=== PATIENT | female | born 1970 | race Caucasian/White ===

== ENCOUNTER 2019-04-04 11:03 | Emergency (ER) | payer BC, SELFPAY ==
[2019-04-04 11:12] VITALS: BP 190/93; PULSE 79; RESP 18; TEMP 36.6; O2SAT 93
--- NOTE | 2019-04-04 12:38 | DI.RAD_ITS ---
SYMPTOMS/DIAGNOSIS: RIGHT KNEE PAIN, LIMITED RANGE OF MOTION, UNSTABLE SINCE KNEE SCOPE IN 2010 RIGHT KNEE: Three views. No acute fracture or dislocation, lytic or sclerotic lesion is seen. Periarticular spurring is seen involving all three joint compartments. There does appear to be a small joint effusion. IMPRESSION: Osteoarthritis of the right knee.
[2019-04-04] MEDS: Ibuprofen 600 MG TAB PO (12:41)
--- NOTE | 2019-04-04 12:41 | NUR.NOTE ---
patient medicated per MD order. awaiting diagnostics Nursing Note:
--- NOTE | 2019-04-04 13:36 | W.ED.GENAD ---
Discharge Plan Disposition Patient Disposition: HOME Condition: Stable Discharge Details Chief Complaint: Orthopedic Clinical Impression: Acute pain of right knee Primary Care Provider: Evita Phillips ED Provider: Madan Hu Home Meds and New Rx's Prescriptions: Continued lisinopril 20 mg Tablet 20 mg PO DAILY RF: 0 hydrochlorothiazide 25 mg Tablet 25 mg PO DAILY RF: 0 Discharge Instructions Instructions: Knee Pain (ED), RICE Therapy (ED) Additional Instructions: Please rest over the next couple days and slowly advance activity as tolerated. You may take 600 mg of ibuprofen along with 650-1000mg of acetaminophen every 6 hours. Apply ice to the knee to help with swelling and if not improving please call orthopedic office for arrangement of follow-up appointment. Feel free to return to the emergency department for any new or significant worsening of symptoms Stand Alone Forms: Work Release Referrals: Thomas Guzman MD [ [facility] STAFF PHYSICIAN] - (Call the office for arrangement of follow-up) Discharge Data Discharge Date/Time-TO BE ENTERED AT DEPARTURE: 04/04/19 13:52 Medical Decision Making Right knee pain, walking and felt a pop yesterday evening after feeling a pulling sensation at work when walking. Physical exam limited due to patient's body habitus but she is unable to bear weight so radiological imaging feels required to rule out acute fracture. Patient is significantly tender to the medial aspect of the knee and with valgus stress making me suspicious of a medial ligamentous injury but again difficult to fully assess due to pain and body habitus. Radiological imaging and radiologist interpretation shows degenerative joint disease otherwise no acute findings. Patient's knee was wrapped with Oscar wrap and she was instructed to rest for the next 3 days then advanced activity as tolerated. pt to follow up with ortho if not improving. HPI General Mode of arrival: wheelchair. Date/Time Provider Initiated Documentation: 04/04/19 11:33. Limitations to Documentation: no limitations. Information obtained by: patient and RN notes reviewed. History of Present Illness 48 year old F presents to the emergency department with the chief complaint of right knee pain, described as severe and similar to prior episodes, with intensity rated at 10. Quality is described as sharp, and is localized to the right and upper extremity. Patient started experiencing this day(s) (1) and it has been constant. No relieving factors improve symptom(s), Movement worsens symptoms . Patient notes no other symptoms.. Patient did receive the following treatments prior to arrival, none Related Data Home Medications Medication Instructions Recorded Confirmed hydrochlorothiazide 25 mg PO DAILY 04/04/19 04/04/19 lisinopril 20 mg PO DAILY 04/04/19 04/04/19 Allergies Allergy/AdvReac Type Severity Reaction Status Date / Time Latex, Natural Rubber Allergy Unverified 04/04/19 11:16 General Stated Complaint: Orthopedic JEANCARLOS: 4 Review of Systems Cardiovascular Denies syncope Musculoskeletal Reports as per HPI, Denies numbness and Denies tingling Integumentary/Breasts Denies rash, Denies sores and Denies wounds Neurologic Denies syncope, Denies numbness and Denies tingling PFSH Social History Smoking/Tobacco Use Status: Never Alcohol Intake: current Alcohol Intake frequency: holidays/special occasions only Drug use: Never Substance use type: does not use Do you feel safe at home: Yes Do you feel safe in your relationship?: Yes Exam Const General: cooperative and no acute distress Nutritional Appearance: obese Orientation: alert, awake and oriented x3 Resp Effort & Inspection: normal respiratory effort and able to speak in complete sentences Cardio Rate: regular rate Rhythm: regular rhythm Extrem Right lower extremity: hip/thigh Details: normal ROM; no tenderness, knee Details: tenderness Location: of the medial joint line, abnormal ROM Details: pain with active ROM during and knee ligament exam abnormal Details: valgus stress test normal; no ecchymosis and no crepitus and lower leg Details: tenderness Location: of the proximal tibia Course Vital Signs Temperature 36.6 C 04/04/19 11:12 Pulse 79 04/04/19 11:12 Respiratory Rate 18 04/04/19 11:12 Blood Pressure 190/93 H 04/04/19 11:12 Pulse Oximetry 93 L 04/04/19 11:12 Temperature 36.6 C 04/04/19 11:12 Temperature Source Temporal Artery Scan 04/04/19 11:12 Pulse 79 04/04/19 11:12 Respiratory Rate 18 04/04/19 11:12 Respiratory Effort Non-Labored 04/04/19 11:13 Blood Pressure 190/93 H 04/04/19 11:12 Blood Pressure Position Sitting 04/04/19 11:12 Pulse Oximetry 93 L 04/04/19 11:12 Oxygen Delivery Method Room Air 04/04/19 11:12 Oxygen Flow Rate 0 04/04/19 11:12 Pain Level 10 04/04/19 11:15
== END 2019-04-04 13:52 | disposition home or self-care (01) ==
PROVIDERS: Emergency Provider Nurse Practitioner Family; PCP Nurse Practitioner Family
DX: M25.561 Pain in right knee (principal)
CPT/HCPCS: 73562; 99283; 99282; E0114

== ENCOUNTER 2019-11-07 16:34 | Outpatient (REF) | payer OTHER, SELFPAY ==
[2019-11-07 19:10] LABS: ALT 25 U/L (14-59); AST 13 U/L (15-37); Albumin 3.5 g/dL (3.4-5.0); Alkaline Phosphatase 131 U/L (46-116); Anion Gap 9.8 mmol/L (3-11); BUN 20 mg/dL (7-18); Bilirubin, Total 0.2 mg/dL (0.2-1.0); CO2 29.2 mmol/L (21.0-32.0); CREATININE 0.85 mg/dL (0.55-1.02); Calcium 9.1 mg/dL (8.5-10.1); Calculated LDL 122 mg/dL; Chloride 103 mmol/L (98-107); Cholesterol 217 mg/dL (<200); Glucose 126 mg/dL (74-106); HDL Cholesterol 39 mg/dL (40-60); Potassium 4.1 mmol/L (3.5-5.1); Sodium 142 mmol/L (136-145); TSH (W/Ref FT4) 3.76 uIU/mL (0.36-3.74); Total Protein 7.5 g/dL (6.4-8.2); Triglyceride 284 mg/dL (<150)
[2019-11-07 19:22] LABS: HCT 40.3 % (36.0-46.0); HGB 12.7 g/dL (12.0-15.5); Mean Corp. HGB Concentration 31.5 g/dL (32.0-36.0); Mean Corpuscular Hemoglobin 27.1 pg (27.0-33.0); Mean Corpuscular Volume 85.9 fL (80-95); Mean Platelet Volume 10.9 fL (8.0-11.0); Platelet Count 376 x1000/uL (130-400); RBC 4.69 m/cumm (4.00-5.20); RBC Distribution Width 15.1 % (11.7-14.6); White Blood Cell Count 7.21 k/cumm (4.4-10.8)
[2019-11-07 19:28] LABS: FREE T4 0.86 ng/dL (0.76-1.46)
== END 2019-11-07 16:54 ==
LOC: NCHCN 16:34
PROVIDERS: PCP Nurse Practitioner Family; Visit Provider Nurse Practitioner Family
DX: I10 Essential (primary) hypertension (principal); N93.9 Abnormal uterine and vaginal bleeding, unspecified; G93.2 Benign intracranial hypertension
CPT/HCPCS: 80053; 80061; 85027; 84439; 84443

== ENCOUNTER 2019-12-04 12:42 | Outpatient (REF) | payer OTHER, SELFPAY ==
[2019-12-04 13:48] LABS: Abs Immature Grans 0.01 k/cumm (0.0-0.09); Absolute Basophil Count 0.02 k/cumm (0.0-0.2); Absolute Eosinophil Count 0.16 k/cumm (0.0-0.7); Absolute Lymphocyte Count 1.57 k/cumm (1.2-3.4); Absolute Monocyte Count 0.45 k/cumm (0.11-0.7); Absolute Neutrophil Count 3.32 k/cumm (1.2-6.7); Basophils % 0.4; Eosinophils % 2.9; HCT 39.1 % (36.0-46.0); HGB 12.3 g/dL (12.0-15.5); Immature Grans % 0.2 %; Lymphocytes % 28.4; Mean Corp. HGB Concentration 31.5 g/dL (32.0-36.0); Mean Corpuscular Volume 85.7 fL (80-95); Mean Platelet Volume 10.9 fL (8.0-11.0); Monocytes % 8.1; Platelet Count 351 x1000/uL (130-400); RBC 4.56 m/cumm (4.00-5.20); RBC Distribution Width 15.7 % (11.7-14.6); White Blood Cell Count 5.53 k/cumm (4.4-10.8)
[2019-12-04 17:45] LABS: ALT 24 U/L (14-59); AST 14 U/L (15-37); Albumin 3.3 g/dL (3.4-5.0); Alkaline Phosphatase 115 U/L (46-116); Anion Gap 8.8 mmol/L (3-11); BUN 15 mg/dL (7-18); Bilirubin, Total 0.4 mg/dL (0.2-1.0); CO2 28.2 mmol/L (21.0-32.0); CREATININE 0.72 mg/dL (0.55-1.02); Chloride 102 mmol/L (98-107); Glucose 105 mg/dL (74-106); Potassium 4.4 mmol/L (3.5-5.1); Sodium 139 mmol/L (136-145); Total Protein 7.1 g/dL (6.4-8.2)
== END 2019-12-04 13:02 ==
LOC: NCHCN 12:42
PROVIDERS: PCP Nurse Practitioner Family; Visit Provider Nurse Practitioner Family
DX: I10 Essential (primary) hypertension (principal)
CPT/HCPCS: 80053; 85025

== ENCOUNTER 2019-12-11 01:40 | Outpatient (CLI) | payer OTHER, SELFPAY ==
--- NOTE | 2019-12-11 09:14 | DI.MAMMO_ITS ---
EXAM: MG MAMMO SCREENING CLINICAL HISTORY: SCREENING, FAMILY H/O BREAST CA, Z80.3 TECHNIQUE: Mammograms were interpreted according to the usual protocol including computer analysis w Snip.ly system, tomosynthesis and C-view imaging. COMPARISON: FINDINGS: Breasts are of moderate density with fairly symmetrical distribution of fibroglandular tissue. No do minant mass or clumped microcalcification is identified in either breast. Current examination is com pared with previous examinations including July 2013 and there has been no gross interval change in appearance in comparison with previous studies. IMPRESSION: No specific evidence of malignancy at this time. Routine screening examinations are suggested at yea rly intervals due to the family history of breast carcinoma Category 1, breast density category B
== END 2019-12-11 02:00 ==
PROVIDERS: PCP Nurse Practitioner Family; Visit Provider Nurse Practitioner Family
DX: Z12.31 Encounter for screening mammogram for malignant neoplasm of breast (principal); Z80.3 Family history of malignant neoplasm of breast
CPT/HCPCS: 77063; 77067

== ENCOUNTER 2020-01-08 09:40 | Outpatient (REF) | payer OTHER, SELFPAY ==
[2020-01-08 18:57] LABS: PROTEIN 11.5 mg/dL
[2020-01-08 18:58] LABS: COMMENT (LAB VIEW ONLY) 47.94 mg/dL; Prot/Crea Ur Ratio 0.23
[2020-01-08 19:03] LABS: COMMENT (LAB VIEW ONLY) 48.57 mg/dL; Microalb ug/mg Crea 22.9 ug/mg Cr
== END 2020-01-08 10:00 ==
LOC: NCHCN 09:40
PROVIDERS: PCP Nurse Practitioner Family; Visit Provider Student in an Organized Health Care Education/Training Program
DX: I10 Essential (primary) hypertension (principal); R73.03 Prediabetes
CPT/HCPCS: 82043; 82565; 82570; 84156; 87070; 87205

== ENCOUNTER 2020-09-03 15:49 | Outpatient (REF) | payer OTHER, SELFPAY ==
[2020-09-05 13:52] LABS: Patient Race White; SARS-CoV-2 RNA Undetected (Undetected); SARS-CoV-2 Specimen Source Nasopharynx
== END 2020-09-03 16:09 ==
LOC: NCHCN 15:49
PROVIDERS: PCP Nurse Practitioner Family; Visit Provider Nurse Practitioner Family
DX: Z20.828 Contact with and (suspected) exposure to other viral communicable diseases (principal)
CPT/HCPCS: U0003

== ENCOUNTER 2021-07-11 13:03 | Outpatient (REF) | payer OTHER, SELFPAY ==
[2021-07-11 20:44] LABS: Abs Immature Grans 0.02 10^3/uL (0.0-0.06); Absolute Basophil Count 0.06 10^3/uL (0.0-0.2); Absolute Lymphocyte Count 1.85 10^3/uL (1.2-3.4); Absolute Monocyte Count 0.62 10^3/uL (0.1-0.8); Basophils % 0.7; Eosinophils % 2.4; HCT 39.8 % (36.0-46.0); HGB 12.2 g/dL (11.2-15.7); Immature Grans % 0.2; Lymphocytes % 21.9; MCH 27.3 pg (27.0-33.0); MCHC 30.7 % (32.0-36.0); MPV 10.6 fL (8.0-11.0); Monocytes % 7.3; Neutrophils % 67.5; Nucleated RBC 0 %; Platelet Count 397 10^3/uL (130-400); RBC 4.47 10^6/uL (3.93-5.22); RDW 15.4 % (11.7-14.6); RDW-SD 50.7 fL; WBC 8.45 10^3/uL (4.4-10.8)
[2021-07-11 20:58] LABS: Iron 26 ug/dL (50-170); Total Iron Binding Capacity 255 ug/dL (250-450); Transferrin Sat 10 % (15-50)
[2021-07-11 21:12] LABS: ALT 16 U/L (14-59); AST 14 U/L (15-37); Albumin 3.6 g/dL (3.4-5.0); Alkaline Phosphatase 109 U/L (46-116); Anion Gap 4.7 mmol/L (3-11); BUN 16 mg/dL (7-18); Bilirubin, Total 0.2 mg/dL (0.2-1.0); CO2 32.3 mmol/L (21.0-32.0); CREATININE 0.8 mg/dL (0.55-1.02); Calcium 9.1 mg/dL (8.5-10.1); Calculated LDL 122 mg/dL (<100); Chloride 103 mmol/L (98-107); Cholesterol 199 mg/dL (<200); Ferritin 52 ng/mL (8-252); Glucose 135 mg/dL (74-106); HDL Cholesterol 42 mg/dL (40-60); Potassium 4.2 mmol/L (3.5-5.1); Sodium 140 mmol/L (136-145); TSH (W/Ref FT4) 2.28 uIU/mL (0.36-3.74); Total Protein 7.3 g/dL (6.4-8.2); Triglyceride 175 mg/dL (<150)
== END 2021-07-11 13:04 | disposition home or self-care (01) ==
LOC: NCHCN 13:03
PROVIDERS: PCP Nurse Practitioner Family; Visit Provider Nurse Practitioner Family
DX: R53.83 Other fatigue (principal); I10 Essential (primary) hypertension; K30 Functional dyspepsia; R73.03 Prediabetes; E66.01 Morbid (severe) obesity due to excess calories; F41.9 Anxiety disorder, unspecified; R06.2 Wheezing
CPT/HCPCS: 80053; 80061; 82728; 83540; 83550; 84443; 85025

== ENCOUNTER 2021-08-25 02:06 | Outpatient (CLI) | payer OTHER, SELFPAY ==
--- NOTE | 2021-08-25 09:11 | DI.MAMMO_ITS ---
Exam(s) MAMMO SCREENING EXAM: MAMMO SCREENING CLINICAL HISTORY: SCREENING,Z12.39,FAMILY H/O BREAST CA,Z80.3. TECHNIQUE: Bilateral full field digital CC and MLO mammographic images were obtained with 3D tomosyn thesis and utilizing computer aided detection (CAD). COMPARISON: Prior mammograms dating back to 2012, the most recent being November 2019. FINDINGS: Asymmetry in breast size is unchanged from prior studies There are no new spiculated masses nor malignant appearing microcalcification groups. Microcalcification group at 12 o'clock position of the left breast is unchanged from 2013. Other emiliano ign microcalcification again noted bilaterally. There is no significant architectural distortion nor skin thickening-retraction. IMPRESSION: No radiographic evidence of malignancy. BI-RADS Category 1 - Negative Breast Density - Category B - Scattered areas of fibroglandular density Breast density Category C or D implies that the patient has dense breast tissue. Dense breast tissue can make it harder to find cancer on a mammogram. Dense breast tissue is also associated with an incr eased risk of breast cancer. This information about the result of the mammogram report was provided to the patient to raise their awareness. Use this report when you speak with the patient about their risks for breast cancer, which includes their family history. At that time, you may recommend additional screening tests (Ultrasoun d or MRI) as these tests may add significant information. A negative radiographic report should not delay biopsy if a dominant or clinically suspicious mass is present. Up to ten percent of cancers are not identified on mammography. A negative report may reinforce clinical impression. Adenosis and dense breasts may obscure an underlying neoplasm. False positive reports average 6 to 10%. Patient will receive a letter notifying them of these results.
== END 2021-08-25 02:26 ==
PROVIDERS: PCP Nurse Practitioner Family; Visit Provider Nurse Practitioner Family
DX: Z12.31 Encounter for screening mammogram for malignant neoplasm of breast (principal); Z80.3 Family history of malignant neoplasm of breast
CPT/HCPCS: 77063; 77067

== ENCOUNTER 2021-11-20 12:26 | Outpatient (REF) | payer OTHER, SELFPAY ==
--- NOTE | 2021-11-20 12:00 | PAPFT_PTH ---
PATIENT: Argelia Jain LOC: [facility]#:[id number] AGE/SX: 51/F ROOM: RE11/20/[address]: Jenise Almendarez : 1970 BED: DIS: 11/20/2021 SPEC #: [id number] RECD: 11/20/21 17:04 STATUS: LATOYA PHILIPPE #: [id number] LUCIA: 11/20/21 12:[address]: Jenise Almendarez DEPT: [facility] Cytology RECD BY: Liz Cates Tissues: 1 - CX/ENDOCX FOR PAP SMEARS Procedures: PAP THIN PREP/UVM Screening HPV DNA PROBE Comments: [id number]
== END 2021-11-20 12:27 | disposition home or self-care (01) ==
LOC: NCHCN 12:26
PROVIDERS: PCP Nurse Practitioner Family; Visit Provider Nurse Practitioner Family
DX: Z12.4 Encounter for screening for malignant neoplasm of cervix (principal); Z11.51 Encounter for screening for human papillomavirus (HPV)
CPT/HCPCS: 88142; 87624

== ENCOUNTER 2022-02-19 18:39 | Outpatient (REF) | payer OTHER, SELFPAY ==
[2022-02-19 15:49] LABS: Iron 45 ug/dL (50-170); Total Iron Binding Capacity 238 ug/dL (250-450); Transferrin Sat 19 % (15-50)
[2022-02-19 15:58] LABS: Ferritin 66 ng/mL (8-252)
[2022-02-19 16:06] LABS: Abs Immature Grans 0.02 10^3/uL (0.0-0.06); Absolute Basophil Count 0.05 10^3/uL (0.0-0.2); Absolute Eosinophil Count 0.21 10^3/uL (0.0-0.7); Absolute Lymphocyte Count 2.19 10^3/uL (1.2-3.4); Absolute Monocyte Count 0.44 10^3/uL (0.1-0.8); Absolute Neutrophil Count 4.32 10^3/uL (1.2-6.7); Basophils % 0.7; Eosinophils % 2.9; HCT 41.1 % (36.0-46.0); HGB 12.6 g/dL (11.2-15.7); Immature Grans % 0.3; Lymphocytes % 30.3; MCH 27.2 pg (27.0-33.0); MCHC 30.7 % (32.0-36.0); MCV 88.6 fL (80-95); MPV 10.8 fL (8.0-11.0); Monocytes % 6.1; Neutrophils % 59.7; Nucleated RBC 0 %; Platelet Count 377 10^3/uL (130-400); RBC 4.64 10^6/uL (3.93-5.22); RDW 15.8 % (11.7-14.6); RDW-SD 51.8 fL; WBC 7.23 10^3/uL (4.4-10.8)
== END 2022-02-19 18:40 | disposition home or self-care (01) ==
LOC: NCHCN 18:39
PROVIDERS: PCP Nurse Practitioner Family; Visit Provider Nurse Practitioner Family
DX: I10 Essential (primary) hypertension (principal); E03.9 Hypothyroidism, unspecified; R73.03 Prediabetes; E61.1 Iron deficiency; E66.01 Morbid (severe) obesity due to excess calories
CPT/HCPCS: 82728; 83540; 83550; 85025

== ENCOUNTER 2022-07-16 09:47 | Outpatient (REF) | payer OTHER, SELFPAY ==
[2022-07-16 16:37] LABS: Iron 48 ug/dL (50-170); Total Iron Binding Capacity 253 ug/dL (250-450)
[2022-07-16 16:49] LABS: Anion Gap 6.9 mmol/L (3-11); BUN 14 mg/dL (7-18); CO2 31.1 mmol/L (21.0-32.0); CREATININE 0.7 mg/dL (0.55-1.02); Chloride 100 mmol/L (98-107); Ferritin 74 ng/mL (8-252); Glucose 103 mg/dL (74-106); Potassium 4.4 mmol/L (3.5-5.1); Sodium 138 mmol/L (136-145); TSH (W/Ref FT4) 2.76 uIU/mL (0.36-3.74)
== END 2022-07-16 09:48 | disposition home or self-care (01) ==
LOC: NCHCN 09:47
PROVIDERS: PCP Nurse Practitioner Family; Visit Provider Nurse Practitioner Family
DX: E61.1 Iron deficiency (principal); F41.8 Other specified anxiety disorders; R53.83 Other fatigue; K30 Functional dyspepsia; E66.01 Morbid (severe) obesity due to excess calories; R60.0 Localized edema
CPT/HCPCS: 80048; 82728; 83540; 83550; 84443

== ENCOUNTER → 2022-08-27 03:12 | Outpatient (CLI) | payer OTHER, SELFPAY ==
--- NOTE | 2022-08-27 08:23 | DI.MAMMO_ITS ---
Exam(s) MAMMO SCREENING EXAM: MAMMO SCREENING CLINICAL HISTORY: SCREENING, Z12.39; FAM H/O BREAST CA, Z80.3 TECHNIQUE: Bilateral full field digital CC and MLO mammographic images were obtained with 3D tomosyn thesis and utilizing computer aided detection (CAD). COMPARISON: Available for comparison. FINDINGS: Masses/Architectural Distortion: None seen. Microcalcifications: No suspicious pleomorphic-type are seen. Skin Thickening/Nipple Retraction: None. IMPRESSION: 1. No significant interval change with no specific features of malignancy noted. 2. Unless there is more urgent need, screening mammography is recommended, as per [place] [employer] guidelines. BI-RADS Category 1 - Negative Breast Density - Category B - Scattered areas of fibroglandular density Breast density category C or D implies that the patient has dense breast tissue. Dense breast tissue is very common and is not abnormal but dense breast tissue can make it harder to find cancer on a ma mmogram. Also, dense breast tissue may increase their breast cancer risk. This information about the result of the mammogram report was provided to the patient to raise their awareness. Use this report when you speak with the patient about their risks for breast cancer, which includes their family hist ory. At that time, you may recommend for more screening tests (Ultrasound or MRI) as they might be us eful based on their risk. A negative radiographic report should not delay biopsy if a dominant or clinically suspicious mass is present. Up to ten percent of cancers are not identified on mammography. A negative report may reinforce clinical impression. Adenosis and dense breasts may obscure an underlying neoplasm. False positive reports average 6 to 10%. Patient will receive a letter notifying them of these results.
== END ==
PROVIDERS: PCP Nurse Practitioner Family; Visit Provider Nurse Practitioner Family
DX: Z12.31 Encounter for screening mammogram for malignant neoplasm of breast (principal)
CPT/HCPCS: 77063; 77067

== ENCOUNTER 2023-08-01 15:57 | Outpatient (REF) | payer OTHER, SELFPAY ==
[2023-07-30 21:47] LABS: Abs Immature Grans 0.02 10^3/uL (0.0-0.06); Absolute Basophil Count 0.05 10^3/uL (0.0-0.2); Absolute Eosinophil Count 0.16 10^3/uL (0.0-0.7); Absolute Lymphocyte Count 2.04 10^3/uL (1.2-3.4); Absolute Monocyte Count 0.36 10^3/uL (0.1-0.8); Absolute Neutrophil Count 4.75 10^3/uL (1.2-6.7); Basophils % 0.7; Eosinophils % 2.2; HCT 41.8 % (36.0-46.0); HGB 13.6 g/dL (11.2-15.7); Immature Grans % 0.3; Lymphocytes % 27.6; MCH 28.6 pg (27.0-33.0); MCHC 32.5 % (32.0-36.0); MCV 88 fL (80-95); MPV 10.7 fL (8.0-11.0); Monocytes % 4.9; Neutrophils % 64.3; Platelet Count 398 10^3/uL (130-400); RBC 4.76 10^6/uL (3.93-5.22); RDW 14.7 % (11.7-14.6); RDW-SD 47.5 fL; WBC 7.38 10^3/uL (4.4-10.8)
[2023-07-30 22:27] LABS: ALT 26 U/L (14-59); AST 17 U/L (15-37); Albumin 3.5 g/dL (3.4-5.0); Alkaline Phosphatase 136 U/L (46-116); Anion Gap 8.3 mmol/L (3-11); BUN 12 mg/dL (7-18); Bilirubin, Total 0.4 mg/dL (0.2-1.0); CO2 29.7 mmol/L (21.0-32.0); CREATININE 0.8 mg/dL (0.55-1.02); Calculated LDL 133 mg/dL (<100); Chloride 99 mmol/L (98-107); Cholesterol 221 mg/dL (<200); Estimated GFR 89.71 (mL/min/1.73m2); Ferritin 84 ng/mL (8-252); Glucose 108 mg/dL (74-106); HDL Cholesterol 47 mg/dL (40-60); Potassium 4.1 mmol/L (3.5-5.1); Sodium 137 mmol/L (136-145); TSH (W/Ref FT4) 3.37 uIU/mL (0.36-3.74); Total Protein 7.4 g/dL (6.4-8.2); Triglyceride 208 mg/dL (<150)
[2023-07-30 22:43] LABS: Iron 46 ug/dL (50-170); Total Iron Binding Capacity 264 ug/dL (250-450); Transferrin Sat 17 % (15-50)
== END 2023-08-01 15:58 | disposition home or self-care (01) ==
LOC: NCHCN 15:57
PROVIDERS: PCP Nurse Practitioner Family; Visit Provider Nurse Practitioner Family
DX: I10 Essential (primary) hypertension (principal); B00.1 Herpesviral vesicular dermatitis; J30.2 Other seasonal allergic rhinitis; G47.62 Sleep related leg cramps; E61.1 Iron deficiency; K30 Functional dyspepsia; F41.9 Anxiety disorder, unspecified; R73.03 Prediabetes
CPT/HCPCS: 80053; 80061; 82728; 83540; 83550; 84443; 85025

== ENCOUNTER → 2023-09-01 02:31 | Outpatient (CLI) | payer OTHER, SELFPAY ==
--- NOTE | 2023-09-01 08:18 | DI.MAMMO_ITS ---
Exam(s) MAMMO SCREENING EXAM: MAMMO SCREENING CLINICAL HISTORY: SCREENING, Z12.39, FAM HX BREAST CA, Z80.3. TECHNIQUE: Bilateral full field digital CC and MLO mammographic images were obtained with 3D tomosyn thesis and utilizing computer aided detection (CAD). COMPARISON: Prior mammograms were reviewed. FINDINGS: There has been no significant change in the appearance and distribution of the fibroglandular tissue. There are no new spiculated masses nor malignant appearing microcalcification groups. There is no significant architectural distortion nor skin thickening-retraction. IMPRESSION: No radiographic evidence of malignancy. BI-RADS Category 1 - Negative Breast Density - Category B - Scattered areas of fibroglandular density Breast density Category C or D implies that the patient has dense breast tissue. Dense breast tissue can make it harder to find cancer on a mammogram. Dense breast tissue is also associated with an incr eased risk of breast cancer. This information about the result of the mammogram report was provided to the patient to raise their awareness. Use this report when you speak with the patient about their risks for breast cancer, which includes their family history. At that time, you may recommend additional screening tests (Ultrasoun d or MRI) as these tests may add significant information. A negative radiographic report should not delay biopsy if a dominant or clinically suspicious mass is present. Up to ten percent of cancers are not identified on mammography. A negative report may reinforce clinical impression. Adenosis and dense breasts may obscure an underlying neoplasm. False positive reports average 6 to 10%. Patient will receive a letter notifying them of these results.
== END ==
PROVIDERS: PCP Nurse Practitioner Family; Visit Provider Nurse Practitioner Family
DX: Z12.31 Encounter for screening mammogram for malignant neoplasm of breast (principal)
CPT/HCPCS: 77063; 77067

== ENCOUNTER 2024-08-31 20:06 | Outpatient (REF) | payer BC, SELFPAY ==
[2024-08-31 21:22] LABS: ALT 24 U/L (14-59); AST 14 U/L (15-37); Albumin 3.6 g/dL (3.4-5.0); Alkaline Phosphatase 160 U/L (46-116); Anion Gap 5.2 mmol/L (3-11); BUN 14 mg/dL (7-18); CO2 31.8 mmol/L (21.0-32.0); CREATININE 0.9 mg/dL (0.55-1.02); Calcium 9.4 mg/dL (8.5-10.1); Chloride 100 mmol/L (98-107); Glucose 111 mg/dL (74-106); Potassium 4.5 mmol/L (3.5-5.1); Sodium 137 mmol/L (136-145); Total Protein 7.7 g/dL (6.4-8.2)
== END 2024-08-31 20:07 | disposition home or self-care (01) ==
LOC: NCHCN 20:06
PROVIDERS: PCP Nurse Practitioner Family; Visit Provider Nurse Practitioner Family
DX: I10 Essential (primary) hypertension (principal)
CPT/HCPCS: 80053

== ENCOUNTER 2024-09-05 12:55 | Outpatient (REF) | payer BC, SELFPAY ==
[2024-09-05 15:18] LABS: GGT 31 U/L (5-55)
[2024-09-11 16:45] LABS: 25-Hydroxy D Total 8.7 ng/mL; 25-Hydroxy D2 <4.0 ng/mL; 25-Hydroxy D3 8.7 ng/mL
== END 2024-09-05 12:56 | disposition home or self-care (01) ==
LOC: NCHCN 12:55
PROVIDERS: PCP Nurse Practitioner Family; Visit Provider Nurse Practitioner Family
DX: R74.8 Abnormal levels of other serum enzymes (principal)
CPT/HCPCS: 82306; 82652; 82977

== ENCOUNTER 2024-11-24 00:28 | Outpatient (CLI) | payer BC, SELFPAY ==
--- NOTE | 2024-11-24 | DI.MAMMO_ITS ---
Exam(s) MAMMO SCREENING EXAM: MAMMO SCREENING CLINICAL HISTORY: SCREENING, Z12.39. TECHNIQUE: Bilateral full field digital CC and MLO mammographic images were obtained with 3D tomosyn thesis and utilizing computer aided detection (CAD). COMPARISON: Prior mammograms were reviewed. FINDINGS: There has been no significant change in the appearance and distribution of the fibroglandular tissue. Benign-appearing microcalcifications again noted in both breasts. There are no new spiculated masses nor new malignant appearing microcalcification groups. There is no significant architectural distortion nor skin thickening-retraction. IMPRESSION: No radiographic evidence of malignancy. BI-RADS Category 1 - Negative Breast Density - Category B - Scattered areas of fibroglandular density Breast density Category C or D implies that the patient has dense breast tissue. Dense breast tissue can make it harder to find cancer on a mammogram. Dense breast tissue is also associated with an incr eased risk of breast cancer. This information about the result of the mammogram report was provided to the patient to raise their awareness. Use this report when you speak with the patient about their risks for breast cancer, which includes their family history. At that time, you may recommend additional screening tests (Ultrasoun d or MRI) as these tests may add significant information. A negative radiographic report should not delay biopsy if a dominant or clinically suspicious mass is present. Up to ten percent of cancers are not identified on mammography. A negative report may reinforce clinical impression. Adenosis and dense breasts may obscure an underlying neoplasm. False positive reports average 6 to 10%. Patient will receive a letter notifying them of these results.
--- OUTSIDE RECORDS SUMMARY | 2024-11-24 00:30 | XMS_ITS | Encounter Summary ---
Author Organization [facility] [place] [address] Care Team Providers Care Saddle Tree Stitcher Name Role Phone Nettie Centeno APRN Primary Care Provider Ana Lilia vailable Reason for Visit * Physical Therapy (Routine) - Closed Specialty Diagnoses / Procedures Referred By Sharon frank Referred To Contact Physical Therapy Diagnoses Rupture of anterior cruciate ligament of right knee, subsequent encounter Aamir Crews MD [facility] [place] [address] [facility] [address] [place] [address] Referral ID Status Reason Start Date Expiration Date V isits Requested Visits Authorized [id number] Closed Evaluate and Treat 07/28/2016 07/28/2017 1 1 Encounter Details Date Type Department Care Team (Late st Contact Info) Description 07/28/2016 9:15 AM EDT Office Visit Physical Therapy at [facility] [address] [place] [address] Hemant Tomas, PT H/O: knee surgery Social History Tobacco Use Types Packs/Day Years Used Date Smoking Tobacco: Never Smokeless Tobacco: Never Alcohol Use Standard Drinks/Week Comments Yes 0 (1 standard drink = 0.6 oz pur e alcohol) 1 or 2x a week Sex and Gender Information Value Date Recorded Sex Assigned at Not on file Gender Identity Not on file Sexual Orientation Not on file documented as of this encounter Progress Notes * Hemant Tomas, PT - 07/28/2016 9:15 AM EDT Images from the original note were not included. [facility] PT NOTE: DX: R KNEE PAIN ACL deficiency-arthroscopiy for MMT Case Date: 09/02/2011 ?? Surgeon: Surgeon(s) and Role: * AAMIR CREWS MD - Primary * FREDIS URIBE MD - Resident-Surgeon Brad ?? Preoperative diagnosis: Medial meniscus tear right ?? Postoperative diagnosis: Medial meniscus tear and ACL tears right knee ?? Procedure(s): ARTHROSCOPY KNEE, MENISCECTOMY SINGLE W/ SHAVING ARTHROSCOPY KNEE SYNOVECTOMY LIMITED S: Patient reports pain 4-8/10 and instability R knee + R ankle ashlyn on stairs and getting in and out of car or truck. O: FUNCTIONAL MOBILITY SCREEN: ROM R knee 0/105 STRENGTH R Knee -5/5 Hip -5/5 ankle 4/5 TRANSFERS : sit to stand independent & guarded GAIT : independent on level surfaces w/antalgia slight limp THERE-EX (96680 ) 23 min Patient instructed in general flexibility QUADS - HAMS-HC + stabilization w/ DL bridge supine - Perform only the stretches above reviewed by your therapist. Perform each stretch 3 repetitions holding 30-60 seconds 1-2 times daily. Remember to keep your back straight and hips level. Discontinue any of the stretches that increase your present level of discomfort and discuss with your therapist. Remember TALA E (rest, ice, compression, elevation) x15 minutes as needed after exercise and activity to reduce pain and swelling. Reviewed functional transfers sit-stand. STABILIZATION w/ISO CKC standing w/theraband. Stand on the affected leg with a slight knee bend no more than 30??. Try to bear the weight towards your heel and not the ball of your foot. Make sure you can see your big toe . It is normal to have some soreness that may feel hurtful however not harmful. Try straightening your knee a bit without locking it and this may reduce some discomfort. Maintain an upright trunk, a level pelvis, and do not allow the knee to collapse in toward the midline. Pull the band back on the unaffected leg 4-6 inches in the 12:00 to 6:00 direction while facing 12:00 as in #3 above. Turn 90?? toward the leg you are standing on opposite your unaffected leg that the band is attachedto. After 5 reps turn 90?? again until you have completed the 4 positions and have returned to the starting 12 o'clock position. Switch legs and repeat in the other direction. Start with 5 reps and work up to 10 reps . You may progress to 3 cycles of 10 reps for each leg 3-5 times a week. Applying a cold pack wrapped in a towel x15 minutes to your knee with the leg elevated above the level of your heart will help with pain management and swelling after activity and exercise. If you are concerned about your balance just place your foot down that has the band attached to it . You may slide your foot that has the band attached to it instead of picking it up until your balance improvements. You may also hold onto a ski pole or a crutch on the same side as the band on the good leg oppositeyour weaker leg. This should improve over time as you're strength and stabilization and improves. DISCONTINUE any of the above exercises if you are unsure of these instructions and speak with your PT. [phone] A: Patient reports 4-07/08 pain right knee with occasional instability s/p scope MM 09/08 w/ ACL deficiency. Patient also reports ankle pain and has been evaluated by Dr. Romero. And has Hx of club feet requiring surgical releases. Patient instructed in shallow closed kinetic chain isometric strengthening targeting [id number]-[id number]-odmhl-ankles using Thera-Band standing. She was also instructed in generalized flexibility and stabilization supine, sitting and standing. P: D/C to home exercise program with option for follow-up if needed. Patient was urged to call with any further questions or concerns at any time. Patient is agreeable with this plan. STG : Archer with home exercise program. Improve flexibility and stabilization strengthening for functional transfers and ambulation. LTG: Improve stabilization and proprioception for safe weightbearing activities. documented in this encounter Plan of Treatment Scheduled Referrals Name Type Priority Associated Diagnoses Orde r Schedule Referral to Physical Therapy Outpatient Referral Routine Rupture Of Anterior Cruciate Ligament Of Right Knee, Subsequent Encounter Ordered: 07/28/2016 documented as of this encounter Visit Diagnoses Diagnosis H/O: knee surgery Other postprocedural status documented in this encounter Care Teams Saddle Tree Stitcher Relationship Specialty Start Date End Date Nettie Centeno APRN PCP - General Family Medicine 07/02/16 documented as of this encounter
--- OUTSIDE RECORDS SUMMARY | 2024-11-24 00:30 | XMS_ITS | Encounter Summary ---
Author Organization [facility] [place] [address] Care Team Providers Care Manager Aviation Name Role Phone Jackelyn Richey APRN Primary Care Provider Unav ailable Reason for Visit * Reason Onset Date Comments Patient Education 06/03/2011 Encounter Details Date Type Department Care Team (Late st Contact Info) Description 06/03/2011 [place] [address] Afua Barreto, RN Patient Education Social History Tobacco Use Types Packs/Day Years Used Date Smoking Tobacco: Never Smokeless Tobacco: Never Alcohol Use Standard Drinks/Week Comments No 0 (1 standard drink = 0.6 oz pur e alcohol) Sex and Gender Information Value Date Recorded Sex Assigned at Not on file Gender Identity Not on file Sexual Orientation Not on file documented as of this encounter Miscellaneous Notes * Telephone Encounter - Afua Barreto RN - 06/03/2011 5:23 PM EDT Phone Note Argelia called with question regarding Diamox. She had been taking this medication for intercranialhypertension until September 2010. Stopped after finding out she was . Has a neurologist that has treated her for headaches in the past. Would like to start back on the same medication. Argelia delivered on 05/15/11 at [facility]. Infant was 37.5 wks gestation with no complications after . Argelia has been formula feeding via bottle with occasional attempts at the breast . States to painful. According to Dr. Nathan Mae Medications and Mothers' Milk Diamox taken BID 500mg is classified as an L2 with none reported pediatric concerns. Based on diuretic properties, maydecrease breastmilk supply. Argelia couldn't remember the dose that she took or how often. Based oninfant not on a regular basis and not pumping her chances of alone are low. Aware to come in for consult if intertested in pursuing further. Has phone number. Afua Barreto RN, IBCLC [employer] [facility] documented in this encounter Plan of Treatment Not on file documented as of this encounter Visit Diagnoses Not on filedocumented in this encounter Care Teams Manager Aviation Relationship Specialty Start Date End Date Jackelyn Richey, CORD CUTTER PCP - General 11/10/10 07/01/16 documented as of this encounter
--- OUTSIDE RECORDS SUMMARY | 2024-11-24 00:30 | XMS_ITS | Encounter Summary ---
[facility] [place] [address] Care Team Providers Care Vending Service Technician Name Role Phone Jackelyn Richey APRN Primary Care Provider Unav ailable Encounter Details Date Type Department Care Team (Late st Contact Info) Description 08/10/2011 Orders [place] [id number] Aamir Christensen MD [facility] [place] [address] Social History Tobacco Use Types Packs/Day Years Used Date Smoking Tobacco: Never Smokeless Tobacco: Never Alcohol Use Standard Drinks/Week Comments No 0 (1 standard drink = 0.6 oz pur e alcohol) Sex and Gender Information Value Date Recorded Sex Assigned at Not on file Gender Identity Not on file Sexual Orientation Not on file documented as of this encounter Plan of Treatment Not on file documented as of this encounter Procedures Procedure Name Priority Date/Time Associated Diagnosis Comments FILM LIBRARY STORAGE ONLY DX KNEE Routine 08/10/2011 10:24 AM EDT documented in this encounter Results * FILM LIBRARY- STORAGE ONLY DX KNEE (08/10/2011 10:24 AM EDT) 08/10/2011 10:2 4 AM EDT Narrative [facility] - 04/03/2014 7:48 PM EDT This is a non-reportable exam. Procedure Note Paul Fuller - 04/03/2014 This is a non-reportable exam. Aamir Christensen MD IM FILM LIBRARY ORD ERABLES RAD [address] [facility] [place] [address] documented in this encounter Visit Diagnoses Not on filedocumented in this encounter Care Teams Vending Service Technician Relationship Specialty Start Date End Date Jackelyn Richey APRN PCP - General 11/10/10 07/01/16 documented as of this encounter
--- OUTSIDE RECORDS SUMMARY | 2024-11-24 00:30 | XMS_ITS | Encounter Summary ---
Author Organization [facility] [place] [address] Care Team Providers Care Drip Molder Name Role Phone Nettie Centeno APRN Primary Care Provider Ana Lilia vailable Reason for Visit * Reason Comments Bilateral Foot Pain * Consultation (Routine) - Specialty Diagnoses / Procedures Referred By Sharon frank Referred To Contact Orthopaedics Diagnoses Pes planus, oa feet & knees Nettie Centeno APRN [address] [place] [address] [facility] [address] [place] [phone] Referral ID Status Reason Start Date Expiration Date V isits Requested Visits Authorized [id number] Consult, Test & Treat [facility] 07/02/2016 07/02/2017 1 1 Encounter Details Date Type Department Care Team (Latest Contact Info) Description 07/28/2016 8:00 AM EDT [place] [phone] Andrew Romero MD [facility] [address] [place] [address] Other secondary osteoarthritis of right ankle (Primary Dx) Social History Tobacco Use Types Packs/Day Years [...] on file documented as of this encounter Last Filed Vital Signs Vital Sign Reading Time Taken Comments Blood Pressure 154/96 07/28/2016 8:11 AM EDT Pulse 79 07/28/2016 8:11 AM EDT Temperature - - Respiratory Rate - - Oxygen Saturation - - Inhaled Oxygen Concentration - - Weight 149.7 kg (330 lb) 07/28/2016 8:11 AM EDT Height 162.6 cm (5' 4) 07/28/2016 8:11 AM EDT Body Mass Index 56.64 07/28/2016 8:11 AM EDT documented in this encounter Progress Notes * Florentin Kidd PA - 07/28/2016 8:00 AM EDT Chief complaint: Bilateral foot and ankle pain History of present illness: Argelia Jain is a 45 y.o. year-old morbidly obese female who presents today for evaluation for chronic foot and ankle pain. She presents today with her mother, to discuss congenital deformity of her foot and ankle. 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 She was seen and evaluated later and had a second operation with a heel cord lengthening at around 4 years of age. She explains the surgeon recommended an osteotomy, which the mother refused at that point in time. She did note good relief with the second operation with an increase in function. She was then treated with conservative treatment afterwards with immobilization and casting. The patient explains currently she troubles with issues with balance, and ankle pain. She notes these difficulties are worse on the right than the left. She is unable to heel raise, complains of limping, and pain in the morning. She has seen a title assistant in the past which is recommended bracing which she has not pursued. Patient denies any catching or locking, incision site difficulties, or redness about her bilateral feet. Past medical history: Patient Active Problem List Diagnosis Date Noted ??? H/O: knee surgery 09/10/2011 ??? ACL tear, traumatic 08/27/2011 ??? Acute meniscal tear, medial 08/27/2011 ??? state, incidental 04/07/2011 ??? GDM (gestational diabetes mellitus) 03/19/2011 ??? macrosomia 03/19/2011 ??? Polyhydramnios 03/19/2011 ? ? Obesity, morbid (more than 100 lbs over ideal weight or BMI > 40) 01/05/2011 ??? Benign hypertension due to increased intracranial pressure ??? AMA (advanced maternal age) primigravida 35+ 11/29/2010 History of blood clots or bleeding disorders: Denies Denies history of cardiac, lung, kidney, liver diease or diabetes Medications: ??? PROVENTIL HFA 90 mcg/actuation HFA Aerosol Inhaler ??? azithromycin (ZITHROMAX) 250 mg Tablet ??? levothyroxine (SYNTHROID) 75 mcg Tablet ??? levothyroxine (SYNTHROID) 50 mcg Tablet ??? lisinopril (PRINIVIL;ZESTRIL) 20 mg Tablet ??? ACETAZOLAMIDE ORAL Allergies: Allergies Allergen Reactions ??? Latex Hives Social history: Social History Substance Use Topics ??? Smoking status: Never Smoker ??? Smokeless tobacco: Never Used ??? Alcohol use Yes Comment: 1 or 2x a week Occupation: Works at [employer] Review of systems: No chest pain or shortness of breath at baseline No fevers, night sweats or chills Questionnaire Responses: No flowsheet data found. Physical Exam: No Apparent distress Exam is limited due to body habitus Right foot and ankle exam: There are 2 incisions about the medial aspect of the foot that are transverse, there is also a vertical incision about the distal heel cord. There is a pes planus deformity, patient is unable to heelraise, hindfoot valgus. Antalgic gait, ambulatory with assist. The skin is otherwise intact withouterythema, edema, ecchymosis, or open wound. There is no TTP or reproduction of tenderness and pain on exam over the medial malleolus, lateral malleolus, navicular, base of the fifth, first MTP joint.There are no palpable heel cord defects. Negative Martell test. Ankle range of motion is limited in dorsiflexion, can dorsiflex to neutral, plantar flex to 40??, invert 10??, clotilde 10??. 3/5 MMT in inversion, 5/5 MMT in PF, DF, eversion. Negative anterior drawer and subtalar tilt. PT/DP pulses 2+.Superficial peroneal, deep peroneal, sural, saphenous, and tibial nerves intact to touch. Left foot and ankle exam: There are 2 incisions about the medial aspect of the foot that are transverse, there is also a vertical incision about the distal heel cord. There is a pes planus deformity, patient is unable to heelraise, hindfoot valgus. Antalgic gait, ambulatory with assist. The skin is otherwise intact withouterythema, edema, ecchymosis, or open wound. There is no TTP or reproduction of tenderness and pain on exam over the medial malleolus, lateral malleolus, navicular, base of the fifth, first MTP joint.There are no palpable heel cord defects. Negative Martell test. Ankle range of motion is limited in dorsiflexion, can dorsiflex to neutral, plantar flex to 40??, invert 10??, clotilde 10??. 3/5 MMT in inversion, 5/5 MMT in PF, DF, eversion. Negative anterior drawer and subtalar tilt. PT/DP pulses 2+.Superficial peroneal, deep peroneal, sural, saphenous, and tibial nerves intact to touch. Imaging: Personal review of the patient's imaging reveals: X-rays obtained and reviewed. Negative for fracture, dislocation. There is osteoarthritis of the tibiotalar and subtalar joint bilaterally characterized by joint space narrowing, subchondral sclerosis, and osteophyte formation. No lytic, cystic, erosive changes. Assessment: 45 y.o. 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 OA secondary to club feet as a child. We discussed RICES, NSAIDS and APAP as tolerated, physical therapy, immobilization such as with an Tete brace versus an AFO with UCBL Trim lines, injections in the tibiotalar or subtalar joint, or ultimately a fusion. Patient is receptive to these options. We also discussed weight loss and potential referral to be weight loss center. At this point time, the patient will like to pursue conservative treatment with an Tete brace, or displacement instructions dispensed to obtain this. Patient will plan to see Dr. Romero. This patient was seen in conjuncture with Dr. Romero. Follow up: When necessary This plan was discussed with the patient and they are in agreement. All of the patient's questions were answered. The above dictation was made with voice recogonition software documented in this encounter Plan of Treatment Not on file documented as of this encounter Visit Diagnoses Diagnosis Other secondary osteoarthritis of right ankle- Primary documented in this encounter Care Teams Drip Molder Relationship Specialty Start Date End Date Nettie Centeno APRN PCP - General Family Medicine 07/02/16 documented as of this encounter
--- OUTSIDE RECORDS SUMMARY | 2024-11-24 00:30 | XMS_ITS | Clinical Summary ---
Author Organization [place] [address] Care Team Providers Care Dishwasher Busser Name Role Phone Nettie Centeno APRN Primary Care Provider Ana Lilia vailable Allergies Active Allergy Reactions Criticality Noted Date Comments Latex Hives 04/24/2011 Medications Medication Sig Dispensed Refills Start Date End Date Status ACETAZOLAMIDE ORAL Take 250 mg by mouth. Active PROVENTIL HFA 90 mcg/actuation HFA Aerosol Inhaler INHALE 1 TO 2 PUFFS 4 TIMES A DAY FOR 5 TO 7 DAYS 0 03/31/2016 Active azithromycin (ZITHROMAX) 250 mg Tablet TAKE 2 TABLETS BY MOUTH TODAY, THEN TAKE 1 TABLET DAILY FOR 4 DAYS 0 03/30/2016 Active levothyroxine (SYNTHROID) 75 mcg Tablet TAKE 1 TABLET BY MOUTH ONCE DAILY 1 07/08/2016 Active levothyroxine (SYNTHROID) 50 mcg Tablet TAKE 1 TABLET BY MOUTH EVERY MORNING 0 06/29/2016 Active lisinopril (PRINIVIL;ZESTRIL) 20 mg Tablet TAKE 1 TABLET BY MOUTH ONCE DAILY 3 06/29/2016 Active Active Problems Problem Noted Date Diagnosed Date Osteoarthritis of tibiotalar and subtalar joints 07/28/2016 H/O: knee surgery 09/10/2011 Rupture of anterior cruciate ligament 08/27/2011 Overview (08/28/2012): Right Acute meniscal tear, medial 08/27/2011 Overview (08/28/2012): Right state, incidental 04/07/2011 Overview (08/28/2012): MFM Delivery plan: Contraceptive plan: Dx replacement utility run on deactivated IMO Dx [id number] GDM (gestational diabetes mellitus) 03/19/2011 Assessment & Plan (05/05/2011 11:55 AM EDT): Did not bring FSBS, fasting 60-70, post meals are 116-117, occasionally 123. She is taking 5 mg at night. macrosomia 03/19/2011 Assessment & Plan (05/05/2011 11:56 AM EDT): Has amnio scheduled for Wednesday with IOL on Wednesday. Polyhydramnios 03/19/2011 Obesity, morbid (more than 1 00 lbs over ideal weight or BMI > 40) 01/05/2011 Overview (08/28/2012): BMI 56.6 pounds AMA (advanced maternal age) primigravida 35+ 11/2010 Overview (08/28/2012): Advanced maternal age Dates based on LMP consistent with an 11 week ultrasound Integrated screening gave a 1:3000 risk of Down Syndrome Patient born with clubbed feet Morbid obesity Psuedotumor Cerebri Benign hypertension due to increased intracrania l pressure Overview (02/03/2011): On Diamox prior to Being followed by neurologist and opthamologist every 2 months Assessment & Plan (05/05/2011 11:55 AM EDT): No MENDOZA Resolved Problems Problem Noted Date Diagnosed Date Resolved Date Mild preeclampsia 04/14/2011 02/26/2012 Immunizations Name Administration Dates Next Due Tdap (Adacel, Boostrix) 05/18/2011 Family History Medical History Relation Comments Cancer Mother Tuberculosis Other Diabetes Paternal Uncle Relation Status Comments Mother Other Paternal Uncle Social History Tobacco Use Types Packs/Day Years Used Date Smoking Tobacco: Never Smokeless Tobacco: Never Alcohol Use Standard Drinks/Week Comments Yes 0 (1 standard drink = 0.6 oz pur e alcohol) 1 or 2x a week Sex and Gender Information Value Date Recorded Sex Assigned at Not on file Gender Identity Not on file Sexual Orientation Not on file Last Filed Vital Signs Vital Sign Reading Time Taken Comments Blood Pressure 145/91 07/28/2016 9:05 AM EDT Pulse 77 07/28/2016 9:05 AM EDT Temperature 36.2 ??C (97.2 ??F) 09/02/2011 4:10 PM ED T Respiratory Rate 18 09/02/2011 4:52 PM EDT Oxygen Saturation 99% 09/02/2011 4:52 PM EDT Inhaled Oxygen Concentration - - Weight 149.7 kg (330 lb) 07/28/2016 9:05 AM EDT verbal Height 162.6 cm (5' 4) 07/28/2016 9:05 AM EDT v erbal Body Mass Index 56.64 07/28/2016 9:05 AM EDT Plan of Treatment Health Maintenance Due Date Last Done Comments CT Colonography 1972 Colonoscopy 1972 Colorectal Cancer Screening 1972 FIT DNA 1972 FIT 1972 Sigmoidoscopy (10 year) with FIT yearly 1972 Sigmoidoscopy 1972 HIV screen 1990 Hepatitis C Screening 1990 Lipid Screening 1990 Hepatitis B vaccine (0-59 yrs) (1) 1991 HPV test 2002 PAP Smear 2002 Breast Cancer Share Decision Needed 2012 Breast Cancer screening 2012 Tetanus/Diphtheria/Pertussis Vaccines (2 - Td or Tdap) 05/18/2021 05/18/2011 Zoster vaccine (1 of 2) 2022 Covid-19 Vaccine (1 - 2023- season) 2024 Influenza (Flu) vaccine (1 o f 1 - Influenza standard series) 07/30/2024 Advance Directives * Full Code (Latest Code Status on File) Date Activated Date Inactivated Comments 05/15/2011 5:39 AM 05/15/2011 9:15 AM Question Answer Comments Order Status: Initial Order Does patient have decision m aking capacity? Yes, Order is based on Patients wishes. * Full Code Date Activated Date Inactivated Comments 05/14/2011 7:13 AM 05/15/2011 5:39 AM Question Answer Comments Order Status: Initial Order Does patient have decision m aking capacity? Yes, Order is based on Patients wishes. * Full Code Date Activated Date Inactivated Comments 05/13/2011 1:11 AM 05/14/2011 7:13 AM Question Answer Comments Order Status: Initial Order Does patient have decision m aking capacity? Yes, Order is based on Patients wishes. * Full Code Date Activated Date Inactivated Comments 05/12/2011 2:03 PM 05/13/2011 1:11 AM Question Answer Comments Order Status: Initial Order Does patient have decision m aking capacity? Yes, Order is based on Patients wishes. Care Teams Dishwasher Busser Relationship Specialty Start Date End Date Nettie Centeno APRN PCP - General Family Medicine 07/02/16
--- OUTSIDE RECORDS SUMMARY | 2024-11-24 00:30 | XMS_ITS | Encounter Summary ---
Author Organization [facility] [place] [address] Care Team Providers Care Senior Java Data Architect Name Role Phone Nettie Centeno APRN Primary Care Provider Ana Lilia vailable Reason for Referral * Physical Therapy (Routine) - Closed Specialty Diagnoses / Procedures Referred By Contac t Referred To Contact Physical Therapy Diagnoses Rupture of anterior cruciate ligament of right knee, subsequent encounter Aamir Crews MD [facility] [place] [address] [facility] [address] [place] [address] Referral ID Status Reason Start Date Expiration Date V isits Requested Visits Authorized [id number] Closed Evaluate and Treat 07/28/2016 07/28/2017 1 1 Reason for Visit * Reason Comments Right Knee Pain Right knee pain s/p scope 09-06-11 * Consultation (Routine) - Specialty Diagnoses / Procedures Referred By Contac t Referred To Contact Orthopaedics Diagnoses R KNEE PAIN S/P SCOPE SURGERY WITH DR. CREWS 09-06-11 Procedures Self mail [facility] [address] [place] [phone] Referral ID Status Reason Start Date Expiration Date V isits Requested Visits Authorized [id number] 07/02/2016 07/02/2017 1 1 Encounter Details Date Type Department Care Team (Late st Contact Info) Description 07/28/2016 9:00 AM EDT Office [place] [phone] Aamir Crews MD [facility] [place] [address] Rupture of anterior cruciate ligament of right knee, subsequent encounter Social History Tobacco Use Types Packs/Day Years [...] Pulse 77 07/28/2016 9:05 AM EDT Temperature - - Respiratory Rate - - Oxygen Saturation - - Inhaled Oxygen Concentration - - Weight 149.7 kg (330 lb) 07/28/2016 9:05 AM EDT verbal Height 162.6 cm (5' 4) 07/28/2016 9:05 AM EDT v erbal Body Mass Index 56.64 07/28/2016 9:05 AM EDT documented in this encounter Progress Notes * Aamir Crews MD - 07/28/2016 9:00 AM EDT Ms. Jain is a very nice 45-year-old female, well known to me from prior surgery 5 years ago on her right knee. Briefly, she is a morbidly obese woman who suffered an acute anterior cruciate ligament disruption and bucket handle tear of her medial meniscus along with a chondral defect of her medial femoral condyle in 2010. She underwent arthroscopy at that time and we removed her torn meniscus but chose not to do an ACL reconstruction. Since her surgery, she has had gradually progressive increasing pain in her knee without loss of motion. Instability has not been an issue for her except on occasion such as which occurred about 6 weeks ago when she had a few episodes of instability but that has subsequently resolved. She is here just for followup to see how and why she is continuing to have some persistent knee complaints. Physical exam demonstrates Ms. Jain to be a morbidly obese lady who is resting in no apparent distress. She stands 5 feet, 3 inches tall and weighs 330 pounds. Right knee exam is somewhat difficult because of her size but she has full flexion and full extension compared to her contralateral side although the terminal arc of flexion is uncomfortable to her. She has tenderness over both her medial and lateral joint lines and she does have a sense of slight increased AP laxity with anterior drawer testing on this side compared to the contralateral side. She has no instability to varus or valgus stress. X-rays show progressive loss of her medial joint space from 2010 to 2016 with marginal osteophytes both medially and laterally. There also appears to be a slight subluxation of her joint which is occurring over time. ASSESSMENT: Posttraumatic DJD, right knee, in a chronically ACL deficient knee. I think Ms. Jain's symptoms are due to her arthritis and perhaps also due to her ACL deficiency. I would like to have her seen today in our clinic by our physical therapist, Garry Tomas, to work on a strengthening program and then I will also start her on an anti-inflammatory, Naprosyn 375 mg p.o. b.i.d. I will be seeing her back on an as needed basis. If she continues to have pain, we would consider an injection at that time. documented in this encounter Plan of Treatment Scheduled Referrals Name Type Priority Associated Diagnoses Orde r Schedule Referral to Physical Therapy Outpatient Referral Routine Rupture Of Anterior Cruciate Ligament Of Right Knee, Subsequent Encounter Ordered: 07/28/2016 documented as of this encounter Visit Diagnoses Diagnosis Rupture of anterior cruciate ligament of right knee, subsequent encounter documented in this encounter Care Teams Senior Java Data Architect Relationship Specialty Start Date End Date Nettie Centeno APRN PCP - General Family Medicine 07/02/16 documented as of this encounter
--- OUTSIDE RECORDS SUMMARY | 2024-11-24 00:30 | XMS_ITS | Encounter Summary ---
Author Organization [facility] [place] [address] Care Team Providers Care Securities Underwriter Name Role Phone Jackelyn Douglas APRN Primary Care Provider Unav ailable Encounter Details Date Type Department Care Team (Late st Contact Info) Description 09/02/2011 2:30 PM EDT - 09/02/2011 3:45 PM EDT Surgery [place] [phone] Aamir Crews MD [facility] [place] [address] ARTHROSCOPY KNEE, MENISCECTOMY SINGLE W/ SHAVING (WRVU 7.03) Social History Tobacco Use Types Packs/Day Years [...] Sign Reading Time Taken Comments Blood Pressure 128/80 09/02/2011 1:26 PM EDT Pulse 84 09/02/2011 1:26 PM EDT Temperature 36.7 ??C (98.1 ??F) 09/02/2011 1:35 PM ED T Respiratory Rate 18 09/02/2011 1:26 PM EDT Oxygen Saturation 96% 09/02/2011 1:26 PM EDT Inhaled Oxygen Concentration - - Weight 134.3 kg (296 lb) 09/02/2011 1:26 PM EDT Height 162.6 cm (5' 4) 09/02/2011 1:26 PM EDT Body Mass Index 50.81 09/02/2011 1:26 PM EDT documented in this encounter Discharge Instructions * Discharge Instructions* Lorena Wheeler RN - 09/02/2011 4:40 PM EDT General Anesthesia Discharge Instructions Go home and rest. You may be sleepy for several hours. Take it easy as sudden position changes may cause nausea. Be careful on stairs, as you may be unsteady on your feet. Do not smoke if you are alone. Follow a light to regular diet as tolerated today. If nausea occurs, start with clear liquids, and progress slowly to a regular diet. Do not drive, operate machinery, drink alcoholic beverages, or make important decisions for 24 hours after having general anesthesia. The medications given may change your reaction time or judgement without your awareness. IV site -- slight redness is normal, you can use warm compresses. If tenderness and redness increases or foul drainage occurs, please contact your M.D. Patients who have had endotracheal tubes. (this tube, used by the anesthesia department, is passed down your throat after you are asleep, to ensure safe air passage during your operation). A sore throat is normal due to the tube. Cold liquids or soothing lozenges will help ease the discomfort. The generalized muscle aches are due to the medication given to you just before the tube is inserted. As the medication wears off, you may develop muscle soreness, which usually goes away in 12 - 24 hours. Out[facility] 8:00-5:30 [facility] 21/06 ask for your doctor administrative assistant front desk 1. You may have received medication before and/or during your procedure, which affects judgment andreaction time. 2. Do not drive, operate machinery, drink alcoholic beverages, or make important decisions for 24 hours. 3. Be careful on stairs, as you may be unsteady on your feet. 4. Do not smoke if you are alone. 5. IV site - slight redness or tenderness is normal, you can use warm compresses. If tenderness andredness increases or foul drainage occurs, please contact your M.D. 6. Go home and rest. Drink plenty of fluids. If you develop a headache lasting longer than 24 hours, call the Anesthesia Department at [phone]. 7. You may eat a regular diet as tolerated. You may have received medication before and/or during your procedure, which affects judgment and reaction time. Do not drive, operate machinery, drink alcoholic beverages, or make important decisions for 24 hours. Be careful on stairs, as you may be unsteady on your feet. Do not smoke if you are alone. You may eat a regular diet as tolerated IV site - slight redness or tenderness is normal, you can use warm compresses. If tenderness and redness increases or foul drainage occurs, please contact your M.D. Go home and rest. Drink plenty of fluids. If you develop a headache lasting longer than 24 hours, call: Anesthesia Department at [phone]. . * Patient Instructions* Fredis Uribe MD - 09/02/2011 4:11 PM EDT Discharge Instructions Activity: you may be full weight bearing as tolerated with crutch assistance until you are seen in follow up Driving: Do no drive while taking narcotic pain medication. Do not drive until cleared by your Orthopaedic Surgeon. Dressing: All dressings should remain in place for 72 hours. Dressings should be removed and a clean sterile dressing should be applied once a day after the first 72 hours. Medications: MSContin/oxycodone You may also take Acetaminophen for pain. You may resume your home medications. Shower: Keep incision clean, dry, and intact until follow-up. Sponge bathe only until follow-up. Call your doctor if you develop: Fevers greater than 101.5* Fahrenheit Chills or night sweats Nausea or vomiting Wound redness or discharge Numbness or tingling Increased pain Pain with passive or active extension of fingers Calf pain or swelling Any questions or concerns Follow up: In the Orthopaedic Department, on 09/10/2011 at 4:20pm in clinic 3D as previously scheduled. Please bring your surgical photos to your first post-op appointment. Contact Information: Your orthopaedic surgeon:Aamir Crews MD: [email or web address]@ If it is after 5:00PM on a weekday or a weekend and it is of an urgent nature please call [phone] and ask for the on-call orthopaedic resident. Your Primary Care Physician: JACKELYN DOUGLAS APRN [phone] documented in this encounter Medications at Time of Discharge Medication Sig Dispensed Refills Start Date End Date ACETAZOLAMIDE ORAL Take 250 mg by mouth. morphine (MS CONTIN) 15 mg 12 hr tablet Take 1 tablet by mouth 2 times daily. 10 tablet 0 09/02/2011 09/10/2011 OXYcodone (ROXICODONE) 5 mg immediate release tablet Take 1-3 tablets by mouth every 4 hours as needed for Pain. 65 tablet 0 09/02/2011 09/10/2011 metoprolol tartrate (LOPRESSOR) 50 mg tablet Take 50 mg by mouth daily. 07/28/2016 naproxen sodium (ALEVE) 220 mg Cap Take 240 mg by mouth 2 times daily. 07/28/2016 documented as of this encounter Progress Notes * Lorena Wheeler RN - 09/02/2011 5:59 PM EDT Site of spinal on lower back, no hematoma, slightly pink at sight, no oozing documented in this encounter H&P Notes * Aamir Crews MD - 09/02/2011 2:02 PM EDT I have reviewed the history & physical exam by Jackelyn Douglas APRN. It was accurate, up to date,and requires no corrections. documented in this encounter Miscellaneous Notes * Op Note - Aamir Crews MD - 09/06/2011 3:20 PM EDT [facility] [place] Patient Name: Argelia Jain : [id number] MR#: [id number] Case Date: 09/02/2011 Surgeon: Surgeon(s) and Role: * AAMIR CREWS MD - Primary * FREDIS URIBE MD - Resident-Surgeon Brad Preoperative diagnosis: Medial meniscus tear right Postoperative diagnosis: Medial meniscus tear and ACL tears right knee Procedure(s): ARTHROSCOPY KNEE, MENISCECTOMY SINGLE W/ SHAVING ARTHROSCOPY KNEE SYNOVECTOMY LIMITED Anesthesia: General Estimated Blood Loss: Minimal Drains: None Disposition: awakened from anesthesia, extubated and taken to the recovery room in a stable condition, having suffered no apparent untoward event. Condition: doing well without problems Findings: Displaced, bucket handle tear of medial meniscus resected; complete midsubstance ACL tear; grade III chondral changes patellofemoral compartment and medial compartment; grade II DJD lateralcompartment. Intact PCL and lateral meniscus. Indications for the Procedure: DATE OF SURGERY: 09/02/2011 INDICATION FOR THE PROCEDURE: Ms. Jain is a 40-year-old female who unfortunately, after clinical and radiographic evaluation, was found to have an ACL tear in addition to a displaced bucket-handle tear of the medial meniscus. After discussing the risks and benefits of operative versus nonoperative management, the patient elected to proceed with surgery. DESCRIPTION OF PROCEDURE: The patient was met in the same-day holding area, where she was identified by her name, medical record number, and date of . The operative site was correctly marked. She then was met by the anesthesia team and cleared for surgery. She then was brought back to the operating suite and placed supine on the operating room table. A nonsterile tourniquet was placed high on her left thigh for an intraoperative hemostasis. The patient then had preoperative prophylactic antibiotics. She then had her right lower extremity prepped and draped in the usual sterile fashion. She then had a clinical time-out according to universal protocol. We then placed standard anteromedial and anterolateral arthroscopic knee portals. We then surveyed the knee arthroscopically. The displaced bucket-handle tear of the medial meniscus was discovered. Upon encountering this, we then utilized a combination of an arthroscopic biter in addition to an arthroscopic shaver to debride the displaced bucket-handle tear of the medial meniscus. We then swept the camera into the intercondylar notch where a midsubstance ACL tear grades was noted. We then swept the camera into the patellofemoral and back into the medial compartment where grade 3 chondral changes were noted. Grade 2 chondral changes were noted upon encountering the lateral tibial and lateral femoral surfaces. The posterior cruciate ligament in addition to the lateral meniscus were noted to be intact. After adequately debriding the displaced bucket-handle tear of the medial meniscus, we then irrigated the knee with several liters of sterile saline. We then suctioned the knee to ensure that any residual loose bodies were removed. We then turned our attention to closure. After closing our portal sites, we then dressed the wound with Mastisol, Steri-Strips, 4x4's, Kerlix, and an Oscar bandage. The patient was successfully extubated in the operating room suite, transferred to a hospital bed in stable condition, and brought back to the PACU in stable condition. At the end of the case, clinical sign out was performed and all sponge and instrument counts were correct x2. * Miscellaneous - Provider, Scanning - 09/02/2011 8:56 PM EDT * OR Attestation - Aamir Crews MD - 09/02/2011 3:59 PM EDT Attestation: Case Date: 09/02/2011 I was present and I participated during the entire procedure (does not need to include opening and closing). AAMIR CREWS MD 09/02/2011 * Brief Op Note - Aamir Crews MD - 09/02/2011 3:56 PM EDT Brief Operative Note Patient Name: Argelia Jain : [id number] MR#: [id number] Case Date: 09/02/2011 Surgeon: Surgeon(s) and Role: * AAMIR CREWS MD - Primary * FREDIS URIBE MD - Resident-Surgeon Brad Preoperative diagnosis: Medial meniscus and ACL tears right knee Postoperative diagnosis: Displaced, bucket handle medial meniscus tear and ACL tear right knee Procedure(s): ARTHROSCOPY KNEE, MENISCECTOMY SINGLE W/ SHAVING ARTHROSCOPY KNEE SYNOVECTOMY LIMITED Anesthesia: General Estimated Blood Loss: Minimal Drains: None Disposition: awakened from anesthesia, extubated and taken to the recovery room in a stable condition, having suffered no apparent untoward event. Condition: doing well without problems Findings: Displaced, bucket handle tear of medial meniscus resected; complete midsubstance ACL tear; grade III chondral changes patellofemoral compartment and medial compartment; grade II DJD lateralcompartment. Intact PCL and lateral meniscus. Routine postop arthroscopy protocol (Please see the Surgical Encounter Summary for any Implant and Specimen details pertinent to this patient.) * Miscellaneous - Provider, Scanning - 09/02/2011 1:14 PM EDT documented in this encounter Plan of Treatment Not on file documented as of this encounter Procedures Procedure Name Priority Date/Time Associated Diagnosis Comments ARTHROSCOPY KNEE SYNOVECTOMY LIMITED Routine 09/03/2011 4:02 PM EDT ARTHROSCOPY KNEE SYNOVECTOMY LIMITED (WRVU 6.45) 09/02/2011 2:35 PM EDT Medial meniscus tear ARTHROSCOPY KNEE, MENISCECTOMY SINGLE W/ SHAVING (WRVU 7.03) 09/02/2011 2:35 PM EDT Medial meniscus tear documented in this encounter Visit Diagnoses Not on filedocumented in this encounter Administered Medications Inactive Administered Medications - up to 3 most recent administrations Medication Order MAR Action Action Date Dose Rate Site cloNIDine injection ONCE PRN, 1 dose, Starting on Wed09/02/11 at 1556, Until Wed09/02/11 at 1556, Intra-Operative (Intra-Procedure), Routine Given 09/02/2011 3:56 PM EDT 50 mcg 19- Surgical Site HYDROmorphone (PF) (DILAUDID) 2 mg/mL injection ONCE PRN, 1 dose, Starting on Wed09/02/11 at 1556, Until Wed09/02/11 at 1556, Pain, Intra-Operative (Intra-Procedure), Routine Given 09/02/2011 3:56 PM EDT 2 mg 19- Surgical Site OXYcodone (ROXICODONE) immediate release tablet 10 mg 10 mg, Oral, EVERY 4 HOURS PRN, Starting on Wed09/02/11 at 1633, Until Wed09/02/11 at 1956, Pain, PACU Recovery, Routine Given 09/02/2011 4:34 PM EDT 10 mg documented in this encounter Active and Recently Administered Medications Times are shown in EDT. PRN Medication Order 08/31/2011 09/01/2011 09/02/2011 cloNIDine injection (COMPLETED) ONCE PRN, 1 dose, Starting on Wed09/02/11 at 1556, Until Wed09/02/11 at 1556, Intra-Operative (Intra-Procedure), Routine 1556 (Given - Provid er: Fredis Uribe MD - Comment: Given as local injection at end of case.) HYDROmorphone (PF) (DILAUDID) 2 mg/mL injection (COMPLETED) ONCE PRN, 1 dose, Starting on Wed09/02/11 at 1556, Until Wed09/02/11 at 1556, Pain, Intra-Operative (Intra-Procedure), Routine 1556 (Given - Provid er: Fredis Uribe MD - Comment: Given as local injection at end of case.) OXYcodone (ROXICODONE) immediate release tablet 10 mg (CANCELED) 10 mg, Oral, EVERY 4 HOURS PRN, Starting on Wed09/02/11 at 1633, Until Wed09/02/11 at 1956, Pain, PACU Recovery, Routine 1634 (Given - Provid er: Lorena Wheeler RN) documented in this encounter Care Teams Securities Underwriter Relationship Specialty Start Date End Date Jackelyn Douglas APRN PCP - General 11/10/10 07/01/16 documented as of this encounter
--- OUTSIDE RECORDS SUMMARY | 2024-11-24 00:30 | XMS_ITS | Encounter Summary ---
Author Organization [facility] Address [facility] [address] Care Team Providers Care Manager Internal Name Role Phone Jackelyn Richey APRN Primary Care Provider Unav ailable Encounter Details Date Type Department Care Team (Latest Contact Info) Description 08/03/2013 - 08/03/2013 11:59 PM EDT Hospital Encounter Radiology Library at [facility] [place] [phone] Andrew Romero MD [facility] [place] [address] Pain Discharge Disposition: Home Social History Tobacco Use Types Packs/Day Years Used Date Smoking Tobacco: Never Smokeless Tobacco: Never Alcohol Use Standard Drinks/Week Comments No 0 (1 standard drink = 0.6 oz pur e alcohol) Sex and Gender Information Value Date Recorded Sex Assigned at Not on file Gender Identity Not on file Sexual Orientation Not on file documented as of this encounter Medications at Time of Discharge Medication Sig Dispensed Refills Start Date End Date ACETAZOLAMIDE ORAL Take 250 mg by mouth. metoprolol tartrate (LOPRESSOR) 50 mg tablet Take 50 mg by mouth daily. 07/28/2016 naproxen sodium (ALEVE) 220 mg Cap Take 240 mg by mouth 2 times daily. 07/28/2016 documented as of this encounter Plan of Treatment Not on file documented as of this encounter Procedures Procedure Name Priority Date/Time Associated Diagnosis Comments FILM LIBRARY STORAGE ONLY DX KNEE Routine 08/03/2013 12:00 AM EDT Pain documented in this encounter Results * Film Library- Storage only DX Knee (08/03/2013 12:00 AM EDT) Narrative RAD - 07/08/2016 10:45 AM EDT This exam is for storage only and is auto-finalizing. Andrew Romero MD IMG FILM LIBRARY ORD ERABLES [place], [place] documented in this encounter Visit Diagnoses Diagnosis Pain Generalized pain documented in this encounter Care Teams Manager Internal Relationship Specialty Start Date End Date Jackelyn Richey, BLOOD DONOR RECRUITER PCP - General 11/10/10 07/01/16 documented as of this encounter
--- OUTSIDE RECORDS SUMMARY | 2024-11-24 00:30 | XMS_ITS | Encounter Summary ---
Author Organization [facility] [place] [address] Care Team Providers Care Lining Vamper Name Role Phone Florecita Douglas APRN Primary Care Provider Unav ailable Reason for Visit * Reason Comments Scheduled Induction Encounter Details Date Type Department Care Team (Latest Contact Info) Description 05/12/2011 12:01 PM EDT - 05/19/2011 1:39 PM EDT [place] [id number] Lori Godwin MD [facility] [address] [facility]ST[facility] [place] [address] Sheree Dawn MD [facility] [address] [facility]STETRICS [place] [address] Mild preeclampsia; ; GDM (gestational diabetes mellitus); Mild or unspecified pre-eclampsia, unspecified as to episode of care; state, incidental; Abn glucose in preg-unsp; Primary uterine inertia, with delivery; Mild or unspecified pre-eclampsia, with delivery; Abnormality in heart rate/rhythm, delivered; Outcome of delivery, single liveborn; Abnormal maternal glucose tolerance, with delivery; Other and unspecified uterine inertia, with delivery; Elderly primigravida, delivered; Obesity-delivered; Morbid obesity; Other curr cond-delivered; Carrier or suspected carrier of group B Streptococcus Discharge Disposition: Home with VNA Social History Tobacco Use Types Packs/Day Years [...] Sign Reading Time Taken Comments Blood Pressure 140/82 05/19/2011 7:41 AM EDT Pulse 80 05/19/2011 7:41 AM EDT Temperature 36.7 ??C (98.1 ??F) 05/19/2011 7:41 AM ED T Respiratory Rate 20 05/19/2011 7:41 AM EDT Oxygen Saturation 98% 05/16/2011 4:49 PM EDT Inhaled Oxygen Concentration - - Weight - - Height - - Body Mass Index - - documented in this encounter Discharge Instructions * Discharge Instructions* Tamera Keenan RN - 05/19/2011 11:15 AM EDT Nursing Inpatient Progress C - Section Follow-up Follow-ups: Immunizations Received: [ ] MMR [x ] Tdap [ ] Inactivated Influenza Vaccine [ ] Other: Medications Received: [ ] Rhogam Given: (time/date) [ ] Depoprovera Given: (time/date) [ ] Other: Referrals: Additional Instructions: Maternal Discharge Instructions Rest: Although it may seem impossible to get enough rest, simple planning will help. Try to get at least one four hour block of uninterrupted sleep in 24 hours; then plan to rest, and/or sleep when your baby does. Limiting visitors also helps. Fathers and other family members can help by doing housework, caring for other children and/or helping limit visitors. Activity: After delivery, it is safe to climb stairs at home. Do not lift anything heavierthan your baby for two weeks. Do not drive for two weeks or while taking pain medicine that contains a narcotic as your reaction time may be decreased. Nutrition: Your diet following the of your baby is as important as it was before the baby wasborn. Drink a minimum of 6-8 glasses a day. Do not attempt to lose weight during the first six weeks. Continue taking your vitamins until they are gone. Lochia: (Flow) Your flow should be no heavier than a normal period. It will be bright red for 2-3 days and then pinkish and finally colorless. If your flow becomes bright red again, decrease your activity. Do not use tampons until your care provider advises you it is OK. Incision: Wash the incision with soap and water and pat dry. It is normal to have clear or pinkish fluid seep from the incision. Gauze pads or sanitary napkins may help to keep the incision dry if itis located in a fold under your tummy. If the incision has more redness, yellow drainage, or becomes more painful, contact the obstetrics clinic. Breast Care for Formula feeding mothers: Wear a well fitting bra to support your breasts. Ice packsto your breasts and Tylenol or Ibuprofen may be used to relieve discomfort from engorgement. Avoid stimulating your breasts: Do not let warm water from the shower fall on them; avoid holding your baby near your breasts until your milk begins to decrease and engorgement is relieved. Breast feeding mothers: Practice careful positioning and frequent feeding as demonstrated in the hospital. The printed information in your packet covers this in detail. Call your doctor or flash welder for: Fever more than 100.5 Heavy bleeding that saturates a pad an hour Clots larger than a plum Increased abdominal pain, nausea, shaking chills Increased redness or soreness over your incision Breast with hot, hard, tender areas on the breast plus flu-like symptom depression occurs in a large percentage of women. We encourage you to contact your provider or a member of the nursing staff if you are feeling so overwhelmed that you are unable to care for yourself or your baby. Keep your follow up appointment. You may call the [facility] at any time for guidance or for answers to questions that come up prior to you follow up appointment. Your [facility] Provider can be reached during office hours at [facility]wives [facility] Follow-up Clinic AFTER OFFICE HOURS for the ibm mainframe developer or flash welder stone driller Provider electronic signature confirms that discharge instructions were reviewed with the patient. A copy was printed and given to the patient. documented in this encounter Medications at Time of Discharge Medication Sig Dispensed Refills Start Date End Date docusate sodium (COLACE) 100 mg capsule Take 1 capsule by mouth 2 times daily as needed for Constipation for 10 days. 20 capsule 0 05/19/2011 05/28/2011 ibuprofen (ADVIL;MOTRIN) 600 mg tablet Take 1 tablet by mouth every 6 hours as needed for Pain. 30 tablet 0 05/19/2011 06/24/2011 OXYcodone-acetaminop hen (PERCOCET) 5-325 mg per tablet Take 1-2 tablets by mouth every 3 hours as needed for Pain (moderate-severe pain). 30 tablet 0 05/19/2011 06/24/2011 VITS W-CA,FE,FA,<1MG, ( VITAMIN ORAL) 11/19/2010 06/24/2011 documented as of this encounter Progress Notes * Xu Ellis MD - 05/19/2011 6:35 AM EDT Delivery Note Delivery Date: 05/15/11 Delivery Type: primary section Subjective: Complains of nothing. Pain is wellcontrolled. She is tolerating diet well, urinating and ambulating without difficulty. General ROS: Review of Systems Lochia: small Physical Exam: Last Set of Vitals and range of vital over past 24 hours: BP 158/77 Pulse 74 Temp(Src) 36.8 ??C(98.2 ??F) (Oral) Resp 18 SpO2 98% LMP 08/23/2010 ? Unknown Physical Exam Uterine Fundus: firm Incision: healing well no significant drainage no significant erythema Lochia: appropriate Ext: 3+ bilateral LE edema Significant Labs: None new Assessment: 40 y.o. woman who presented as a female POD #4 who underwent with labor on 05/15/11 at 37 6/7 wga for worsening symptoms of preeclampsia and arrest of dilation whose was complicated by GDM. Started on labetalol yesterday and BP in the 150-160/70's yesterday. Completed 24 hours of magnesium. HELLP labs normal. nutrition: breast Contraception: micronor Circumcision: not applicable Plan: Continue routine care: encourage ambulation anticipated discharge PPD # 4 Additional Plans: consultation prn VNA to remove vernon in 2 days and preform a BP check Random glucose tomorrow and follow-up with JESSI Diaz 05/19/2011 Maternal Medicine Note: I have personally reviewed the patient's symptoms, history and physical status and agreewith the resident physician's assessment and plan as documented. Xu Ellis MD, MS 05/19/2011 * Xu Ellis MD - 05/18/2011 7:01 AM EDT Delivery Note Delivery Date: 05/15/11 Delivery Type:primary low transverse section after failed IOL Subjective: Complains of nothing. Pain is wellcontrolled. She is tolerating diet well, urinating and ambulating without difficulty. working on breast feeding. General ROS: Review of Systems Lochia: small Physical Exam: Last Set of Vitals and range of vital over past 24 hours: BP 166/78 Pulse 85 Temp(Src) 37 ??C (98.6 ??F) (Oral) Resp 18 SpO2 98% LMP 08/23/2010 ? Unknown Physical Exam Uterine Fundus: firm Incision: healing well no significant drainage no significant erythema Lochia: appropriate Significant Labs: Recent Results (from the past 72 hour(s)) CBC (WITH DIFF) Component Value Range ??? WBC 12.5 (*) 4.0 - 10.0 (x10(3)/mcL) ??? RBC 3.60 (*) 3.93 - 5.22 (x10(6)/mcL) ??? Hemoglobin 9.4 (*) 11.2 - 15.7 (gm/dL) ??? Hematocrit 28.9 (*) 34.0 - 45.0 (%) ??? MCV 80.3 79.0 - 94.0 (fL) ??? MCH 26.1 (*) 26.6 - 32.2 (pg) ??? MCHC 32.5 32.0 - 36.5 (gm/dL) ??? Platelets 319 145 - 370 (x10(3)/mcL) ??? RDWSD 51.2 (*) 35.0 - 46.0 (fL) ??? RDWCV 17.5 (*) 10.9 - 14.4 (%) ??? MPV 9.8 9.0 - 12.0 (fL) ASPARTATE AMINOTRANSFERASE Component Value Range ??? AST 19 0 - 30 (unit/L) CREATININE, SERUM Component Value Range ??? Creatinine 0.76 0.70 - 1.20 (mg/dL) ? ? Estimated GFR >60 >=60 REFLEX LAB-A-DIFF Component Value Range ??? Neutrophils % 84.5 (*) 34.0 - 71.0 (%) ??? Neutr Abs (ANC) 10.57 (*) 1.50 - 6.30 (x10(3)/mcL) ??? Lymphocytes % 7.2 (*) 19.0 - 53.0 (%) ??? Lymphocytes Abs 0.9 (*) 1.0 - 3.6 (x10(3)/mcL) ??? Monocytes % 7.8 4.0 - 13.0 (%) ??? Monocyte Abs 1.0 0.2 - 1.0 (x10(3)/mcL) ??? Eosinophils % 0.2 0.0 - 7.0 (%) ??? Eosinophils Abs 0.0 0.0 - 0.5 (x10(3)/mcL) ??? Basophils % 0.1 0.0 - 2.0 (%) ??? Basophils Abs 0.0 0.0 - 0.2 (x10(3)/mcL) ??? Immature Gran % 0.20 0.00 - 0.66 (%) ??? Barby Gran Abs 0.03 0.00 - 0.05 (x10(3)/mcL) CBC (WITH DIFF) Component Value Range ??? WBC 12.6 (*) 4.0 - 10.0 (x10(3)/mcL) ??? RBC 3.41 (*) 3.93 - 5.22 (x10(6)/mcL) ??? Hemoglobin 8.9 (*) 11.2 - 15.7 (gm/dL) ??? Hematocrit 27.4 (*) 34.0 - 45.0 (%) ??? MCV 80.4 79.0 - 94.0 (fL) ??? MCH 26.1 (*) 26.6 - 32.2 (pg) ??? MCHC 32.5 32.0 - 36.5 (gm/dL) ??? Platelets 361 145 - 370 (x10(3)/mcL) ??? RDWSD 52.0 (*) 35.0 - 46.0 (fL) ??? RDWCV 17.6 (*) 10.9 - 14.4 (%) ??? MPV 10.4 9.0 - 12.0 (fL) ASPARTATE AMINOTRANSFERASE Component Value Range ??? AST Not Perf 0 - 30 (unit/L) CREATININE, SERUM Component Value Range ??? Creatinine 0.74 0.70 - 1.20 (mg/dL) ? ? Estimated GFR >60 >=60 REFLEX LAB-NUCLEATED RED BLOOD CELLS Component Value Range ??? nRBC % Auto 0.0 0.0 - 0.2 (%) ??? nRBC Abs Auto 0.000 0.000 - 0.012 (x10(3)/mcL) REFLEX LAB-A-DIFF Component Value Range ??? Neutrophils % 82.9 (*) 34.0 - 71.0 (%) ??? Neutr Abs (ANC) 10.40 (*) 1.50 - 6.30 (x10(3)/mcL) ??? Lymphocytes % 8.4 (*) 19.0 - 53.0 (%) ??? Lymphocytes Abs 1.1 1.0 - 3.6 (x10(3)/mcL) ??? Monocytes % 8.0 4.0 - 13.0 (%) ??? Monocyte Abs 1.0 0.2 - 1.0 (x10(3)/mcL) ??? Eosinophils % 0.3 0.0 - 7.0 (%) ??? Eosinophils Abs 0.0 0.0 - 0.5 (x10(3)/mcL) ??? Basophils % 0.2 0.0 - 2.0 (%) ??? Basophils Abs 0.0 0.0 - 0.2 (x10(3)/mcL) ??? Immature Gran % 0.20 0.00 - 0.66 (%) ??? Barby Gran Abs 0.03 0.00 - 0.05 (x10(3)/mcL) ASPARTATE AMINOTRANSFERASE Component Value Range ??? AST Not Perf 0 - 30 (unit/L) POCT GLUCOSE LAB USE ONLY Component Value Range ??? POC Glucose 131 60 - 199 (mg/dL) ASPARTATE AMINOTRANSFERASE Component Value Range ??? AST 20 0 - 30 (unit/L) CBC (WITH DIFF) Component Value Range ??? WBC 11.6 (*) 4.0 - 10.0 (x10(3)/mcL) ??? RBC 3.37 (*) 3.93 - 5.22 (x10(6)/mcL) ??? Hemoglobin 8.8 (*) 11.2 - 15.7 (gm/dL) ??? Hematocrit 27.5 (*) 34.0 - 45.0 (%) ??? MCV 81.6 79.0 - 94.0 (fL) ??? MCH 26.1 (*) 26.6 - 32.2 (pg) ??? MCHC 32.0 32.0 - 36.5 (gm/dL) ??? Platelets 325 145 - 370 (x10(3)/mcL) ??? RDWSD 51.9 (*) 35.0 - 46.0 (fL) ??? RDWCV 17.8 (*) 10.9 - 14.4 (%) ??? MPV 9.9 9.0 - 12.0 (fL) CREATININE, SERUM Component Value Range ??? Creatinine 0.64 (*) 0.70 - 1.20 (mg/dL) ? ? Estimated GFR >60 >=60 REFLEX LAB-NUCLEATED RED BLOOD CELLS Component Value Range ??? nRBC % Auto 0.0 0.0 - 0.2 (%) ??? nRBC Abs Auto 0.000 0.000 - 0.012 (x10(3)/mcL) REFLEX LAB-A-DIFF Component Value Range ??? Neutrophils % 72.3 (*) 34.0 - 71.0 (%) ??? Neutr Abs (ANC) 8.39 (*) 1.50 - 6.30 (x10(3)/mcL) ??? Lymphocytes % 17.4 (*) 19.0 - 53.0 (%) ??? Lymphocytes Abs 2.0 1.0 - 3.6 (x10(3)/mcL) ??? Monocytes % 8.2 4.0 - 13.0 (%) ??? Monocyte Abs 1.0 0.2 - 1.0 (x10(3)/mcL) ??? Eosinophils % 1.5 0.0 - 7.0 (%) ??? Eosinophils Abs 0.2 0.0 - 0.5 (x10(3)/mcL) ??? Basophils % 0.3 0.0 - 2.0 (%) ??? Basophils Abs 0.0 0.0 - 0.2 (x10(3)/mcL) ??? Immature Gran % 0.30 0.00 - 0.66 (%) ??? Barby Gran Abs 0.04 0.00 - 0.05 (x10(3)/mcL) Recent Labs Basename 05/12/11 1412 ??? ABORH O Pos No components found with this basename: RUBELLA:* Relevant Immunizations: There is no immunization history for the selected administration types on file for this patient. Assessment: 40 y.o. woman who presented as a female POD #3 who underwent with labor on 05/15/11 at 37 6/7 wga for worsening symptoms of preeclampsia and arrest of dilation whose was complicated by GDM. BP in the 140's/60- 70's with one 160's/70's. Completed 24 hours of magnesium. HELLP labs normal. nutrition: breast Contraception: micronor Circumcision: not applicable Plan: Continue routine care: encourage ambulation anticipated discharge PPD # 3 Additional Plans: consultation prn Return in 3 days for staple removal and BP check Random glucose tomorrow and follow-up with JSESI Diaz 05/18/2011 Maternal Medicine Note: I have personally reviewed the patient's symptoms, history and physical status and agreewith the resident physician's assessment and plan as documented. Xu Ellis MD, MS 05/18/2011 * Sierra Noguera MD - 05/17/2011 7:32 AM EDT Delivery Note Delivery Date: 05/17/11 Delivery Type: with labor Subjective: Complains of nothing. Pain is wellcontrolled. She is tolerating diet regular diet. Ambulating. Wesley removed. General ROS: Review of Systems Lochia: small Physical Exam: Last Set of Vitals and range of vital over past 24 hours: BP 146/72 Pulse 78 Temp(Src) 36.8 ??C(98.2 ??F) (Oral) Resp 18 SpO2 98% LMP 08/23/2010 ? Unknown Physical Exam Uterine Fundus: firm Dressing: clean, dry and intact Incision: dressing in place Lochia: appropriate Significant Labs: Recent Labs Basename 05/12/11 1412 ??? ABORH O Pos Assessment: 40 y.o. woman who presented as a female POD #2 who underwent with labor on 05/15/11 at 37 6/7 wga for worsening symptoms of preeclampsia and arrest of dilation whose was complicated by GDM. BP in the 130-140's/60-70's . Completed 24 hours of magnesium. HELLP labs remain normal. Infant nutrition: breast Contraception: not discussed today Circumcision: not applicable Plan: Continue routine care: ?? encourage ambulation ?? advance diet until regular ?? d/c IV when taking adequate PO ?? d/c wesley when ambulating ?? change dressing PPD # 2 ?? routine bowel orders ?? anticipated discharge PPD # 3 Additional Plans: consultation and continue to monitor BPs Random glucose tomorrow and follow-up with Yvonne Stiles RN This patient was seen and discussed on rounds. I have seen the patient and reviewed Dr. Contreras's (resident) history and I agree with the details as written. The assessment and plan were formulated in discussion with me and I agree with them as documented. Pertinent History: PPD# 2 C/S after arrest of labor. Pain is well controlled. Tolerating a regular diet. Pertinent Exam: Vitals reviewed Fundus firm Moderate lochia Assessment: day 2 doing well. Preeclampsia resolving Plan: Routine care. Anticipate discharge tomorrow. * Paula Nova RN - 05/16/2011 1:18 PM EDT 05/16/11 1317 Output (ml) Urine 1000 mL Urine Assessment Urine Color Yellow/Straw Urine Appearance Clear Urine Odor No odor Pt up to BR with one assist. DC'd wesley, pt tolerated well. DTV in four hours. * Lori Godwin MD - 05/16/2011 8:18 AM EDT Delivery Note Delivery Date: 05/15/11 Delivery Type: with labor Subjective: Complains of nothing. Pain is wellcontrolled. She is tolerating diet minimal diet. Not yet ambulating. Wesley still in place. General ROS: Review of Systems Lochia: small Physical Exam: Last Set of Vitals and range of vital over past 24 hours: BP 143/73 Pulse 88 Temp 36.5 ??C (97.7 ??F) Resp 18 SpO2 92% LMP 08/23/2010 ? Unknown Physical Exam Uterine Fundus: firm Dressing: clean, dry and intact Incision: dressing in place Lochia: appropriate Significant Labs: HELLP labs: Cr 0.79, AST 19, hgb 9.4, plt 319 Recent Labs Basename 05/12/11 1412 ??? ABORH O Pos No components found with this basename: RUBELLA:* Relevant Immunizations: There is no immunization history for the selected administration types on file for this patient. Assessment: 40 y.o. woman who presented as a female POD #1 who underwent with labor on 05/15/11 at 37 6/7 wga for worsening symptoms of preeclampsia and arrest of dilation whose was complicated by GDM. BP in the 130-140's/60-70's . Completed 24 hours of magnesium. HELLP labs remain normal. nutrition: breast Contraception: not discussed today Circumcision: not applicable Plan: Continue routine care: ?? encourage ambulation ?? advance diet until regular ?? d/c IV when taking adequate PO ?? d/c wesley when ambulating ?? change dressing PPD # 2 ?? routine bowel orders ?? anticipated discharge PPD # 3 Additional Plans: consultation and continue to monitor BPs Random glucose tomorrow and follow-up with Yvonne Stiles RN This patient was seen and discussed on rounds. JENNIFER COLON 05/16/2011 Attending note I saw patient on rounds and agree with Dr. Colon's note above. The patient reports feeling well. Her bleeding is diminishing, and she is voiding without difficulty. She has adequate analgesia. She is able to ambulate. BP 143/73 Pulse 88 Temp 36.5 ??C (97.7 ??F) Resp 18 SpO2 92% LMP 08/23/2010 ? Unknown Abdomen: soft, appropriately tender, fundus below umbilicus Wound/dressing: clean, dry, intact Ext: nontender, mod edema Impression: POD 1 after primary at 37 weeks for arrest of dilation during induction for severe preeclampsia doing well. Resolving preeclampsia Morbid obesity Benign intracranial hypertension Gestational diabetes Plan: Continue routine postoperative care. DVT prophylaxis Lori Godwin MD * Merna John RN - 05/16/2011 6:57 AM EDT I&O cleared at 0655. EJ * Merna John RN - 05/16/2011 5:46 AM EDT Patient ambulated to bathroom with 2 assist. Danielle care done with patient on toilet. Patient tolerated walking well but was quickly short of breath and required the use of her PEDIATRIC NEPHROLOGIST. Patient back to bedand resting. Tolerated well overall and is encouraged to ambulate again after breakfast. Wesley remains in at this time. * Merna John RN - 05/15/2011 9:44 PM EDT Pumping initiated at this time. Patient tolerating well. Danielle care done in bed by this RN. Patient tolerated well. Using PEDIATRIC NEPHROLOGIST for pain relief. * Rajwinder Montero RN - 05/15/2011 5:02 PM EDT Care Management Assessment Patient Information has been reviewed in multi-disciplinary rounds with OB and pediatric providers,in medical record, and through patient interview. Introduced self and CRC role to patient and services accepted. Living Situation: Dilan is a 40 y.o. Single delivered by primary C/Section at 37 6/7 wks gestation following complicated by PIH, AMA, GDM, obesity, GBS+, benign intracranial HTN, and polyhdramnios. With Whom: Her mother; JAMESB Ernesto Hernandez Where: [place], [place] Approx time in community: Years Social Resources: Intact relationship with FOB. Living with mother for support/financial assist. Has MVP insurance through her employer-[employer] and [place] Medicaid secondary. Has WIC. Extended family in area for support: As noted above. Cognitive Resources: Intact Childbirth Education: Yes/No Educational level: High School Functional Status: Ambulatory, Independent, Without limitations. C/S recovery with limitations on lifting/driving x 2 weeks. Complications requiring follow-up: Financial Resources: ID Health Insurance Coverage: [place] and [place] Medicaid. Baby will be added to Dr Perez. Door Trimmer Chosen: Dr Florecita Douglas, [facility] Baby's Name: Ilana Hernandez Anticipated Continuing Care Needs: Physical: Recovery from . Initiation of . Emotional: Adjustment to period Psychological: No known hx of anxiety/depression or increased risk factors for PPD Educational: Parenting first Continuing Care Plan Development: At home resources/Discharge supports suggested. Printed materials and suggested community resourcesprovided to patient: Visiting Nurse visits: Offered services of VNA post discharge. Patient accepted/declined [facility] ([facility]) 4th Trimester New mom support/[facility] [place] [facility]: Referral to [facility]: [facility] ([facility]) DME ordered : None Breast Pump: N/A Other: Have car seat, transportation, and adequate family support. No direct referrals made at this time. Will revisit prior to dc anticipated for Wednesday. 05/18 Breast Pump ordered through [facility]/[place] Medicaid due to risk for low milk productionand Baby with 10.6% wt loss. Pt accepts VNA referral for later in week. Referral placed by CRC. Pt considering /[facility] [place] referral. Pt calling [facility] for baby's temp Dr Perez #. Anticipate dc ofmom/baby on Wednesday. . CRC: Rylee MOLINA/ Keven Watson. Beeper [phone] * Lizzie Kaiser RN - 05/15/2011 5:07 AM EDT 0440 Pitocin infusion discontiued * Sheree Pierce MD - 05/15/2011 4:43 AM EDT Resident labor progress note Patient has no complaints. Mild MENDOZA, no dizziness/blurry vision. Does not feel contractions, pain controlled on epidural. Pitocin at 28 mu/min BP 140s-160/60s-88 Urine output improved to 70-80 cc/hr for 2 hours, now down to <30 cc/hr again VE: 5/90/-2 (no change from previous) Lotsee: Q3 minutes, montevideo units 180-220 A/P 40 yo at 37.6 with GDM/pre-eclampsia, now with little change overnight and no twisting frame changer 3 hours. Franklin units are basically adequate and pitocin is at the maximum. Urine output is dropping and blood pressures are slightly rising. Will proceed towards c section for failed induction inthe setting of pre-eclampsia. Patient is consented and understands risks and benefits of surgery. Plan discussed with Dr. Haynes and Dr. Pierce The patient has made no progress, we are unable to stimulate adaquate contractions, pt. Is developing MENDOZA but unsure if due to mgso4 vs. Pre-eclampsia. FHT shows normal baseline, decrease variablity last 1/2 of tracing, no decels, no accels. D/W pt. Recommendation to proceed with C/S delivery due tofailed IOL, concerning changes to clinical status with MENDOZA and decreased U/O. Earlier when Dr. Haynesreviewed the risks of C/S including bleeding, infection and damage to other organs that could lead to unexpected additional surgery. We also discussed the high risk of wound infection in patients whoare obese including a 1/3 risk of this complication. The patient agrees to C/S delivery. See operative notes for details. At C/S, noted to be OP and extremely deflexed. * Sheree Pierce MD - 05/15/2011 1:16 AM EDT Resident labor progress note Patient is tolerating labor well. Does not feel any pain with epidural. Pitocin is at 24 mu/min with montevideo units usually above 200, but sometimes not adequate. Urine output has been 30 cc then 27 cc the last hour. VE 5/90/-2 (slightly more effaced than last exam) EFM 130 mod ivone +accels - decels Lotsee: Q3 minutes A/P 40 yo @ 37.6 with pre-eclampsia, GDM, morbid obesity undergoing induction of labor. She hashad a prolonged latent phase and she is still making slow change. Contractions are not yet consistently adequate. -continue to increase pitocin and re-examine in 3 hours -increase total IVF to 150 cc/hour, monitor urine output closely -continue EFM Plan discussed with Dr. Haley Haynes Reviewed with Dr. Haynes. Pt. Needs close monitoring due to decreasing urine output. Pt. Has significant third spacing evident. Pt. Making only minimal labor progress but otherwise maternal and status are stable. * Sheree Pierce MD - 05/14/2011 9:38 PM EDT Labor Progress Note Subjective: The patient is tolerating labor well. Pain is well controlled with current management of ELIZABETH. Objective: Vital Signs: BP 145/65 Pulse 86 Temp(Src) 36.8 ??C (98.2 ??F) (Oral) Resp 20 SpO2 96% LMP08/23/2010 24 hr Temp review: Temp (24hrs), Av.8 ??C (98.2 ??F), Min:36.5 ??C (97.7 ??F), Max:37 ??C (98.6??F) Cervix Exam: Dilation: Dilation: 5 Effacement: 80 Station: Station: -2, head well applied FHR Evaluation: Fetus A: Baseline Rate: 130 bpm Accelerations: Absent Decelerations: None Uterine Activity Mode: IUPC Contraction Frequency: 2.5-5 Contraction Duration: 50-70 Contraction Quality: Moderate Resting Tone Palpated: Soft [place] (MVU): 270 Assessment: Labor Assessment: Patient has made significant progress in labor after AROM. Will continue pitocin. Other Issues: Most recent FS 102. Continue insulin drip per protocol Blood pressures 120s-140s/60s-70s, continue magnesium for seizure prophylaxis. Reviewed findings with resident and there seems to have been some minor labor progress. Continue all management. * Sheree Pierce MD - 05/14/2011 7:03 PM EDT Labor Progress Note Subjective: The patient is tolerating labor well. Pain is well controlled with current management of epidural. Objective: Vital Signs: BP 136/66 Pulse 72 Temp(Src) 36.9 ??C (98.4 ??F) (Oral) Resp 18 SpO2 96% LMP08/23/2010 24 hr Temp review: Temp (24hrs), Av.8 ??C (98.2 ??F), Min:36.5 ??C (97.7 ??F), Max:37 ??C (98.6??F) Cervix Exam: Dilation: 5cm Effacement: Effacement: 60 Station: Station: High, -4 FHR Evaluation: Fetus A: Baseline Rate: 130 bpm Accelerations: Present Decelerations: None Uterine Activity Mode: Lotsee Contraction Frequency: 3.5-5 Contraction Duration: 60-90 Contraction Quality: Moderate Resting Tone Palpated: Soft Assessment: Labor Assessment: Prolonged latent labor. No significant change this exam but AROM was undertaken and IUPC placed. Clear fluid. Other Issues: GDM BS 110-121 on insulin drip Preeclampsia on mag Plan: Labor Plans: Continue current management. Recheck in 2-3 hours. If no change consider section. I was present with the patient for AROM and IUPC and FSE placement and agreed with Dr. Haynes' evaluation, assessment and plan. Hoping for vaginal delivery but reviewed possibility of C/S due to long IOL, failure of induction, and labor of progress. C/S consent was signed. Currently maternal and conditions are stable. Continue all current management. * Haley Haynes - 05/14/2011 3:51 PM EDT Labor Progress Note Subjective: The patient is tolerating labor poorly. Pain is poorly controlled with current management of ELIZABETH. Objective: Vital Signs: BP 157/72 Pulse 97 Temp(Src) 36.8 ??C (98.2 ??F) (Oral) Resp 18 SpO2 96% LMP08/23/2010 24 hr Temp review: Temp (24hrs), Av.7 ??C (98.1 ??F), Min:36.5 ??C (97.7 ??F), Max:37 ??C (98.6??F) BS 125-143 today Cervix Exam: Dilation: 4 Effacement: long Station: Station: High, -4 FHR Evaluation: Fetus A: Baseline Rate: 135 bpm Accelerations: Present Decelerations: Variable Uterine Activity Mode: Lotsee Contraction Frequency: 2-4 Contraction Duration: 80-140 Contraction Quality: Moderate Resting Tone Palpated: Soft Assessment: Labor Assessment: Prolonged latent labor. Pt is undergoing IOL for pre eclampsia in the setting of GDM. She has received misoprostol times two doses and cervidil. She then received pitocin then foleybulb and now is on pitocin. She has made essentially no cervical change since 0700 today. vertex is very high and rupturing memebranes would not be prudent at this time. She is having poor paincontrol with epidural. Other Issues: BMI 50++ Plan: Labor Plans: Continue montitoring and pitocin. Fentanyl for pain relief. If no significant change at next exam would recommend section. * Nadya Perry RN - 05/14/2011 1:04 PM EDT 1048-Patient assisted to stand@ bedside- tolerated.1103- Back to bed.1130- Contractions mild to palpation, feels tight per patient but not painful.1147- Patient breathing with contractions, pain 6/10contractions mild to moderate to palpation.1209- Breathing with contractions, moderate to palpation, 5-6/10 for pain,patient eating lunch @ this time.1240- Patient feeling pressure with contractions,pain 8/10, still breathing with contractions and requesting pain medications.1245- Dr. Olivas notified.1248- SVE done. 1300- Patient for epidural, anesthesia aware, LR bolus started.1330- Anesthesia @ bedside.1332- Patient sitting for procedure, difficulty tracing FHR multiple adjustment made but not successful.1338- Epidural catheter placed.1342- Test done given by Dr. Farrar.m 1351- Patient helped back to bed.1400- Patient comfortable closing her eyes.1410- Denies feeling pain but able to feel ice bag up to her legs.1500- Patient breathing with contractions pain 8/10 using epidural botton as needed. Still feeling ice up to her foot. 1521- Dr. Farrar notified will evaluate patient.1655-out for lunch. Endorsed to S.B. Charge nurse.1630- Back to room, epidural replaced by Dr. Farrar, patient assisted back to bed.1700-patient sleeping.1812- Dr. Haynes and Dr. Pierce @ bedside, plan ofcare updated, CS discussed with patient.1820-SVE- unchanged.1822- AROM to clear fluid by Dr. Haynes,fundal pressure applied by Dr. Pierce during AROM. 1826- IUPC and FSE applied by Dr. Haynes.1839- Pericare ,linen changed, and air pal placed.1899- Patient comfortable. * Nadya Perry RN - 05/14/2011 8:31 AM EDT 0715- Report received and assumed care.0730- IV team 2@ bedside blood drawn and sent to lab. Patient still sleepy partner and sister @ bedside. Patient denies feeling any pain or contractions, abdomen soft to palpation.0800- Penicillin initiated and Pitocin restarted.09- Patient to be started on insulin drip, IV team @ bedside for IV insertion. Patient still resting denies feeling contractions but feels baby moving.FHR noted with decreased variability, patient assisted to R tilt but having discomfort moving,0950- supplemental O@ applied @ 8lpm per .1015-Insulin initiated. * Vincent Thompson MD - 05/14/2011 7:06 AM EDT Labor Progress Note Subjective: Patient is tolerating labor well with wesley in place. She slept the night with morphine/phenergan and not feeling much contractions this AM. Objective: Vital Signs: BP 136/62 Pulse 91 Temp(Src) 37 ??C (98.6 ??F) (Oral) Resp 18 SpO2 96% LMP 08/23/2010 24 hr Temp review: Temp (24hrs), Av.7 ??C (98.1 ??F), Min:36.6 ??C (97.9 ??F), Max:37 ??C (98.6??F) Cervix Exam: Dilation: Dilation: 3.5 Effacement: Effacement: 50 Station: Station: -3 FHR Evaluation: Fetus A: Baseline Rate: 130 bpm Accelerations: Absent Decelerations: None Variability: moderate Uterine Activity Mode: Lotsee Contraction Frequency: rare Contraction Duration: 80-100 Contraction Quality: Mild Resting Tone Palpated: Soft Assessment: Dilan is a 40 yo G1 at 37 and 5/7 wks GA undergoing IOL for pre-eclampsia - s/p miso x 2, cervidil, low dose pitocin wesley balloon. Wesley balloon now out. She is on Magnesium for seizure prophylaxis. Her urine output improved overnight and more recently down to 45cc/hr. Her blood pressures is well controlled. Labor Assessment: Latent labor FHRT: Category 1 Plan: Labor Plans: Wesley balloon now out. Will start pitocin and PCN prophylaxis. Continue magnesium. Attending Progress Note IVNCENT THOMPSON I reviewed the above note and discussed the patient at rounds with the team. I agree with the documented findings and plan of care except as noted below. My evaluation is as below: Subjective: Feeling whoozy and slow. Pain controled. Objective: Temp: [36.5 ??C (97.7 ??F)-37 ??C (98.6 ??F)] Heart Rate: [72-100] Resp: [18-20] BP: (112-176)/(56-94) SpO2: [92 %-98 %] I/O last 3 completed shifts: In: 5568.5 [P.O.:2140; I.V.:3428.5] Out: 2563 [Urine:2563] I/O this shift: In: 160 [I.V.:50; IV Piggyback:110] Out: 200 [Urine:200] Abdomen: Soft, non-tender, not distended Uterus: Soft, Non-tender Extremities: trace edema FMS: No decelerations, moderate variability, no accels in 30' of tracing I could view on the monitor. Labs: stable Fasting BS 115, most FSBS 108-115 Impression & Plan 37w5d IUP with an ISSAC of 05/30/2011, Alternate ISSAC Entry, admitted with preeclampsia, GDMA2, undergoing IOL, starting to enter active phase, now on Pit. Rising fasting glucose. Adequate UOP Will start insulin drip, decrease IVF to 125 cc/hour, PCN for GBS, anticipate . VINCENT THOMPSON 05/14/2011 * Lizzie Kaiser RN - 05/14/2011 6:28 AM EDT Urine output 35 to 45 cc/hour ,Moderate for ketones trace for protein. Total IV fluids 100 cc/hour the patient ate FH with minimal variability . MD aware 500 cc bolus L/R given * Isabella Lux MD - 05/14/2011 3:22 AM EDT Labor Progress Note Subjective: Patient sleeping comfortably after the morphine/phenergan. Objective: Vital Signs: BP 138/68 Pulse 72 Temp(Src) 36.8 ??C (98.2 ??F) (Oral) Resp 18 SpO2 96% LMP08/23/2010 24 hr Temp review: Temp (24hrs), Av.7 ??C (98.1 ??F), Min:36.6 ??C (97.9 ??F), Max:36.8 ??C (98.2 ??F) Cervix Exam: deferred, wesley Balloon still in place with tension FHR Evaluation: Fetus A: baseline 130 with moderate variability, no accels, no decels; contractions q 6-8 minutes Assessment: Dilan is a 40 yo G1 at 37 and 5/7 wks GA undergoing IOL for pre- eclampsia - s/p miso x 2, cervidil, low dose pitocin and now wesley balloon. She is on Magnesium for seizure prophylaxis. Her urine output has decreased slightly over the last few hours to ~30cc/hr. Her blood pressures have improved since her pain has been in better control. Labor Assessment: Not evaluated. FHRT: Category 1 Plan: Labor Plans: Continue present management with wesley balloon. Will watch urine output closely. Will check in 2-3 hours or earlier if wesley comes out Discussed with Dr. Mccullough * Lizzie Kaiser RN - 05/14/2011 12:59 AM EDT 05/13/11 Pitocin discontinued and wesley balloon placed at 2300. Medicated for pain and rest with Morphine 5 mg IV and 10 mg IM and Phenergan 25 mg IV. At 2345 Magnesium infusion continues at 2g per hour Per protocol * Isabella Lux MD - 05/13/2011 11:19 PM EDT Labor Progress Note Subjective: She is feeling okay with her contractions. Pitocin @10. Objective: Vital Signs: BP 171/80 Pulse 97 Temp(Src) 36.6 ??C (97.9 ??F) (Oral) Resp 18 SpO2 96% LMP08/23/2010 24 hr Temp review: Temp (24hrs), Av.7 ??C (98.1 ??F), Min:36.6 ??C (97.9 ??F), Max:36.9 ??C (98.4 ??F) Cervix Exam: Dilation: Dilation: 1 Effacement: Effacement: 50 Station: Station: -3 FHR Evaluation: Fetus A: Baseline Rate: 145 bpm Accelerations: Present Decelerations: None Uterine Activity Mode: Lotsee Contraction Frequency: 3-6 Contraction Duration: 30-60 Contraction Quality: Moderate Resting Tone Palpated: Soft Assessment: Dilan is a 40 yo G1 at 37 and 4/7 wks GA undergoing a long IOL for pre-eclampsia - miso x 2, cervidil and now pitocin. She also has benign intracranial HTN for which she will get an early epidural. Labor Assessment: No change since last exam. Placed wesley balloon with 30 cc of water and traction. FHRT: Category 1 Plan: Labor Plans: Going to give break off pitocin while doing mechanical dilation with wesley balloon. Now, patient desires something for pain - will give Morphine/phenergan. Discussed with Drs. Mccullough and Cassidy LUX * Isabella Lux MD - 05/13/2011 6:54 PM EDT Labor Progress Note Subjective: The patient is starting to feel contractions now. Pitocin @6 currently. Objective: Vital Signs: BP 173/84 Pulse 94 Temp(Src) 36.7 ??C (98.1 ??F) (Oral) Resp 18 SpO2 96% LMP08/23/2010 24 hr Temp review: Temp (24hrs), Av.8 ??C (98.2 ??F), Min:36.6 ??C (97.9 ??F), Max:36.9 ??C (98.4 ??F) Cervix Exam: Dilation: Dilation: 1 Effacement: Effacement: 70 Station: Station: -2 FHR Evaluation: Fetus A: Baseline Rate: 135 bpm Accelerations: Present Decelerations: None Uterine Activity Mode: [place]see Contraction Frequency: 2.5-5 Contraction Duration: 40-60 Contraction Quality: Mild Resting Tone Palpated: Soft Assessment: Dilan is a 40 yo G1 at 37 and 4/7 wks GA undergoing a long IOL for pre-eclampsia - miso x 2, cervidil and now pitocin. She also has benign intracranial HTN for which she will get an early epidural. Labor Assessment: No change since last exam. Patient just recently started feeling the contractions. FHRT: Category 1 Plan: Labor Plans: Continue pitocin per protocol. PCN for GBS. Epidural in early labor. Discussed with Dr. Jamel LUX * Mary Alice Amanda RN - 05/13/2011 6:49 PM EDT [facility] beeped for lab draw. Pt c/o nasal stuffiness; Dr Lux aware and plan to order some nasal spray as well as some throat lozengers for pt's sore throat; pt breathing well with contractions; * Mary Alice Amanda RN - 05/13/2011 5:09 PM EDT 1700: Pt feeling funny during contractions; pt stated that she has some hx of anxiety and didn't like to be in room by self- family had gone to waiting room while pt was sleeping and now that pt's family present pt feeling better- pt stated that she is feeling mild back pain with contractions butnothing severe * Mary Alice Amanda RN - 05/13/2011 3:42 PM EDT Pitocin started at 2 mu/min * Mary Alice Amanda RN - 05/13/2011 3:12 PM EDT 1445: Dr Contreras aware that cervidil was removed at 1345. Plan to check cervix and possibly place another cervidil. * Mary Alice Amanda RN - 05/13/2011 1:52 PM EDT 1354: pt feeling some nausea- stated that she had ordered some lunch * Mary Alice Amanda RN - 05/13/2011 1:46 PM EDT 1345: cervidil removed by RN; SCDs placed; pt aware that she will have the SCDs until she is up ambulating; pt also aware that physicians will be in to check her cervix when available * Mary Alice Amanda RN - 05/13/2011 10:57 AM EDT 1054: positive movement palpated- difficult at times to monitor FHR d/t fetus movement; pt appears comfortable and denies any needs at this time- plan to check one hour postprandial at 1140 * Mary Alice Amanda RN - 05/13/2011 8:05 AM EDT 0750: urine meter bag placed on wesley Urine dipped neg glucose, neg protein, +1 ketones; pt resting very comfortably on right tilt without any complaints at this time * Vincent Thompson MD - 05/13/2011 5:38 AM EDT Labor Progress Note Subjective: Patient feeling increased painful contractions. She had minimal pain relief with 5mg morphine Objective: Vital Signs: BP 159/93 Pulse 88 Temp(Src) 36.8 ??C (98.2 ??F) (Oral) Resp 18 SpO2 95% LMP08/23/2010 24 hr Temp review: Temp (24hrs), Av.8 ??C (98.2 ??F), Min:36.7 ??C (98.1 ??F), Max:36.9 ??C (98.4 ??F) Cervix Exam: Dilation: Dilation: 0.5 Effacement: Effacement: 50 Station: Station: High, -4 FHR Evaluation: Fetus A: Baseline Rate: 145 bpm Accelerations: Absent Decelerations: none Variability: moderate Uterine Activity Mode: Lotsee Contraction Frequency: 2 to5 Contraction Duration: 20 to 60 Contraction Quality: Mild Resting Tone Palpated: Soft Assessment: 40 yo at 37 3/7 wga undergoing IOL for preeclampsia. complicated by GDM, benign intracranial hypertension. BP stable at 150/90. S/p miso x2 and cervidil in place Labor Assessment: Early latent labor, exam unchanged Plan: Labor Plans: Continue cervidil (due for removal at 13:45) -Continue magnesium -continue to monitor BP -HELLP labs this am -will give morphine 5mg IV and 10mg IM for pain Note of VINCENT THOMPSON Patient seen, tracings reivewed. IOL underway secondary to preelcampsia with GDM. Contraction from cervidil. S: C/o painful contracitons, improved with meds, but getting stronger. Temp: [36.6 ??C (97.9 ??F)-36.9 ??C (98.4 ??F)] Heart Rate: [71-90] Resp: [18-29] BP: (133-183)/(57-96) SpO2: [92 %-97 %] Uterus: Soft NT Extremeities + edema FHRT: Category 1 EFW from earlier this week 3943 grams Impression: Responding well to cervidil. Plan: con't with IOL, wathc BP carefully, con't glyburide until NPO and then hold. * Jennifer Colon MD - 05/13/2011 1:12 AM EDT Labor Progress Note Subjective: The patient is tolerating labor well, feeling more contractions. Objective: Vital Signs: BP 166/87 Pulse 85 Temp(Src) 36.9 ??C (98.4 ??F) (Oral) Resp 18 SpO2 96% LMP08/23/2010 24 hr Temp review: Temp (24hrs), Av.8 ??C (98.2 ??F), Min:36.7 ??C (98.1 ??F), Max:36.9 ??C (98.4 ??F) Cervix Exam: Dilation: Dilation: 0.5 Effacement: Effacement: 50 Station: Station: [facility], -4 FHR Evaluation: Fetus A: Baseline Rate: 145 bpm Accelerations: Absent Decelerations: none Variability: moderate Uterine Activity Mode: [place]see Contraction Frequency: 2 to5 Contraction Duration: 20 to 60 Contraction Quality: Mild Resting Tone Palpated: Soft Assessment: 40 yo at 37 3/7 wga undergoing IOL for preeclampsia. complicated by GDM, benign intracranial hypertension. BP increasing to 160's/80's. S/p miso x2 Labor Assessment: Early latent labor Plan: Labor Plans: Will give cervidil as patient requires additional cervical ripening and jasmyn fairly regularly -Will also start magnesium at this time * Jennifer Colon MD - 05/12/2011 10:26 PM EDT Labor Progress Note Subjective: The patient is tolerating labor well. Feeling a few intermittent contractions. Objective: Vital Signs: BP 147/79 Pulse 88 Temp(Src) 36.8 ??C (98.2 ??F) (Oral) Resp 20 SpO2 97% LMP08/23/2010 24 hr Temp review: Temp (24hrs), Av.8 ??C (98.2 ??F), Min:36.7 ??C (98.1 ??F), Max:36.8 ??C (98.2 ??F) Cervix Exam: Dilation: Dilation: 0.5 Effacement: Effacement: 50 Station: Station: High, -4 FHR Evaluation: Fetus A: Baseline Rate: 150 bpm Accelerations: Present Deceleration: rare variable Variability: moderate Uterine Activity Mode: [place]see Contraction Frequency: irregular Contraction Duration: 150 Contraction Quality: Mild Resting Tone Palpated: Soft Assessment: 40 yo at 37 3/7 wga undergoing IOL for preeclampsia. complicated by GDM,benign intracranial hypertension. BP controlled. S/p miso x1 Labor Assessment: Early latent labor Other Issues: Plan: Labor Plans: miso #2 placed * Xu Ellis MD - 05/12/2011 4:48 PM EDT Pt examined with Dr. Ellis present. Cervix 0.5 cm dilated, soft and 2 cm long, -5 station. First dose of misoprostil placed at 16:45pm. Pt tolerated exam well. MFM Attending Note: I have personally reviewed the patient's progress in labor and agree with the Tricia Mart's assessment and plan as documented. I supervised the exam and placement of the misoprostol. Xu Ellis MD, MS 05/12/2011 * Rajwinder Ventura RN - 05/12/2011 4:09 PM EDT Patient awaiting cervical exam. documented in this encounter H&P Notes * Xu Ellis MD - 05/12/2011 9:47 AM EDT Obstetrical Term Admission Note Dilan Elias is a 40 y.o. year old female with an ISSAC of 05/30/2011 based on 11 week ultrasound, who is at 37w3d weeks gestation being admitted for induction of labor for mild preeclampsia.The patient underwent amniocentesis yesterday with confirmed lung maturity. This patient's course has been complicated by: 1. A2 GDM: Patient currently on glyburide 5mg QHS 2. Mild pre-eclampsia: ?? BPs have been 130-140's/80-90's ?? 24 hour urine 355 mg (04/13) ?? HELLP labs (05/08): plts 352, AST 17, Cr 0.67 3. Benign Intracranial Hypertension: asymptomatic, seen by anesthesia see consult note 4. Obesity: BMI > 40 5. AMA 6. Polyhydramnios: resolved on last ultrasound 24.8 (05/12) General ROS Review of Systems Obstetric ROS Active Problems There are no hospital problems to display for this patient. Active Non-Hospital Problems Diagnoses ??? Mild preeclampsia ? GDM (gestational diabetes mellitus) ??? macrosomia ??? Polyhydramnios ? ? Obesity, morbid (more than 100 lbs over ideal weight or BMI > 40) ??? Benign hypertension due to increased intracranial pressure ??? AMA (advanced maternal age) primigravida 35+ Past Medical History Past Medical History Diagnosis Date ??? Intracranial hypertension, benign 2007 sees neurology and opth, had one lumbar puncture 2007 ? ? Obesity, morbid (more than 100 lbs over ideal weight or BMI > 40) BMI 54 Past Surgical History Past Surgical History Procedure Date ??? 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 Latex Hives Family History No family history on file. Social History Social History Occupational History ??? Not on file. Social History Main Topics ??? Smoking status: Never Smoker ??? Smokeless tobacco: Never Used ??? Alcohol Use: No ??? Drug Use: No ??? Sexually Active: Yes -- Male partner(s) Relevant Immunizations There is no immunization history on file for this patient. Last Set of Vitals: LMP 08/23/2010 Physical Exam Pelvis: average Heart Rate Interpretation: Uterine Size: S=D Presentations: Cephalic Cervix: 1.5/2m/-5 Lab Review Rubella I, RPR NR, UC neg, GC/CT neg/neg, CF neg, IS2 neg, 1 hour GTT 172, GBS pos Most Recent Ultrasound Date: 05/11/11 Growth large for gestational age (3943 grams) Amniotic fluid [id number] cm Placenta fundal Presentation vertex Assessment 40 y.o. year old female with an 05/30/2011, by 11 week ultrasound who is at 37w3d weeks gestation being admitted for IOL for mild pre-eclampsia with confirmed lung maturity by amniocentesis. Labor State: Not in labor.. ?? Heart Rate Assessment: Category 1 ?? GBS/Rh/HIV Status: pos/pos/neg ?? GBS: pos No results found for this basename: ABORH, HIV12 ?? Additional medical and obstetrical issues: 1. Mild preeclampsia 2. A2 GDM: on glyburide 5mg QHS 3. Benign intracranial hypertension 4. obesity Plan: Labor management: induction of labor Additional issues: ?? Will place misoprostol JENNIFER Montero DARLENE 05/12/2011 MFM Attending Note: I have personally reviewed the patient's presenting symptoms, history and physical status and agreewith the resident 's assessment as documented. The management plans for the initial phase of hospitalization were formulated in discussion with me at the time of the admission, and I agree with them as documented. No referring provider defined for this encounter. Xu Ellis MD Maternal Medicine Service documented in this encounter Miscellaneous Notes * Miscellaneous - Provider, Scanning - 05/21/2011 10:59 AM EDT * Miscellaneous - Provider, Scanning - 05/21/2011 10:56 AM EDT * Discharge Summary - Jennifer Colon MD - 05/15/2011 11:39 PM EDT Obstetrics - Discharge Summary Inpatient Obstetrics - Discharge Summary Patient Name: Dilan Elias Patient Age: 40 y.o. Birthdate: 1970 Admit date: 05/12/2011 Discharge date and time: 05/19/2011 1:39 PM Attending Physician: Sheree Pierce MD Discharge Diagnoses: 1. IUP 37 05/05 wga 2. Preeclampsia 3. GDM 4. Obesity 5. AMA 6. section Hospital Problems: There are no hospital problems to display for this patient. Secondary Diagnoses : Chronic Problems: Active Non-Hospital Problems Diagnoses ??? Mild preeclampsia ??? [facility] Delivery plan: Contraceptive plan: ??? GDM (gestational diabetes mellitus) ??? macrosomia ??? Polyhydramnios ? ? Obesity, morbid (more than 100 lbs over ideal weight or BMI > 40) BMI 56.6 pounds ??? Benign hypertension due to increased intracranial pressure On Diamox prior to Being followed by neurologist and opthamologist every 2 months ??? 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 year old female with an ISSAC of 05/30/2011 based on 11 week ultrasound, who is at 37w3d weeks gestation being admitted for induction of labor for mild preeclampsia.The patient underwent amniocentesis yesterday with confirmed lung maturity. This patient's course has been complicated by: 1. A2 GDM: Patient currently on glyburide 5mg QHS 2. Mild pre-eclampsia: BPs have been 130-140's/80-90's 24 hour urine 355 mg (04/13) HELLP labs (05/08): plts 352, AST 17, Cr 0.67 3. Benign Intracranial Hypertension: asymptomatic, seen by anesthesia see consult note 4. Obesity: BMI > 40 5. AMA 6. Polyhydramnios: resolved on last ultrasound 24.8 (05/12) Hospital Course: Dilan Elias is a 40 yo at 37 6/7 wga who underwent IOL for mild preeclampsia. Patient received PCN for GBS prophylaxis and magnesium. Patient was induced with misox2, cervidil, followed by pitocin then wesley balloon and repeat pitocin and AROM. Patient failed to progress past 5 cm and was developing increased symptoms of headache and decreased urine output. Decision was made to proceed with section given lack of progression, increase preeclampsia symptoms and minimal variability on FHTs. Delivered a female of 3930 and apgars of 7 and 8. Patient with uterine atony that resolved with pitocin and 400mcg buccal miso. EBL 1500. Infant with hypoglycemia to 30's shortly after delivery. Mother tolerated the procedure well. The patient's course was complicated by elevated BP for which she was started on labetolol 200mg BID on PPD #3. At time of discharge the patient's BP were in the 140-160/70-80's. HELLP labs with in normal limits. The patient was also placed on lovenox secondary to morbid obesity. This was discontinued at time of discharge. Plan for VNA to assess patient two days after discharge to remove vernon and assess BP. Her course was otherwise uneventful. Her pain was controlled with oral pain medications,she was tolerating a regular diet, ambulating and voiding without difficulty, her fundal exam was as expected and her lochia was within normal limits before discharge on post day number 4 witha prescription for percocet, ibuprofen, labetalol, micronor, colace, and Fe. She is establishing breast feeding and will be followed up in the clinic in 2 and 6 weeks. Important Studies and Lab Data: Labs: Results for DILAN ELIAS ( ) as of 05/21/2011 14:33 Ref. Range 05/17/2011 07:45 WBC Latest Range: 4.0-10.0 x10(3)/mcL 11.6 (H) RBC Latest Range: 3.93-5.22 x10(6)/mcL 3.37 (L) Hemoglobin Latest Range: 11.2-15.7 gm/dL 8.8 (L) Hematocrit Latest Range: 34.0-45.0 % 27.5 (L) MCV Latest Range: 79.0-94.0 fL 81.6 MCH Latest Range: 26.6-32.2 pg 26.1 (L) MCHC Latest Range: 32.0-36.5 gm/dL 32.0 RDWSD Latest Range: 35.0-46.0 fL 51.9 (H) RDWCV Latest Range: 10.9-14.4 % 17.8 (H) Platelets Latest Range: 145-370 x10(3)/mcL 325 Results for DILAN ELIAS ( ) as of 05/21/2011 14:33 Ref. Range 05/17/2011 07:45 AST Latest Range: 0-30 unit/L 20 Creatinine Latest Range: 0.70-1.20 mg/dL 0.64 (L) Studies: none Pending Studies and Lab Data: 6 week 2 hour glucose challenge test Placenta pathology Updated Allergies/ADRs: Allergies Allergen Reactions ??? Latex Hives Discharge Medications: Discharge Medication List as of 05/19/11 11:16 AM New Meds Details docusate sodium (COLACE) 100 mg capsule Take 1 capsule by mouth 2 times daily as needed for Constipation for 10 days., Oral, 2 TIMES DAILY PRN Starting 05/19/2011, Until Wed05/29/11, Constipation, Disp-20 capsule, R-0, Print ibuprofen (ADVIL;MOTRIN) 600 mg tablet Take 1 tablet by mouth every 6 hours as needed for Pain., Oral, EVERY 6 HOURS PRN Starting 05/19/2011, Until Wed05/18/12, Pain, Disp-30 tablet, R-0, Print labetalol (NORMODYNE) 200 mg tablet Take 1 tablet by mouth 2 times daily., Oral, 2 TIMES DAILY Starting 05/19/2011, Last dose on Wed05/18/12, Disp-60 tablet, R- 12, Print OXYcodone-acetaminophen (PERCOCET) 5-325 mg per tablet Take 1-2 tablets by mouth every 3 hours as needed for Pain (moderate-severe pain)., Oral, EVERY 3 HOURS PRN Starting 05/19/2011, Until Discontinued, Pain, moderate-severe pain, Disp-30 tablet, R-0, Print ferrous gluconate 325 mg (37.5 mg Iron) tablet Take 1 tablet by mouth 2 times daily., Oral, 2 TIMESDAILY Starting 05/19/2011, Last dose on Wed05/18/12, Disp-60 tablet, R-12, Print Continued medications with revised dosing Details norethindrone (MICRONOR, 28,) 0.35 mg tablet Take 1 tablet by mouth daily., Oral, DAILY Starting 05/19/2011, Last dose on Wed05/18/12, Disp-30 tablet, R-12, Print Continued medications, unchanged Details VITS W-CA,FE,FA,<1MG, ( VITAMIN ORAL) Oral Medications STOPPED glyBURIDE (DIABETA) 5 mg tablet Lancets & Blood Glucose Strips Cmpk Summary: Dating Summary: 05/30/2011, Alternate SISAC Entry Obstetric History: Obstetric History T1 TAB0 SAB0 E0 M0 L1 Name of Baby 1 JADA,BABY GIRL ??? Outcome Date 05/15/11 GA 37w 6d ??? Delivery Type Lower Segment Transverse ??? at 1 min. 7 at 5 min. 8 ??? Living Yes Past Medical and Surgical History: Past Medical History Diagnosis Date ??? Intracranial hypertension, benign 2008 sees neurology and opth, had one lumbar puncture 2007 ? ? Obesity, morbid (more than 100 lbs over ideal weight or BMI > 40) BMI 54 Past Surgical History Procedure Date ??? 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 delivery only 05/15/2011 ?? DELIVERY performed by SHEREE PIERCE at [facility] Family History: No family history on file. Social History and Habits: History Social History ??? Marital Status: Single Spouse Name: N/A Number of Children: N/A ??? Years of Education: N/A Occupational History ??? Not on file. Social History Main Topics ??? Smoking status: Never Smoker ??? Smokeless tobacco: Never Used ??? Alcohol Use: No ??? Drug Use: No ??? Sexually Active: Yes -- Male partner(s) Other Topics Concern ??? Not on file Social History Narrative ??? No narrative on file Operations/Major Procedures: Operations: ?? DELIVERY Other Major Procedures: none Discharge Conditions/Prognosis: good Discharge to: Home Contraceptive Plans: micronor Follow-up Recommendations for Providers: 2 and 6 weeks with MFM service 6 weeks with Yvonne Stiles for 2 hour glucose tolerance test Instructions Given to Patient at Discharge: Provider Instructions None General Instructions Nursing Inpatient Progress C - Section Follow-up Follow-ups: Immunizations Received: [ ] MMR [x ] Tdap [ ] Inactivated Influenza Vaccine [ ] Other: Medications Received: [ ] Rhogam Given: (time/date) [ ] Depoprovera Given: (time/date) [ ] Other: Referrals: Additional Instructions: Maternal Discharge Instructions Rest: Although it may seem impossible to get enough rest, simple planning will help. Try to get at least one four hour block of uninterrupted sleep in 24 hours; then plan to rest, and/or sleep when your baby does. Limiting visitors also helps. Fathers and other family members can help by doing housework, caring for other children and/or helping limit visitors. Activity: After delivery, it is safe to climb stairs at home. Do not lift anything heavierthan your baby for two weeks. Do not drive for two weeks or while taking pain medicine that contains a narcotic as your reaction time may be decreased. Nutrition: Your diet following the of your baby is as important as it was before the baby wasborn. Drink a minimum of 6-8 glasses a day. Do not attempt to lose weight during the first six weeks. Continue taking your vitamins until they are gone. Lochia: (Flow) Your flow should be no heavier than a normal period. It will be bright red for 2-3 days and then pinkish and finally colorless. If your flow becomes bright red again, decrease your activity. Do not use tampons until your care provider advises you it is OK. Incision: Wash the incision with soap and water and pat dry. It is normal to have clear or pinkish fluid seep from the incision. Gauze pads or sanitary napkins may help to keep the incision dry if itis located in a fold under your tummy. If the incision has more redness, yellow drainage, or becomes more painful, contact the obstetrics clinic. Breast Care for Formula feeding mothers: Wear a well fitting bra to support your breasts. Ice packsto your breasts and Tylenol or Ibuprofen may be used to relieve discomfort from engorgement. Avoid stimulating your breasts: Do not let warm water from the shower fall on them; avoid holding your baby near your breasts until your milk begins to decrease and engorgement is relieved. Breast feeding mothers: Practice careful positioning and frequent feeding as demonstrated in the hospital. The printed information in your packet covers this in detail. Call your doctor or flash welder for: Fever more than 100.5 Heavy bleeding that saturates a pad an hour Clots larger than a plum Increased abdominal pain, nausea, shaking chills Increased redness or soreness over your incision Breast with hot, hard, tender areas on the breast plus flu-like symptom depression occurs in a large percentage of women. We encourage you to contact your provider or a member of the nursing staff if you are feeling so overwhelmed that you are unable to care for yourself or your baby. Keep your follow up appointment. You may call the [facility] at any time for guidance or for answers to questions that come up prior to you follow up appointment. Your [facility] Provider can be reached during office hours at [facility] Follow-up Clinic AFTER OFFICE HOURS for the ibm mainframe developer or flash welder stone driller Provider electronic signature confirms that discharge instructions were reviewed with the patient. A copy was printed and given to the patient. Future Appointments and Orders Future Orders Please Complete By Expires GLUCOSE TOLERANCE, 2 HOURS [[id number] Custom] 06/30/11 05/19/12 Process Instructions: Scheduling Instructions: Comments: -Perform at six weeks if diagnosed with gestational diabetes prior to visit. Questions: Responses: ? No Should this service/procedure be billed to the research sponsor? [facility] HOME HEALTH REFERRAL [[id number] CPT(R)] Process Instructions: Scheduling Instructions: Comments: Dilan Elias Being discharged to own home: [address] [facility] [id number] [facility] [id number] (home) HOME HEALTH AGENCY: [facility] [employer] [facility] [employer] PHONE: [phone] FAX: [phone] RN orders: 1. Assess postoperative recovery: Incision healing/swelling. Please remove vernon. Check Blood pressure. Report to OB clinic if greater than 150/90. Review patient's medication and dosing. 2. Assess breast feeding/pumping 3. Assess care management, clinical status including risk for depression. 4. Provide care guidance, anticipatory guidance for maternal post period and assist with connecting to appropriate community resources. Start of care within 24-48hrs of discharge. Home on Wednesday. Please see on 05/21/11 Questions: Responses: Agency name and contact information [facility] Patient location post discharge Home of pt's mom What services are requested Registered Nurse Start date 04/30/2011 Responsible MD post discharge contact info Maternal Medicine [facility] [phone] FOLLOW UP [[id number] Custom] Process Instructions: Scheduling Instructions: Comments: - gestational diabetic counseling with cosmetology educator at the time of the visit if there is a diagnosis of gestational diabetes. Questions: Responses: FOLLOW UP [[id number] Custom] Process Instructions: Scheduling Instructions: Comments: - visit 6 weeks after delivery with [facility] provider. - visit 2 weeks after delivery for blood pressure check and Rx management Questions: Responses: Referrals: Cc: Provider Contact Information: FLORECITA DOUGLAS, BRAD [phone] Discharge References/Attachments: Discharge References/Attachments None Signed: JENNIFER COLON 05/21/2011 * Op Note - Jennifer Colon MD - 05/15/2011 11:23 PM EDT [facility] Operative Note Patient Name: Dilan Elias : [id number] MR#: [id number] Case Date: 05/15/2011 Surgeon: Surgeon(s) and Role: * SHEREE PIERCE MD - Primary * ELODIA LIRA MD - Surgeon Chief * JENNIFER COLON MD - Surgeon Brad Operative date: Surgical Staff/Assistants: Preoperative Diagnosis(es): 1. 37 6/7 week intrauterine 2. preeclampsia with worsening clinical symptoms (MENDOZA and decreased UOP) 3. Arrest of dilation 4. A2 GDM Postoperative Diagnosis(es): same Procedure Performed: primary low transverse section via Pfannenstiel skin incision. Anesthesia: epidural Estimated Blood Loss: 1500 cc Drains: Wesley to gravity. IV Fluids: 2050 cc of lactated Ringer's. Urine Output: 100 cc. Complications: none Findings at surgery: Female infant in cephalic, OP, and deflexed presentation. Apgars of 7 at one minute and 8 at five minutes, weight of 3930 gm. Umbilical artery pH was 7.2, base excess at 0.8. Normal tubes and ovaries. Indications for Procedure: Dilan Elias is a 40 yo at 37 6/7 wga who underwent IOL for mild preeclampsia. Patient received PCN for GBS prophylaxis and magnesium. Patient was induced with misox2, cervidil, followed by pitocin then wesley balloon and repeat pitocin and AROM. Patient failed to progress past 5 cm and was developing increased symptoms of headache and decreased urine output. Decision was made to proceed with section given lack of progression, increase preeclampsia symptoms and minimal variability on FHTs. Risks and benefits of the surgery were reviewed in detail with the patient, who had the opportunityto ask questions, all of which were answered. Description of Procedure: After informed consent was reviewed, the patient was taken to the Operating Room where epidural anesthesia was bolused and found to be adequate. The patient was given ancef 2 g. The patient was placed in the dorsal supine position with a leftward tilt. The patient was thenprepped and draped in the usual sterile fashion. After epiduralanesthesia was confirmed adequate, a Pfannenstiel skin incision was made with a scalpel and carried through to the underlying layer of fascia with knife. The fascia was nicked in the midline and the incision was extended laterally with the curved Dominguez scissors. The superior aspect of the fascial incision was then grasped with Susie clamps, elevated, and the rectus muscle was dissected off sharply. Attention was then turned to the inferior aspect of the fascial incision, which in a similar fashion was grasped with Susie clamps, elevated and the underlying rectus muscles dissected off sharply. The rectus muscles were then in the midline and the peritoneum identified,tented up, and entered bluntly. The peritoneal incision was then extended superiorly and inferiorly with good visualization of the bladder. The bladder blade was then inserted and the vesicouterine peritoneum identified, grasped with pickups and entered sharply with Metzenbaum scissors. This incision was then extended laterally and the bladder flap created digitally. The bladder blade was replaced and the lower uterine segment incised in a transverse fashion with ascalpel. The hysterotomy was stretched to accommodate the head. The bladder blade was then removed and a hand inserted into the uterus. Delivery of the fetus was attempted with the help of fundal pressure. The head was delivered atraumatically and the body and shoulders followed easily and a live born female was delivered. The nose and mouth were suctioned on the field with theDeLee Suction trap and the cord was clamped and cut. The was handed off to the waiting nurse, who assigned Apgars of 7 at one minute and 8 at five minutes. Cord gases were sent. Cord blood wascollected. Pitocin was started. Uterine atony was noted and patient was given misoprostol 400mcg buccal with good subsequent uterine tone. The uterus was then exteriorized, the placenta was removed manually and the uterus was cleared of all clots and debris. The uterine incision was repaired with 0 vicryl in a continuous locking fashion. A second layer of the same suture was used to imbricate the first layer. A single figure of 8 suture with 0-vicryl was placed on the right hysterotomy to obtain hemostasis. The uterus was returned to the abdomen. Inspection of the uterine incision revealed one single area of nonhemostasis and a single [id number]-[id number]-snaem was placed for hemostasis. Examination of the pelvis revealed normal uterus, tubes and ovaries. The gutters were cleared of all clots and debris. The hysterotomy and the bladder flap were checked again prior to closure of the fascia and found to be hemostatic. The fascia was reapproximated with 0-vicryl x2 in a running fashion. The subcu ticular space was well irrigated. The subcuticular space was loosely reapproximated with 3-O vicryl. The skin was closed with vernon. Sterile bandages were placed. The vagina was cleared of all clots and the cervix was found to be patent. The patient and tolerated the procedure well. Infant was found to be hypoglycemic to 30's shortly after delivery and was undergoing evaluation by pediatrics. Sponge, lap and needle counts werecorrect times two at case close. The patient was taken back to her room in stable condition. Dr. Pierce was present and participated for the entire procedure without any conflicting clinical responsibilities. * OR Attestation - Sheree Pierce MD - 05/15/2011 12:00 AM EDT I was the attending physician supervising the resident in the above care and I was present with theresident for the entire procedure. * L&D Delivery Note - Jennifer Colon MD - 05/14/2011 12:00 AM EDT Delivery Summary for Dilan Elias is a 40 yo at 37 6/7 wga who underwent IOL for mild preeclampsia. Patient received PCN for GBS prophylaxis and magnesium. Patient was induced with misox2, cervidil, followed by pitocin then wesley balloon and repeat pitocin and AROM. Patient failed to progress past 5 cm and was developing increased symptoms of headache and decreased urine output. Decision was made to proceed with section given lack of progression, increase preeclampsia symptoms and minimal variability on FHTs. Delivered a female infant of 3930 and apgars of 7 and 8. Patient with uterine atony that resolved with pitocin and 400mcg buccal miso. EBL 1500. with hypoglycemia to 30's shortly after delivery. Mother tolerated the procedure well. Please see operative report for more details. Labor Events: labor: Rupture date: 05/14/2011 Rupture time: 6:23 PM Rupture type: Artificial Fluid Color: Clear Induction: Misoprostol Cervidil Wesley/EASI Augmentation: AROM Oxytocin Complications: Cervical ripening: Delivery: Episiotomy: Lacerations: Repair suture: Repair # of packets: Blood loss (ml): 1500 Information for the patient's : Monica Elias Girl [[id number]] Delivery 05/15/2011 6:55 AM by Lower Segment Transverse Sex: female Gestational Age: 37.9 weeks. Delivery Clinician: Sheree Pierce Living?: Yes APGARS One minute Five minutes Ten minutes Skin color: 0 1 Heart rate: 2 2 Grimace: 2 2 Muscle tone: 1 1 Breathin 2 Totals: 7 8 Presentation/position: Vertex Occiput Posterior Resuscitation: Suctioning Cord information: 3 Vessels Disposition of cord blood: Blood gases sent? Yes Complications: None Placenta: Delivered: appearance Measurements: Weight: 8 lb 10.6 oz (3930 g) Height: 53.5 Head circumference: Chest circumference: Other providers: Delivery Assist Delivery Nurse Lizzie Colon Additional information: Forceps: Vacuum: Breech: Observed anomalies * Miscellaneous - Provider, Scanning - 05/13/2011 11:12 AM EDT documented in this encounter Plan of Treatment Not on file documented as of this encounter Procedures Procedure Name Priority Date/Time Associated Diagnosis Comments NUCLEATED RED BLOOD CELLS Routine 05/17/2011 7:45 AM EDT DIFFERENTIAL, AUTOMATED Routine 05/17/20 7:45 AM EDT CREATININE Routine 05/17/2011 7:45 AM EDT CBC (WITH DIFF) Routine 05/17/2011 7:45 AM EDT ASPARTATE AMINOTRANSFERASE Routine 05/17/2011 7:45 AM EDT POCT GLUCOSE Routine 05/16/2011 5:08 PM EDT ASPARTATE AMINOTRANSFERASE Routine 05/16/2011 11:11 AM EDT NUCLEATED RED BLOOD CELLS Routine 05/16/2011 8:45 AM EDT DIFFERENTIAL, AUTOMATED Routine 05/16/20 11 8:45 AM EDT CREATININE Routine 05/16/2011 8:45 AM EDT CBC (WITH DIFF) Routine 05/16/2011 8:45 AM EDT ASPARTATE AMINOTRANSFERASE Routine 05/16/2011 8:45 AM EDT DIFFERENTIAL, AUTOMATED Routine 05/15/20 11 8:35 PM EDT CREATININE Routine 05/15/2011 8:35 PM EDT CBC (WITH DIFF) Routine 05/15/2011 8:35 PM EDT ASPARTATE AMINOTRANSFERASE Routine 05/15/2011 8:35 PM EDT SURGICAL PATHOLOGY REPORT Routine 05/15/2011 10:27 AM EDT SURGICAL PATHOLOGY REPORT Routine 05/15/2011 10:27 AM EDT @ DELIVERY (WRVU 16.13) 05/15/2011 5:52 AM EDT POCT GLUCOSE Routine 05/15/2011 4:57 AM EDT POCT GLUCOSE Routine 05/15/2011 4:02 AM EDT POCT GLUCOSE Routine 05/15/2011 3:29 AM EDT POCT GLUCOSE Routine 05/15/2011 2:31 AM EDT POCT GLUCOSE Routine 05/15/2011 1:29 AM EDT POCT GLUCOSE Routine 05/15/2011 12:26 AM EDT POCT GLUCOSE Routine 05/14/2011 11:29 PM EDT POCT GLUCOSE Routine 05/14/2011 10:28 PM EDT POCT GLUCOSE Routine 05/14/2011 9:28 PM EDT POCT GLUCOSE Routine 05/14/2011 8:32 PM EDT DIFFERENTIAL, AUTOMATED Routine 05/14/20 11 8:20 PM EDT CREATININE Routine 05/14/2011 8:20 PM EDT CBC (WITH DIFF) Routine 05/14/2011 8:20 PM EDT ASPARTATE AMINOTRANSFERASE Routine 05/14/2011 8:20 PM EDT POCT GLUCOSE Routine 05/14/2011 7:32 PM EDT POCT GLUCOSE Routine 05/14/2011 6:35 PM EDT POCT GLUCOSE Routine 05/14/2011 5:33 PM EDT POCT GLUCOSE Routine 05/14/2011 4:26 PM EDT POCT GLUCOSE Routine 05/14/2011 3:06 PM EDT POCT GLUCOSE Routine 05/14/2011 2:02 PM EDT POCT GLUCOSE Routine 05/14/2011 12:44 PM EDT POCT GLUCOSE Routine 05/14/2011 11:45 AM EDT POCT GLUCOSE Routine 05/14/2011 11:11 AM EDT POCT GLUCOSE Routine 05/14/2011 10:09 AM EDT DIFFERENTIAL, AUTOMATED Routine 05/14/20 11 7:40 AM EDT CREATININE Routine 05/14/2011 7:40 AM EDT CBC (WITH DIFF) Routine 05/14/2011 7:40 AM EDT ASPARTATE AMINOTRANSFERASE Routine 05/14/2011 7:40 AM EDT POCT GLUCOSE Routine 05/14/2011 5:43 AM EDT POCT GLUCOSE Routine 05/13/2011 9:37 PM EDT DIFFERENTIAL, AUTOMATED Routine 05/13/20 11 7:30 PM EDT CREATININE Routine 05/13/2011 7:30 PM EDT CBC (WITH DIFF) Routine 05/13/2011 7:30 PM EDT ASPARTATE AMINOTRANSFERASE Routine 05/13/2011 7:30 PM EDT POCT GLUCOSE Routine 05/13/2011 4:32 PM EDT POCT URINE DIPSTICK Routine 05/13/2011 4 :00 PM EDT POCT URINE DIPSTICK Routine 05/13/2011 1 2:00 PM EDT POCT GLUCOSE Routine 05/13/2011 11:48 AM EDT POCT GLUCOSE Routine 05/13/2011 9:23 AM EDT POCT URINE DIPSTICK Routine 05/13/2011 7 :50 AM EDT DIFFERENTIAL, AUTOMATED Routine 05/13/20 11 5:50 AM EDT GREEN TUBE HOLD Routine 05/13/2011 5:50 AM EDT CREATININE Routine 05/13/2011 5:50 AM EDT CBC (WITH DIFF) Routine 05/13/2011 5:50 AM EDT ASPARTATE AMINOTRANSFERASE Routine 05/13/2011 5:50 AM EDT POCT GLUCOSE Routine 05/12/2011 9:11 PM EDT POCT GLUCOSE Routine 05/12/2011 7:56 PM EDT POCT GLUCOSE Routine 05/12/2011 4:19 PM EDT DIFFERENTIAL, AUTOMATED STAT 05/12/20 11 2:12 PM EDT CREATININE Routine 05/12/2011 2:12 PM EDT ABO/RH TYPING STAT 05/12/2011 2:12 PM EDT CBC (WITH DIFF) STAT 05/12/2011 2:12 PM EDT ANTIBODY SCREEN STAT 05/12/2011 2:12 PM EDT ASPARTATE AMINOTRANSFERASE Routine 05/12/2011 2:12 PM EDT TYPE AND SCREEN ([facility]/CGP/GAY) STAT 05/12/2011 1:50 PM EDT documented in this encounter Results * (ABNORMAL) REFLEX LAB-A-DIFF (05/17/2011 7:45 AM EDT) Neutrophil % 72.3(H) 34.0 - 71.0 % CERNER MILLENNIUM Neutrophil Absolute 8.39(H) 1.50 - 6.30 x10(3)/mc L CERNER MILLENNIUM Lymph % 17.4(L) 19.0 - 53.0 % CERNER MILLENNIUM Lymphocytes Abs 2.0 1.0 - 3.6 x10(3)/mc L CERNER MILLENNIUM Monocyte % 8.2 4.0 - 13.0 % CERNER MILLENNIUM Monocyte Abs 1.0 0.2 - 1.0 x10(3)/mc L CERNER MILLENNIUM Eos % 1.5 0.0 - 7.0 % CERNER MILLENNIUM Eosinophils Abs 0.2 0.0 - 0.5 x10(3)/mc L CERNER MILLENNIUM Basophil % 0.3 0.0 - 2.0 % CERNER MILLENNIUM Baso Absolute 0.0 0.0 - 0.2 x10(3)/mc L CERNER MILLENNIUM Immature Gran % 0.30 0.00 - 0.66 % CERNER MILLENNIUM Comment: Immature granulocytes(IG's)percentage and absolute count will include metamyelocytes, myelocytes, and promyelocytes. Blood smears from CBCs yielding IG's will be scanned manually for concordance. If this scan disagrees with the automated IG or if promyelocytes are noted, a manual differential will be performed. Immature Gran Absolute 0.04 0.00 - 0.05 x10(3)/mc L CERNER MILLENNIUM Blood specimen (specimen) 05/17/2011 7:45 AM EDT 05/17/2011 7:58 AM EDT Sheree Dawn MD HEMATOLOGY ORDERABL ES [facility] * REFLEX LAB-NUCLEATED RED BLOOD CELLS (05/17/2011 7:45 AM EDT) NRBC% auto 0.0 0.0 - 0.2 % [facility] NRBC Absolute 0.000 0.000 - 0.012 x10(3)/mcL [facility] Blood specimen (specimen) 05/17/2011 7:45 AM EDT 05/17/2011 7:58 AM EDT Sheree Dawn MD HEMATOLOGY ORDERABL ES [facility] * (ABNORMAL) Creatinine, serum (05/17/2011 7:45 AM EDT) Creatinine 0.64(L) 0.70 - 1.20 mg/dL [facility] Est Glomerular Filtration Rate >60 >=60 [facility]ERLEON[facility] HUTCHSIONIUM Comment: The National Kidney Disease Education Program (NKDEP) has recommended all laboratories report estimated GFR (eGFR) along with plasma creatinine measurements to assist you with recognition of early kidney disease. Caveats: ??Plasma creatinine should be at steady-state (unchanged within the past week). For patients multiply eGFR by 1.2.MDRD equation has not been validated for pediatric patients and is only valid for patients with age >= 18 years. At present, NKDEP does NOT recommend using the MDRD equation for drug dosing purposes and pharmacists should continue to use their current dosing methods. In addition, numerical eGFR values greater than 60 ml/min/1.73 square meters should be treated as > 60, and not an exact number due to greater inaccuracies at these higher values. Per NKDEP, they classify normal renal function as any GFR >60ml/min/1.73 square meters; chronic kidney disease when GFR <60, and renal failure when GFR <15. ??This calculation may not be valid for patients with atypical muscle mass (very lean or obese), acute renal failure, and in patients with diabetic kidney disease. References: http://nkdep.nih.gov/resources/NKDEP_Suggestn4Labs_0606_508.pdf http://www.kidney.org/professionals/kls/pdf/faq_gfr.pdf Blood specimen (specimen) 05/17/2011 7:45 AM EDT 05/17/2011 7:58 AM EDT Sheree Dawn MD CHEMISTRY ORDERABLE S Performing Organization Address City/[facility] Co de Phone Number LAURYN HAND * Aspartate Aminotransferase (05/17/2011 7:45 AM EDT) Aspartate Aminotransferase 20 0 - 30 unit/L LAURYN HAND Blood specimen (specimen) 05/17/2011 7:45 AM EDT 05/17/2011 7:58 AM EDT Sheree Dawn MD CHEMISTRY ORDERABLE S Performing Organization Address [facility] Co de Phone Number [facility] * (ABNORMAL) CBC (with Diff) (05/17/2011 7:45 AM EDT) White Blood Cell 11.6(H) 4.0 - 10.0 x10(3)/mc L [facility]ER MILLENNIUM Red Blood Cell 3.37(L) 3.93 - 5.22 x10(6)/mc L [facility]ERNER MILLENNIUM Hemoglobin 8.8(L) 11.2 - 15.7 gm/dL [facility]ERN[facility] MILLENNIUM Hematocrit 27.5(L) 34.0 - 45.0 % [facility]ERNER MILLENNIUM Mean Cell Volume 81.6 79.0 - 94.0 fL CERNER MILLENNIUM Mean Cell Hemoglobin 26.1(L) 26.6 - 32.2 pg [facility]ER MILLENNIUM Mean Cell Hemoglobin Concentration 32.0 32.0 - 36.5 gm/dL [facility]ERNER MILLENNIUM Platelet 325 145 - 370 x10(3)/mc L [facility]ERNER MILLENNIUM RDW Standard Deviation 51.9(H) 35.0 - 46.0 fL CERNER MILLENNIUM RDW coefficient of variation 17.8(H) 10.9 - 14.4 % [facility] MILLENNIUM Mean Platelet Volume 9.9 9.0 - 12.0 fL [facility] MILLENNIUM Blood specimen (specimen) 05/17/2011 7:45 AM EDT 05/17/2011 7:58 AM EDT Sheree Dawn MD HEMATOLOGY ORDERABL ES Performing Organization Address City/[facility]/ZIP Co de Phone Number [facility] HUTCHISONIUM * POCT GLUCOSE LAB USE ONLY (05/16/2011 5:08 PM EDT) Glucose, POC 131 60 - 199 mg/dL CERNER MILLENNIUM Comment: Supplemental ranges: <110 mg/dL before meals <200 mg/dL all other times of the day Blood specimen (specimen) 05/16/2011 5:08 PM EDT 05/16/2011 5:08 PM EDT Lori Godwin MD POINT OF CARE TEST O RDERABLES [facility]ER MILLENNIUM * Aspartate Aminotransferase (05/16/2011 11:11 AM EDT) Aspartate Aminotransferase Not Perf 0 - 30 unit/L CERNER MILLENNIUM Comment: Unable to quantitate due to sample hemolysis. ??Sample redraw suggested. called bp/dilan dye, 05/16/11 12:13 Blood specimen (specimen) 05/16/2011 11:11 AM EDT 05/16/2011 11:15 AM EDT Lori Godwin MD CHEMISTRY ORDERABLES [facility]ERNER MILLENNIUM * (ABNORMAL) REFLEX LAB-A-DIFF (05/16/2011 8:45 AM EDT) Neutrophil % 82.9(H) 34.0 - 71.0 % CERNER MILLENNIUM Neutrophil Absolute 10.40(H) 1.50 - 6.30 x10(3)/mc L CERNER MILLENNIUM Lymph % 8.4(L) 19.0 - 53.0 % CERNER MILLENNIUM Lymphocytes Abs 1.1 1.0 - 3.6 x10(3)/mc L CERNER MILLENNIUM Monocyte % 8.0 4.0 - 13.0 % [facility]ERNER MILLENNIUM Monocyte Abs 1.0 0.2 - 1.0 x10(3)/mc L [facility]ERNER MILLENNIUM Eos % 0.3 0.0 - 7.0 % [facility]ERNER MILLENNIUM Eosinophils Abs 0.0 0.0 - 0.5 x10(3)/mc L [facility]ER MILLENNIUM Basophil % 0.2 0.0 - 2.0 % CERNER MILLENNIUM Baso Absolute 0.0 0.0 - 0.2 x10(3)/mc L CERNER MILLENNIUM Immature Gran % 0.20 0.00 - 0.66 % CERNER MILLENNIUM Comment: Immature granulocytes(IG's)percentage and absolute count will include metamyelocytes, myelocytes, and promyelocytes. Blood smears from CBCs yielding IG's will be scanned manually for concordance. If this scan disagrees with the automated IG or if promyelocytes are noted, a manual differential will be performed. Immature Gran Absolute 0.03 0.00 - 0.05 x10(3)/mc L [facility]ERNER MILLENNIUM Blood specimen (specimen) 05/16/2011 8:45 AM EDT 05/16/2011 8:51 AM EDT Sheree Dawn MD HEMATOLOGY ORDERABL ES CERNER MoSoENNIUM * REFLEX LAB-NUCLEATED RED BLOOD CELLS (05/16/2011 8:45 AM EDT) NRBC% auto 0.0 0.0 - 0.2 % CERNER MILLENNIUM NRBC Absolute 0.000 0.000 - 0.012 x10(3)/mcL CERNER MILLENNIUM Blood specimen (specimen) 05/16/2011 8:45 AM EDT 05/16/2011 8:51 AM EDT Sheree Dawn MD HEMATOLOGY ORDERABL ES Performing Organization Address City/[facility]/ZIP Co de Phone Number CERNER MoSoENNIUM * Creatinine, serum (05/16/2011 8:45 AM EDT) Creatinine 0.74 0.70 - 1.20 mg/dL CERNER MILLENNIUM Est Glomerular Filtration Rate >60 >=60 CERNER MILLENNIUM Comment: The National Kidney Disease Education Program (NKDEP) has recommended all laboratories report estimated GFR (eGFR) along with plasma creatinine measurements to assist you with recognition of early kidney disease. Caveats: ??Plasma creatinine should be at steady-state (unchanged within the past week). For patients multiply eGFR by 1.2.MDRD equation has not been validated for pediatric patients and is only valid for patients with age >= 18 years. At present, NKDEP does NOT recommend using the MDRD equation for drug dosing purposes and pharmacists should continue to use their current dosing methods. In addition, numerical eGFR values greater than 60 ml/min/1.73 square meters should be treated as > 60, and not an exact number due to greater inaccuracies at these higher values. Per NKDEP, they classify normal renal function as any GFR >60ml/min/1.73 square meters; chronic kidney disease when GFR <60, and renal failure when GFR <15. ??This calculation may not be valid for patients with atypical muscle mass (very lean or obese), acute renal failure, and in patients with diabetic kidney disease. References: http://nkdep.nih.gov/resources/NKDEP_Suggestn4Labs_0606_508.pdf http://www.kidney.org/professionals/kls/pdf/faq_gfr.pdf Blood specimen (specimen) 05/16/2011 8:45 AM EDT 05/16/2011 8:51 AM EDT Sheree Dawn MD CHEMISTRY ORDERABLE S CERNER MILLENNIUM * Aspartate Aminotransferase (05/16/2011 8:45 AM EDT) Aspartate Aminotransferase Not Perf 0 - 30 unit/L CERNER MILLENNIUM Comment: Unable to quantitate due to sample hemolysis. ??Sample redraw suggested. called / yoan singletary, 05/16/11 09:22 Blood specimen (specimen) 05/16/2011 8:45 AM EDT 05/16/2011 8:51 AM EDT Sheree Dawn MD CHEMISTRY ORDERABLE S CERNER MILLENNIUM * (ABNORMAL) CBC (with Diff) (05/16/2011 8:45 AM EDT) White Blood Cell 12.6(H) 4.0 - 10.0 x10(3)/mc L [facility]ERNER MILLENNIUM Red Blood Cell 3.41(L) 3.93 - 5.22 x10(6)/mc L CERNER MILLENNIUM Hemoglobin 8.9(L) 11.2 - 15.7 gm/dL [facility]ERNER MILLENNIUM Hematocrit 27.4(L) 34.0 - 45.0 % CERNER MILLENNIUM Mean Cell Volume 80.4 79.0 - 94.0 fL CERNER MILLENNIUM Mean Cell Hemoglobin 26.1(L) 26.6 - 32.2 pg CERNER MILLENNIUM Mean Cell Hemoglobin Concentration 32.5 32.0 - 36.5 gm/dL CERNER MILLENNIUM Platelet 361 145 - 370 x10(3)/mc L CERNER MILLENNIUM RDW Standard Deviation 52.0(H) 35.0 - 46.0 fL CERNER MILLENNIUM RDW coefficient of variation 17.6(H) 10.9 - 14.4 % CERNER MILLENNIUM Mean Platelet Volume 10.4 9.0 - 12.0 fL CERNER MILLENNIUM Blood specimen (specimen) 05/16/2011 8:45 AM EDT 05/16/2011 8:51 AM EDT Sheree Dawn MD HEMATOLOGY ORDERABL ES CERNER SHREEENNIUM * (ABNORMAL) REFLEX LAB-A-DIFF (05/15/2011 8:35 PM EDT) Neutrophil % 84.5(H) 34.0 - 71.0 % CERNER MILLENNIUM Neutrophil Absolute 10.57(H) 1.50 - 6.30 x10(3)/mc L CERNER MILLENNIUM Lymph % 7.2(L) 19.0 - 53.0 % CERNER MILLENNIUM Lymphocytes Abs 0.9(L) 1.0 - 3.6 x10(3)/mc L CERNER MILLENNIUM Monocyte % 7.8 4.0 - 13.0 % CERNER MILLENNIUM Monocyte Abs 1.0 0.2 - 1.0 x10(3)/mc L CERNER MILLENNIUM Eos % 0.2 0.0 - 7.0 % CERNER MILLENNIUM Eosinophils Abs 0.0 0.0 - 0.5 x10(3)/mc L CERNER MILLENNIUM Basophil % 0.1 0.0 - 2.0 % CERNER MILLENNIUM Baso Absolute 0.0 0.0 - 0.2 x10(3)/mc L CERNER MILLENNIUM Immature Gran % 0.20 0.00 - 0.66 % CERNER MILLENNIUM Comment: Immature granulocytes(IG's)percentage and absolute count will include metamyelocytes, myelocytes, and promyelocytes. Blood smears from CBCs yielding IG's will be scanned manually for concordance. If this scan disagrees with the automated IG or if promyelocytes are noted, a manual differential will be performed. Immature Gran Absolute 0.03 0.00 - 0.05 x10(3)/mc L [facility] EpiclistIUM Blood specimen (specimen) 05/15/2011 8:35 PM EDT 05/15/2011 8:40 PM EDT Sheree Dawn MD HEMATOLOGY ORDERABL ES [facility] [employer] * Creatinine, serum (05/15/2011 8:35 PM EDT) Creatinine 0.76 0.70 - 1.20 mg/dL [facility] MoSoENNIUM Est Glomerular Filtration Rate >60 >=60 [facility] EpiclistIUM Comment: The National Kidney Disease Education Program (NKDEP) has recommended all laboratories report estimated GFR (eGFR) along with plasma creatinine measurements to assist you with recognition of early kidney disease. Caveats: ??Plasma creatinine should be at steady-state (unchanged within the past week). For patients multiply eGFR by 1.2.MDRD equation has not been validated for pediatric patients and is only valid for patients with age >= 18 years. At present, NKDEP does NOT recommend using the MDRD equation for drug dosing purposes and pharmacists should continue to use their current dosing methods. In addition, numerical eGFR values greater than 60 ml/min/1.73 square meters should be treated as > 60, and not an exact number due to greater inaccuracies at these higher values. Per NKDEP, they classify normal renal function as any GFR >60ml/min/1.73 square meters; chronic kidney disease when GFR <60, and renal failure when GFR <15. ??This calculation may not be valid for patients with atypical muscle mass (very lean or obese), acute renal failure, and in patients with diabetic kidney disease. References: http://nkdep.nih.gov/resources/NKDEP_Suggestn4Labs_0606_508.pdf http://www.kidney.org/professionals/kls/pdf/faq_gfr.pdf Blood specimen (specimen) 05/15/2011 8:35 PM EDT 05/15/2011 8:40 PM EDT Sheree Dawn MD CHEMISTRY ORDERABLE S CERNER MILLENNIUM * Aspartate Aminotransferase (05/15/2011 8:35 PM EDT) Aspartate Aminotransferase 19 0 - 30 unit/L CERNER MILLENNIUM Blood specimen (specimen) 05/15/2011 8:35 PM EDT 05/15/2011 8:40 PM EDT Sheree Dawn MD CHEMISTRY ORDERABLE S Performing Organization Address City/[facility] Co de Phone Number CERNER MILLENNIUM * (ABNORMAL) CBC (with Diff) (05/15/2011 8:35 PM EDT) White Blood Cell 12.5(H) 4.0 - 10.0 x10(3)/mc L CERNER MILLENNIUM Red Blood Cell 3.60(L) 3.93 - 5.22 x10(6)/mc L CERNER MILLENNIUM Hemoglobin 9.4(L) 11.2 - 15.7 gm/dL CERNER MILLENNIUM Comment: Called by: MIRIAM_, Read back by: NIKHIL LEDESMA_, Date-Time:05-15-11 20:55 _. Hematocrit 28.9(L) 34.0 - 45.0 % CERNER MILLENNIUM Mean Cell Volume 80.3 79.0 - 94.0 fL CERNER MILLENNIUM Mean Cell Hemoglobin 26.1(L) 26.6 - 32.2 pg CERNER MILLENNIUM Mean Cell Hemoglobin Concentration 32.5 32.0 - 36.5 gm/dL CERNER MILLENNIUM Platelet 319 145 - 370 x10(3)/mc L CERNER MILLENNIUM RDW Standard Deviation 51.2(H) 35.0 - 46.0 fL CERNER MILLENNIUM RDW coefficient of variation 17.5(H) 10.9 - 14.4 % CERNER MILLENNIUM Mean Platelet Volume 9.8 9.0 - 12.0 fL CERNER MILLENNIUM Blood specimen (specimen) 05/15/2011 8:35 PM EDT 05/15/2011 8:40 PM EDT Sheree Dawn MD HEMATOLOGY ORDERABL ES LAURYN HAND * Surgical Pathology Report (05/15/2011 10:27 AM EDT) Surgical Pathology Report [id number] ? Location: BP; BP11; B The signing pathologist has (i) examined the relevant preparation(s) for the specimen(s) and (ii) rendered or confirmed the diagnosis(es). . ?Pathology Surgical Pathology Final Report Clinical Information Specimen Submitted: A - Placenta Clinical History/Diagnosis: 40 years old with preeclampsia and GDM S/P C section delivery Gross Description Labeled/Fixative: ? Labeled with the patient's name and medical ?record number, fresh. Qty/Size/Weight: ?21.5 x 19.5 x 2.5 cm, 1005 g. Tissue Description: ?? Discoid schuler placenta. ?? Membranes: ? Marginal insertion, abarca-pink, semitransparent. ?? Cord: ?41.0 cm in length x 1.0 cm in diameter, attached; ?15.1 cm in length x 1.2 cm in diameter, unattached; ?three vessels; eccentric insertion. ??Shows slightly ?spiraled pattern. ?? Surface: ? Abarca-pink and semitransparent. ?? Maternal Surface: ??Intact. ?? Parenchyma: ?The specimen is serially sectioned at 0.5-cm to ?1.0-cm intervals. ??Sections show brown, spongy, ?homogeneous parenchyma. Sections/Processing : ??Sections are submitted as follows: ??(1) membrane ?roll; (2) proximal and distal cord; (3) surface ?with parenchyma; (4) maternal surface with ?parenchyma. ??(R4) ??aje/YX Microscopic Description Slides reviewed, microscopic description not recorded. Diagnosis Third trimester placenta, cord and membranes: Negative for chorioamnionitis or funisitis. Nereyda-Fito changes are present. Large placenta. CR-0 05/21/11 KO 05/21/11 Verified by: ? Chani Bansal MD ?Pathologist ?(Electronic Signature) The attending pathologist whose signature appears on this report has reviewed all diagnostic slides and has edited the gross and/or microscopic portion of the report in rendering the final pathologic diagnosis. LAURYN HAND 05/15/2011 10:2 7 AM EDT Sheree Dawn MD PATHOLOGY/CYTOLOGY ORDERABLES LAURYN HAND * SURGICAL PATHOLOGY REPORT (05/15/2011 10:27 AM EDT) Surgical Pathology Report ? [facility] ? Provider: ?? ANIKET, SHEREE ?Pt. Name: ?? DILAN ELIAS ? Acc #: ?[id number] ?Pt. ? Col Date: ?? 05/15/2011 ? /Sex: ?1970,(40 ? years),Female ? Rec Date: ?? 05/18/2011 ? LOC: ?BP ? SURGICAL PATHOLOGY ? ---Pathologic Diagnosis--- ? Third trimester placenta, cord and membranes: ? Negative for chorioamnionitis or funisitis. ? Nereyda-Fito changes are present. ? Large placenta. ? CR-0 ? 05/21/11 ? KO ? 05/21/11 Verified by: ? Chani Bansal MD ? Pathologist ? (Electronic Signature) ? The attending pathologist whose signature appears on this report has ? reviewed all diagnostic slides and has edited the gross and/or ? microscopic portion of the report in rendering the final pathologic ? diagnosis. ? ---Microscopic Description--- ? Slides reviewed, microscopic description not recorded. ? ---Gross Description--- ? Labeled/Fixative: ? Labeled with the patient's name and medical ? record number, fresh. ? Qty/Size/Weight: ?21.5 x 19.5 x 2.5 cm, 1005 g. ? Tissue Description: ?? Discoid schuler placenta. ?Membranes: ? Marginal insertion, abarca-pink, semitransparent. ?Cord: ?41.0 cm in length x 1.0 cm in diameter, attached; ? 15.1 cm in length x 1.2 cm in diameter, unattached; ? three vessels; eccentric insertion. ??Shows slightly ? spiraled pattern. ? Surface: ? Abarca-pink and semitransparent. ?Maternal Surface: ??Intact. ?Parenchyma: ?The specimen is serially sectioned at 0.5-cm to ? 1.0-cm intervals. ??Sections show brown, spongy, ? homogeneous parenchyma. ? Sections/Processing : ??Sections are submitted as follows: ??(1) membrane ? roll; (2) proximal and distal cord; (3) surface ? with parenchyma; (4) maternal surface with ? parenchyma. ??(R4) ??aje/YX ? [facility] ? Provider: ?? SHEREE PIERCE ?Pt. Name: ?? DILAN ELIAS ? Acc #: ?[id number] ?Pt. ? Col Date: ?? 05/15/2011 ? /Sex: ?1970,(40 ? years),Female ? Rec Date: ?? 05/18/2011 ? LOC: ?BP ? SURGICAL PATHOLOGY ? ---Clinical Information--- ? Specimen Submitted: ? A - Placenta ? Clinical History/Diagnosis: ? 40 years old with preeclampsia and GDM S/P C section delivery [facility] 05/15/2011 10:2 7 AM EDT Sheree Dawn MD PATHOLOGY/CYTOLOGY ORDERABLES Performing Organization Address [facility] Co de Phone Number [facility] * POCT GLUCOSE LAB USE ONLY (05/15/2011 4:57 AM EDT) Glucose, POC 126 60 - 199 mg/dL [facility] Comment: Supplemental ranges: <110 mg/dL before meals <200 mg/dL all other times of the day Blood specimen (specimen) 05/15/2011 4:57 AM EDT 05/15/2011 4:57 AM EDT Lori Godwin MD POINT OF CARE TEST O RDERABLES Performing Organization Address [facility] Co de Phone Number [facility] * POCT GLUCOSE LAB USE ONLY (05/15/2011 4:02 AM EDT) Glucose, POC 132 60 - 199 mg/dL [facility] Comment: Supplemental ranges: <110 mg/dL before meals <200 mg/dL all other times of the day Blood specimen (specimen) 05/15/2011 4:02 AM EDT 05/15/2011 4:02 AM EDT Lori Godwin MD POINT OF CARE TEST O RDERAASHUTOSH Performing Organization Address [facility] Co de Phone Number [facility] * POCT GLUCOSE LAB USE ONLY (05/15/2011 3:29 AM EDT) Glucose, POC 141 60 - 199 mg/dL [facility] Comment: Supplemental ranges: <110 mg/dL before meals <200 mg/dL all other times of the day Blood specimen (specimen) 05/15/2011 3:29 AM EDT 05/15/2011 3:29 AM EDT Lori Godwin MD POINT OF CARE TEST O TRACEYERAASHUTOSH Performing Organization Address [facility] de Phone Number [facility] * POCT GLUCOSE LAB USE ONLY (05/15/2011 2:31 AM EDT) Glucose, POC 112 60 - 199 mg/dL [facility] Comment: Supplemental ranges: <110 mg/dL before meals <200 mg/dL all other times of the day Blood specimen (specimen) 05/15/2011 2:31 AM EDT 05/15/2011 2:31 AM EDT Lori Godwin MD POINT OF CARE TEST O RDERAASHUTOSH Performing Organization Address [facility] Co de Phone Number [facility] * POCT GLUCOSE LAB USE ONLY (05/15/2011 1:29 AM EDT) Glucose, POC 117 60 - 199 mg/dL [facility] Comment: Supplemental ranges: <110 mg/dL before meals <200 mg/dL all other times of the day Blood specimen (specimen) 05/15/2011 1:29 AM EDT 05/15/2011 1:29 AM EDT Lori Godwin MD POINT OF CARE TEST O RAHEEM Performing Organization Address [facility] de Phone Number [facility] * POCT GLUCOSE LAB USE ONLY (05/15/2011 12:26 AM EDT) Glucose, POC 129 60 - 199 mg/dL [facility] Comment: Supplemental ranges: <110 mg/dL before meals <200 mg/dL all other times of the day Blood specimen (specimen) 05/15/2011 12:26 AM EDT 05/15/2011 12:26 AM EDT Lori Godwin MD POINT OF CARE TEST O RAHEEM Performing Organization Address [facility] de Phone Number [facility] * POCT GLUCOSE LAB USE ONLY (05/14/2011 11:29 PM EDT) Glucose, POC 109 60 - 199 mg/dL [facility] Comment: Supplemental ranges: <110 mg/dL before meals <200 mg/dL all other times of the day Blood specimen (specimen) 05/14/2011 11:29 PM EDT 05/14/2011 11:29 PM EDT Lori Godwin MD POINT OF CARE TEST O RAHEEM Performing Organization Address [facility] de Phone Number [facility] * POCT GLUCOSE LAB USE ONLY (05/14/2011 10:28 PM EDT) Glucose, POC 111 60 - 199 mg/dL [facility] Comment: Supplemental ranges: <110 mg/dL before meals <200 mg/dL all other times of the day Blood specimen (specimen) 05/14/2011 10:28 PM EDT 05/14/2011 10:28 PM EDT Lori Godwin MD POINT OF CARE TEST O RDMARTELL Performing Organization Address [facility] de Phone Number [facility] * POCT GLUCOSE LAB USE ONLY (05/14/2011 9:28 PM EDT) Glucose, POC 102 60 - 199 mg/dL [facility] Comment: Supplemental ranges: <110 mg/dL before meals <200 mg/dL all other times of the day Blood specimen (specimen) 05/14/2011 9:28 PM EDT 05/14/2011 9:28 PM EDT Lori Godwin MD POINT OF CARE TEST O RAHEEM Performing Organization Address [facility] Phone Number [facility] * POCT GLUCOSE LAB USE ONLY (05/14/2011 8:32 PM EDT) Glucose, POC 104 60 - 199 mg/dL [facility] Comment: Supplemental ranges: <110 mg/dL before meals <200 mg/dL all other times of the day Blood specimen (specimen) 05/14/2011 8:32 PM EDT 05/14/2011 8:32 PM EDT Lori Godwin MD POINT OF CARE TEST O RAHEEM Performing Organization Address [facility] Phone Number [facility] * (ABNORMAL) REFLEX LAB-A-DIFF (05/14/2011 8:20 PM EDT) Neutrophil % 83.3(H) 34.0 - 71.0 % [facility] Neutrophil Absolute 10.19(H) 1.50 - 6.30 x10(3)/mc L [facility] MILL[facility] Lymph % 10.4(L) 19.0 - 53.0 % [facility] Lymphocytes Abs 1.3 1.0 - 3.6 x10(3)/mc L [facility] Monocyte % 5.4 4.0 - 13.0 % [facility]ERNER MILLENNIUM Monocyte Abs 0.7 0.2 - 1.0 x10(3)/mc L [facility] MILLENNIUM Eos % 0.4 0.0 - 7.0 % [facility] MILLENNIUM Eosinophils Abs 0.1 0.0 - 0.5 x10(3)/mc L [facility] MILLENNIUM Basophil % 0.2 0.0 - 2.0 % [facility] MILLENNIUM Baso Absolute 0.0 0.0 - 0.2 x10(3)/mc L [facility] MILLENNIUM Immature Gran % 0.30 0.00 - 0.66 % [facility] MILLENNIUM Comment: Immature granulocytes(IG's)percentage and absolute count will include metamyelocytes, myelocytes, and promyelocytes. Blood smears from CBCs yielding IG's will be scanned manually for concordance. If this scan disagrees with the automated IG or if promyelocytes are noted, a manual differential will be performed. Immature Gran Absolute 0.04 0.00 - 0.05 x10(3)/mc L [facility]ERNER MILLENNIUM Blood specimen (specimen) 05/14/2011 8:20 PM EDT 05/14/2011 8:25 PM EDT Lori Godwin MD HEMATOLOGY ORDERABLE S [facility] * (ABNORMAL) Creatinine, serum (05/14/2011 8:20 PM EDT) Creatinine 0.69(L) 0.70 - 1.20 mg/dL [facility] MILLENNIUM Est Glomerular Filtration Rate >60 >=60 [facility] MILLENNIUM Comment: The National Kidney Disease Education Program (NKDEP) has recommended all laboratories report estimated GFR (eGFR) along with plasma creatinine measurements to assist you with recognition of early kidney disease. Caveats: ??Plasma creatinine should be at steady-state (unchanged within the past week). For patients multiply eGFR by 1.2.MDRD equation has not been validated for pediatric patients and is only valid for patients with age >= 18 years. At present, NKDEP does NOT recommend using the MDRD equation for drug dosing purposes and pharmacists should continue to use their current dosing methods. In addition, numerical eGFR values greater than 60 ml/min/1.73 square meters should be treated as > 60, and not an exact number due to greater inaccuracies at these higher values. Per NKDEP, they classify normal renal function as any GFR >60ml/min/1.73 square meters; chronic kidney disease when GFR <60, and renal failure when GFR <15. ??This calculation may not be valid for patients with atypical muscle mass (very lean or obese), acute renal failure, and in patients with diabetic kidney disease. References: http://nkdep.nih.gov/resources/NKDEP_Suggestn4Labs_0606_508.pdf http://www.kidney.org/professionals/kls/pdf/faq_gfr.pdf Blood specimen (specimen) 05/14/2011 8:20 PM EDT 05/14/2011 8:25 PM EDT Lori Godwin MD CHEMISTRY ORDERABLES Performing Organization Address [facility] de Phone Number [facility] * Aspartate Aminotransferase (05/14/2011 8:20 PM EDT) Aspartate Aminotransferase 22 0 - 30 unit/L CERNER MILLENNIUM Blood specimen (specimen) 05/14/2011 8:20 PM EDT 05/14/2011 8:25 PM EDT Lori Godwin MD CHEMISTRY ORDERABLES Performing Organization Address [facility] Co de Phone Number CERNER MILLENNIUM * (ABNORMAL) CBC (with Diff) (05/14/2011 8:20 PM EDT) White Blood Cell 12.2(H) 4.0 - 10.0 x10(3)/mc L CERNER MILLENNIUM Red Blood Cell 4.51 3.93 - 5.22 x10(6)/mc L CERNER MILLENNIUM Hemoglobin 12.0 11.2 - 15.7 gm/dL CERNER MILLENNIUM Hematocrit 36.3 34.0 - 45.0 % CERNER MILLENNIUM Mean Cell Volume 80.5 79.0 - 94.0 fL CERNER MILLENNIUM Mean Cell Hemoglobin 26.6 26.6 - 32.2 pg [facility] Mean Cell Hemoglobin Concentration 33.1 32.0 - 36.5 gm/dL [facility] Platelet 354 145 - 370 x10(3)/mc L [facility] RDW Standard Deviation 50.8(H) 35.0 - 46.0 fL [facility] SWANNEN[facility] RDW coefficient of variation 17.5(H) 10.9 - 14.4 % [facility] Mean Platelet Volume 10.4 9.0 - 12.0 fL [facility] Blood specimen (specimen) 05/14/2011 8:20 PM EDT 05/14/2011 8:25 PM EDT Lori Godwin MD HEMATOLOGY ORDERABLE S Performing Organization Address [facility] de Phone Number [facility] * POCT GLUCOSE LAB USE ONLY (05/14/2011 7:32 PM EDT) Glucose, POC 105 60 - 199 mg/dL [facility] Comment: Supplemental ranges: <110 mg/dL before meals <200 mg/dL all other times of the day Blood specimen (specimen) 05/14/2011 7:32 PM EDT 05/14/2011 7:32 PM EDT Lori Godwin MD POINT OF CARE TEST O RDERAASHUTOSH Performing Organization Address [facility] de Phone Number [facility] * POCT GLUCOSE LAB USE ONLY (05/14/2011 6:35 PM EDT) Glucose, POC 110 60 - 199 mg/dL [facility] Comment: Supplemental ranges: <110 mg/dL before meals <200 mg/dL all other times of the day Blood specimen (specimen) 05/14/2011 6:35 PM EDT 05/14/2011 6:35 PM EDT Lori Godwin MD POINT OF CARE TEST O RDMARTELL Performing Organization Address [facility] de Phone Number [facility] * POCT GLUCOSE LAB USE ONLY (05/14/2011 5:33 PM EDT) Glucose, POC 121 60 - 199 mg/dL [facility] Comment: Supplemental ranges: <110 mg/dL before meals <200 mg/dL all other times of the day Blood specimen (specimen) 05/14/2011 5:33 PM EDT 05/14/2011 5:33 PM EDT Lori Godwin MD POINT OF CARE TEST O RAHEEM Performing Organization Address [facility] de Phone Number [facility] * POCT GLUCOSE LAB USE ONLY (05/14/2011 4:26 PM EDT) Glucose, POC 114 60 - 199 mg/dL [facility] Comment: Supplemental ranges: <110 mg/dL before meals <200 mg/dL all other times of the day Blood specimen (specimen) 05/14/2011 4:26 PM EDT 05/14/2011 4:26 PM EDT Lori Godwin MD POINT OF CARE TEST O RAHEEM Performing Organization Address [facility] de Phone Number [facility] * POCT GLUCOSE LAB USE ONLY (05/14/2011 3:06 PM EDT) Glucose, POC 119 60 - 199 mg/dL [facility] Comment: Supplemental ranges: <110 mg/dL before meals <200 mg/dL all other times of the day Blood specimen (specimen) 05/14/2011 3:06 PM EDT 05/14/2011 3:06 PM EDT Lori Godwin MD POINT OF CARE TEST O RAHEEM Performing Organization Address [facility] de Phone Number [facility] * POCT GLUCOSE LAB USE ONLY (05/14/2011 2:02 PM EDT) Glucose, POC 123 60 - 199 mg/dL [facility] Comment: Supplemental ranges: <110 mg/dL before meals <200 mg/dL all other times of the day Blood specimen (specimen) 05/14/2011 2:02 PM EDT 05/14/2011 2:02 PM EDT Lori Godwin MD POINT OF CARE TEST O RAHEEM Performing Organization Address [facility] de Phone Number [facility] * POCT GLUCOSE LAB USE ONLY (05/14/2011 12:44 PM EDT) Glucose, POC 123 60 - 199 mg/dL [facility] Comment: Supplemental ranges: <110 mg/dL before meals <200 mg/dL all other times of the day Blood specimen (specimen) 05/14/2011 12:44 PM EDT 05/14/2011 12:44 PM EDT Lori Godwin MD POINT OF CARE TEST Virgen MACIEL Performing Organization Address [facility] de Phone Number [facility] * POCT GLUCOSE LAB USE ONLY (05/14/2011 11:45 AM EDT) Glucose, POC 132 60 - 199 mg/dL [facility] Comment: Supplemental ranges: <110 mg/dL before meals <200 mg/dL all other times of the day Blood specimen (specimen) 05/14/2011 11:45 AM EDT 05/14/2011 11:45 AM EDT Lori Godwin MD POINT OF CARE TEST O RAHEEM Performing Organization Address [facility] de Phone Number [facility]ER[facility]ARD [facility] * POCT GLUCOSE LAB USE ONLY (05/14/2011 11:11 AM EDT) Glucose, POC 143 60 - 199 mg/dL [facility] Comment: Supplemental ranges: <110 mg/dL before meals <200 mg/dL all other times of the day Blood specimen (specimen) 05/14/2011 11:11 AM EDT 05/14/2011 11:11 AM EDT Lori Godwin MD POINT OF CARE TEST O RDERABLES [facility] * POCT GLUCOSE LAB USE ONLY (05/14/2011 10:09 AM EDT) Glucose, POC 128 60 - 199 mg/dL [facility] Comment: Supplemental ranges: <110 mg/dL before meals <200 mg/dL all other times of the day Blood specimen (specimen) 05/14/2011 10:09 AM EDT 05/14/2011 10:09 AM EDT Lori Godwin MD POINT OF CARE TEST O RDERABLES Performing Organization Address City/[facility]/ZIP Co de Phone Number [facility]YN HUTCHISONI[facility] * (ABNORMAL) REFLEX LAB-A-DIFF (05/14/2011 7:40 AM EDT) Neutrophil % 84.5(H) 34.0 - 71.0 % CERNER MILLENNIUM Neutrophil Absolute 10.34(H) 1.50 - 6.30 x10(3)/mc L CERNER MILLENNIUM Lymph % 9.4(L) 19.0 - 53.0 % CERNER MILLENNIUM Lymphocytes Abs 1.2 1.0 - 3.6 x10(3)/mc L CERNER MILLENNIUM Monocyte % 5.1 4.0 - 13.0 % [facility]ER MILLENNIUM Monocyte Abs 0.6 0.2 - 1.0 x10(3)/mc L CERNER MILLENNIUM Eos % 0.3 0.0 - 7.0 % CERNER MILLENNIUM Eosinophils Abs 0.0 0.0 - 0.5 x10(3)/mc L CERNER MILLENNIUM Basophil % 0.2 0.0 - 2.0 % [facility]ER MILLENNIUM Baso Absolute 0.0 0.0 - 0.2 x10(3)/mc L [facility]ER MILLENNIUM Immature Gran % 0.50 0.00 - 0.66 % [facility]ILL[facility]NI[facility] Comment: Immature granulocytes(IG's)percentage and absolute count will include metamyelocytes, myelocytes, and promyelocytes. Blood smears from CBCs yielding IG's will be scanned manually for concordance. If this scan disagrees with the automated IG or if promyelocytes are noted, a manual differential will be performed. Immature Gran Absolute 0.06(H) 0.00 - 0.05 x10(3)/mc L LAURYN SWANNENNIUM Blood specimen (specimen) 05/14/2011 7:40 AM EDT 05/14/2011 7:45 AM EDT Lori Godwin MD HEMATOLOGY ORDERABLE S [facility] * Creatinine, serum (05/14/2011 7:40 AM EDT) Creatinine 0.74 0.70 - 1.20 mg/dL [facility]ER MILLENNIUM Est Glomerular Filtration Rate >60 >=60 CERNER MoSoENNIUM Comment: The National Kidney Disease Education Program (NKDEP) has recommended all laboratories report estimated GFR (eGFR) along with plasma creatinine measurements to assist you with recognition of early kidney disease. Caveats: ??Plasma creatinine should be at steady-state (unchanged within the past week). For patients multiply eGFR by 1.2.MDRD equation has not been validated for pediatric patients and is only valid for patients with age >= 18 years. At present, NKDEP does NOT recommend using the MDRD equation for drug dosing purposes and pharmacists should continue to use their current dosing methods. In addition, numerical eGFR values greater than 60 ml/min/1.73 square meters should be treated as > 60, and not an exact number due to greater inaccuracies at these higher values. Per NKDEP, they classify normal renal function as any GFR >60ml/min/1.73 square meters; chronic kidney disease when GFR <60, and renal failure when GFR <15. ??This calculation may not be valid for patients with atypical muscle mass (very lean or obese), acute renal failure, and in patients with diabetic kidney disease. References: http://nkdep.nih.gov/resources/NKDEP_Suggestn4Labs_0606_508.pdf http://www.kidney.org/professionals/kls/pdf/faq_gfr.pdf Blood specimen (specimen) 05/14/2011 7:40 AM EDT 05/14/2011 7:45 AM EDT Lori Godwin MD CHEMISTRY ORDERABLES Performing Organization Address [facility] Co de Phone Number LAURYN HUTCHISONIUM * Aspartate Aminotransferase (05/14/2011 7:40 AM EDT) Aspartate Aminotransferase 19 0 - 30 unit/L CERNER MILLENNIUM Blood specimen (specimen) 05/14/2011 7:40 AM EDT 05/14/2011 7:45 AM EDT Lori Godwin MD CHEMISTRY ORDERABLES Performing Organization Address [facility] de Phone Number LAURYN HUTCHISONIUM * (ABNORMAL) CBC (with Diff) (05/14/2011 7:40 AM EDT) White Blood Cell 12.2(H) 4.0 - 10.0 x10(3)/mc L CERNER MILLENNIUM Red Blood Cell 4.50 3.93 - 5.22 x10(6)/mc L CERNER MILLENNIUM Hemoglobin 11.4 11.2 - 15.7 gm/dL CERNER MILLENNIUM Hematocrit 35.9 34.0 - 45.0 % CERNER MILLENNIUM Mean Cell Volume 79.8 79.0 - 94.0 fL CERNER MILLENNIUM Mean Cell Hemoglobin 25.3(L) 26.6 - 32.2 pg CERNER MILLENNIUM Mean Cell Hemoglobin Concentration 31.8(L) 32.0 - 36.5 gm/dL CERNER MILLENNIUM Platelet 348 145 - 370 x10(3)/mc L CERNER MILLENNIUM RDW Standard Deviation 50.5(H) 35.0 - 46.0 fL CERNER MILLENNIUM RDW coefficient of variation 17.4(H) 10.9 - 14.4 % CERNER MILLENNIUM Mean Platelet Volume 10.0 9.0 - 12.0 fL CERNER MILLENNIUM Blood specimen (specimen) 05/14/2011 7:40 AM EDT 05/14/2011 7:45 AM EDT Lori Godwin MD HEMATOLOGY ORDERABLE S Performing Organization Address [facility] Co de Phone Number [facility] * POCT GLUCOSE LAB USE ONLY (05/14/2011 5:43 AM EDT) Glucose, POC 115 60 - 199 mg/dL [facility] Comment: Supplemental ranges: <110 mg/dL before meals <200 mg/dL all other times of the day Blood specimen (specimen) 05/14/2011 5:43 AM EDT 05/14/2011 5:43 AM EDT Lori Godwin MD POINT OF CARE TEST O RDERABLES Performing Organization Address [facility] de Phone Number [facility] * POCT GLUCOSE LAB USE ONLY (05/13/2011 9:37 PM EDT) Glucose, POC 125 60 - 199 mg/dL [facility] Comment: Supplemental ranges: <110 mg/dL before meals <200 mg/dL all other times of the day Blood specimen (specimen) 05/13/2011 9:37 PM EDT 05/13/2011 9:37 PM EDT Lori Godwin MD POINT OF CARE TEST O RDERAASHUTOSH Performing Organization Address [facility] de Phone Number [facility] * (ABNORMAL) REFLEX LAB-A-DIFF (05/13/2011 7:30 PM EDT) Neutrophil % 83.1(H) 34.0 - 71.0 % [facility] Neutrophil Absolute 9.91(H) 1.50 - 6.30 x10(3)/mc L CERNER MILLENNIUM Lymph % 10.5(L) 19.0 - 53.0 % CERNER MILLENNI[facility] Lymphocytes Abs 1.3 1.0 - 3.6 x10(3)/mc L CERNER MILLENNIUM Monocyte % 5.3 4.0 - 13.0 % CERNER MILLENNIUM Monocyte Abs 0.6 0.2 - 1.0 x10(3)/mc L CERNER MILLENNIUM Eos % 0.6 0.0 - 7.0 % [facility] MILLENNIUM Eosinophils Abs 0.1 0.0 - 0.5 x10(3)/mc L C[facility]ER MILLENNIUM Basophil % 0.2 0.0 - 2.0 % [facility] MILLENNIUM Baso Absolute 0.0 0.0 - 0.2 x10(3)/mc L CERNER MILLENNIUM Immature Gran % 0.30 0.00 - 0.66 % [facility]ER MILLENNIUM Comment: Immature granulocytes(IG's)percentage and absolute count will include metamyelocytes, myelocytes, and promyelocytes. Blood smears from CBCs yielding IG's will be scanned manually for concordance. If this scan disagrees with the automated IG or if promyelocytes are noted, a manual differential will be performed. Immature Gran Absolute 0.04 0.00 - 0.05 x10(3)/mc L CERNER MILLENNIUM Blood specimen (specimen) 05/13/2011 7:30 PM EDT 05/13/2011 7:38 PM EDT Lori Godwin MD HEMATOLOGY ORDERABLE S [facility] * Creatinine, serum (05/13/2011 7:30 PM EDT) Creatinine 0.71 0.70 - 1.20 mg/dL CERNER MILLENNIUM Est Glomerular Filtration Rate >60 >=60 CERNER MILLENNIUM Comment: The National Kidney Disease Education Program (NKDEP) has recommended all laboratories report estimated GFR (eGFR) along with plasma creatinine measurements to assist you with recognition of early kidney disease. Caveats: ??Plasma creatinine should be at steady-state (unchanged within the past week). For patients multiply eGFR by 1.2.MDRD equation has not been validated for pediatric patients and is only valid for patients with age >= 18 years. At present, NKDEP does NOT recommend using the MDRD equation for drug dosing purposes and pharmacists should continue to use their current dosing methods. In addition, numerical eGFR values greater than 60 ml/min/1.73 square meters should be treated as > 60, and not an exact number due to greater inaccuracies at these higher values. Per NKDEP, they classify normal renal function as any GFR >60ml/min/1.73 square meters; chronic kidney disease when GFR <60, and renal failure when GFR <15. ??This calculation may not be valid for patients with atypical muscle mass (very lean or obese), acute renal failure, and in patients with diabetic kidney disease. References: http://nkdep.nih.gov/resources/NKDEP_Suggestn4Labs_0606_508.pdf http://www.kidney.org/professionals/kls/pdf/faq_gfr.pdf Blood specimen (specimen) 05/13/2011 7:30 PM EDT 05/13/2011 7:38 PM EDT Lori Godwin MD CHEMISTRY ORDERABLES Performing Organization Address [facility] de Phone Number CERNER MILLENNIUM * Aspartate Aminotransferase (05/13/2011 7:30 PM EDT) Aspartate Aminotransferase 19 0 - 30 unit/L CERNER MILLENNIUM Blood specimen (specimen) 05/13/2011 7:30 PM EDT 05/13/2011 7:38 PM EDT Lori Godwin MD CHEMISTRY ORDERABLES Performing Organization Address [facility] Co de Phone Number CERNER MILLENNI[facility] * (ABNORMAL) CBC (with Diff) (05/13/2011 7:30 PM EDT) White Blood Cell 11.9(H) 4.0 - 10.0 x10(3)/mc L CERNER MILLENNIUM Red Blood Cell 4.69 3.93 - 5.22 x10(6)/mc L CERNER MILLENNIUM Hemoglobin 12.5 11.2 - 15.7 gm/dL CERNER MILLENNIUM Hematocrit 37.7 34.0 - 45.0 % CERNER MILLENNIUM Mean Cell Volume 80.4 79.0 - 94.0 fL CERNER MILLENNIUM Mean Cell Hemoglobin 26.7 26.6 - 32.2 pg CERNER MILLENNIUM Mean Cell Hemoglobin Concentration 33.2 32.0 - 36.5 gm/dL CERNER MILLENNIUM Platelet 347 145 - 370 x10(3)/mc L [facility] RDW Standard Deviation 50.7(H) 35.0 - 46.0 fL [facility] RDW coefficient of variation 17.4(H) 10.9 - 14.4 % [facility] Mean Platelet Volume 10.2 9.0 - 12.0 fL [facility] Blood specimen (specimen) 05/13/2011 7:30 PM EDT 05/13/2011 7:38 PM EDT Lori Godwin MD HEMATOLOGY ORDERABLE S Performing Organization Address [facility]/ZIP Co de Phone Number [facility] * POCT GLUCOSE LAB USE ONLY (05/13/2011 4:32 PM EDT) Glucose, POC 112 60 - 199 mg/dL [facility] Comment: Supplemental ranges: <110 mg/dL before meals <200 mg/dL all other times of the day Blood specimen (specimen) 05/13/2011 4:32 PM EDT 05/13/2011 4:32 PM EDT Lori Godwin MD POINT OF CARE TEST O RDERABLES Performing Organization Address [facility] Co de Phone Number [facility] * POCT urine dipstick (05/13/2011 4:00 PM EDT) POC Sp [place] 1.002 - 1.030 POC pH, UA 5.0 - 8.5 POC Leuk, UA Negative - Negative POC Nitrite, UA Negative - Negative POC Protein, UA neg Negative - Negative mg/dL POC Glucose, UA neg Normal - Normal mg/dL POC Ketone, UA 1 Negative - Negative POC Urobil, UA 0.2 - 1.0 mg/dL POC Bili, UA Negative - Negative POC Blood, UA Negative - Negative maricn/uL Sierra Noguera MD POINT OF CARE TEST O RDERABLES * POCT urine dipstick (05/13/2011 12:00 PM EDT) POC Sp [place] 1.002 - 1.030 POC pH, UA 5.0 - 8.5 POC Leuk, UA Negative - Negative POC Nitrite, UA Negative - Negative POC Protein, UA neg Negative - Negative mg/dL POC Glucose, UA neg Normal - Normal mg/dL POC Ketone, UA 1 Negative - Negative POC Urobil, UA 0.2 - 1.0 mg/dL POC Bili, UA Negative - Negative POC Blood, UA Negative - Negative marcin/uL Sierra Noguera MD POINT OF CARE TEST O RDERABLES * POCT GLUCOSE LAB USE ONLY (05/13/2011 11:48 AM EDT) Glucose, POC 125 60 - 199 mg/dL [facility] Comment: Supplemental ranges: <110 mg/dL before meals <200 mg/dL all other times of the day Blood specimen (specimen) 05/13/2011 11:48 AM EDT 05/13/2011 11:48 AM EDT Lori Godwin MD POINT OF CARE TEST O RDERABLES Performing Organization Address [facility] Co de Phone Number [facility] * POCT GLUCOSE LAB USE ONLY (05/13/2011 9:23 AM EDT) Glucose, POC 102 60 - 199 mg/dL [facility] Comment: Supplemental ranges: <110 mg/dL before meals <200 mg/dL all other times of the day Blood specimen (specimen) 05/13/2011 9:23 AM EDT 05/13/2011 9:23 AM EDT Lori Godwin MD POINT OF CARE TEST O RDERAASHUTOSH Performing Organization Address [facility]/ZIP Co de Phone Number [facility] * POCT urine dipstick (05/13/2011 7:50 AM EDT) POC Sp [place] 1.002 - 1.030 POC pH, UA 5.0 - 8.5 POC Leuk, UA Negative - Negative POC Nitrite, UA Negative - Negative POC Protein, UA neg Negative - Negative mg/dL POC Glucose, UA neg Normal - Normal mg/dL POC Ketone, UA 1 Negative - Negative POC Urobil, UA 0.2 - 1.0 mg/dL POC Bili, UA Negative - Negative POC Blood, UA Negative - Negative marcin/uL Sierra Noguera MD POINT OF CARE TEST O RDERABLES * (ABNORMAL) REFLEX LAB-A-DIFF (05/13/2011 5:50 AM EDT) Neutrophil % 73.7(H) 34.0 - 71.0 % [facility]ER MILLENNIUM Neutrophil Absolute 7.35(H) 1.50 - 6.30 x10(3)/mc L CERNER MILLENNIUM Lymph % 19.1 19.0 - 53.0 % [facility]ERNER MILLENNIUM Lymphocytes Abs 1.9 1.0 - 3.6 x10(3)/mc L [facility]ER MILLENNIUM Monocyte % 5.7 4.0 - 13.0 % [facility]ER MILLENNIUM Monocyte Abs 0.6 0.2 - 1.0 x10(3)/mc L CERNER MILLENNIUM Eos % 0.9 0.0 - 7.0 % CERNER MILLENNIUM Eosinophils Abs 0.1 0.0 - 0.5 x10(3)/mc L CERNER MILLENNIUM Basophil % 0.3 0.0 - 2.0 % CERNER MILLENNIUM Baso Absolute 0.0 0.0 - 0.2 x10(3)/mc L CERNER MILLENNIUM Immature Gran % 0.30 0.00 - 0.66 % [facility]ER MILLENNIUM Comment: Immature granulocytes(IG's)percentage and absolute count will include metamyelocytes, myelocytes, and promyelocytes. Blood smears from CBCs yielding IG's will be scanned manually for concordance. If this scan disagrees with the automated IG or if promyelocytes are noted, a manual differential will be performed. Immature Gran Absolute 0.03 0.00 - 0.05 x10(3)/mc L CERNER MILLENNIUM Blood specimen (specimen) 05/13/2011 5:50 AM EDT 05/13/2011 6:02 AM EDT Lori Godwin MD HEMATOLOGY ORDERABLE S [facility] * GREEN TUBE HOLD (05/13/2011 5:50 AM EDT) Green Hold Sample in lab. LAURYN HAND Blood specimen (specimen) 05/13/2011 5:50 AM EDT 05/13/2011 6:03 AM EDT Lori Godwin MD CHEMISTRY ORDERABLES LAURYN HAND * (ABNORMAL) Creatinine, serum (05/13/2011 5:50 AM EDT) Creatinine 0.66(L) 0.70 - 1.20 mg/dL LAURYN HAND Est Glomerular Filtration Rate >60 >=60 LAURYN HAND Comment: The National Kidney Disease Education Program (NKDEP) has recommended all laboratories report estimated GFR (eGFR) along with plasma creatinine measurements to assist you with recognition of early kidney disease. Caveats: ??Plasma creatinine should be at steady-state (unchanged within the past week). For patients multiply eGFR by 1.2.MDRD equation has not been validated for pediatric patients and is only valid for patients with age >= 18 years. At present, NKDEP does NOT recommend using the MDRD equation for drug dosing purposes and pharmacists should continue to use their current dosing methods. In addition, numerical eGFR values greater than 60 ml/min/1.73 square meters should be treated as > 60, and not an exact number due to greater inaccuracies at these higher values. Per NKDEP, they classify normal renal function as any GFR >60ml/min/1.73 square meters; chronic kidney disease when GFR <60, and renal failure when GFR <15. ??This calculation may not be valid for patients with atypical muscle mass (very lean or obese), acute renal failure, and in patients with diabetic kidney disease. References: http://nkdep.nih.gov/resources/NKDEP_Suggestn4Labs_0606_508.pdf http://www.kidney.org/professionals/kls/pdf/faq_gfr.pdf Blood specimen (specimen) 05/13/2011 5:50 AM EDT 05/13/2011 6:02 AM EDT Lori Godwin MD CHEMISTRY ORDERABLES Performing Organization Address [facility] de Phone Number [facility] * Aspartate Aminotransferase (05/13/2011 5:50 AM EDT) Aspartate Aminotransferase 20 0 - 30 unit/L CERNER MILLENNIUM Blood specimen (specimen) 05/13/2011 5:50 AM EDT 05/13/2011 6:02 AM EDT Lori Godwin MD CHEMISTRY ORDERABLES Performing Organization Address [facility] de Phone Number CERNER MILLENNIUM * (ABNORMAL) CBC (with Diff) (05/13/2011 5:50 AM EDT) White Blood Cell 10.0 4.0 - 10.0 x10(3)/mc L CERNER MILLENNIUM Red Blood Cell 4.56 3.93 - 5.22 x10(6)/mc L CERNER MILLENNIUM Hemoglobin 11.9 11.2 - 15.7 gm/dL CERNER MILLENNIUM Hematocrit 36.9 34.0 - 45.0 % CERNER MILLENNIUM Mean Cell Volume 80.9 79.0 - 94.0 fL CERNER MILLENNIUM Mean Cell Hemoglobin 26.1(L) 26.6 - 32.2 pg CERNER MILLENNIUM Mean Cell Hemoglobin Concentration 32.2 32.0 - 36.5 gm/dL CERNER MILLENNIUM Platelet 296 145 - 370 x10(3)/mc L [facility]ER MILLENNI[facility] RDW Standard Deviation 51.1(H) 35.0 - 46.0 fL [facility] MILL[facility] RDW coefficient of variation 17.7(H) 10.9 - 14.4 % CERNER MILLENNIUM Mean Platelet Volume 10.6 9.0 - 12.0 fL CERNER MILLENNIUM Blood specimen (specimen) 05/13/2011 5:50 AM EDT 05/13/2011 6:02 AM EDT Lori Godwin MD HEMATOLOGY ORDERABLE S Performing Organization Address [facility] de Phone Number [facility] * POCT GLUCOSE LAB USE ONLY (05/12/2011 9:11 PM EDT) Glucose, POC 108 60 - 199 mg/dL [facility] Comment: Supplemental ranges: <110 mg/dL before meals <200 mg/dL all other times of the day Blood specimen (specimen) 05/12/2011 9:11 PM EDT 05/12/2011 9:11 PM EDT Lori Godwin MD POINT OF CARE TEST O RDMARTELL Performing Organization Address [facility] de Phone Number [facility] * POCT GLUCOSE LAB USE ONLY (05/12/2011 7:56 PM EDT) Glucose, POC 129 60 - 199 mg/dL [facility] Comment: Supplemental ranges: <110 mg/dL before meals <200 mg/dL all other times of the day Blood specimen (specimen) 05/12/2011 7:56 PM EDT 05/12/2011 7:56 PM EDT Lori Godwin MD POINT OF CARE TEST O RAHEEM Performing Organization Address [facility] de Phone Number [facility] * POCT GLUCOSE LAB USE ONLY (05/12/2011 4:19 PM EDT) Glucose, POC 119 60 - 199 mg/dL [facility] Comment: Supplemental ranges: <110 mg/dL before meals <200 mg/dL all other times of the day Blood specimen (specimen) 05/12/2011 4:19 PM EDT 05/12/2011 4:19 PM EDT Lori Godwin MD POINT OF CARE TEST O RAHEEM Performing Organization Address [facility] de Phone Number [facility] * (ABNORMAL) REFLEX LAB-A-DIFF (05/12/2011 2:12 PM EDT) Neutrophil % 74.9(H) 34.0 - 71.0 % CERNER MILLENNIUM Neutrophil Absolute 7.28(H) 1.50 - 6.30 x10(3)/mc L CERNER MILLENNIUM Lymph % 17.1(L) 19.0 - 53.0 % CERNER MILLENNIUM Lymphocytes Abs 1.7 1.0 - 3.6 x10(3)/mc L CERNER MILLENNIUM Monocyte % 6.7 4.0 - 13.0 % CERNER MILLENNIUM Monocyte Abs 0.7 0.2 - 1.0 x10(3)/mc L CERNER MILLENNIUM Eos % 0.7 0.0 - 7.0 % CERNER MILLENNIUM Eosinophils Abs 0.1 0.0 - 0.5 x10(3)/mc L CERNER MILLENNIUM Basophil % 0.3 0.0 - 2.0 % CERNER MILLENNIUM Baso Absolute 0.0 0.0 - 0.2 x10(3)/mc L CERNER MILLENNIUM Immature Gran % 0.30 0.00 - 0.66 % CERNER SHREEENNIUM Comment: Immature granulocytes(IG's)percentage and absolute count will include metamyelocytes, myelocytes, and promyelocytes. Blood smears from CBCs yielding IG's will be scanned manually for concordance. If this scan disagrees with the automated IG or if promyelocytes are noted, a manual differential will be performed. Immature Gran Absolute 0.03 0.00 - 0.05 x10(3)/mc L LAURYN HUTCHISONIUM Blood specimen (specimen) 05/12/2011 2:12 PM EDT 05/12/2011 2:29 PM EDT Xu Ellis MD HEMATOLOGY ORDERABLE S LAURYN HUTCHISONIUM * REFLEX LAB-ANTIBODY SCREEN (05/12/2011 2:12 PM EDT) Ab Screen Interp Negative LAURYN HUTCHISONIUM Expires at [id number] on: [id number] LAURYN HUTCHISONIUM Blood specimen (specimen) 05/12/2011 2:12 PM EDT 05/12/2011 2:29 PM EDT Xu Ellis MD BLOOD BANK LAB ORDER NIVIA CERNER MILLENNIUM * REFLEX LAB-ABO/RH TYPING (05/12/2011 2:12 PM EDT) ABORH Type O Pos CERNER MILLENNIUM Blood specimen (specimen) 05/12/2011 2:12 PM EDT 05/12/2011 2:29 PM EDT Xu Ellis MD BLOOD BANK LAB ORDER NIVIA Performing Organization Address City/[facility]/ZIP Co de Phone Number CERNER MILLENNIUM * (ABNORMAL) CBC (with Diff) (05/12/2011 2:12 PM EDT) White Blood Cell 9.7 4.0 - 10.0 x10(3)/mc L CERNER MILLENNIUM Red Blood Cell 4.18 3.93 - 5.22 x10(6)/mc L CERNER MILLENNIUM Hemoglobin 10.6(L) 11.2 - 15.7 gm/dL CERNER MILLENNIUM Hematocrit 33.8(L) 34.0 - 45.0 % CERNER MILLENNIUM Mean Cell Volume 80.9 79.0 - 94.0 fL CERNER MILLENNIUM Mean Cell Hemoglobin 25.4(L) 26.6 - 32.2 pg CERNER MILLENNIUM Mean Cell Hemoglobin Concentration 31.4(L) 32.0 - 36.5 gm/dL CERNER MILLENNIUM Platelet 340 145 - 370 x10(3)/mc L CERNER MILLENNIUM RDW Standard Deviation 50.8(H) 35.0 - 46.0 fL CERNER MILLENNIUM RDW coefficient of variation 17.5(H) 10.9 - 14.4 % CERNER MILLENNIUM Mean Platelet Volume 10.2 9.0 - 12.0 fL CERNER MILLENNIUM Blood specimen (specimen) 05/12/2011 2:12 PM EDT 05/12/2011 2:29 PM EDT Xu Ellis MD HEMATOLOGY ORDERABLE S LAURYN HAND * (ABNORMAL) Creatinine, serum (05/12/2011 2:12 PM EDT) Creatinine 0.67(L) 0.70 - 1.20 mg/dL [facility] Est Glomerular Filtration Rate >60 >=60 [facility] Comment: The National Kidney Disease Education Program (NKDEP) has recommended all laboratories report estimated GFR (eGFR) along with plasma creatinine measurements to assist you with recognition of early kidney disease. Caveats: ??Plasma creatinine should be at steady-state (unchanged within the past week). For patients multiply eGFR by 1.2.MDRD equation has not been validated for pediatric patients and is only valid for patients with age >= 18 years. At present, NKDEP does NOT recommend using the MDRD equation for drug dosing purposes and pharmacists should continue to use their current dosing methods. In addition, numerical eGFR values greater than 60 ml/min/1.73 square meters should be treated as > 60, and not an exact number due to greater inaccuracies at these higher values. Per NKDEP, they classify normal renal function as any GFR >60ml/min/1.73 square meters; chronic kidney disease when GFR <60, and renal failure when GFR <15. ??This calculation may not be valid for patients with atypical muscle mass (very lean or obese), acute renal failure, and in patients with diabetic kidney disease. References: http://nkdep.nih.gov/resources/NKDEP_Suggestn4Labs_0606_508.pdf http://www.kidney.org/professionals/kls/pdf/faq_gfr.pdf Blood specimen (specimen) 05/12/2011 2:12 PM EDT 05/12/2011 2:29 PM EDT Xu Ellis MD CHEMISTRY ORDERABLES Performing Organization Address City/[facility]/ZIP Co de Phone Number LAURYN HAND * Aspartate Aminotransferase (05/12/2011 2:12 PM EDT) Aspartate Aminotransferase 18 0 - 30 unit/L [facility] Blood specimen (specimen) 05/12/2011 2:12 PM EDT 05/12/2011 2:29 PM EDT Xu Ellis MD CHEMISTRY ORDERABLES LAURYN HAND documented in this encounter Visit Diagnoses Diagnosis Mild preeclampsia Mild or unspecified pre-eclampsia, unspecified as to episode of care state, incidental GDM (gestational diabetes mellitus) Abnormal maternal glucose tolerance, complicating , childbirth, or the puerperium, unspecified as to episode of care Mild or unspecified pre-eclampsia, unspecified as to episode of care Abnormal maternal glucose tolerance, complicating , childbirth, or the puerperium, unspecified as to episode of care Primary uterine inertia, with delivery Mild or unspecified pre-eclampsia, with delivery Abnormality in heart rate/rhythm, delivered, with or without mention of antepartum condition Outcome of delivery, single liveborn Abnormal maternal glucose tolerance, with delivery Other and unspecified uterine inertia, with delivery Elderly primigravida, delivered Obesity complicating , childbirth, or the puerperium, delivered, with or without mention of antepartum condition(649.11) Obesity complicating , childbirth, or the puerperium, delivered, with or without mention of antepartum condition Morbid obesity Other current maternal conditions classifiable elsewhere, with delivery Carrier or suspected carrier of group B Streptococcus Carrier or suspected carrier of Group B streptococcus documented in this encounter Administered Medications Inactive Administered Medications - up to 3 most recent administrations Medication Order MAR Action Action Date Dose Rate Site dinoprostone (CERVIDIL) vaginal insert 10 mg 10 mg, Vaginal, ONCE, 1 dose, On Wed05/13/11 at 0130, Routine Given 05/13/2011 1:45 AM EDT 10 mg diph,pertuss(acel),tet vac(PF) (ADACEL, Tdap) injection 0.5 mL 0.5 mL, Intramuscular, PRIOR TO DISCHARGE, 1 dose, Starting on Wed05/15/11 at 0914, Until Wed05/18/11 at 1825, Per Protocol, Routine Given 05/18/2011 6:25 PM EDT 0.5 mLs Left Arm docusate sodium (COLACE) capsule 100 mg 100 mg, Oral, 2 TIMES DAILY, First dose on Wed05/15/11 at 0930, Until Discontinued, Routine Given 05/19/2011 8:09 AM EDT 100 mg Given 05/18/2011 9:00 PM EDT 100 mg Given 05/18/2011 10:56 AM EDT 100 mg enoxaparin (LOVENOX) injection 40 mg 40 mg, Subcutaneous, EVERY 24 HOURS SCHEDULED (Daily), First dose on Wed05/15/11 at 1800, Until Discontinued, Routine Given 05/18/2011 9:00 PM EDT 40 mg Given 05/17/2011 9:05 PM EDT 40 mg Given 05/16/2011 7:53 PM EDT 40 mg fentaNYL 2 mcg/mL with BUpivacaine 0.125% (1.25 mg/mL) (1/8%) in NS(PF) 2-0.125 mcg/mL-% epidural NADYA ORLANDO: Cabinet Override fentaNYL 2 mcg/mL, BUpivacaine (MARCAINE) 0.125% (1.25 mg/mL)(1/8%) in sodium chloride 0.9% 250 mL epidural Epidural, Maximum rate for continuous infusion 14 mL per hour Patient Controlled Epidural Analgesia (PCEA): Maintain continuous infusion plus: PCEA bolus volume of 5 mL Maximum total epidural rate (continuous and PCEA bolus) is 25 mL per hour Bolus lockout of 20 minutes Given 05/14/2011 1:39 PM EDT 10 mL/hr ibuprofen (ADVIL;MOTRIN) tablet 600 mg 600 mg, Oral, EVERY 6 HOURS PRN, Starting on 05/16/11 at 2313, Until 05/19/11 at 1541, Pain, Maximum dose of 3200 mg from all sources in 24 hours, Routine Given 05/19/2011 11:37 AM EDT 600 m g Given 05/19/2011 2:49 AM EDT 600 mg Given 05/18/2011 4:05 PM EDT 600 mg insulin regular human (humuLIN;novoLIN) 150 Units in sodium chloride 0.9% 150 mL infusion 1-5 Units/hr (rounded to 1-5 mL/hr), Intravenous, CHANGE BAG EVERY EVENING, First dose on Nati 05/14/11 at 0915, Until Discontinued, Continuous IV Insulin Protocol- Laboring Patient Type 1 diabetes. Initial blood glucose 120-140 Titration- aim for target range of 70-120 mg/dL No initial bolus. Begin initial continuous infusion at 1 units/hr. Current BG less than 60- Stop insulin; give 12.5 grams (25 mL) dextrose 50% IV. Check BG in 30 minutes AND WHEN BG greater than 70, restart with rate 50% of previous rate; or if previous rate had been 0.5 unit/hour, restart at 0.5 unit/hour when BG greater than 100. Current BG 61-80- If BG greater than or equal to 10 ml/dL lower than last test, decrease rate by 50%. If BG is less than 10 mg/dL loser than last test OR higher than last test, decrease rate by 0.5 unit.hour. Current BG 81-140- If BG drops 20 mg/dL or more in each of two consecutive BG tests, reduce insulin rate by 1 unit/hour and recheck BG in 30 minutes. If BG drops 50 mg/dL or more in a single BG test, reduce insulin rate by 50% and recheck BG in 30 mintes. Otherwise maintain same rate. Current BG 141-200- If BG lower than last test, maintain same rate. If same or higher than last test, increase rate by 0.5 unit/hour and bolus as per initial IV Insulin Bolus scale below. Recheck BG in 30 minutes. Current BG 201-240- If BG greater than or equal to 30mg/dL lower than last test, continue same rate. If BG is less than 30 mg/dL lower than last test OR higher than last test, increase rate by 1 unit/hour. Current BG greater than 240- Increase rate by 1 unit/hour AND bolus with regular insulin as per Initial IV Insulin Bolus scale below. Recheck BG in 30 minutes. If BG greater than 200 mg/dL and has not decreased after two consecutive increases in insulin, double insulin rate and call MD for additional IV bolus orders. Contact provider prior to giving dose if total insulin dose over 1 hour will exceed 15 units in an insulin sensitive person and 20 units in an insulin resistant person. Continue IV insulin until delivery. Stop drip with delivery. Refer to orders for insulin dosing. Initial IV insulin Bolus scale: For BG in mg/dL (120-140 = no bolus, 141-180 = 1 unit, 181-220 = 2 units, greater than 220 = 4 units) Rate/Dose Change 05/14/2011 11:14 AM EDT 1.5 Units/hr 1.5 mL/hr New Bag 05/14/2011 10:15 AM EDT 1 Units/hr 1 mL/hr labetalol (NORMODYNE) tablet 200 mg 200 mg, Oral, 2 TIMES DAILY, First dose on Wed05/18/11 at 0900, Until Discontinued, Routine Given 05/19/2011 8:09 AM EDT 200 mg Given 05/18/2011 9:00 PM EDT 200 mg Given 05/18/2011 10:54 AM EDT 200 mg lactated ringers infusion 50 mL/hr, Intravenous, CONTINUOUS, Starting on Wed05/13/11 at 0230, Until Wed05/15/11 at 0915 New Bag 05/15/2011 3:00 AM EDT 50 mL/hr 50 mL /hr Rate/Dose Change 05/14/2011 11:00 PM EDT 100 mL/hr 100 mL /hr New Bag 05/14/2011 2:17 PM EDT 25 mL/hr 25 mL/hr lactated ringers infusion 30 mL/hr, Intravenous, CONTINUOUS, Starting on Wed05/13/11 at 1545, Until Wed05/15/11 at 0915 Rate/Dose Change 05/14/2011 11:00 PM EDT 120 mL/hr 120 mL/hr New Bag 05/14/2011 8:00 AM EDT 30 mL/hr 30 mL/hr New Bag 05/13/2011 3:45 PM EDT 30 mL/hr 30 mL/hr magnesium sulfate 20 g/500 mL infusion 2 g/hr (rounded to 50 mL/hr), Intravenous, CONTINUOUS, Starting on Wed05/13/11 at 0130, Until Wed05/15/11 at 0915, Administer 4 gram bolus over 20 minutes, and then run at 2 g/hour (50 mL/hour), Routine New Bag 05/14/2011 11:54 PM EDT 2 g/hr 50 mL/hr New Bag 05/14/2011 2:15 PM EDT 2 g/hr 50 mL/hr Rate/Dose Verify 05/14/2011 6:00 AM EDT 2 g/hr 50 mL/h r magnesium sulfate 20 g/500 mL infusion 2 g/hr (rounded to 50 mL/hr), Intravenous, CONTINUOUS, Starting on Wed05/15/11 at 0930, Until 05/16/11 at 0929, Routine New Bag 05/15/2011 9:08 PM EDT 2 g/hr 50 mL/ hr New Bag 05/15/2011 11:00 AM EDT 2 g/hr 50 mL/hr misoprostol tablet 25 mcg 25 mcg, Cervical, EVERY 4 HOURS PRN, 6 doses, Starting on Wed05/12/11 at 1402, Until Wed05/15/11 at 0915, until active labor, Administer until active labor. Maximum doses = 6 , Routine Given 05/12/2011 9:00 PM EDT 25 mcg 20-Other (document i n comment section) Given 05/12/2011 4:32 PM EDT 25 mcg morphine 1 mg/mL PEDIATRIC NEPHROLOGIST 30 mL Intravenous, PEDIATRIC NEPHROLOGIST ONLY, Starting on Wed05/15/11 at 0930, Until 05/16/11 at 2314, LOADING DOSE (1 - 4 mg): 2-4 mg for 1 dose PEDIATRIC NEPHROLOGIST DOSE (0.5 - 1.5 mg): 1 mg LOCKOUT INTERVAL (6 - 15 min): 6 minutes CONTINUOUS INFUSION RATE (0.5 - 1.5 mg/hr): 0 mg/hr FOUR HOUR DOSE LIMIT (1 - 30 mg): 30 mg New Syringe/Cartridg e 05/15/2011 9:30 AM EDT morphine 10 mg/mL carpuject 10 mg 10 mg, Intramuscular, ONCE, 1 dose, On Wed05/13/11 at 0600, Routine Given 05/13/2011 6:00 AM EDT 10 mg Left Upper Outer Quadrant morphine 10 mg/mL carpuject 10 mg 10 mg, Intramuscular, ONCE, 1 dose, On Wed05/13/11 at 2345, Routine Given 05/13/2011 11:45 PM EDT 10 mg morphine 10 mg/mL carpuject 5 mg 5 mg, Intravenous, ONCE, 1 dose, On Wed05/13/11 at 0330, Routine Given 05/13/2011 3:15 AM EDT 5 mg morphine 10 mg/mL carpuject 5 mg 5 mg, Intravenous, ONCE, 1 dose, On Wed05/13/11 at 0600, Routine Given 05/13/2011 6:00 AM EDT 5 mg morphine 10 mg/mL carpuject 5 mg 5 mg, Intravenous, ONCE, 1 dose, On Wed05/13/11 at 2345, Routine Given 05/13/2011 11:45 PM EDT 5 mg morphine 30 mg/30 mL infusion Starting on Wed05/15/11 at 0916, 1 dose, Until Wed05/15/11 at 0930, NADYA PERRY: Cabinet Override OXYcodone-acetaminophen (PERCOCET) 5-325 mg per tablet 1-2 tablet 1-2 tablet, Oral, EVERY 3 HOURS PRN, Pain, moderate-severe pain, Starting on Wed05/15/11 at 0914, Until Wed05/19/11 at 1541, Administer 1 tablet for moderate pain and 2 tablets for severe pain. Maximum dose of acetaminophen is 4,000 mg from all sources in 24 hours. Given 05/19/2011 11:37 AM EDT 2 tablets Given 05/19/2011 7:05 AM EDT 2 tablets Given 05/19/2011 2:49 AM EDT 2 tablets oxytocin (PITOCIN) 30 units in sodium chloride 0.9% 500 mL infusion 1-30 evelyn-units/min (rounded to 1-30 mL/hr), Intravenous, CONTINUOUS, Starting on Wed05/13/11 at 1645, Until Wed05/14/11 at 0712, Piggyback into Lactated Ringers; Start at 1-2 milliunits/minute and increase by 1-2 milliunits/minutes every 30 minutes to achieve contractions that are every 2-3 minutes, lasting 60-90 seconds with 1 minute resting tone between contractions palpating strong. Oxytocin may not be initiated until: - 1 hour after Cervidil is removed - 4 hours after last minute misoprostol dose is given , Routine Rate/Dose Change 05/13/2011 10:21 PM EDT 8 evelyn-units/min 8 mL/hr Rate/Dose Verify 05/13/2011 10:15 PM EDT 10 evelyn-units/mi n 10 mL/hr Rate/Dose Change 05/13/2011 10:00 PM EDT 10 evelyn-units/mi n 10 mL/hr oxytocin (PITOCIN) 30 units in sodium chloride 0.9% 500 mL infusion 1 evelyn-units/min (rounded to 1 mL/hr), Intravenous, CONTINUOUS, Starting on Wed05/14/11 at 0730, Until Wed05/15/11 at 0504, Piggyback into Lactated Ringers; Start at 2 milliunits/minute and increase by 1-2 milliunits/minutes every 30 minutes to achieve contractions that are every 2-3 minutes, lasting 60-90 seconds with 1 minute resting tone between contractions palpating strong. May go up to 30 milliunits/minute. Oxytocin may not be initiated until: - 1 hour after Cervidil is removed - 4 hours after last misoprostol dose is given , Routine Rate/Dose Change 05/15/2011 3:45 AM EDT 28 evelyn-units/min 28 mL/hr Rate/Dose Change 05/15/2011 1:30 AM EDT 26 evelyn-units/min 26 mL/hr Rate/Dose Change 05/15/2011 12:30 AM EDT 24 evelyn-units/mi n 24 mL/hr oxytocin in Normal Saline (PITOCIN) 30 unit/500 mL infusion Soln 1 dose, Starting on Wed05/13/11 at 1524, Until Wed05/13/11 at 1531, MARY ALICE AMANDA: Cabinet Override penicillin G potassium 3 million units in dextrose 5% 50 mL 3 Million Units, Intravenous, EVERY 4 HOURS PRN, Starting on Wed05/13/11 at 0000, Until Wed05/15/11 at 0915, Administer over 60 Minutes, until delivery, Until delivery for GBS prophylaxis New Bag 05/14/2011 4:53 PM EDT 3 Million Units 50 mL/hr penicillin G potassium 3 million units in dextrose 5% 50 mL 3 Million Units, Intravenous, EVERY 4 HOURS SCHEDULED, First dose on Wed05/14/11 at 1200, Until Discontinued, Administer over 60 Minutes, Until delivery for GBS prophylaxis New Bag 05/15/2011 4:00 AM EDT 3 Million Units 50 mL/hr New Bag 05/15/2011 12:00 AM EDT 3 Million Units 50 mL/h r New Bag 05/14/2011 8:00 PM EDT 3 Million Units 50 mL/hr penicillin G potassium 5 million unit vial attach to sodium chloride 0.9% 100 mL Mini-Bag Plus 5 Million Units, Intravenous, ONCE, 1 dose, On Wed05/14/11 at 0730, Administer over 60 Minutes, Administer once active labor starts Given 05/14/2011 7:53 AM EDT 5 Million Units 110 mL/hr promethazine (PHENERGAN) injection 25 mg 25 mg, Intravenous, ONCE, On Wed05/13/11 at 0330, 1 dose, Avoid extravasation Given 05/13/2011 3:15 AM EDT 25 mg promethazine (PHENERGAN) injection 25 mg 25 mg, Intravenous, EVERY 6 HOURS PRN, Nausea, Starting on Wed05/13/11 at 2319, Until Wed05/15/11 at 0915, Avoid extravasation Given 05/13/2011 11:32 PM EDT 25 mg simethicone (MYLICON) chewable tablet 80 mg 80 mg, Oral, EVERY 6 HOURS PRN, Starting on Wed05/16/11 at 1610, Until Wed05/19/11 at 1541, Cramping, Routine Given 05/16/2011 4:21 PM EDT 80 mg sodium chloride 0.9 % flush 5 mL 5 mL, Intravenous, EVERY 12 HOURS, First dose on Wed05/12/11 at 1430, Until Discontinued Given 05/14/2011 2:30 PM EDT 5 mLs zolpidem (AMBIEN) tablet 5 mg 5 mg, Oral, NIGHTLY PRN, Starting on Wed05/19/11 at 0257, Until Wed05/19/11 at 1541, Sleep, Routine Given 05/19/2011 2:58 AM EDT 10 mg documented in this encounter Active and Recently Administered Medications Times are shown in EDT. Scheduled Medication Order 05/17/2011 05/18/2011 05/19/2011 docusate sodium (COLACE) capsule 100 mg 100 mg, Oral, 2 TIMES DAILY, First dose on Wed05/15/11 at 0930, Until Discontinued, Routine 0900 (Not Given - Provider: Dayana Mcfarland RN - Reason: Patient/family refused)210 (Given - Provider: Lori Messer RN) 1056 (Given - Provider: Tamera Keenan, JESSI)2100 (Given - Provider: Bere Rivers RN) 0809 (Given - Provider: Tamera Keenan RN) enoxaparin (LOVENOX) injection 40 mg (CANCELED) 40 mg, Subcutaneous, EVERY 24 HOURS SCHEDULED (Daily), First dose on Wed05/15/11 at 1800, Until Discontinued, Routine 2104 (Given - Provider: Lori Messer RN) 2100 (Given - Provider: Bere Rivers RN) labetalol (NORMODYNE) tablet 200 mg 200 mg, Oral, 2 TIMES DAILY, First dose on Wed05/18/11 at 0900, Until Discontinued, Routine 0900 (Due)1054 (Given - Provider: Tamera Keenan RN)2100 (Given - Provider: Bere Rivers RN) 0809 (Given - Provider: Tamera Keenan RN) PRN Medication Order 05/17/2011 05/18/2011 05/19/2011 diph,pertuss(acel),tet vac(PF) (ADACEL, Tdap) injection 0.5 mL (COMPLETED) 0.5 mL, Intramuscular, PRIOR TO DISCHARGE, 1 dose, Starting on Wed05/15/11 at 0914, Until Wed05/18/11 at 1825, Per Protocol, Routine 1825 (Given - Provider: Tamera Keenan RN) ibuprofen (ADVIL;MOTRIN) tablet 600 mg 600 mg, Oral, EVERY 6 HOURS PRN, Starting on 05/16/11 at 2313, Until Wed05/19/11 at 1541, Pain, Maximum dose of 3200 mg from all sources in 24 hours, Routine 0120 (Given - Provider: Lori Messer RN)1605 (Given - Provider: Tamera Keenan RN) 0249 (Given - Provider: Bere Rivers RN)1137 (Given - Provider: Tamera Keenan RN) OXYcodone-acetaminophen (PERCOCET) 5-325 mg per tablet 1-2 tablet 1-2 tablet, Oral, EVERY 3 HOURS PRN, Pain, moderate-severe pain, Starting on Wed05/15/11 at 0914, Until Wed05/19/11 at 1541, Administer 1 tablet for moderate pain and 2 tablets for severe pain. Maximum dose of acetaminophen is 4,000 mg from all sources in 24 hours. 0346 (Given - Provider: Lori Anne RN)1535 (Given - Provider: Dayana Mcfarland RN)2105 (Given - Provider: Lori Messer RN) 0120 (Given - Provider: Lori Messer RN)0512 (Given - Provider: Lori Messer RN)1130 (Given - Provider: Tamera Keenan RN)1605 (Given - Provider: Tamera Keenan RN)1999 (Given - Provider: Bere Rivers RN) 0249 (Given - Provider: Bere Rivers RN)07 (Given - Provider: Bere Rivers RN)1137 (Given - Provider: Tamera Keenan RN) zolpidem (AMBIEN) tablet 5 mg (CANCELED) 5 mg, Oral, NIGHTLY PRN, Starting on Wed05/19/11 at 0257, Until Wed05/19/11 at 1541, Sleep, Routine 0258 (Given - Provider: Bere Rivers RN) documented in this encounter Care Teams Lining Vamper Relationship Specialty Start Date End Date Florecita Douglas APRN PCP - General 11/10/10 07/01/16 documented as of this encounter
--- OUTSIDE RECORDS SUMMARY | 2024-11-24 00:30 | XMS_ITS | Encounter Summary ---
Author Organization [facility] [place] [address] Care Team Providers Care Pharmacy Laboratory Technician Name Role Phone Jackelyn Richey APRN Primary Care Provider Unav ailable Encounter Details Date Type Department Care Team (Late st Contact Info) Description 08/17/2011 Orders [place] [id number] Aamir Christensen MD [facility] [place] [address] Social History Tobacco Use Types Packs/Day Years [...] Associated Diagnosis Comments FILM LIBRARY STORAGE ONLY MR KNEE Routine 08/17/2011 10:22 AM EDT documented in this encounter Results * FILM LIBRARY- STORAGE ONLY MR KNEE (08/17/2011 10:22 AM EDT) 08/17/2011 10:2 2 AM EDT Narrative [facility] - 04/03/2014 7:48 PM EDT This is a non-reportable exam. Procedure Note Paul Fuller - 04/03/2014 This is a non-reportable exam. Aamir Christensen MD IM FILM LIBRARY ORD ERABLES RAD [address] [facility] [place] [address] documented in this encounter Visit Diagnoses Not on filedocumented in this encounter Care Teams Pharmacy Laboratory Technician Relationship Specialty Start Date End Date Jackelyn Richey APRN PCP - General 11/10/10 07/01/16 documented as of this encounter
--- OUTSIDE RECORDS SUMMARY | 2024-11-24 00:30 | XMS_ITS | Encounter Summary ---
Author Organization [facility] Address [facility] [place] [address] Care Team Providers Care Brainer Name Role Phone Nettie Centeno APRN Primary Care Provider Ana Lilia vailable Encounter Details Date Type Department Care Team (Latest Contact Info) Description 07/28/2016 6:56 AM EDT - 07/28/2016 11:59 PM EDT Hospital Encounter XRay at [address] [place] [address] Aamir Christensen MD [facility] [place] [address] Right knee pain, unspecified chronicity Discharge Disposition: Home Social History Tobacco Use [...] Sig Dispensed Refills Start Date End Date PROVENTIL HFA 90 mcg/actuation HFA Aerosol Inhaler INHALE 1 TO 2 PUFFS 4 TIMES A DAY FOR 5 TO 7 DAYS 0 03/31/2016 azithromycin (ZITHROMAX) 250 mg Tablet TAKE 2 TABLETS BY MOUTH TODAY, THEN TAKE 1 TABLET DAILY FOR 4 DAYS 0 03/30/2016 levothyroxine (SYNTHROID) 75 mcg Tablet TAKE 1 TABLET BY MOUTH ONCE DAILY 1 07/08/2016 levothyroxine (SYNTHROID) 50 mcg Tablet TAKE 1 TABLET BY MOUTH EVERY MORNING 0 06/29/2016 lisinopril (PRINIVIL;ZESTRIL) 20 mg Tablet TAKE 1 TABLET BY MOUTH ONCE DAILY 3 06/29/2016 ACETAZOLAMIDE ORAL Take 250 mg by mouth. naproxen (ANAPROX) 275 mg Tablet Take 1.5 tablets by mouth 2 times daily (with meals) for 60 days. 120 tablet 3 07/28/2016 09/26/2016 documented as of this encounter Plan of Treatment Not on file documented as of this encounter Procedures Procedure Name Priority Date/Time Associated Diagnosis Comments XR KNEE STANDING ALIGNMENT AP LAT [place] SKYLINE RIGHT Routine 07/28/2016 7:34 AM EDT Right knee pain, unspecified chronicity documented in this encounter Results * XR Joint Team Alignment AP Lat [place] Right (07/28/2016 7:34 AM EDT) Anatomical Region Laterality Modality Right Digital Radiogra phy Impressions 07/28/2016 8:52 AM EDT Progressive narrowing right medial compartment with increased medial subluxation of the knee joint in the standing view and lateral subluxation of patellofemoral joint in the sunrise view Narrative 07/28/2016 8:52 AM EDT EXAMINATION: XR KNEE STANDING ALIGNMENT AP LAT [place] SKYLINE RIGHT CLINICAL HISTORY: R KNEE PAIN TECHNIQUE: Separate images of the pelvis, knees and feet were acquired in the AP projection with the patient standing. These images were stitched together to form a composite image of the pelvis and legs allowing for evaluation of lower extremity alignment in the weight bearing position. ? COMPARISON: Limited comparison 08/10/2011 FINDINGS: There is medial deviation of the weight-bearing axis bilaterally, left greater than right. There is lateral subluxation at the tibiotalar joint bilaterally that is only partially visualized. Right knee: There is progressive narrowing of the right medial compartment and progressive medial subluxation of the knee joint in the standing view. There are stable mild degenerative changes of the right lateral and patellofemoral compartments. [place] view demonstrates lateral subluxation of the patellofemoral joint bilaterally, right greater than left. Left knee: There is stable mild narrowing of the left medial compartment and fairly well-maintained left lateral compartment. Procedure Note Ana Medina MD - 08/30/2016 EXAMINATION: XR KNEE STANDING ALIGNMENT AP LAT [place] SKYLINE RIGHT CLINICAL HISTORY: R KNEE PAIN TECHNIQUE: Separate images of the pelvis, knees and feet were acquired inthe AP projection with the patient standing. These images were stitched togetherto form a composite image of the pelvis and legs allowing for evaluation oflower extremity alignment in the weight bearing position. COMPARISON: Limited comparison 08/10/2011 FINDINGS: There is medial deviation of the weight-bearing axis bilaterally, leftgreater than right. There is lateral subluxation at the tibiotalar jointbilaterally that is only partially visualized. Right knee: There is progressive narrowing of the right medial compartmentand progressive medial subluxation of the knee joint in the standing view.There are stable mild degenerative changes of the right lateral and patellofemoral compartments. [place] view demonstrates lateral subluxation of the patellofemoral joint bilaterally, right greater than left. Left knee: There is stable mild narrowing of the left medial compartmentand fairly well-maintained left lateral compartment. IMPRESSION Progressive narrowing right medial compartment with increased medialsubluxation of the knee joint in the standing view and lateral subluxation ofpatellofemoral joint in the sunrise view Aamir Christensen MD IMG DX ORDERABLES documented in this encounter Visit Diagnoses Diagnosis Right knee pain, unspecified chronicity documented in this encounter Care Teams Brainer Relationship Specialty Start Date End Date Nettie Centeno APRN PCP - General Family Medicine 07/02/16 documented as of this encounter
--- OUTSIDE RECORDS SUMMARY | 2024-11-24 00:30 | XMS_ITS | Encounter Summary ---
Author Organization [facility] Address [facility] [place] [address] Care Team Providers Care Remote Pilot Operator Name Role Phone Jackelyn Richey APRN Primary Care Provider Unav ailable Encounter Details Date Type Department Care Team (Late st Contact Info) Description 08/10/2011 Orders [place] [id number] Aamir Christensen MD [facility] [place] [address] Social History Tobacco Use Types Packs/Day Years [...] Diagnosis Comments FILM LIBRARY STORAGE ONLY DX PELVIS Routine 08/10/2011 10:31 AM EDT documented in this encounter Results * FILM LIBRARY- STORAGE ONLY DX PELVIS (08/10/2011 10:31 AM EDT) 08/10/2011 10:3 1 AM EDT Narrative [facility] - 04/05/2014 12:11 PM EDT This is a non-reportable exam. Procedure Note Paul Fuller - 04/05/2014 This is a non-reportable exam. Aamir Christensen MD IM FILM LIBRARY ORD ERABLES RAD [address] [facility] [place] [address] documented in this encounter Visit Diagnoses Not on filedocumented in this encounter Care Teams Remote Pilot Operator Relationship Specialty Start Date End Date Jackelyn Richey APRN PCP - General 11/10/10 07/01/16 documented as of this encounter
--- OUTSIDE RECORDS SUMMARY | 2024-11-24 00:30 | XMS_ITS | Encounter Summary ---
Author Organization [facility] Address [facility] [place] [address] Care Team Providers Care Digital Sales Director Name Role Phone Jackelyn Richey APRN Primary Care Provider Unav ailable Reason for Visit * Reason Comments Right Knee Pain DOI 08/09/11 ACL Encounter Details Date Type Department Care Team (Late st Contact Info) Description 08/27/2011 8:00 AM EDT Office [place] [address] Aamir Christensen MD [facility] [place] [address] ACL tear, traumatic; Acute meniscal tear, medial Discharge Disposition: Home Social History Tobacco Use [...] Sign Reading Time Taken Comments Blood Pressure - - Pulse - - Temperature - - Respiratory Rate - - Oxygen Saturation - - Inhaled Oxygen Concentration - - Weight 136.1 kg (300 lb) 08/27/2011 8:11 AM EDT Height 162.6 cm (5' 4) 08/27/2011 8:11 AM EDT Body Mass Index 51.49 08/27/2011 8:11 AM EDT documented in this encounter Progress Notes * Aamir Christensen MD - 08/28/2011 9:33 PM EDT I performed a history and physical exam of the patient and discussed the patient's management with Dr. Castillo. I have reviewed the office note and agree with the documented findings and plan of care. We plan on proceeding with arthroscopic treatment of Ms. Jain's displaced medial meniscal tear and hope to not have to consider reconstruction of her ACL. She understands the potential risks and complications of surgery and consents to proceed. * Albert Castillo MD - 08/27/2011 9:10 AM EDT [facility] STAFF/ATTENDING PHYSICIAN: Dr. Aamir Christensen. We have been asked to see this patient at the request of Dr. Jodee Morales in orthopedics at [facility] for evaluation of right knee ACL and medial meniscus tear. HISTORY OF PRESENT ILLNESS: Ms. Jain is a pleasant morbidly obese 40-year-old female who had a fall on 08/09/2011 when she tripped on broken pavement of the sidewalk. As she fell, she felt a pop in her right knee. She tried to get up and ambulate but felt that her knee was very unstable. That day she was seen by her primary care provider and also Dr. Morales in orthopedics at [place]. An MRI was ordered. The patient was then referred to [facility] for further evaluation and treatment. She states that she has been able to ambulate with either a walker or a cane. She has had some swelling and warmth in the right knee. She has decreased sensation. She has had some clicking and popping but the knee has not locked on her. She has had some episodes of continued instability. She has pain more at the end of the day. Her pain is most notable on the medial side. She has been taking tramadol occasionally which is somewhat helpful. Of note in the past, she injured her right knee in 2006 when she was jumping off the back of a tailgate of a truck but felt that she had fully recovered from this incident. Medications are in EDH and were reviewed. ALLERGIES ARE IN EDH AND WERE REVIEWED. Past medical history includes on 05/15/2011. That was also complicated by suspected preeclampsia and hypertension. She also has a history of benign intracranial hypertension. The patient is morbidly obese. She has also had bilateral clubfoot corrective surgery as an . Family history includes cancer. There is no history of bleeding disorder or difficulty with anesthesia. 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 She quit smoking in 2007 and was a social smoker. She drinks two glasses of alcohol per week. Review of systems is negative for any recent fevers or chills, chest pain, shortness of breath, nausea, vomiting, diarrhea, rashes, headaches, weight gain, weight loss, or dysuria, etc. PHYSICAL EXAMINATION: In general, the patient is an obese 40-year-old female who is alert and oriented and in no acute distress. Cardiovascular: Regular rate and rhythm. Pulmonary: Clear to auscultation bilaterally. Abdomen: Obese. Right Lower Extremity: The patient is neurovascularly intact with palpable DP pulse and normal motor and sensory testing distally. Her knee range of motion is from 5 to 90 degrees. On the contralateral side, it is from 0 to 110 degrees. There is no right knee laxity to varus or valgus stress. In terms of Betty and anterior drawer testing, the exam is somewhat limited by her guarding. There may be a small difference in laxity with the Betty test on the right compared to the left. She does have significant anteromedial joint line tenderness to palpation. She has a positive Dhruv test for pain but no click. IMAGING: A recent MRI from an outside facility was reviewed. This shows a complete destruction of the anterior cruciate ligament of the right knee and a bucket-handle medial meniscal tear slipped into the notch. There is also lateral shift bone bruising noted. ASSESSMENT: Right knee traumatic anterior cruciate ligament tear and bucket-handle medial meniscal tear. PLAN: We have recommended at this time arthroscopic medial meniscectomy. In terms of her ACL, we are hopeful that in this nonathletic patient that reconstruction will not be necessary. In the future, we will follow her after rehabbing from the meniscectomy and if she has persistent instability that is something that we would readdress. We have reviewed the risks and benefits of arthroscopic medial meniscectomy, and the patient has signed consent. This will be scheduled as soon as possible. CC: Jerad Ambrosio M.D. Primary Care Provider documented in this encounter H&P Notes * Eugene, Head Of Training And Development - 08/31/2011 12:43 PM EDT documented in this encounter Miscellaneous Notes * Miscellaneous - Eugene, Head Of Training And Development - 09/07/2011 12:12 PM EDT documented in this encounter Plan of Treatment Not on file documented as of this encounter Procedures Procedure Name Priority Date/Time Associated Diagnosis Comments ARTHROSCOPY KNEE, MENISCECTOMY SINGLE W/ SHAVING Routine 08/27/2011 9:04 AM EDT documented in this encounter Visit Diagnoses Diagnosis ACL tear, traumatic Sprain of cruciate ligament of knee Acute meniscal tear, medial Tear of medial cartilage or meniscus of knee, current documented in this encounter Care Teams Digital Sales Director Relationship Specialty Start Date End Date Jackelyn Richey APRN PCP - General 11/10/10 07/01/16 documented as of this encounter
--- OUTSIDE RECORDS SUMMARY | 2024-11-24 00:30 | XMS_ITS | Encounter Summary ---
Author Organization [facility] Address [facility] [place] [address] Care Team Providers Care Body Stylist Name Role Phone Jackelyn Richey APRN Primary Care Provider Unav ailable Reason for Referral * Physical Therapy (Routine) - Complete - Patient Will Schedule External Appt Specialty Diagnoses / Procedures Referred By Sharon t Referred To Contact Physical Therapy Diagnoses H/O: knee surgery Akira Jarquin PA [facility] [place] [address] Referral ID Status Reason Start Date Expiration Date Visits Requested Visits Authorized [id number] Complete - Patient Will Schedule External Appt Evaluate and Treat 1 03/08/2012 1 1 Reason for Visit * Reason Comments Follow-up DOI 08/09/11 DOS 09/02 Rt knee scope Encounter Details Date Type Department Care Team (Late st Contact Info) Description 09/10/2011 4:20 PM EDT Office [place] [address] Akira Jarquin PA [facility] [place] [address] H/O: knee surgery (Primary Dx) Discharge Disposition: Home Social History Tobacco Use [...] Sign Reading Time Taken Comments Blood Pressure 130/70 09/10/2011 4:45 PM EDT Pulse - - Temperature - - Respiratory Rate - - Oxygen Saturation - - Inhaled Oxygen Concentration - - Weight 135.9 kg (299 lb 11.2 oz) 09/10/2011 4:45 PM EDT Height 160 cm (5' 3) 09/10/2011 4:45 PM EDT Body Mass Index 53.09 09/10/2011 4:45 PM EDT documented in this encounter Patient Instructions * Patient Instructions* Iesha De Santiago, APOLINAR - 09/10/2011 4:48 PM EDT Welcome to [facility], your secure online access to your electronic medical record at [facility]. Using TheReadingRoom you will be able to send messages to your providers, view your test results, renew prescriptions, schedule appointments, and much more. Follow these instructions to enter your personal [facility]ReadingRoom account for the first time: 1. Start your internet browser. Go to [email or web address] and click on the TheReadingRoom link. 2. Click SIGN UP NOW to go to the NEW MEMBER SIGN UP page. 3. Enter your The[facility]Room Access Code exactly as it appears below. (You will not need this access code after you have completed the sign-up process.) ?? Your TheReadingRoom Access Code: [email or web address] ?? Expires: 10/25/11 04:48 PM ?? IMPORTANT: This Access Code will on the above mentioned date. If you do not sign up before this date, you will need to request a new Access Code number. 4. Enter your Date of (mm/dd/yyyy) and zip code click SUBMIT to go to the next page. 5. Create a The[facility]Room identification (ID). This will be your The[facility]Room login ID and cannot be changed, so think of one that is secure and easy to remember. 6. Create a password which you can change at any time. Your password must contain six (6) letters and two (2) numbers. 7. Enter your Password Reset Question and Answer. This will be used if you forget your password. 8. Enter your e-mail address. This is used to let you know when new information is available in [facility]. 9. Click SIGN UP to complete the process. You can now view your electronic medical record. If you have any questions about [facility]D-H or your Access Code, please call for [place], for [place] or for [place]. If you need technical support, please e-mail . Remember, myD-H is NOT for urgent needs! Always dial 911 for medical emergencies. documented in this encounter Progress Notes * Akira Jarquin - 09/10/2011 5:03 PM EDT Subjective: Patient ID: Argelia Jain is a 40 y.o. female. Case Date: 09/02/2011 Procedure(s): ARTHROSCOPY KNEE, MENISCECTOMY SINGLE W/ SHAVING ARTHROSCOPY KNEE SYNOVECTOMY LIMITED Findings: Displaced, bucket handle tear of medial meniscus resected; complete midsubstance ACL tear; grade III chondral changes patellofemoral compartment and medial compartment; grade II DJD lateralcompartment. Intact PCL and lateral meniscus. HPI This is a 40yo female here for post op for knee surgery. Still some soreness. Using two crutches. ROS Occupation: sitting/ [employer]. Hobbies: family Social history: nonsmoker. Single/ one child. PShx: Bilateral club feet/ had several surgeries. in April2011 Objective: Physical Exam 5'3 299lbs Ortho Exam Appears comfortable., Incisions well approximated post suture removal. Calf is soft and nontender. AROM 5-100 degrees. Nontender to joint line. Neurologic Exam Assessment and Plan: S/P Right knee surgery 2. Bilateral clubfeet 3. Obesity Discussed her surgery, wound care, and consult for rehab provided. Will go forth with progressing weight bearing with walking stick.F/U as needed. Physician coverage today is Dr. Faustin documented in this encounter Plan of Treatment Scheduled Referrals Name Type Priority Associated Diagnoses Orde r Schedule REFERRAL TO PHYSICAL THERAPY Outpatient Referral Routine H/O: knee surgery Ordered: 09/10/2011 documented as of this encounter Visit Diagnoses Diagnosis H/O: knee surgery- Primary Other postprocedural status documented in this encounter Care Teams Body Stylist Relationship Specialty Start Date End Date Jackelyn Richey APRN PCP - General 11/10/10 07/01/16 documented as of this encounter
--- OUTSIDE RECORDS SUMMARY | 2024-11-24 00:30 | XMS_ITS | Encounter Summary ---
[place] [address] Care Team Providers Care Ironer Name Role Phone Jackelyn Richey APRN Primary Care Provider Unav ailable Encounter Details Date Type Department Care Team (Late st Contact Info) Description 09/02/2011 2:30 PM EDT Anesthesia Event [place] [phone] Simona Blackwood MD Anesthesia Record Procedure Summary Procedure Name Responsible Anesthesiologist Anesthesia Start Time Anesthesia Stop Time ARTHROSCOPY KNEE, MENISCECTOMY SINGLE W/ SHAVING (WRVU 7.03) (Right: Knee) Simona Blackwood MD 09/02/11 1430 09/02/11 1512 Events Date Time Event Comment 09/02/2011 1430 Start 1512 Stop 1543 Meds * Agents No agents on file. * Blood No blood administrations on file. Lines, Drains, and Airways Type Details Placement Removal ([facility] Incision 05/15/11; 0745 05/15/11 0745 by Nadya Sewell, RN (RETIRED) Peripheral IV Line - Single Lumen 09/02/11; 1353; 09/02/11; 1757 09/02/11 1353 by Iesha Naqvi RN 09/02/11 1757 by Lorena Wheeler RN Incision 09/02/11; 1458; knee; 07/27/22 (LDA cleanup utility RA#[id number]); 1715 (LDA cleanup utility RA#[id number]) 09/02/11 1458 by Jody Patel RN 07/27/22 1715 by Johny Steen documented in this encounter Social History Tobacco Use Types Packs/Day Years Used Date Smoking Tobacco: Never Smokeless Tobacco: Never Alcohol Use Standard Drinks/Week Comments No 0 (1 standard drink = 0.6 oz pur e alcohol) Sex and Gender Information Value Date Recorded Sex Assigned at Not on file Gender Identity Not on file Sexual Orientation Not on file documented as of this encounter OR Notes * Anesthesia Postprocedure Evaluation - Simona Blackwood MD - 09/11/2011 12:44 AM EDT Patient: Argelia Jain Procedure(s) Performed: ARTHROSCOPY KNEE, MENISCECTOMY SINGLE W/ SHAVING - Additional CPT Codes: Equipment Needs: Implants: Estimated case duration: 1 hour Return visit for consent: no Does patient need to go to [facility] for testing?: no H&P w/PCP: yes Add'l Preop Consults (Add Order in eDH): Add'l Preop Imaging (Add Order in eDH): Position: Supine Post-op: 7-10 days postop for suture removal If you need post-op x-rays, please add them at the end of the SmartSet or as an Add Order; ARTHROSCOPY KNEE SYNOVECTOMY LIMITED Patient location: PACU Post-op pain: Adequate analgesia Post-op nausea: no nausea or vomiting Last Vitals: Filed Vitals: 09/02/11 1652 BP: 135/71 Pulse: 55 Temp: Resp: 18 Post-op cardiovascular and respiratory status: is stable Level of consciousness: awake Complications: no apparent complications Fluid Status: normal Pt was eval in recovery prior to discharge. Spinal has worn off, pt very happy with anesthetic. * Anesthesia Preprocedure Evaluation - Simona Blackwood MD - 09/02/2011 10:19 AM EDT Anesthesia Evaluation No hx of anesthetic complications Airway Mallampati: I TM distance: >3 FB Neck ROM: full Dental Pulmonary - negative ROS breath sounds clear to auscultation Cardiovascular - negative ROS Rhythm: regular Rate: normal Neuro/Psych (+) headaches (pseudotumor cerebri, tx currently with diamox, in the past tx with lumbar puncture and csf drainage), GI/Hepatic/Renal - negative ROS Endo/Other Abdominal Anesthesia Plan ASA 2 Spinal and general 40 yo for knee arthroscopy H/o pseudotumor cerebri Denies cv/pulm dz, denies gerd. Recently (delivered 04/2011), not currently . Had a good experience with her epidural for labor/ BMI=50 D/w pt plan for GA vs SAB. Pt prefers SAB but is willing to have GA/LMA if spinal fails. D/w pt plan and risks, signed consent obtained. Anesthetic plan and risks discussed with patient. Plan discussed with [employer]. documented in this encounter Plan of Treatment Not on file documented as of this encounter Visit Diagnoses Not on filedocumented in this encounter Care Teams Ironer Relationship Specialty Start Date End Date Jackelyn Richey APRN PCP - General 11/10/10 07/01/16 documented as of this encounter
--- OUTSIDE RECORDS SUMMARY | 2024-11-24 00:30 | XMS_ITS | Encounter Summary ---
Author Organization [facility] [place] [address] Care Team Providers Care Electrical Lineman Name Role Phone Jackelyn Richey APRN Primary Care Provider Unav ailable Reason for Visit * Reason Comments Care Encounter Details Date Type Department Care Team (Latest Contact Info) Description 06/24/2011 1:00 PM EDT Visit Obstetrics [place] [phone] Vincent Graham MD state (Primary Dx); Morbid obesity; Hypertension Discharge Disposition: Home Social History Tobacco Use [...] Sign Reading Time Taken Comments Blood Pressure 142/82 06/24/2011 1:09 PM EDT Pulse - - Temperature - - Respiratory Rate - - Oxygen Saturation - - Inhaled Oxygen Concentration - - Weight 133.1 kg (293 lb 6.4 oz) 06/24/2011 1:09 PM EDT Height - - Body Mass Index - - documented in this encounter Progress Notes * Vincent Graham MD - 06/24/2011 2:17 PM EDT Argelia Jain was seen today for care. She underwent a without labor delivery at term, failed induction after 3 days, only got to 4/90%, delivered a female child weighing 8 lb11 oz. Today she complains of Nothing. She is no sexually active. She has No bleeding. She denies perineal pain. control options were discussed at length. The patient desires OCP. She has been on OCP in thepast and did not have BP problems with them. She does not smoke. Smoking: none Seat Belt Use discussed Smoke detectors are present in the home and are checked on a regular basis. Fire arms: Not in House Pap smear: Always normal Immunization status: Up to date Depression Screen score: Done previously and was normal. Feels very good now, compared to at her piror visit. Physical Exam Physical Exam Last Set of Vitals: BP 142/82 Wt 132.904 kg (293 lb) LMP 08/23/2010 Weight - Scale: 132.904 kg (293 lb) General: alert, well appearing, in no apparent distress HEENT: normocephalic, atraumatic Oral Pharynx: mucous membranes moist, pharynx normal without lesions and dental hygiene good Back: no CVA tenderness Lungs:clear to auscultation, no wheezes, rales or rhonchi, symmetric air entry Heart:regular rate and rhythm, no murmurs Breasts: no masses noted, no significant tenderness, no palpable axillary nodes, no skin changes, assymetric. Discussed BSE. Abdomen: abdomen is soft without significant tenderness, masses, organomegaly or guarding. pelvic exam: normal external genitalia, vulva, vagina, cervix, uterus and adnexa Extremities: no redness or tenderness in the calves or thighs, no edema Neurologic:alert, oriented, normal speech, no focal findings or movement disorder noted Psychiatric: Affect is Appropriate. Assessment/Plan: Normal Pap smear: None Control: OCP, combined given today senior care follow up: with PCP Repeat pap smear in October 2012, will f/u with local provider (Jackelyn New'Brien) Combined OCP prescribed. F/u with PCP in 2 weeks for BP check and to No follow-up Needed: I made no further follow up visits at this time but would be happy to see her again if needed. documented in this encounter Plan of Treatment Not on file documented as of this encounter Visit Diagnoses Diagnosis state- Primary Routine follow-up Morbid obesity Hypertension Unspecified essential hypertension documented in this encounter Care Teams Electrical Lineman Relationship Specialty Start Date End Date Jackelyn Richey, DAIRY FARM MANAGER PCP - General 11/10/10 07/01/16 documented as of this encounter
--- OUTSIDE RECORDS SUMMARY | 2024-11-24 00:30 | XMS_ITS | Encounter Summary ---
Author Organization [facility] Address [facility] [place] [address] Care Team Providers Care Curb Setter Name Role Phone Nettie Centeno APRN Primary Care Provider Ana Lilia vailable Encounter Details Date Type Department Care Team (Latest Contact Info) Description 07/28/2016 6:55 AM EDT Hospital Encounter XRay at [address] [place] [address] Andrew Romero MD [facility] [place] [address] Pes planus of both feet Discharge Disposition: Home Social History Tobacco Use [...] ACETAZOLAMIDE ORAL Take 250 mg by mouth. documented as of this encounter Plan of Treatment Not on file documented as of this encounter Procedures Procedure Name Priority Date/Time Associated Diagnosis Comments XR FOOT MIN 3 VIEWS BILAT Routine 07/28/2016 7:48 AM EDT Pes planus of both feet documented in this encounter Results * XR Feet Bilateral Minimum 3 Views (07/28/2016 7:48 AM EDT) Anatomical Region Laterality Modality Foot Bilateral Digital Radiogra phy Impressions 07/28/2016 9:57 AM EDT Postop findings related to prior bilateral clubfoot corrective surgery, as described. I have personally reviewed the image(s) and the residents interpretation and agree with the findings, JAZMYNE COX at 07/28/2016 9:57 AM Narrative 07/28/2016 9:57 AM EDT EXAMINATION: XR FOOT MIN 3 VIEWS BILAT CLINICAL HISTORY: PES PLANUS of note, according to the patient's electronic medical record she had bilateral clubfoot corrective surgery as an infant. TECHNIQUE: AP, lateral, and oblique views of the feet bilaterally. COMPARISON: Standing alignment series dated July 28, 2016. FINDINGS: No acute fracture or dislocation. Patient status post bilateral clubfoot corrective surgery, with expected postoperative changes to the tibiotalar and talocalcaneal joints bilaterally with osteophyte proliferation right greater than left. The calcaneal inclination angle measures 21 degrees bilaterally. On the frontal standing views of the bilateral feet, there appears to be residual parallelism of the talus and calcaneus, worst on the left, although on the lateral standing views, the talocalcaneal angle appears within normal limits bilaterally. Additionally, there is mild osteoarthropathy of the base of the TMT joints bilaterally, left greater than right. No ankle effusion or soft tissue swelling. Procedure Note Jazmyne Cox MD - 07/28/2016 EXAMINATION: XR FOOT MIN 3 VIEWS BILAT CLINICAL HISTORY: PES PLANUS of note, according to the patient'selectronic medical record she had bilateral clubfoot corrective surgery as aninfant. TECHNIQUE: AP, lateral, and oblique views of the feet bilaterally. COMPARISON: Standing alignment series dated July 28, 2016. FINDINGS: No acute fracture or dislocation. Patient status post bilateral clubfoot corrective surgery, with expected postoperative changes to the tibiotalarand talocalcaneal joints bilaterally with osteophyte proliferation rightgreater than left. The calcaneal inclination angle measures 21 degreesbilaterally. On the frontal standing views of the bilateral feet, there appears to be residual parallelism of the talus and calcaneus, worst on the left,although on the lateral standing views, the talocalcaneal angle appears within normallimits bilaterally. Additionally, there is mild osteoarthropathy of the base of the TMTjoints bilaterally, left greater than right. No ankle effusion or soft tissueswelling. IMPRESSION Postop findings related to prior bilateral clubfoot corrective surgery,as described. I have personally reviewed the image(s) and the residents interpretationand agree with the findings, JAZMYNE COX at 07/28/2016 9:57 AM Andrew Romero MD IMG DX ORDERABLES documented in this encounter Visit Diagnoses Diagnosis Pes planus of both feet documented in this encounter Care Teams Curb Setter Relationship Specialty Start Date End Date Nettie Centeno APRN PCP - General Family Medicine 07/02/16 documented as of this encounter
--- OUTSIDE RECORDS SUMMARY | 2024-11-24 00:30 | XMS_ITS | Encounter Summary ---
Author Organization [facility] [address] Care Team Providers Care Senior Software Quality Analyst Name Role Phone Jackelyn Richey APRN Primary Care Provider Unav ailable Reason for Visit * Reason Comments Care Encounter Details Date Type Department Care Team (Latest Contact Info) Description 05/28/2011 1:45 PM EDT Visit Obstetrics [place] [phone] Xu Ellis MD Obesity, morbid (more than 100 lbs over ideal weight or BMI > 40); Benign hypertension due to increased intracranial pressure; Postop check Discharge Disposition: Home Social History Tobacco Use [...] Sign Reading Time Taken Comments Blood Pressure 148/88 05/28/2011 2:10 PM EDT Pulse - - Temperature - - Respiratory Rate - - Oxygen Saturation - - Inhaled Oxygen Concentration - - Weight 148.2 kg (326 lb 11.2 oz) 05/28/2011 2:10 PM EDT Height - - Body Mass Index - - documented in this encounter Progress Notes * Xu Ellis MD - 05/28/2011 2:19 PM EDT 13 days s/p for arrest of dilatation IOL for pre-eclampsia Generally doing well Breast and bottle feeding Recent increase, as expected, in lochia Depression score 11/13: wnl Some emotional lability, but coping well Incision healing well, w/o evidence of infection Stable. Return in 4 weeks documented in this encounter Miscellaneous Notes * Miscellaneous - Eugene, Shoulder Puncher - 06/11/2011 3:41 PM EDT documented in this encounter Plan of Treatment Not on file documented as of this encounter Visit Diagnoses Diagnosis Obesity, morbid (more than 100 lbs over ideal weight or BMI > 40) Morbid obesity Benign hypertension due to increased intracranial pressure Benign intracranial hypertension Postop check Follow-up examination, following unspecified surgery documented in this encounter Care Teams Senior Software Quality Analyst Relationship Specialty Start Date End Date Jackelyn Richey APRN PCP - General 11/10/10 07/01/16 documented as of this encounter
--- OUTSIDE RECORDS SUMMARY | 2024-11-24 00:30 | XMS_ITS | Encounter Summary ---
Author Organization [facility] [place] [address] Care Team Providers Care Ems Educator Name Role Phone Jackelyn Douglas APRN Primary Care Provider Unav ailable Encounter Details Date Type Department Care Team (Latest Contact Info) Description 09/02/2011 1:09 PM EDT - 09/02/2011 5:55 PM EDT Hospital Encounter [place] [phone] Aamir Crews MD [facility] DR ORTHOPA[place] [address] Discharge Disposition: Home Social History Tobacco Use [...] Sign Reading Time Taken Comments Blood Pressure 135/71 09/02/2011 4:52 PM EDT Pulse 55 09/02/2011 4:52 PM EDT Temperature 36.2 ??C (97.2 ??F) 09/02/2011 [...] encounter Discharge Instructions * Discharge Instructions* Lorena Wheeler, RN - 09/02/2011 4:40 PM EDT General [...] goes away in 12 - 24 hours. [facility] 8:00-5:30 [facility] 21/06 ask for your doctor resource conservation specialist 1. You may have received medication before [...] 24 hours, call the Anesthesia Department at [phone]. 7. You may eat a regular diet [...] than 24 hours, call: Anesthesia Department at [phone]. . * Patient Instructions* Fredis Uribe MD [...] is of an urgent nature please call [phone] and ask for the on-call orthopaedic resident. Your Primary Care Physician: JACKELYN DOUGLAS APRN [phone] documented in this encounter Medications at Time [...] Crews MD - 09/06/2011 3:20 PM EDT [facility] Note Patient Name: Argelia Jain : [id number] MR#: [id number] Case Date: 09/02/2011 Surgeon: Surgeon(s) and Role: [...] counts were correct x2. * Miscellaneous - ProviderBrigido - 09/02/2011 8:56 PM EDT * OR [...] Operative Note Patient Name: Argelia Jain : [id number] MR#: [id number] Case Date: 09/02/2011 Surgeon: Surgeon(s) and Role: [...] tear documented in this encounter Visit Diagnoses Diagnosis Acute meniscal tear, medial- Primary Tear of medial cartilage or meniscus of knee, current documented in this encounter Administered Medications Inactive Administered Medications - up to 3 most recent administrations Medication Order MAR Action Action Date Dose Rate Site OXYcodone (ROXICODONE) immediate release tablet 10 [...] RN) documented in this encounter Care Teams Ems Educator Relationship Specialty Start Date End Date Jackelyn Douglas APRN PCP - General 11/10/10 07/01/16 documented as of this encounter
--- OUTSIDE RECORDS SUMMARY | 2024-11-24 00:31 | XMS_ITS | Encounter Summary ---
Author Organization [facility] Address [facility] [place] [address] Care Team Providers Care Utility Agent Name Role Phone Jackelyn Richey APRN Primary Care Provider Unav ailable Reason for Visit * Reason Comments Routine Visit NST Encounter Details Date Type Department Care Team (Latest Contact Info) Description 04/28/2011 4:00 PM EDT Routine Obstetrics [place] [phone] Lori Godwin MD [facility] [address] OBSTETRICS [place] [address] GA: [id number] Discharge Disposition: Home Social History Tobacco Use Types Packs/Day Years Used Date Smoking Tobacco: Never Smokeless Tobacco: Never Alcohol Use Standard Drinks/Week Comments No 0 (1 standard drink = 0.6 oz pur e alcohol) Comments Yes Sex and Gender Information Value Date Recorded Sex Assigned at Not on file Gender Identity Not on file Sexual Orientation Not on file documented as of this encounter Last Filed Vital Signs Vital Sign Reading Time Taken Comments Blood Pressure 128/78 04/28/2011 4:04 PM EDT Pulse - - Temperature - - Respiratory Rate - - Oxygen Saturation - - Inhaled Oxygen Concentration - - Weight 158.1 kg (348 lb 8 oz) 04/28/2011 4:04 PM EDT Height - - Body Mass Index - - documented in this encounter Progress Notes * Lori Godwin MD - 04/28/2011 4:51 PM EDT FSBS: fastings 60-70, postprandials occasional in the 120's rest in target Denies bleeding, leaking of fluid, pain or contractions. .She denies headache, epigastric pain, RUQ pain, scotomata or change in edema. Is resting a lot US EFW 3634 grams >95th percentile FABIOLA 33 cm Cephalic NST reactive Given presumed preeclampsia and possible poor glucose control given the developing macrosomia and hydramnios, I recommended that we deliver at 37-38 weeks with an amniocentesis RTC 1/2 week Orders in for amnio. US, cancel if not needed IOL on 05/12 amnio on 05/11 documented in this encounter Plan of Treatment Not on file documented as of this encounter Results * US OB follow up evaluation (05/11/2011 2:15 PM EDT) Anatomical Region Laterality Modality Pelvis, Abdomen Ultrasound 05/11/2011 2:15 PM EDT Narrative 05/11/2011 2:20 PM EDT ?OBSTETRICS REPORT ? (Signed Final 05/11/2011 02:19 pm) Patient Info ID: ? [id number] ? : ?? [birth year] (40 yrs) Name: ? DILAN ELIAS ?Visit Date: ??05/11/2011 01:36 pm Performed By Performed By: ?? Roseline Souza Attending: ?Yohan SEHA, Lise Grady Referred By: ?NEMO Azevedo MD Accession#: ? [id number] Procedures UOBFOL - Efw - Growth - Reevaluation - Beckman ?[id number] - [id number] UAMNIO - Genetic - ??Lung Maturity - [id number], ?[id number], [id number] Indications Efw, Growth Gestational diabetes Hydramnios Preeclampsia Evaluation Heart Rate: ??144 ?bpm Cardiac Activity: ??Observed, normal rhythm Presentation: ?Cephalic Placenta: ?Fundal Amniotic Fluid FABIOLA FV: ?Upper limits of normal FABIOLA Sum: ? 24.85 ?cm ? Larg Pckt: ?? 9.17 ??cm RUQ: ?? 7.9 ? cm ?LUQ: ?? 9.17 ?cm RLQ: ?? 3.82 ?cm ?LLQ: ?? 3.96 ?cm -------- Biometry -------- BPD: ?94 ??m ? G. Age: ?? 38w 2d ? 88 ??% ? m OFD: ? 127.6 ??m ? m HC: ?355.2 ??m ? G. Age: ?? 41w 4d ? > 97 ??% ? m AC: ?365.2 ??m ? G. Age: ?? 40w 3d ? > 97 ??% ? m FL: ? 76 ??m ? G. Age: ?? 38w 6d ? 84 ??% ? m HUM: ?64.7 ??m ? G. Age: ?? 37w 4d ? 77 ??% ? m CI: ?73.7 ??% ? 70 - 86 FL/HC: ? 21.4 ??% ? 20.8 - 22.6 HC/AC: ? 0.97 ?0.92 - 1.05 FL/BPD: ?80.9 ??% ? 71 - 87 FL/AC: ? 20.8 ??% ? 20 - 24 Est. FW: ?3943 ?? gm ?8 lb 11 oz ?? > 95 ??% Gestational Age LMP: ? 37w 2d ?Date: ?? 08/23/10 ? ISSAC: ?? 05/30/11 U/S Today: ? 39w 6d ? ISSAC: ?? 05/12/11 Best: ?37w 2d ?? Det. By: ?? LMP ??(08/23/10) ?ISSAC: ?? 05/30/11 ------- Anatomy ------- Cranium: ?Visualized Nuchal Fold: ?Not evaluated at this gestational age Heart: ?4-chamber view appears normal Stomach: ?Visualized Abdomen: ?Within Normal Limits Kidneys: ?Visualized Bladder: ?Visualized Limbs: ?Limbs seen but limited views of hands and feet Cervix Uterus Adnexa Left Ovary: ?Not visualized Right Ovary: ?? Not visualized Impression 3rd Trimester Summary Single intrauterine with a gestational age of 37w 2d based on LMP. Composite age based on the current ultrasound alone is 39w 6d. Estimated weight corresponds to the > 95th percentile for 37w 2d. Current growth parameters are consistent indicating normal growth. Amniotic fluid volume is upper limits of normal, FABIOLA = 24.85 cm. Anatomical survey is limited due to the late gestational age, however no structural abnormalities are noted. Guidance provided for amniocentesis. ??The patient tolerated the procedure well, no complications. ?? heart rate observed post procedure. I ??viewed the images and agree with the above interpretation. Thank you for allowing us to participate in the care of DILAN ELIAS. Please do not hesitate to call if you have any questions. ?Lise Almanzar MD Electronically Signed Final Report ?? 05/11/2011 02:19 pm Procedure Note Lise Almanzar MD - 05/11/2011 OBSTETRICS REPORT (Signed Final 05/11/2011 02:19 pm) Patient Info ID: [id number] : [birth year] (40 yrs) Name: DILAN ELIAS Visit Date: 05/11/2011 01:36 pm Performed By Performed By: Roseline Souza Attending: Lise Almanzar MD Referred By: NEMO Azevedo MD Procedures UOBFOL - Efw - Growth - Reevaluation - Beckman [id number] - [id number] UAMNIO - Genetic - Lung Maturity - [id number], [id number], [id number] Indications Efw, Growth Gestational diabetes Hydramnios Preeclampsia Evaluation Heart Rate: 144 bpm Cardiac Activity: Observed, normal rhythm Presentation: Cephalic Placenta: Fundal Amniotic Fluid FABIOLA FV: Upper limits of normal FABIOLA Sum: 24.85 cm Larg Pckt: 9.17 cm RUQ: 7.9 cm LUQ: 9.17 cm RLQ: 3.82 cm LLQ: 3.96 cm -------- Biometry -------- BPD: 94 m G. Age: 38w 2d 88 % m OFD: 127.6 m m HC: 355.2 m G. Age: 41w 4d > 97 % m AC: 365.2 m G. Age: 40w 3d > 97 % m FL: 76 m G. Age: 38w 6d 84 % m HUM: 64.7 m G. Age: 37w 4d 77 % m CI: 73.7 % 70 - 86 FL/HC: 21.4 % 20.8 - 22.6 HC/AC: 0.97 0.92 - 1.05 FL/BPD: 80.9 % 71 - 87 FL/AC: 20.8 % 20 - 24 Est. FW: 3943 gm 8 lb 11 oz > 95 % Gestational Age LMP: 37w 2d Date: 08/23/10 ISSAC: 05/30/11 U/S Today: 39w 6d ISSAC: 05/12/11 Best: 37w 2d Det. By: LMP (08/23/10) ISSAC: 05/30/11 ------- Anatomy ------- Cranium: Visualized Nuchal Fold: Not evaluated at this gestational age Heart: 4-chamber view appears normal Stomach: Visualized Abdomen: Within Normal Limits Kidneys: Visualized Bladder: Visualized Limbs: Limbs seen but limited views of hands and feet Cervix Uterus Adnexa Left Ovary: Not visualized Right Ovary: Not visualized Impression 3rd Trimester Summary Single intrauterine with a gestational age of 37w 2d based on LMP. Composite age based on the current ultrasound alone is 39w 6d. Estimated weight corresponds to the > 95th percentile for 37w 2d. Current growth parameters are consistent indicating normal growth. Amniotic fluid volume is upper limits of normal, FABIOLA = 24.85 cm. Anatomical survey is limited due to the late gestational age, however no structural abnormalities are noted. Guidance provided for amniocentesis. The patient tolerated the procedure well, no complications. heart rate observed post procedure. I viewed the images and agree with the above interpretation. Thank you for allowing us to participate in the care of DILAN ELIAS. Please do not hesitate to call if you have any questions. Lise Almanzar MD Electronically Signed Final Report 05/11/2011 02:19 pm Lori Godwin MD IMG OB ORDERABLES documented in this encounter Visit Diagnoses Diagnosis Gestational diabetes- Primary Abnormal maternal glucose tolerance, complicating , childbirth, or the puerperium, unspecified as to episode of care Obesity Obesity, unspecified Polyhydramnios Polyhydramnios, unspecified as to episode of care Gestational diabetes Abnormal maternal glucose tolerance, complicating , childbirth, or the puerperium, unspecified as to episode of care Obesity Obesity, unspecified Polyhydramnios Polyhydramnios, unspecified as to episode of care documented in this encounter Care Teams Utility Agent Relationship Specialty Start Date End Date Jackelyn Richey, PHARM SPEC PCP - General 11/10/10 07/01/16 documented as of this encounter
--- OUTSIDE RECORDS SUMMARY | 2024-11-24 00:31 | XMS_ITS | Encounter Summary ---
Author Organization [facility] [place] [address] Care Team Providers Care Armature Winder Name Role Phone Jackelyn Richey APRN Primary Care Provider Unav ailable Encounter Details Date Type Department Care Team (Late st Contact Info) Description 04/17/2011 4:05 PM EDT Procedure visit Obstetrics [place] [phone] Social History Tobacco Use Types Packs/Day Years [...] on filedocumented in this encounter Care Teams Armature Winder Relationship Specialty Start Date End Date Jackelyn Richey APRN PCP - General 11/10/10 07/01/16 documented as of this encounter
--- OUTSIDE RECORDS SUMMARY | 2024-11-24 00:31 | XMS_ITS | Encounter Summary ---
Author Organization [facility] [place] [address] Care Team Providers Care Theatrical Scenic Designer Name Role Phone Jackelyn Richey APRN Primary Care Provider Unav ailable Encounter Details Date Type Department Care Team (Late st Contact Info) Description 04/28/2011 3:30 PM EDT Procedure visit Obstetrics [place] [phone] Social History Tobacco Use Types Packs/Day Years [...] on filedocumented in this encounter Care Teams Theatrical Scenic Designer Relationship Specialty Start Date End Date Jackelyn Richey APRN PCP - General 11/10/10 07/01/16 documented as of this encounter
--- OUTSIDE RECORDS SUMMARY | 2024-11-24 00:31 | XMS_ITS | Encounter Summary ---
Author Organization [facility] Address [facility] [place] [address] Care Team Providers Care Contracts Representative Name Role Phone Jackelyn Richey APRN Primary Care Provider Unav ailable Reason for Visit * Reason Comments Hypertension Encounter Details Date Type Department Care Team (Latest Contact Info) Description 05/08/2011 2:39 PM EDT - 05/08/2011 6:09 PM EDT Hospital Encounter [place] [address] Lori Godwin MD [facility] OBSTETRICS [place] [address] Vincent Graham MD Discharge Disposition: Home Social History Tobacco Use [...] Sign Reading Time Taken Comments Blood Pressure 150/80 05/08/2011 2:46 PM EDT Pulse 85 05/08/2011 2:46 PM EDT Temperature 37 ??C (98.6 ??F) 05/08/2011 2:46 PM EDT Respiratory Rate - - Oxygen Saturation - - Inhaled Oxygen Concentration - - Weight - - Height - - Body Mass Index - - documented in this encounter Medications at Time of Discharge Medication Sig Dispensed Refills Start Date End Date Lancets & Blood Glucose Strips Cmpk 1 strip by Misc.(Non-Drug; Combo Route) route 4 times daily. 100 strip prn 04/16/2011 05/19/2011 glyBURIDE (DIABETA) 5 mg tablet Take 1 tablet by mouth nightly. 30 tablet 5 03/30/2011 05/19/2011 VITS W-CA,FE,FA,<1MG, ( VITAMIN ORAL) 11/19/2010/05/2011 documented as of this encounter Plan of Treatment Not on file documented as of this encounter Procedures Procedure Name Priority Date/Time Associated Diagnosis Comments DIFFERENTIAL, AUTOMATED Routine 05/08/20 11 3:05 PM EDT CREATININE Routine 05/08/2011 3:05 PM EDT CBC (WITH DIFF) Routine 05/08/2011 3:05 PM EDT ASPARTATE AMINOTRANSFERASE Routine 05/08/2011 3:05 PM EDT documented in this encounter Results * (ABNORMAL) REFLEX LAB-A-DIFF (05/08/2011 3:05 PM EDT) Neutrophil % 74.6(H) 34.0 - 71.0 % CERNER MILLENNIUM Neutrophil Absolute 7.91(H) 1.50 - 6.30 x10(3)/mc L CERNER MILLENNIUM Lymph % 17.6(L) 19.0 - 53.0 % CERNER MILLENNIUM Lymphocytes Abs 1.9 1.0 - 3.6 x10(3)/mc L CERNER MILLENNIUM Monocyte % 6.5 4.0 - 13.0 % CERNER MILLENNIUM Monocyte Abs 0.7 0.2 - 1.0 x10(3)/mc L CERNER MILLENNIUM Eos % 0.8 0.0 - 7.0 % CERNER MILLENNIUM Eosinophils [...] x10(3)/mc L CERNER MILLENNIUM Blood specimen (specimen) 05/08/2011 3:05 PM EDT 05/08/2011 3:29 PM EDT Vincent Graham MD HEMATOLOGY ORDERABLE S LAURYN [employer] TechnologiesENNIUM * (ABNORMAL) Creatinine, serum (05/08/2011 3:05 PM EDT) Creatinine 0.67(L) 0.70 - 1.20 mg/dL CERNER MILLENNIUM Est [...] disease. References: http://nkdep.nih.gov/resources/NKDEP_Suggestn4Labs_0606_508.pdf http://www.kidney.org/professionals/kls/pdf/faq_gfr.pdf Blood specimen (specimen) 05/08/2011 3:05 PM EDT 05/08/2011 3:29 PM EDT Vincent Graham MD CHEMISTRY ORDERABLES CERNER MILLENNIUM * Aspartate Aminotransferase (05/08/2011 3:05 PM EDT) Aspartate Aminotransferase 17 0 - 30 unit/L CERNER MILLENNIUM Blood specimen (specimen) 05/08/2011 3:05 PM EDT 05/08/2011 3:29 PM EDT Vincent Graham MD CHEMISTRY ORDERABLES Performing Organization Address City/[facility] Co de Phone Number CERNER MILLENNIUM * (ABNORMAL) CBC (with Diff) (05/08/2011 3:05 PM EDT) White Blood Cell 10.6(H) 4.0 - 10.0 x10(3)/mc L CERNER MILLENNIUM Red Blood Cell 4.27 3.93 - 5.22 x10(6)/mc L CERNER MILLENNIUM Hemoglobin 11.0(L) 11.2 - 15.7 gm/dL CERNER MILLENNIUM Hematocrit 34.8 34.0 - 45.0 % CERNER MILLENNIUM Mean Cell Volume 81.5 79.0 - 94.0 fL CERNER MILLENNIUM Mean Cell Hemoglobin 25.8(L) 26.6 - 32.2 pg CERNER MILLENNIUM Mean Cell Hemoglobin Concentration 31.6(L) 32.0 - 36.5 gm/dL CERNER MILLENNIUM Platelet 352 145 - 370 x10(3)/mc L CERNER MILLENNIUM RDW Standard Deviation 50.9(H) 35.0 - 46.0 fL CERNER MILLENNIUM RDW coefficient of variation 17.2(H) 10.9 - 14.4 % CERNER MILLENNIUM Mean Platelet Volume 10.6 9.0 - 12.0 fL CERNER MILLENNIUM Blood specimen (specimen) 05/08/2011 3:05 PM EDT 05/08/2011 3:29 PM EDT Vincent Graham MD HEMATOLOGY ORDERABLE S LAURYN HAND documented in this encounter Visit Diagnoses Not on filedocumented in this encounter Care Teams Contracts Representative Relationship Specialty Start Date End Date Jackelyn Richey APRN PCP - General 11/10/10 07/01/16 documented as of this encounter
--- OUTSIDE RECORDS SUMMARY | 2024-11-24 00:31 | XMS_ITS | Encounter Summary ---
Author Organization [facility] Address [facility] [place] [address] Care Team Providers Care Finance Advisor Name Role Phone Jackelyn Richey APRN Primary Care Provider Unav ailable Reason for Visit * Reason Comments Routine Visit Encounter Details Date Type Department Care Team (Latest Contact Info) Description 04/07/2011 4:15 PM EDT Routine Obstetrics [place] [address] Lori Godwin MD [facility] DR OBSTETRICS [place] [address] GA: [id number] Discharge Disposition: Home Social History Tobacco Use [...] - Inhaled Oxygen Concentration - - Weight 155.5 kg (342 lb 14.4 oz) 04/07/2011 3:54 PM EDT Height - - Body Mass Index - - documented in this encounter Progress Notes * Lori Godwin MD - 04/07/2011 4:59 PM EDT Denies bleeding, leaking of fluid, pain or contractions. FSBS in target during the week. Not on the weekend. She is going to try to make her meals and activity the same on the weekend and we will reevaluate next week. Needed BPP today for nonreactive NST RTC 1/2 week documented in this encounter Miscellaneous Notes * Miscellaneous - Eugene Distributor Of Directories - 04/14/2011 9:16 AM EDT documented in this encounter Plan of Treatment Not on file documented as of this encounter Visit Diagnoses Diagnosis state, incidental GDM (gestational diabetes mellitus) Abnormal maternal glucose tolerance, complicating , childbirth, or the puerperium, unspecified as to episode of care macrosomia Excessive growth affecting management of mother, antepartum Polyhydramnios Polyhydramnios, unspecified as to episode of care Obesity, morbid (more than 100 lbs over ideal weight or BMI > 40) Morbid obesity documented in this encounter Care Teams Finance Advisor Relationship Specialty Start Date End Date Jackelyn Richey, WOOD STOCK BLANK HANDLER PCP - General 11/10/10 07/01/16 documented as of this encounter
--- OUTSIDE RECORDS SUMMARY | 2024-11-24 00:31 | XMS_ITS | Encounter Summary ---
Author Organization [facility] Address [facility] [place] [address] Care Team Providers Care Ball Shagger Name Role Phone Jackelyn Richey APRN Primary Care Provider Unav ailable Reason for Visit * Reason Comments Routine Visit Encounter Details Date Type Department Care Team (Latest Contact Info) Description 04/14/2011 3:20 PM EDT Routine Obstetrics [place] [phone] Gabbie Olivas MD [facility] [address] [place] [address] GA: [id number] Discharge Disposition: Home Social History Tobacco Use [...] Sign Reading Time Taken Comments Blood Pressure 132/80 04/14/2011 3:27 PM EDT Pulse - - Temperature - - Respiratory Rate - - Oxygen Saturation - - Inhaled Oxygen Concentration - - Weight 158.8 kg (350 lb) 04/14/2011 2:55 PM EDT Height - - Body Mass Index - - documented in this encounter Progress Notes * Gabbie Olivas MD - 04/14/2011 3:29 PM EDT [facility]: 24 hour urine 355mg protein. The patient denies symptoms of preeclampsia, including headache/vision change/RUQ pain. She reports good movement, and no vb/ctx/rom. She has reasonable glycemic control, with rare 120 - 130 2hr pp, and all fastings within range. I reviewed the diagnosis of mild preeclampsia with the patient and her mother, and recommend that she stop working at this time. She became very tearful at that time, and states that she may not be able to do that for financial reasons. RTC for twice weekly NST. [facility] labs today. documented in this encounter Procedure Notes * Provider, Scanning - 04/16/2011 9:07 AM EDTAssociated Order(s): SCAN DOC: LAB documented in this encounter Miscellaneous Notes * Miscellaneous - Eugene, Platform Architect - 04/16/2011 9:59 AM EDT documented in this encounter Plan of Treatment Scheduled Orders Name Type Priority Associated Diagnoses Orde r Schedule Creatinine, serum Lab Routine Expected: 04/14/2011 (Approximate), Expires: 04/14/2012 documented as of this encounter Procedures Procedure Name Priority Date/Time Associated Diagnosis Comments LAB SCAN 04/16/2011 9:07 AM EDT DIFFERENTIAL, AUTOMATED Routine 04/14/20 11 4:49 PM EDT CREATININE Routine 04/14/2011 4:49 PM EDT GDM (gestational diabetes mellitus) Hypertension CBC (WITH DIFF) Routine 04/14/2011 4:49 PM EDT URIC ACID Routine 04/14/2011 4:49 PM EDT ALANINE AMINOTRANSFERASE Routine 011 4:49 PM EDT ASPARTATE AMINOTRANSFERASE Routine 04/14/2011 4:49 PM EDT POCT URINE DIPSTICK Routine 04/14/2011 3 :22 PM EDT documented in this encounter Results * SCAN DOC: LAB (04/16/2011 9:07 AM EDT) Narrative 04/16/2011 9:07 AM EDT Procedure Note Provider, Scanning - 04/16/2011 9:07 AM EDT Scanning Provider MEDIA MGR SCAN EXT O RDR/RSLT * (ABNORMAL) REFLEX LAB-A-DIFF (04/14/2011 4:49 PM EDT) Neutrophil % 76.6(H) 34.0 - 71.0 % CERNER MILLENNIUM Neutrophil Absolute 9.31(H) 1.50 - 6.30 x10(3)/mc L CERNER MILLENNIUM Lymph % 16.6(L) 19.0 - 53.0 % CERNER MILLENNIUM Lymphocytes Abs 2.0 1.0 - 3.6 x10(3)/mc L CERNER MILLENNIUM Monocyte % 5.6 4.0 - 13.0 % CERNER MILLENNIUM Monocyte [...] x10(3)/mc L CERNER MILLENNIUM Blood specimen (specimen) 04/14/2011 4:49 PM EDT 04/14/2011 4:53 PM EDT Gabbie Olivas MD HEMATOLOGY ORDERA BLES [facility] * Creatinine, serum (04/14/2011 4:49 PM EDT) Creatinine 0.75 0.70 - 1.20 mg/dL CERNER MILLENNIUM Est Glomerular Filtration Rate >60 >=60 [facility] Comment: The National Kidney Disease Education Program [...] disease. References: http://nkdep.nih.gov/resources/NKDEP_Suggestn4Labs_0606_508.pdf http://www.kidney.org/professionals/kls/pdf/faq_gfr.pdf Blood specimen (specimen) 04/14/2011 4:49 PM EDT 04/14/2011 4:53 PM EDT Yvonne Mars MD CHEMISTRY ORDERABL ES LAURYN HUTCHISONIUM * Uric acid (04/14/2011 4:49 PM EDT) Uric Acid 3.8 2.5 - 6.5 mg/dL CERLEONARD SWANNENNIUM Blood specimen (specimen) 04/14/2011 4:49 PM EDT 04/14/2011 4:53 PM EDT E Marizanatalia Olivas MD CHEMISTRY ORDERAB LES LAURYN HUTCHISONIUM * Alanine Aminotransferase (04/14/2011 4:49 PM EDT) Alanine Aminotransferase 18 0 - 30 unit/L CERLEONARD SWANNENNIUM Blood specimen (specimen) 04/14/2011 4:49 PM EDT 04/14/2011 4:53 PM EDT E Marizanatalia Olivas MD CHEMISTRY ORDERAB LES Performing Organization Address City/[facility] Co de Phone Number LAURYN HUTCHISONIUM * Aspartate Aminotransferase (04/14/2011 4:49 PM EDT) Aspartate Aminotransferase 15 0 - 30 unit/L LAURYN SWANNENNIUM Blood specimen (specimen) 04/14/2011 4:49 PM EDT 04/14/2011 4:53 PM EDT E Mariza Olivas MD CHEMISTRY ORDERAB LES [facility] * (ABNORMAL) CBC (with Diff) (04/14/2011 4:49 PM EDT) White Blood Cell 12.1(H) 4.0 - 10.0 x10(3)/mc L CERNER MILLENNIUM Red Blood Cell 4.02 3.93 - 5.22 x10(6)/mc L CERNER MILLENNIUM Hemoglobin 10.4(L) 11.2 - 15.7 gm/dL CERNER MILLENNIUM Hematocrit 32.8(L) 34.0 - 45.0 % CERNER MILLENNIUM Mean Cell Volume 81.6 79.0 - 94.0 fL [facility] Mean Cell Hemoglobin 25.9(L) 26.6 - 32.2 pg [facility] Mean Cell Hemoglobin Concentration 31.7(L) 32.0 - 36.5 gm/dL [facility] Platelet 381(H) 145 - 370 x10(3)/mc L [facility] RDW Standard Deviation 49.1(H) 35.0 - 46.0 fL [facility] RDW coefficient of variation 16.5(H) 10.9 - 14.4 % [facility] Mean Platelet Volume 10.1 9.0 - 12.0 fL [facility] Blood specimen (specimen) 04/14/2011 4:49 PM EDT 04/14/2011 4:53 PM EDT E Mariza Olivas MD HEMATOLOGY ORDERA BLES [facility] * POCT urinalysis dipstick (04/14/2011 3:22 PM EDT) POC Sp [place] 1.002 - 1.030 POC pH, UA 5.0 - 8.5 POC Leuk, UA Negative - Negative POC Nitrite, UA Negative - Negative POC Protein, UA 1+ Negative - Negative mg/dL POC Glucose, UA neg Normal - Normal mg/dL POC Ketone, UA Negative - Negative POC Urobil, UA 0.2 - 1.0 mg/dL POC Bili, UA Negative - Negative POC Blood, UA Negative - Negative marcin/uL 04/14/2011 3:22 PM EDT E Mariza Olivas MD POINT OF CARE DANIEL T ORDERABLES documented in this encounter Visit Diagnoses Diagnosis GDM (gestational diabetes mellitus)- Primary Abnormal maternal glucose tolerance, complicating , childbirth, or the puerperium, unspecified as to episode of care state, incidental macrosomia Excessive growth affecting management of mother, antepartum Polyhydramnios Polyhydramnios, unspecified as to episode of care Obesity, morbid (more than 100 lbs over ideal weight or BMI > 40) Morbid obesity AMA (advanced maternal age) primigravida 35+ Elderly primigravida, unspecified as to episode of care Hypertension Unspecified essential hypertension documented in this encounter Care Teams Ball Shagger Relationship Specialty Start Date End Date Jackelyn Richey APRN PCP - General 11/10/10 07/01/16 documented as of this encounter
--- OUTSIDE RECORDS SUMMARY | 2024-11-24 00:31 | XMS_ITS | Encounter Summary ---
Author Organization [facility] [address] Care Team Providers Care Field Court Researcher Name Role Phone Jackelyn Richey APRN Primary Care Provider Unav ailable Encounter Details Date Type Department Care Team (Late st Contact Info) Description 04/24/2011 4:05 PM EDT Procedure visit Obstetrics [place] [phone] Social History Tobacco Use Types Packs/Day Years [...] on filedocumented in this encounter Care Teams Field Court Researcher Relationship Specialty Start Date End Date Jackelyn Richey APRN PCP - General 11/10/10 07/01/16 documented as of this encounter
--- OUTSIDE RECORDS SUMMARY | 2024-11-24 00:31 | XMS_ITS | Encounter Summary ---
Author Organization [facility] Address [facility] [place] [address] Care Team Providers Care Choir Singer Name Role Phone Jackelyn Richey APRN Primary Care Provider Unav ailable Reason for Visit * Reason Comments Routine Visit NST Encounter Details Date Type Department Care Team (Latest Contact Info) Description 04/21/2011 3:45 PM EDT Routine Obstetrics [place] [phone] Lori Godwin MD [facility] DR OBSTETRICS [place] [address] GA: [id number] Discharge Disposition: Home Social History Tobacco Use [...] Sign Reading Time Taken Comments Blood Pressure 136/90 04/21/2011 4:09 PM EDT Pulse - - Temperature - - Respiratory Rate - - Oxygen Saturation - - Inhaled Oxygen Concentration - - Weight 156.7 kg (345 lb 6.4 oz) 04/21/2011 3:16 PM EDT Height - - Body Mass Index - - documented in this encounter Progress Notes * Lori Godwin MD - 04/21/2011 4:13 PM EDT Denies bleeding, leaking of fluid, pain or contractions. She denies headache, epigastric pain, RUQ pain, scotomata or change in edema. FSBS fasting 70's rare above target NST reactive RTC 1/2 week. Will add AM glyburide if post lunch more consistently elevated. documented in this encounter Miscellaneous Notes * Miscellaneous - Eugene, Halver Machine Operator - 04/21/2011 3:19 PM EDT documented in this encounter Plan of Treatment Not on file documented as of this encounter Visit Diagnoses Diagnosis Mild preeclampsia Mild or unspecified pre-eclampsia, unspecified as to episode of care GDM (gestational diabetes mellitus) Abnormal maternal glucose tolerance, complicating , childbirth, or the puerperium, unspecified as to episode of care documented in this encounter Care Teams Choir Singer Relationship Specialty Start Date End Date Jackelyn Richey, CDL FLATBED TRUCK DRIVER PCP - General 11/10/10 07/01/16 documented as of this encounter
--- OUTSIDE RECORDS SUMMARY | 2024-11-24 00:31 | XMS_ITS | Encounter Summary ---
[place] [address] Care Team Providers Care Waste Reclaimer Name Role Phone Jackelyn Richey APRN Primary Care Provider Unav ailable Reason for Visit * Reason Comments Routine Visit nst Encounter Details Date Type Department Care Team (Latest Contact Info) Description 05/05/2011 11:15 AM EDT Routine Obstetrics [place] [phone] Bob Thompson MD GA: [id number] Discharge Disposition: Home Social History Tobacco Use [...] Sign Reading Time Taken Comments Blood Pressure 130/60 05/05/2011 11:01 AM EDT Pulse - - Temperature - - Respiratory Rate - - Oxygen Saturation - - Inhaled Oxygen Concentration - - Weight 161.6 kg (356 lb 3.2 oz) 011 11:01 AM EDT Height - - Body Mass Index - - documented in this encounter Patient Instructions * Patient Instructions* Bob Thompson MD - 05/05/2011 12:01 PM EDT Welcome to ArthroCAD, your secure online access to your electronic medical record at [facility]. Using ArthroCAD you will be able to send messages to your providers, view your test results, renew prescriptions, schedule appointments, and much more. Follow these instructions to enter your personal [employer] account for the first time: 1. Start your internet browser. Go to [email or web address] and click on the Wave[employer] link. 2. Click SIGN UP NOW to go to the NEW MEMBER SIGN UP page. 3. Enter your Wave[employer] Access Code exactly as it appears below. (You will not need this access code after you have completed the sign-up process.) ?? Your [employer] Access Code: [email or web address] ?? Expires: 06/19/11 12:01 PM ?? IMPORTANT: This Access Code will on the above mentioned date. If you do not sign up before this date, you will need to request a new Access Code number. 4. Enter your Date of (mm/dd/yyyy) and zip code click SUBMIT to go to the next page. 5. Create a [employer] identification (ID). This will be your ArthroCAD login ID and cannot be changed, so [...] know when new information is available in ArthroCAD. 9. Click SIGN UP to complete the process. You can now view your electronic medical record. If you have any questions about ArthroCAD or your Access Code, please call for [place], for [place] or for [place]. If you need technical support, please e-mail [email or web address]. Remember, myD-H is NOT for urgent needs! Always dial 911 for medical emergencies. documented in this encounter Progress Notes * Bob Thompson MD - 05/05/2011 11:57 AM EDT No c/o, just sore. Baby is pulling a lot. RNST. Discussed amnio and IOL process. GBS done. documented in this encounter Miscellaneous Notes * Assessment & Plan Note - Bob Thompson MD - 05/05/2011 11:56 AM EDT Associated Problem(s): macrosomia Has amnio scheduled for Wednesday with IOL on Wednesday. * Assessment & Plan Note - Bob Thompson MD - 05/05/2011 11:55 AM EDT Associated Problem(s): Benign hypertension due to increased intracranial pressure No MENDOZA * Assessment & Plan Note - Bob Thompson MD - 05/05/2011 11:55 AM EDT Associated Problem(s): GDM (gestational diabetes mellitus) Did not bring FSBS, fasting 60-70, post meals are 116-117, occasionally 123. She is taking 5 mg at night. documented in this encounter Plan of Treatment Not on file documented as of this encounter Procedures Procedure Name Priority Date/Time Associated Diagnosis Comments GROUP B STREP CULTURE SCREEN Routine 05/05/2011 12:08 PM EDT GDM (gestational diabetes mellitus) documented in this encounter Results * Group B Strep Culture Screen (05/05/2011 12:08 PM EDT) Group B Streptococcus Culture ? Patient Name: DILAN ELIAS ?Ordered By: BOB THOMPSON ? MR#: [id number] ?LOC: ??5L ? /Sex: ??1970 (40 years), ? Female ? PROCEDURE: Group B Streptococcus Culture ?SOURCE: Vag/Rectal ? COLLECTED: 05/05/2011 12:08 ? STARTED: 05/05/2011 12:42 ? FINAL REPORT ? Final Report ? Verified: 011 07:18 ? Beta Hemolytic Streptococci, Group B isolated ? [facility] Pooled specimen from vaginal introitus and rectal swab (specimen) 05/05/2011 12:08 PM EDT 05/05/2011 12:42 PM EDT Bob Thompson MD MICROBIOLOGY - GENER AL ORDERABLES Performing Organization Address City/State/[facility] Co de Phone Number [facility] documented in this encounter Visit Diagnoses Diagnosis GDM (gestational diabetes mellitus) Abnormal maternal glucose tolerance, complicating , childbirth, or the puerperium, unspecified as to episode of care Benign hypertension due to increased intracranial pressure Benign intracranial hypertension macrosomia Excessive growth affecting management of mother, antepartum documented in this encounter Care Teams Waste Reclaimer Relationship Specialty Start Date End Date Jackelyn Richey, ON AIR DIRECTOR PCP - General 11/10/10 07/01/16 documented as of this encounter
--- OUTSIDE RECORDS SUMMARY | 2024-11-24 00:31 | XMS_ITS | Encounter Summary ---
Author Organization [facility] [place] [address] Care Team Providers Care Timber Harvester Operator Name Role Phone Jackelyn Richey APRN Primary Care Provider Unav ailable Reason for Visit * Reason Comments Non-stress Test Encounter Details Date Type Department Care Team (Latest Contact Info) Description 05/08/2011 1:35 PM EDT Routine Obstetrics [place] [phone] Vincent Stiles, RN GA: 36w6d Discharge Disposition: Home Social History Tobacco Use [...] Sign Reading Time Taken Comments Blood Pressure 134/82 05/08/2011 2:22 PM EDT Pulse - - Temperature - - Respiratory Rate - - Oxygen Saturation - - Inhaled Oxygen Concentration - - Weight 163.7 kg (360 lb 12.8 oz) 05/08/2011 2:22 PM EDT Height - - Body Mass Index - - documented in this encounter Progress Notes * Vincent Stiles RN - 05/08/2011 2:26 PM EDT Patient very uncomfortable today, patient is up 2 kilo since last visit. Reports glucose values in target range. NST reviewed by Dr. Godwin baseline 150-160 with one deceleration. Patient to for further evaluation and possible induction. I personally reviewed the FHR tracing and documented the interpretation. LORI GODWIN documented in this encounter Plan of Treatment [...] to increased intracranial pressure Benign intracranial hypertension AMA (advanced maternal age) primigravida 35+ Elderly primigravida, unspecified as to episode of care documented in this encounter Care Teams Timber Harvester Operator Relationship Specialty Start Date End Date Jackelyn Richey APRN PCP - General 11/10/10 07/01/16 documented as of this encounter
--- OUTSIDE RECORDS SUMMARY | 2024-11-24 00:31 | XMS_ITS | Encounter Summary ---
Author Organization [facility] [place] [address] Care Team Providers Care Adult Protective Caseworker Name Role Phone Jackelyn Richey APRN Primary Care Provider Unav ailable Encounter Details Date Type Department Care Team (Latest Contact Info) Description 04/28/2011 2:30 PM EDT - 04/28/2011 11:59 PM EDT Hospital [place] [address] GDM (gestational diabetes mellitus) Social History Tobacco Use Types Packs/Day Years [...] 03/30/2011 05/19/2011 VITS W-CA,FE,FA,<1MG, ( VITAMIN ORAL) 11/19/201005/30 documented as of this encounter Plan of Treatment Not on file documented as of this encounter Procedures Procedure Name Priority Date/Time Associated Diagnosis Comments US OB FOLLOW UP Routine 04/28/2011 3:48 PM EDT GDM (gestational diabetes mellitus) documented in this encounter Results * US OB follow up evaluation (04/28/2011 3:48 PM EDT) Anatomical Region Laterality Modality Pelvis, Abdomen Ultrasound 04/28/2011 3:48 PM EDT Narrative 04/28/2011 3:51 PM EDT ?OBSTETRICS REPORT ? (Signed Final 04/28/2011 03:51 pm) Patient Info ID: ? [id number] ? : ?? [birth year] (40 yrs) Name: ? DILAN ELIAS ?Visit Date: ??04/28/2011 03:37 pm Performed By Performed By: ?? Yahaira Ventura RDMS Attending: ?Yohan SHEA, Lise Grady Referred By: ?JAY Azevedo MD Accession#: ? [id number] Procedures UOBFOL - Efw - Growth - Reevaluation - [place] ?[id number] - [id number] Indications Efw, Growth GDM Evaluation Heart Rate: ??149 ?bpm Cardiac Activity: ??Observed, normal rhythm Presentation: ?Cephalic Placenta: ?Fundal Amniotic Fluid FABIOLA FV: ?Polyhydramnios FABIOLA Sum: ? 33.36 ?cm ? Larg Pckt: ?? 9.61 ??cm RUQ: ?? 9.61 ?cm ?LUQ: ?? 7.89 ?cm RLQ: ?? 7.27 ?cm ?LLQ: ?? 8.59 ?cm -------- Biometry -------- BPD: ?90.7 ??m ? G. Age: ?? 36w 5d ? 86 ??% ? m HC: ?342.4 ??m ? G. Age: ?? 39w 3d ? 96 ??% ? m AC: ?357 ??m ? G. Age: ?? 39w 4d ? > 97 ??% ? m FL: ? 74.7 ??m ? G. Age: ?? 38w 2d ? 95 ??% ? m HUM: ?63 ??m ? G. Age: ?? 36w 4d ? 85 ??% ? m CI: ?71.2 ??% ? 70 - 86 FL/HC: ? 21.8 ??% ? 20.1 - 22.3 HC/AC: ? 0.96 ?0.93 - 1.11 FL/BPD: ?82.4 ??% ? 71 - 87 FL/AC: ? 20.9 ??% ? - Est. FW: ?3634 ?? gm ?8 lb ?? > 95 ??% Gestational Age LMP: ? 35w 3d ?Date: ?? 08/23/10 ? ISSAC: ?? 05/30/11 U/S Today: ? 38w 4d ? ISSAC: ?? 05/08/11 Best: ?35w 3d ?? Det. By: ?? LMP ??(08/23/10) ?ISSAC: ?? 05/30/11 ------- Anatomy ------- Cranium: ?Visualized Nuchal Fold: ?Not evaluated at this gestational age Face: ? Limited views Heart: ?Limited Views Stomach: ?Visualized Abdomen: ?Within Normal Limits Cord Vessels: ? 3 Vessel Cord - WNL Kidneys: ?Visualized Bladder: ?Visualized Limbs: ?Limbs seen but limited views of hands and feet Other: ?? gender: Female Cervix Uterus Adnexa Left Ovary: ?Not visualized Right Ovary: ?? Not visualized Impression 3rd Trimester Summary Single intrauterine with a gestational age of 35w 3d based on LMP. Composite age based on the current ultrasound alone is 38w 4d. Estimated weight corresponds to the > 95th percentile for 35w 3d. Current growth parameters are consistent indicating normal growth. Amniotic fluid volume is polyhydramnios, FABIOLA = 33.36 cm. Anatomical survey is limited due to the late gestational age, however no structural abnormalities are noted. I ??viewed the images and agree with the above interpretation. Thank you for allowing us to participate in the care of DILAN ELIAS. Please do not hesitate to call if you have any questions. ?Lise Almanzar MD Electronically Signed Final Report ?? 04/28/2011 03:51 pm Procedure Note Lise Almanzar MD - 04/28/2011 OBSTETRICS REPORT (Signed Final 04/28/2011 03:51 pm) Patient Info ID: [id number] : [birth year] (40 yrs) Name: DILAN ELIAS Visit Date: 04/28/2011 03:37 pm Performed By Performed By: Yahaira Ventura RDMS Attending: Lise Almanzar MD Referred By: JAY Azevedo MD Procedures UOBFOL - Efw - Growth - Reevaluation - [place] [id number] - [id number] Indications Efw, Growth GDM Evaluation Heart Rate: 149 bpm Cardiac Activity: Observed, normal rhythm Presentation: Cephalic Placenta: Fundal Amniotic Fluid FABIOLA FV: Polyhydramnios FABIOLA Sum: 33.36 cm Larg Pckt: 9.61 cm RUQ: 9.61 cm LUQ: 7.89 cm RLQ: 7.27 cm LLQ: 8.59 cm -------- Biometry -------- BPD: 90.7 m G. Age: 36w 5d 86 % m HC: 342.4 m G. Age: 39w 3d 96 % m AC: 357 m G. Age: 39w 4d > 97 % m FL: 74.7 m G. Age: 38w 2d 95 % m HUM: 63 m G. Age: 36w 4d 85 % m CI: 71.2 % 70 - 86 FL/HC: 21.8 % 20.1 - 22.3 HC/AC: 0.96 0.93 - 1.11 FL/BPD: 82.4 % 71 - 87 FL/AC: 20.9 % 20 - 24 Est. FW: 3634 gm 8 lb > 95 % Gestational Age LMP: 35w 3d Date: 08/23/10 ISSAC: 05/30/11 U/S Today: 38w 4d ISSAC: 05/08/11 Best: 35w 3d Det. By: LMP (08/23/10) ISSAC: 05/30/11 ------- Anatomy ------- Cranium: Visualized Nuchal Fold: Not evaluated at this gestational age Face: Limited views Heart: Limited Views Stomach: Visualized Abdomen: Within Normal Limits Cord Vessels: 3 Vessel Cord - WNL Kidneys: Visualized Bladder: Visualized Limbs: Limbs seen but limited views of hands and feet Other: gender: Female Cervix Uterus Adnexa Left Ovary: Not visualized Right Ovary: Not visualized Impression 3rd Trimester Summary Single intrauterine with a gestational age of 35w 3d based on LMP. Composite age based on the current ultrasound alone is 38w 4d. Estimated weight corresponds to the > 95th percentile for 35w 3d. Current growth parameters are consistent indicating normal growth. Amniotic fluid volume is polyhydramnios, FABIOLA = 33.36 cm. Anatomical survey is limited due to the late gestational age, however no structural abnormalities are noted. I viewed the images and agree with the above interpretation. Thank you for allowing us to participate in the care of DILAN ELIAS. Please do not hesitate to call if you have any questions. Lise Almanzar MD Electronically Signed Final Report 04/28/2011 03:51 pm Vincent Graham MD IMG US OB ORDERABLES documented in this encounter Visit Diagnoses Diagnosis GDM (gestational diabetes mellitus) Abnormal maternal glucose tolerance, complicating , childbirth, or the puerperium, unspecified as to episode of care documented in this encounter Care Teams Adult Protective Caseworker Relationship Specialty Start Date End Date Jackelyn Richey APRN PCP - General 11/10/10 07/01/16 documented as of this encounter
--- OUTSIDE RECORDS SUMMARY | 2024-11-24 00:31 | XMS_ITS | Encounter Summary ---
[place] [address] Care Team Providers Care Director Data Architecture Name Role Phone Jackelyn Richey APRN Primary Care Provider Unav ailable Reason for Visit * Reason Comments Routine Visit nst Encounter Details Date Type Department Care Team (Latest Contact Info) Description 04/17/2011 4:45 PM EDT Routine Obstetrics [place] [phone] Vincent Graham MD GA: 33w6d Discharge Disposition: Home Social History Tobacco Use [...] Sign Reading Time Taken Comments Blood Pressure 142/84 04/17/2011 3:54 PM EDT Pulse - - Temperature - - Respiratory Rate - - Oxygen Saturation - - Inhaled Oxygen Concentration - - Weight 157.3 kg (346 lb 11.2 oz) 04/17/2011 3:54 PM EDT Height - - Body Mass Index - - documented in this encounter Progress Notes * Vincent Graham MD - 04/17/2011 4:16 PM EDT NST only documented in this encounter Plan of Treatment Not on file documented as of this encounter Results * US OB follow up evaluation (04/28/2011 3:48 PM EDT) Anatomical Region Laterality Modality Pelvis, Abdomen Ultrasound 04/28/2011 3:48 PM EDT Narrative 04/28/2011 3:51 PM EDT ?OBSTETRICS REPORT ? (Signed Final 04/28/2011 03:51 pm) Patient Info ID: ? [id number] ? : ?? [birth year] (40 yrs) Name: ? DILAN ELIAS ?Visit Date: ??04/28/2011 03:37 pm Performed By Performed By: ?? Yahaira Ventura RDMS Attending: ?Yohan SHEA, Lise Grady Referred By: ?JAY Azevedo MD Accession#: ? [id number] Procedures UOBFOL - Efw - Growth - Reevaluation - [place] ?[id number] - [id number] Indications Efw, Growth GDM Evaluation Heart Rate: [...] - 87 FL/AC: ? 20.9 ??% ? Est. FW: ?3634 ?? gm ?8 lb [...] Final 04/28/2011 03:51 pm) Patient Info ID: [id number] : 74 (40 yrs) Name: DILAN ELIAS Visit Date: 04/28/2011 03:37 pm Performed By Performed By: Yahaira Ventura RDMS Attending: Lise Almanzar MD Referred By: JAY Azevedo MD Procedures UOBFOL - Efw - Growth - Reevaluation - [place] [id number] - [id number] Indications Efw, Growth GDM Evaluation Heart Rate: [...] puerperium, unspecified as to episode of care GDM (gestational diabetes mellitus) Abnormal maternal glucose tolerance, complicating , childbirth, or the puerperium, unspecified as to episode of care documented in this encounter Care Teams Director Data Architecture Relationship Specialty Start Date End Date Jackelyn Richey, PROOF TECHNICIAN HELPER PCP - General 11/10/10 07/01/16 documented as of this encounter
--- OUTSIDE RECORDS SUMMARY | 2024-11-24 00:31 | XMS_ITS | Encounter Summary ---
Author Organization [facility] [place] [address] Care Team Providers Care Outside Repairer Special Name Role Phone Jackelyn Richey APRN Primary Care Provider Unav ailable Encounter Details Date Type Department Care Team (Latest Contact Info) Description 04/07/2011 5:10 PM EDT - 04/07/2011 6:10 PM EDT Hospital Encounter Birthing [facility] [place] [address] Xu Ellis MD Discharge Disposition: Home Social History Tobacco [...] Sign Reading Time Taken Comments Blood Pressure 141/87 04/07/2011 5:47 PM EDT Pulse 99 04/07/2011 5:47 PM EDT Temperature 36.8 ??C (98.2 ??F) 04/07/2011 5:47 PM ED T Respiratory Rate 18 04/07/2011 5:47 PM EDT Oxygen Saturation - - Inhaled Oxygen Concentration - - Weight - - Height - - Body Mass Index - - documented in this encounter Medications at Time of Discharge Medication Sig Dispensed Refills Start Date End Date glyBURIDE (DIABETA) 5 mg tablet Take 1 tablet by mouth nightly. 30 tablet 5 03/30/2011 05/19/2011 Lancets & Blood Glucose Strips CmpkIndications:Gestat ional diabetes 1 Container by Misc.(Non-Drug; Combo Route) route. FS fasting and 2hr after meals. Pt uses CONTOUR. Dispense #100 strips and #100 lancets. 1 Bottle prn 03/20/2011 04/16/2011 VITS W-CA,FE,FA,<1MG, ( VITAMIN ORAL) 11/19/2010 06/24/2011 documented as of this encounter Progress Notes * Xu Ellis MD - 04/07/2011 6:00 PM EDT [facility] Name: Argelia Jain MR#: [id number] Date of Visit: 04/07/2011 Time: 6:00 PM PC: Non-reactive NST in clinic HPC: Argelia is a 40 y.o. y G 1 P 0 with Estimated Date of Delivery: 05/30/11 at 32w3d Gestation withnon-reactive This has been complicated by: Patient Active Problem List Diagnoses Code ? ? Obesity, morbid (more than 100 lbs over ideal weight or BMI > 40) 278.01K ??? AMA (advanced maternal age) primigravida 35+ 659.50H ??? Benign hypertension due to increased intracranial pressure 348.2BB ??? GDM (gestational diabetes mellitus) 648.80A ??? macrosomia 656.63P ??? Polyhydramnios 657.00C ??? V22.2C O: VS: Filed Vitals: 04/07/11 1747 BP: 141/87 Pulse: 99 Temp: 36.8 ??C (98.2 ??F) Resp: 18 Gen: Well-appearing, in NAD Abdo: Soft, non-tender cephalic presentation BPP: 07/06 A/P: Argelia is a 40 y.o. y G 1 P 0 at 32w3d weeks gestation, with normal BPP. Patient has next visit in clinic on 04/10. To call if further pain/bleeding/reduced movement This case discussed with Dr Rhonda HORTA 04/07/2011 M Attending Note: Argelia Jain is a 40 y.o. year old female with an ISSAC of 05/30/2011, Alternate ISSAC Entry who is at 32w4d weeks gestation. Problems: Patient Active Problem List Diagnoses Date Noted ??? [V22.2C] 04/07/2011 ??? GDM (gestational diabetes mellitus) [648.80A] 03/19/2011 ??? macrosomia [656.63P] 03/19/2011 ??? Polyhydramnios [657.00C] 03/19/2011 ? ? Obesity, morbid (more than 100 lbs over ideal weight or BMI > 40) [278.01K] 01/05/2011 ??? Benign hypertension due to increased intracranial pressure [348.2BB] ??? AMA (advanced maternal age) primigravida 35+ [659.50H] 11/29/2010 Medical History: Past Medical History Diagnosis Date ??? Intracranial hypertension, benign 2007 sees neurology and opth, had one lumbar puncture 2007 ? ? Obesity, morbid (more than 100 lbs over ideal weight or BMI > 40) BMI 54 Surgical History: Past Surgical History Procedure Date ??? 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 * Radha White RN - 04/07/2011 5:51 PM EDT Pt had bpp per dr. Horta. documented in this encounter Plan of Treatment Not on file documented as of this encounter Visit Diagnoses Not on filedocumented in this encounter Care Teams Outside Repairer Special Relationship Specialty Start Date End Date Jackelyn Richey APRN PCP - General 11/10/10 07/01/16 documented as of this encounter
--- OUTSIDE RECORDS SUMMARY | 2024-11-24 00:31 | XMS_ITS | Encounter Summary ---
[place] [address] Care Team Providers Care Immigration Coordinator Name Role Phone Jackelyn Richey APRN Primary Care Provider Unav ailable Reason for Visit * Reason Comments Non-stress Test Encounter Details Date Type Department Care Team (Late st Contact Info) Description 04/10/2011 4:30 PM EDT Procedure visit Obstetrics [place] [phone] Vincent Stiles, RN Social History Tobacco Use Types Packs/Day Years [...] Sign Reading Time Taken Comments Blood Pressure 136/94 04/10/2011 5:13 PM EDT Pulse - - Temperature - - Respiratory Rate - - Oxygen Saturation - - Inhaled Oxygen Concentration - - Weight 157 kg (346 lb 3.2 oz) 04/10/2011 5:13 PM EDT Height - - Body Mass Index - - documented in this encounter Progress Notes * Vincent Stiles RN - 04/10/2011 5:16 PM EDT Subjective: Patient ID: Argelia Jain is a 40 y.o. female. HPI Review of Systems Objective: Physical Exam Assessment and Plan: No problem-specific visit notes found for this encounter. documented in this encounter Plan of Treatment Not on file documented as of this encounter Visit Diagnoses Not on filedocumented in this encounter Care Teams Immigration Coordinator Relationship Specialty Start Date End Date Jackelyn Richey APRN PCP - General 11/10/10 07/01/16 documented as of this encounter
--- OUTSIDE RECORDS SUMMARY | 2024-11-24 00:31 | XMS_ITS | Encounter Summary ---
Author Organization [facility] [place] [address] Care Team Providers Care Integrity Consultant Name Role Phone Jackelyn Richey APRN Primary Care Provider Unav ailable Encounter Details Date Type Department Care Team (Late st Contact Info) Description 03/31/2011 3:30 PM EDT Office Visit Same Day at [facility] [place] [phone] Social History Tobacco Use Types Packs/Day Years [...] as of this encounter Miscellaneous Notes * Consult Note - Jeremy Zarate T - 03/31/2011 1:05 PM EDT Anesthesiology Inpatient Consultation Pt Age: 40 y.o. Date of Consultation: 03/31/2011 Place of Service: [facility] clinic Responsible Attending: Dr. Dali Garg Staff / Associate Provider: Jeremy Zarate DNR: Full code Consultation Reason: I am seeing Argelia M Jain in consultation at the requests of [facility] service for my opinion regarding options for labor anesthesia and analgesia in a pt with morbid obesity and pseudotumor cerebri (aka idiopathic intracranial HTN) . History of Present Illness: HPI 40 yo gestation age 31wks with pmhx significant for pseudotumor cerebri, morbid obesity (BMI 54). Pt does not have symptoms of pseudotumor such as severe headache, neck pain exacerbated by movement, or focal neurological symptoms. She was diagnosed with this on exam by creel operator and has never experienced the above mentioned symptoms. She has had an diagnostic LP in the past without any r eported difficulty or complications. She has no hx of cardiac or pulmonary disease. Despite her weight she reports reasonable exercise tolerance and has two flights of stairs at home which she must climb multiple times daily without difficulty. She has no allergies and is currently taking only a multivitamin. She was recently diagnosed with gestational diabetes because of slightly elevated fasting glucose. She was prescribed glipizide which she isn't taking yet. Review of System: CV: denies CP, arrythmia, h/o cardiac problems Respiratory: denies SOB, PAZ, wheezing GI: denies N/V, GERD, dysphagia, liver problems Renal: denies renal problems Endo: no DM, heat/cold intolerance Neuro: no numbness/tigling/weakness Hematology: denies h/o coagulpathy Psych: no depression/anxiety Past Medical History: Past Medical History Diagnosis Date ??? Intracranial hypertension, benign 2007 sees neurology and opth, had one lumbar puncture 2007 ? ? Obesity, morbid (more than 100 lbs over ideal weight or BMI > 40) BMI 54 Past Surgical History: Past Surgical History Procedure Date ??? 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 glyBURIDE (DIABETA) 5 mg tablet Take 1 tablet by mouth nightly. 30 tablet 5 ? ? Lancets & Blood Glucose Strips Cmpk 1 Container by [facility].(Non-Drug; Combo Route) route. FS fasting and 2hr after meals. Pt uses CONTOUR. Dispense #100 strips and #100 lancets. 1 Bottle prn ? ? VITS W-CA,FE,FA,<1MG, ( VITAMIN ORAL) Family History: No family history on file. Social History: Does not smoke or drink. Denies illicit drug use. Physical Exam: Last set of Vitals: LMP 08/23/2010 Physical Exam Airway: Mal: II Aperture: >3FB Neck: FROM Dentition: [place], no loose or chipped Assessment / Recommendation: Discussed with pt she that due to her obesity, she is at increased risk in the need for a , as well as increased risk for complications and difficulty in delivery of both regional and regional anesthesia. Because she is not having symptoms of pseudotumor cerebri such as severe headache, neck pain, or focal neurological symptoms she is a candidate for regional anesthesia if she so chooses. She will be re-evaluated for such symptoms at time of delivery by anesthesia team. Risks, benefits discussed; questions answered: Yes Anesthesia Consent Obtained: Yes Anesthesia Plan: to be determined at time of delivery JEREMY Emanuel ZARATE beeper # : [id number] documented in this encounter Plan of Treatment Not on file documented as of this encounter Visit Diagnoses Not on filedocumented in this encounter Care Teams Integrity Consultant Relationship Specialty Start Date End Date Jackelyn Richey APRN PCP - General 11/10/10 07/01/16 documented as of this encounter
--- OUTSIDE RECORDS SUMMARY | 2024-11-24 00:31 | XMS_ITS | Encounter Summary ---
Author Organization [facility] [place] [address] Care Team Providers Care Floor Layer Helper Name Role Phone Jackelyn Richey APRN Primary Care Provider Unav ailable Reason for Visit * Reason Comments Non-stress Test NST after amnio Encounter Details Date Type Department Care Team (Latest Contact Info) Description 05/11/2011 3:15 PM EDT Routine Obstetrics [place] [phone] Vincent Stiles, RN GA: 37w2d Discharge Disposition: Home Social History Tobacco Use [...] Reading Time Taken Comments Blood Pressure 134/82 05/11/2011 4:50 PM EDT Pulse - - Temperature - - Respiratory Rate - - Oxygen Saturation - - Inhaled Oxygen Concentration - - Weight 163.7 kg (360 lb 12.8 oz) 05/11/2011 4:50 PM EDT Height - - Body Mass Index - - documented in this encounter Progress Notes * Vincent Stiles RN - 05/11/2011 4:52 PM EDT Patient seen today after amnio. Still feeling tired and difficulty walking. Reports glucose values in target range. Hoping the amnio is mature. I telephoned patient later in day and informed FLM was mature at 256. If patient does not hear from BP by 9:30 tomorrow she will call with time for induction. documented in this encounter Plan of Treatment Not on file documented as of this encounter Visit Diagnoses Diagnosis GDM (gestational diabetes mellitus) Abnormal maternal glucose tolerance, complicating , childbirth, or the puerperium, unspecified as to episode of care Mild preeclampsia Mild or unspecified pre-eclampsia, unspecified as to episode of care macrosomia [...] care documented in this encounter Care Teams Floor Layer Helper Relationship Specialty Start Date End Date Jackelyn Richey APRN PCP - General 11/10/10 07/01/16 documented as of this encounter
--- OUTSIDE RECORDS SUMMARY | 2024-11-24 00:31 | XMS_ITS | Encounter Summary ---
Author Organization [facility] [place] [address] Care Team Providers Care Penology Professor Name Role Phone Jackelyn Richey APRN Primary Care Provider Unav ailable Encounter Details Date Type Department Care Team (Late st Contact Info) Description 05/11/2011 2:00 PM EDT Procedure visit Obstetrics [place] [phone] Social History Tobacco Use Types Packs/Day Years [...] on filedocumented in this encounter Care Teams Penology Professor Relationship Specialty Start Date End Date Jackelyn Richey APRN PCP - General 11/10/10 07/01/16 documented as of this encounter
--- OUTSIDE RECORDS SUMMARY | 2024-11-24 00:31 | XMS_ITS | Encounter Summary ---
Author Organization [place] [address] Care Team Providers Care Pulpwood Cutter Name Role Phone Jackelyn Richey APRN Primary Care Provider Unav ailable Encounter Details Date Type Department Care Team (Late st Contact Info) Description 04/21/2011 3:15 PM EDT Procedure visit Obstetrics [place] [phone] Social History Tobacco Use Types Packs/Day Years [...] on filedocumented in this encounter Care Teams Pulpwood Cutter Relationship Specialty Start Date End Date Jackelyn Richey APRN PCP - General 11/10/10 07/01/16 documented as of this encounter
--- OUTSIDE RECORDS SUMMARY | 2024-11-24 00:31 | XMS_ITS | Encounter Summary ---
Author Organization [facility] [place] [address] Care Team Providers Care Tool And Die Assembler Name Role Phone Jackelyn Richey APRN Primary Care Provider Unav ailable Encounter Details Date Type Department Care Team (Late st Contact Info) Description 04/14/2011 3:00 PM EDT Procedure visit Obstetrics [place] [phone] Social History Tobacco Use Types Packs/Day Years [...] on filedocumented in this encounter Care Teams Tool And Die Assembler Relationship Specialty Start Date End Date Jackelyn Richey APRN PCP - General 11/10/10 07/01/16 documented as of this encounter
--- OUTSIDE RECORDS SUMMARY | 2024-11-24 00:31 | XMS_ITS | Encounter Summary ---
Author Organization [facility] [place] [address] Care Team Providers Care Electrocardiograph Technician Name Role Phone Jackelyn Richey APRN Primary Care Provider Unav ailable Reason for Visit * Reason Comments Non-stress Test A2 gestational diabe wayne Encounter Details Date Type Department Care Team (Latest Contact Info) Description 04/10/2011 4:30 PM EDT Routine Obstetrics [place] [phone] Leena Coleman MD GA: [id number] Discharge Disposition: Home Social History Tobacco Use [...] Time Taken Comments Blood Pressure 136/94 04/10/2011 5:18 PM EDT Pulse - - Temperature - - Respiratory Rate - - Oxygen Saturation - - Inhaled Oxygen Concentration - - Weight 157 kg (346 lb 3.2 oz) 04/10/2011 5:18 PM EDT Height - - Body Mass Index - - documented in this encounter Progress Notes * Vincent Stiles RN - 04/10/2011 5:23 PM EDT Seen today for NST d/t A2 gestational diabetes. Glucose values mostly in target range some elevations post dinner (134/126). No complaints of headache, bleeding, loss of fluid. Ankles swollen but does elevate at nite with improvement in morning. Reports regular movement. B/P today elevated, discussed with Dr. Mars, patient will do 24 hour urine for protein and creatinine clearance (patient wishes to do at [facility]). Patient will call with any headaches. Patient has appt. For Wednesday. documented in this encounter Plan of Treatment Not on file documented as of this encounter Results * Creatinine, serum (04/14/2011 4:49 PM EDT) Creatinine 0.75 0.70 - 1.20 mg/dL [facility] [employer] Est Glomerular Filtration Rate >60 >=60 [facility] Comment: The National Kidney Disease Education Program [...] EDT Yvonne Mars MD CHEMISTRY ORDERABL ES Performing Organization Address City/State/[facility] Co de Phone Number [facility] documented in this encounter Visit Diagnoses Diagnosis GDM (gestational diabetes mellitus) Abnormal maternal glucose tolerance, complicating , childbirth, or the puerperium, unspecified as to episode of care Hypertension Unspecified essential hypertension documented in this encounter Care Teams Electrocardiograph Technician Relationship Specialty Start Date End Date Jackelyn Richey, OPERATING SYSTEM PROGRAMMER PCP - General 11/10/10 07/01/16 documented as of this encounter
--- OUTSIDE RECORDS SUMMARY | 2024-11-24 00:31 | XMS_ITS | Encounter Summary ---
[place] [address] Care Team Providers Care Oil Developer Name Role Phone Jackelyn Richey APRN Primary Care Provider Unav ailable Encounter Details Date Type Department Care Team (Late st Contact Info) Description 05/15/2011 5:59 AM EDT Anesthesia [place] [phone] Yvonne Avalos MD Swartz, William L, MD Anesthesia Record Procedure Summary Procedure Name Responsible Anesthesiologist Anesthesia Start Time Anesthesia Stop Time @ DELIVERY (WRVU 16.13) (Abdomen) Yvonne Avalos MD 05/15/11 0559 05/15/11 0804 Events Date Time Event Comment 05/15/2011 0559 Start 0804 Stop Meds * Agents No agents on file. * Blood No blood administrations on file. Lines, Drains, and Airways Type Details Placement Removal (RETIRED By SPRAngela) Incision 05/15/11; 0745 05/15/11 0745 by Nadya Sewell, RN (RETIRED) Peripheral IV Line - Single Lumen 05/12/11; 1416; 05/16/11; 1638 05/12/11 1416 by Crissy Bellamy RN 05/16/11 1638 by Paula Nova RN Urethral Catheter 05/13/11; other (see comments) (#16 wesley catheter); silicone coated; 16; inserted; 2; drainage bag to dependent drainage; 05/16/11; 1316 05/13/11 0000 by Lizzie Kaiser RN 05/16/11 1316 by Paula Nova RN (RETIRED) Peripheral IV Line - Single Lumen 05/14/11; 0944; 05/16/11; 1639 05/14/11 0944 by Evangelina Calle RN 05/16/11 1639 by Paula Nova RN (Retired) Epidural Lumbar 05/14/11 1630 by Nadya Sewell RN 05/15/11 1716 by Nadya Sewell RN documented in this encounter Social History Tobacco [...] OR Notes * Anesthesia Postprocedure Evaluation - Zuleyma Morley MD - 05/18/2011 7:51 AM EDT Patient: Argelia Jain Procedure(s) Performed: ?? DELIVERY Patient location: Labor and Delivery Post-op pain: Adequate analgesia Post-op nausea: no nausea or vomiting Last Vitals: Filed Vitals: 05/18/11 0742 BP: 174/74 Pulse: 87 Temp: 36.7 ??C (98.1 ??F) Resp: 20 Post-op cardiovascular and respiratory status: is stable Level of consciousness: awake, alert and oriented Complications: no apparent complications and tolerated the procedure well. She had good pain reliefduring labor and delivery. Denies headache, back pain, numbness/tingling or weakness. She is ambulating and voiding. Normal neuromuscular exam and neuraxial site is ok. Fluid Status: normal * Anesthesia Procedure Notes - Ferdinand Farrar MD - 05/14/2011 1:57 PM EDT Associated Order(s): ANE BLOCK 2; ANE BLOCK 2 Procedure Labor Analgesia Type: Epidural Start time: 05/14/2011 1:42 PM End time: 05/14/2011 1:58 PM Patient Prep Position: Sitting Prep: chlorhexidine and patient draped Skin Anesthetic Lidocaine 1% 3 ml Procedure Technique Level of needle insertion: L3-L4 Needle approach: midline Needle insertion depth: 9 cm Needle Type: Tuohy 18 ga using saline and air at 9 cm. Number of attempts: 1 Test dose A test dose of lidocaine 1% with epinephrine 1:200,000 3 ml was administered. Bolus medication Bupivacaine 0.25% 5 ml Events/Notes Events: None Additional Notes: Catheter approx 15cm at skin, negative test dose, significant relief of labor pain Performed by Leni Procedure Labor Analgesia Type: Epidural Start time: 05/14/2011 4:11 PM End time: 05/14/2011 4:32 PM Patient Prep Position: Sitting Prep: chlorhexidine and patient draped Skin Anesthetic Lidocaine 1% 5 ml Procedure Technique Level of needle insertion: L3-L4 Needle approach: midline Needle Type: Tuohy 18 ga Needle length: 10 cm using saline and air at 9 cm. Number of attempts: 2 Test dose A test dose of lidocaine 1% with epinephrine 1:200,000 3 ml was administered. Bolus medication Bupivacaine 0.25% 5 ml Events/Notes Events: unable to thread epidural catheter, Definitive VIRGIL, unable to thread catheter despite saline bolus through tuey. Successful threading on second placement of tuey Additional Notes: Epidural catheter replaced as no level established with initial depsite comfort established with initial bolus post placement. Initial catheter removed, this second one placed with observations noted above. Pt comfortable after bolus. VIRGIL at 9cm, catheter 13cm at skin Performed by Vu * Anesthesia Preprocedure Evaluation - Ferdinand Farrar MD - 05/12/2011 2:32 PM EDT Anesthesia Evaluation Airway Mallampati: III TM distance: >3 FB Neck ROM: full Dental - normal exam Pulmonary breath sounds clear to auscultation (-) asthma, shortness of breath and recent URI Cardiovascular - negative ROS (+) hypertension (Pre-eclampsia), Rhythm: regular Rate: normal Neuro/Psych (+) headaches (Deemed associated with oral contraceptives, resolved when discontinued. No MENDOZA at time of diagnosis of pseudotumor cerebri), (-) seizures Comments: Per Pt Report: Pseudotumor Cerebri picked up as papilledema on routine ophthalmologic exam, Pt asymptomatic at time. Subsequent MRI and lumbar drainage performed at [place]. Neurologic Follow-up with Dr Joaquim Manuel every 2 months. Diamox discontinued with , condition currentlystable. GI/Hepatic/Renal (+) chronic renal disease (pre-eclampsia), (-) GERD and liver disease Endo/Other (-) clotting problem Comments: Gestational diabetes, on glyburide Abdominal (+) obesity, Anesthesia Plan Will plan for neuraxial analgesia upon patient request. Platelets adequate. Epidural/spinal labor analgesia explained as well as spinal and general anesthetics for . She has consented to these procedures documented in this encounter Plan of Treatment Not on file documented as of this encounter Visit Diagnoses Not on filedocumented in this encounter Care Teams Oil Developer Relationship Specialty Start Date End Date Jackelyn Richey APRN PCP - General 11/10/10 07/01/16 documented as of this encounter
--- OUTSIDE RECORDS SUMMARY | 2024-11-24 00:31 | XMS_ITS | Encounter Summary ---
[place] [address] Care Team Providers Care Public Policy Manager Name Role Phone Jackelyn Richey APRN Primary Care Provider Unav ailable Encounter Details Date Type Department Care Team (Latest Contact Info) Description 05/11/2011 1:00 PM EDT Hospital Encounter [place] [phone] Gestational diabetes; Obesity; Polyhydramnios Social History Tobacco Use Types Packs/Day Years [...] Blood Glucose Strips Cmpk 1 strip by [facility].(Non-Drug; Combo Route) route 4 times daily. 100 strip prn 04/16/2011 05/19/2011 glyBURIDE (DIABETA) 5 mg tablet Take 1 tablet by mouth nightly. 30 tablet 5 03/30/2011 05/19/2011 VITS W-CA,FE,FA,<1MG, ( VITAMIN ORAL) 11/19/201005/30 documented as of this encounter Plan of Treatment Not on file documented as of this encounter Procedures Procedure Name Priority Date/Time Associated Diagnosis Comments US OB FOLLOW UP Routine 05/11/2011 2:15 PM EDT Gestational diabetes Obesity Polyhydramnios documented in this encounter Results * US OB follow up evaluation (05/11/2011 2:15 PM EDT) Anatomical Region Laterality Modality Pelvis, Abdomen Ultrasound 05/11/2011 2:15 PM EDT Narrative 05/11/2011 2:20 PM EDT ?OBSTETRICS REPORT ? (Signed Final 05/11/2011 02:19 pm) Patient Info ID: ? [id number] ? : ?? [birth year] (40 yrs) Name: ? DILAN ELIAS ?Visit Date: ??05/11/2011 01:36 pm Performed By Performed By: ?? Roseline Souza Attending: ?Yohan SHEA, Lise Grady Referred By: ?NEMO Azevedo MD Accession#: ? [id number] Procedures UOBFOL - Efw - Growth - Reevaluation - [place] ?[id number] - [id number] UAMNIO - Genetic - ??Lung Maturity - [id number], ?[id number], [id number] Indications Efw, Growth Gestational diabetes Hydramnios Preeclampsia [...] ?Date: ?? 08/23/10 ? ISSAC: ?? 05/30/11 /S Today: ? 39w 6d ? ISSAC: ?? [...] Final 05/11/2011 02:19 pm) Patient Info ID: [id number] : [birth year] (40 yrs) Name: DILAN ELIAS Visit Date: 05/11/2011 01:36 pm Performed By Performed By: Roseline Souza Attending: Lise Almanzar MD Referred By: NEMO Azevedo MD Procedures UOBFOL - Efw - Growth - Reevaluation - [place] [id number] - [id number] UAMNIO - Genetic - Lung Maturity - [id number], [id number], [id number] Indications Efw, Growth Gestational diabetes Hydramnios Preeclampsia [...] 05/11/2011 02:19 pm Lori Godwin MD IMG US OB ORDERABLES documented in this encounter Visit Diagnoses Diagnosis Gestational diabetes Abnormal maternal glucose tolerance, complicating , childbirth, or the puerperium, unspecified as to episode of care Obesity Obesity, unspecified Polyhydramnios Polyhydramnios, unspecified as to episode of care documented in this encounter Care Teams Public Policy Manager Relationship Specialty Start Date End Date Jackelyn Richey APRN PCP - General 11/10/10 07/01/16 documented as of this encounter
--- OUTSIDE RECORDS SUMMARY | 2024-11-24 00:31 | XMS_ITS | Encounter Summary ---
Author Organization [facility] [place] [address] Care Team Providers Care Concaver Name Role Phone Jackelyn Richey APRN Primary Care Provider Unav ailable Encounter Details Date Type Department Care Team (Late st Contact Info) Description 05/01/2011 4:30 PM EDT Procedure visit Obstetrics [place] [phone] Vincent Stiles, RN Social History Tobacco Use [...] on filedocumented in this encounter Care Teams Concaver Relationship Specialty Start Date End Date Jackelyn Richey APRN PCP - General 11/10/10 07/01/16 documented as of this encounter
--- OUTSIDE RECORDS SUMMARY | 2024-11-24 00:31 | XMS_ITS | Encounter Summary ---
Author Organization [facility] [place] [address] Care Team Providers Care Network Technology Instructor Name Role Phone Jackelyn Richey APRN Primary Care Provider Unav ailable Encounter Details Date Type Department Care Team (Late st Contact Info) Description 04/07/2011 3:45 PM EDT Procedure visit Obstetrics [place] [phone] Social History Tobacco Use Types Packs/Day Years [...] on filedocumented in this encounter Care Teams Network Technology Instructor Relationship Specialty Start Date End Date Jackelyn Richey APRN PCP - General 11/10/10 07/01/16 documented as of this encounter
--- OUTSIDE RECORDS SUMMARY | 2024-11-24 00:31 | XMS_ITS | Encounter Summary ---
[place] [address] Care Team Providers Care Nail Sticker Name Role Phone Jackelyn Richey APRN Primary Care Provider Unav ailable Reason for Visit * Reason Comments Routine Visit NST Encounter Details Date Type Department Care Team (Late st Contact Info) Description 04/24/2011 4:30 PM EDT Procedure visit Obstetrics [place] [phone] Vincent Stiles, RN Social History Tobacco Use [...] Sign Reading Time Taken Comments Blood Pressure 132/76 04/24/2011 4:05 PM EDT Pulse - - Temperature - - Respiratory Rate - - Oxygen Saturation - - Inhaled Oxygen Concentration - - Weight 157 kg (346 lb 1.6 oz) 04/24/2011 4:05 PM EDT Height - - Body Mass Index - - documented in this encounter Plan of Treatment Not on file documented as of this encounter Visit Diagnoses Not on filedocumented in this encounter Care Teams Nail Sticker Relationship Specialty Start Date End Date Jackelyn Richey APRN PCP - General 11/10/10 07/01/16 documented as of this encounter
--- OUTSIDE RECORDS SUMMARY | 2024-11-24 00:31 | XMS_ITS | Encounter Summary ---
[place] [address] Care Team Providers Care Sales Ambassador Name Role Phone Jackelyn Richey APRN Primary Care Provider Unav ailable Reason for Visit * Reason Comments Ultrasound Encounter Details Date Type Department Care Team (Late st Contact Info) Description 05/11/2011 1:00 PM EDT Office Visit [address] [address] John Ellis MD (Primary Dx); Pre-eclampsia, mild; GDM (gestational diabetes mellitus); macrosomia; Polyhydramnios; state, incidental; Mild or unspecified pre-eclampsia, unspecified as to episode of care; Abn glucose in preg-unsp; Excessive growth affecting management of mother, antepartum; Polyhydramnios, unspecified as to episode of care Discharge Disposition: Home Social History Tobacco Use [...] as of this encounter Progress Notes * John Ellis MD - 05/11/2011 2:23 PM EDTAddended by: JOHN ELLIS on: 05/11/2011 Modules accepted: Orders * John Ellis MD - 05/11/2011 2:11 PM EDT Subjective: Patient ID: Argelia Jain is a 40 y.o. female. HPI Review of Systems Objective: Physical Exam Assessment and Plan: No problem-specific visit notes found for this encounter. Procedure: Following informed consent discussion, sterile prep was done. Under continuous ultrasound guidance a 22 gauge spinal needle was introduced into the amniotic cavity. Clear fluid was obtained. heart motion was observed after the procedure. The patient is Rh positive. The fluid was sent for lung maturity studies. The patient was advised about the signs and symptoms of complications and limitation of activity. She was asked to contact her provider if complications occur. We would also like to be informed of any possible complication. Pending results of this lung maturity amniocentesis, the patient will be scheduled for induction oflabor tomorrow. LYNDA Ellis MD documented in this encounter Miscellaneous Notes * Miscellaneous - Eugene, Operations Agent - 05/19/2011 9:41 AM EDT * Miscellaneous - Eugene, Operations Agent - 05/15/2011 1:59 PM EDT documented in this encounter Plan of Treatment Not on file documented as of this encounter Visit Diagnoses Diagnosis state, incidental Pre-eclampsia, mild Mild or unspecified pre-eclampsia, unspecified as to episode of care GDM (gestational diabetes mellitus) Abnormal maternal glucose tolerance, complicating , childbirth, or the puerperium, unspecified as to episode of care macrosomia Excessive growth affecting management of mother, antepartum Polyhydramnios, unspecified as to episode of care Mild or unspecified pre-eclampsia, unspecified as to episode of care Abnormal maternal glucose tolerance, complicating , childbirth, or the puerperium, unspecified as to episode of care Excessive growth affecting management of mother, antepartum documented in this encounter Care Teams Sales Ambassador Relationship Specialty Start Date End Date Jackelyn Richey APRN PCP - General 11/10/10 07/01/16 documented as of this encounter
--- OUTSIDE RECORDS SUMMARY | 2024-11-24 00:31 | XMS_ITS | Encounter Summary ---
Author Organization [facility] [place] [address] Care Team Providers Care Piper Helper Name Role Phone Jackelyn Richey APRN Primary Care Provider Unav ailable Encounter Details Date Type Department Care Team (Late st Contact Info) Description 04/10/2011 4:05 PM EDT Procedure visit Obstetrics [place] [phone] Social History Tobacco Use Types Packs/Day Years [...] on filedocumented in this encounter Care Teams Piper Helper Relationship Specialty Start Date End Date Jackelyn Richey APRN PCP - General 11/10/10 07/01/16 documented as of this encounter
--- OUTSIDE RECORDS SUMMARY | 2024-11-24 00:31 | XMS_ITS | Encounter Summary ---
Author Organization [facility] [place] [address] Care Team Providers Care Forestry Support Specialist Name Role Phone Jackelyn Richey APRN Primary Care Provider Unav ailable Encounter Details Date Type Department Care Team (Late st Contact Info) Description 05/01/2011 4:05 PM EDT Procedure visit Obstetrics [place] [phone] Social History Tobacco Use Types Packs/Day Years [...] on filedocumented in this encounter Care Teams Forestry Support Specialist Relationship Specialty Start Date End Date Jackelyn Richey APRN PCP - General 11/10/10 07/01/16 documented as of this encounter
--- OUTSIDE RECORDS SUMMARY | 2024-11-24 00:31 | XMS_ITS | Encounter Summary ---
Author Organization [facility] [place] [address] Care Team Providers Care Fifth Grade Teacher Name Role Phone Jackelyn Richey APRN Primary Care Provider Unav ailable Reason for Visit * Reason Comments Non-stress Test Encounter Details Date Type Department Care Team (Latest Contact Info) Description 05/01/2011 4:30 PM EDT Routine Obstetrics [place] [phone] Vincent Graham MD GA: [id number] Discharge Disposition: Home Social History Tobacco Use [...] Sign Reading Time Taken Comments Blood Pressure 140/80 05/01/2011 5:04 PM EDT Pulse - - Temperature - - Respiratory Rate - - Oxygen Saturation - - Inhaled Oxygen Concentration - - Weight 159.9 kg (352 lb 8 oz) 05/01/2011 5:04 PM EDT Height - - Body Mass Index - - documented in this encounter Progress Notes * Vincent Graham MD - 05/01/2011 5:28 PM EDT I personally reviewed and interpreted this NST. * Vincent Stiles RN - 05/01/2011 5:08 PM EDT Increasing fluid retention with pitting edema. Reports good blood sugar. Denies bleeding, headache,epigastric pain. Looking forward to delivery. documented in this encounter Plan of Treatment Not on file documented as of this encounter Visit Diagnoses Diagnosis GDM (gestational diabetes mellitus) Abnormal maternal glucose tolerance, complicating , childbirth, or the puerperium, unspecified as to episode of care Mild preeclampsia Mild or unspecified pre-eclampsia, unspecified as to episode of care documented in this encounter Care Teams Fifth Grade Teacher Relationship Specialty Start Date End Date Jackelyn Richey, SIMPLEX OPERATOR PCP - General 11/10/10 07/01/16 documented as of this encounter
--- OUTSIDE RECORDS SUMMARY | 2024-11-24 00:31 | XMS_ITS | Encounter Summary ---
Author Organization [facility] [place] [address] Care Team Providers Care Tieing Machine Operator Name Role Phone Jackelyn Richey APRN Primary Care Provider Unav ailable Encounter Details Date Type Department Care Team (Late st Contact Info) Description 05/08/2011 1:00 PM EDT Procedure visit Obstetrics [place] [phone] Social History Tobacco Use Types Packs/Day Years [...] on filedocumented in this encounter Care Teams Tieing Machine Operator Relationship Specialty Start Date End Date Jackelyn Richey APRN PCP - General 11/10/10 07/01/16 documented as of this encounter
--- OUTSIDE RECORDS SUMMARY | 2024-11-24 00:31 | XMS_ITS | Encounter Summary ---
Author Organization [facility] [place] [address] Care Team Providers Care Field Placement Director Name Role Phone Florecita Douglas APRN Primary Care Provider Unav ailable Reason for Visit * Reason Comments Scheduled Induction Encounter Details Date Type Department Care Team ([facility] st Contact Info) Description 05/15/2011 5:45 AM EDT - 05/15/2011 7:12 AM EDT [place] [address] Sheree Dawn MD [facility] OBSTETRICS & [place] [address] @ DELIVERY (WRVU 16.13) Social History Tobacco Use Types Packs/Day Years [...] this in detail. Call your doctor or machine tech for: Fever more than 100.5 Heavy bleeding [...] follow up appointment. You may call the [facility] at any time for guidance or for answers to questions that come up prior to you follow up appointment. Your [facility] Provider can be reached during office hours at [facility] Follow-up Clinic AFTER OFFICE HOURS for the rim fire charger operator or machine tech radiation oncology therapist Provider electronic signature confirms that discharge instructions [...] as of this encounter Progress Notes * Stys, Xu J, MD - 05/19/2011 6:35 AM EDT Delivery [...] 24 hours of magnesium. HELLP labs normal. Infant nutrition: breast Contraception: micronor Circumcision: not applicable Plan: Continue routine care: encourage ambulation anticipated discharge PPD # 3 Additional Plans: consultation prn Return in 3 days for staple removal and BP check Random glucose tomorrow and follow-up with JESSI Diaz 05/18/2011 Maternal Medicine Note: I have [...] breath and required the use of her DIRECTOR DIGITAL CATALOGUE. Patient back to bedand resting. Tolerated well overall and is encouraged to ambulate again after breakfast. Wesley remains in at this time. * Merna John RN - 05/15/2011 9:44 PM EDT Pumping initiated at this time. Patient tolerating well. Danielle care done in bed by this RN. Patient tolerated well. Using DIRECTOR DIGITAL CATALOGUE for pain relief. * Rajwinder Montero RN [...] HTN, and polyhdramnios. With Whom: Her mother; FOB Ernesto Hernandez Where: [place], [place] Approx time in community: Years Social Resources: Intact relationship with FOB. Living with mother for support/financial assist. Has MVP insurance through her employer-[employer] and [place] secondary. Has WIC. Extended family in area for support: As noted above. Cognitive Resources: Intact Childbirth Education: Yes/No Educational level: High School Functional Status: Ambulatory, Independent, Without limitations. C/S recovery with limitations on lifting/driving x 2 weeks. Complications requiring follow-up: Financial Resources: [place] Health Insurance Coverage: [place] and [place]. Baby will be added to Dr Perez. Dj Instructor Chosen: Dr Florecita Douglas, Family Practice; [place] Baby's Name: Ilana Hernandez Anticipated Continuing Care Needs: Physical: Recovery from . Initiation of . Emotional: Adjustment to period Psychological: No known hx of anxiety/depression or increased risk factors for PPD Educational: Parenting first Continuing Care Plan Development: At home resources/Discharge supports suggested. Printed materials and suggested community resourcesprovided to patient: Visiting Nurse visits: Offered services of VNA post discharge. Patient accepted/declined [facility] ([facility]) 4th Trimester New mom support/[facility] [place] Healthy Babies: Referral to Tonia Otero [place] Parent Child Center: [facility] ([place]) DME ordered : None Breast Pump: N/A Other: Have infant car seat, transportation, and adequate family support. No direct referrals made at this time. Will revisit prior to dc anticipated for Wednesday. 05/18 Breast Pump ordered through [facility]/[place] Medicaid due to risk for low milk productionand Baby with 10.6% wt loss. Pt accepts VNA referral for later in week. Referral placed by [facility]. Pt considering /[facility] [place] referral. Pt calling [facility] for baby's temp Dr Perez #. Anticipate dc ofmom/baby on Wednesday. . CRC: Rylee Montero RNC/ Birthing Walter. Beeper [id number] * Lizzie Kaiser RN - 05/15/2011 5:07 [...] again VE: 5/90/-2 (no change from previous) [place]: Q3 minutes, montevideo units 180-220 A/P 40 yo at 37.6 with GDM/pre-eclampsia, now with little change overnight and no environmental change analyst 3 hours. [place] units are basically adequate and pitocin is [...] then 27 cc the last hour. VE 5//-2 (slightly more effaced than last exam) EFM 130 mod ivone +accels - decels [place]: Q3 minutes A/P 40 yo @ 37.6 [...] Contraction Quality: Moderate Resting Tone Palpated: Soft [place] (MVU): 270 Assessment: Labor Assessment: Patient has [...] Accelerations: Present Decelerations: None Uterine Activity Mode: [place] Contraction Frequency: 3.5-5 Contraction Duration: 60-90 Contraction [...] are stable. Continue all current management. * DallasHaley Kylah - 05/14/2011 3:51 PM EDT Labor Progress [...] Accelerations: Present Decelerations: Variable Uterine Activity Mode: [place] Contraction Frequency: 2-4 Contraction Duration: 80-140 Contraction [...] next exam would recommend section. * Nadya Sewell RN - 05/14/2011 1:04 PM EDT 1048-Patient [...] bedside, plan ofcare updated, CS discussed with patient.182-SVE- unchanged.182- AROM to clear fluid by Dr. Haynes,fundal pressure applied by Dr. Pierce during AROM. 1826- IUPC and FSE applied by Dr. Haynes.0- Pericare ,linen changed, and air pal placed.1900- Patient comfortable. * Nadya Sewell, RN - 05/14/2011 8:31 AM EDT 0715- [...] Decelerations: None Variability: moderate Uterine Activity Mode: [place] Contraction Frequency: rare Contraction Duration: 80-100 Contraction [...] PCN prophylaxis. Continue magnesium. Attending Progress Note VINCENT THOMPSON I reviewed the above note and [...] patient ate FH with minimal variability . aware 500 cc bolus L/R given * [...] Accelerations: Present Decelerations: None Uterine Activity Mode: [place] Contraction Frequency: 3-6 Contraction Duration: 30-60 Contraction [...] Accelerations: Present Decelerations: None Uterine Activity Mode: [place] Contraction Frequency: 2.5-5 Contraction Duration: 40-60 Contraction [...] Decelerations: none Variability: moderate Uterine Activity Mode: [place] Contraction Frequency: 2 to5 Contraction Duration: 20 [...] Dilation: 0.5 Effacement: Effacement: 50 Station: Station: [facility], -4 FHR Evaluation: Fetus A: Baseline Rate: 145 bpm Accelerations: Absent Decelerations: none Variability: moderate Uterine Activity Mode: [place] Contraction Frequency: 2 to5 Contraction Duration: 20 [...] Dilation: 0.5 Effacement: Effacement: 50 Station: Station: [facility], -4 FHR Evaluation: Fetus A: Baseline Rate: 150 bpm Accelerations: Present Deceleration: rare variable Variability: moderate Uterine Activity Mode: [place] Contraction Frequency: irregular Contraction Duration: 150 Contraction [...] for gestational age (3943 grams) Amniotic fluid knohzo56.8 cm Placenta fundal Presentation vertex Assessment 38 [...] Additional issues: ?? Will place misoprostol JENNIFER COLON 05/12/2011 MFM Attending Note: I have personally [...] Non-Hospital Problems Diagnoses ??? Mild preeclampsia ??? [facility] Delivery plan: Contraceptive plan: ??? GDM [...] feet Morbid obesity Psuedotumor Cerebri Care Provider: [facility] Admission History (per admit note cut [...] Strips Cmpk Summary: Dating Summary: 05/30/2011, Alternate ISSAC Entry Obstetric History: Obstetric History T1 TAB0 [...] ?? DELIVERY performed by SHEREE PIERCE at [facility] Family History: No family history on file. [...] this in detail. Call your doctor or machine tech for: Fever more than 100.5 Heavy bleeding [...] follow up appointment. You may call the [facility] at any time for guidance or for answers to questions that come up prior to you follow up appointment. Your [facility] Provider can be reached during office hours at [facility] Follow-up Clinic AFTER OFFICE HOURS for the rim fire charger operator or machine tech radiation oncology therapist Provider electronic signature confirms that discharge instructions were reviewed with the patient. A copy was printed and given to the patient. Future Appointments and Orders Future Orders Please Complete By Expires GLUCOSE TOLERANCE, 2 HOURS [[id number] Custom] 06/30/11 05/19/12 Process Instructions: Scheduling Instructions: Comments: -Perform at six weeks if diagnosed with gestational diabetes prior to visit. Questions: Responses: ? No Should this service/procedure be billed to the research sponsor? [facility] HOME HEALTH REFERRAL [PTI5443 CPT(R)] Process Instructions: Scheduling Instructions: Comments: Dilan Elias Being discharged to own home: [address] [facility] [address] [facility] [phone] (home) HOME HEALTH AGENCY: [facility] [employer] PHONE: [phone] FAX: [phone] RN orders: 1. Assess postoperative recovery: Incision [...] Questions: Responses: Agency name and contact information [facility] Patient location post discharge Home of pt's mom What services are requested Registered Nurse Start date 04/30/2011 Responsible MD post discharge contact info Maternal Medicine [facility] [phone] FOLLOW UP [[id number] Custom] Process Instructions: Scheduling Instructions: Comments: - gestational diabetic counseling with ems educator at the time of the visit if there is a diagnosis of gestational diabetes. Questions: Responses: FOLLOW UP [[id number] Custom] Process Instructions: Scheduling Instructions: Comments: - visit 6 weeks after delivery with [facility] provider. - visit 2 weeks after delivery for blood pressure check and Rx management Questions: Responses: Referrals: Cc: Provider Contact Information: FLORECITA DOUGLAS, BRAD [phone] Discharge References/Attachments: Discharge References/Attachments None Signed: JENNIFER COLON 05/21/2011 * Op Note - Jennifer Colon MD - 05/15/2011 11:23 PM EDT [facility] Operative Note Patient Name: Dilan Elias : [id number] MR#: [id number] Case Date: 05/15/2011 Surgeon: Surgeon(s) and Role: [...] followed easily and a live born female infant was delivered. The nose and mouth were [...] single area of nonhemostasis and a single [id number] was placed for hemostasis. Examination of the [...] The patient and tolerated the procedure well. was found to be hypoglycemic to 30's [...] (ml): 1500 Information for the patient's : Jada, Baby Girl [[id number]] Delivery 05/15/2011 6:55 AM by Lower Segment [...] Other providers: Delivery Assist Delivery Nurse Lizzie Lira Jennifer Kylah Colon Additional information: Forceps: Vacuum: Breech: Observed anomalies * Miscellaneous - Provider, Scanning - 05/13/2011 11:12 AM EDT documented in this encounter Plan of Treatment Not on file documented as of this encounter Procedures Procedure Name Priority Date/Time Associated Diagnosis Comments NUCLEATED RED BLOOD CELLS Routine 05/17/2011 7:45 AM EDT DIFFERENTIAL, AUTOMATED Routine 05/17/20 11 7:45 AM EDT CREATININE Routine 05/17/2011 7:45 [...] 05/12/2011 2:12 PM EDT TYPE AND SCREEN ([facility]/GAY) STAT 05/12/2011 1:50 PM EDT documented in [...] Sheree Dawn MD HEMATOLOGY ORDERABL ES CERNER 360piENNIUM * REFLEX LAB-NUCLEATED RED BLOOD CELLS (05/17/2011 7:45 AM EDT) NRBC% auto 0.0 0.0 - 0.2 % CERNER MILLENNIUM NRBC Absolute 0.000 0.000 - 0.012 x10(3)/mcL CERNER MILLENNIUM Blood specimen (specimen) 05/17/2011 7:45 AM EDT 05/17/2011 7:58 AM EDT Sheree Dawn MD HEMATOLOGY ORDERABL ES Performing Organization Address City/[facility]/ZIP Co de Phone Number [employer]ERMilestone PharmaceuticalsIUM * (ABNORMAL) Creatinine, serum (05/17/2011 7:45 AM EDT) Creatinine 0.64(L) 0.70 - 1.20 mg/dL CERNER MILLENNIUM Est [...] MD CHEMISTRY ORDERABLE S Performing Organization Address [facility] de Phone Number CERNER MILLENNIUM * Aspartate Aminotransferase (05/17/2011 7:45 AM EDT) Aspartate Aminotransferase 20 0 - 30 unit/L CERNER MILLENNIUM Blood specimen (specimen) 05/17/2011 7:45 AM EDT 05/17/2011 7:58 AM EDT Sheree Dawn MD CHEMISTRY ORDERABLE S Performing Organization Address [facility] Co de Phone Number CERNER MILLENNIUM * (ABNORMAL) CBC (with Diff) (05/17/2011 7:45 [...] Hemoglobin Concentration 32.0 32.0 - 36.5 gm/dL [facility] Platelet 325 145 - 370 x10(3)/mc L [facility] RDW Standard Deviation 51.9(H) 35.0 - 46.0 fL [facility] RDW coefficient of variation 17.8(H) 10.9 - 14.4 % [facility] Mean Platelet Volume 9.9 9.0 - 12.0 fL [facility] Blood specimen (specimen) 05/17/2011 7:45 AM EDT 05/17/2011 7:58 AM EDT Sheree Dawn MD HEMATOLOGY ORDERABL ES Performing Organization Address [facility] de Phone Number [facility] * POCT GLUCOSE LAB USE ONLY (05/16/2011 5:08 PM EDT) Glucose, POC 131 60 - 199 mg/dL [facility] Comment: Supplemental ranges: <110 mg/dL before meals <200 mg/dL all other times of the day Blood specimen (specimen) 05/16/2011 5:08 PM EDT 05/16/2011 5:08 PM EDT Lori Godwin MD POINT OF CARE TEST O RDERABLES Performing Organization Address [facility] de Phone Number [facility] * Aspartate Aminotransferase (05/16/2011 11:11 AM EDT) Aspartate Aminotransferase Not Perf 0 - 30 unit/L [facility] Comment: Unable to quantitate due to sample hemolysis. ??Sample redraw suggested. called /dilan dye, 05/16/11 12:13 Blood specimen (specimen) 05/16/2011 11:11 AM EDT 05/16/2011 11:15 AM EDT Lori Godwin MD CHEMISTRY ORDERABLES Performing Organization Address [facility] de Phone Number [facility] * (ABNORMAL) REFLEX LAB-A-DIFF (05/16/2011 8:45 AM [...] 0.03 0.00 - 0.05 x10(3)/mc L LAURYN SWANNENNIUM Blood specimen (specimen) 05/16/2011 8:45 AM EDT 05/16/2011 8:51 AM EDT Sheree Dawn MD HEMATOLOGY ORDERABL ES LAURYN HUTCHISONIUM * REFLEX LAB-NUCLEATED RED BLOOD CELLS (05/16/2011 8:45 AM EDT) NRBC% auto 0.0 0.0 - 0.2 % CERNER MILLENNIUM NRBC Absolute 0.000 0.000 - 0.012 x10(3)/mcL [facility] Blood specimen (specimen) 05/16/2011 8:45 AM EDT 05/16/2011 8:51 AM EDT Sheree Dawn MD HEMATOLOGY ORDERABL ES [facility] * Creatinine, serum (05/16/2011 8:45 AM EDT) Creatinine 0.74 0.70 - 1.20 mg/dL [facility] Est Glomerular Filtration Rate >60 >=60 [facility] Comment: The National Kidney Disease Education Program [...] EDT Sheree Dawn MD CHEMISTRY ORDERABLE S LAURYN HUTCHISONIUM * Aspartate Aminotransferase (05/16/2011 8:45 AM EDT) Aspartate Aminotransferase Not Perf 0 - 30 unit/L CERNER MILLENNIUM Comment: Unable to quantitate due to sample hemolysis. ??Sample redraw suggested. called / yoan singletary, 05/16/11 09:22 Blood specimen (specimen) 05/16/2011 8:45 AM EDT 05/16/2011 8:51 AM EDT Sheree Dawn MD CHEMISTRY ORDERABLE S Performing Organization Address City/[facility]/ZIP Co de Phone Number CERLEONARD HUTCHISONIUM * (ABNORMAL) CBC (with Diff) (05/16/2011 8:45 [...] MD HEMATOLOGY ORDERABL ES Performing Organization Address [facility]/ZIP Co de Phone Number CERNER MILLENNIUM * (ABNORMAL) REFLEX LAB-A-DIFF (05/15/2011 8:35 PM [...] x10(3)/mc L CERNER MILLENNIUM Blood specimen (specimen) 05/15/2011 8:35 PM EDT 05/15/2011 8:40 PM EDT Sheree Dawn MD HEMATOLOGY ORDERABL ES CERLEONARD SWANNENNIUM * Creatinine, serum (05/15/2011 8:35 PM EDT) Creatinine 0.76 0.70 - 1.20 mg/dL [facility] Est Glomerular Filtration Rate >60 >=60 [facility] Comment: The National Kidney Disease Education Program [...] EDT Sheree Dawn MD CHEMISTRY ORDERABLE S [facility] * Aspartate Aminotransferase (05/15/2011 8:35 PM EDT) Aspartate Aminotransferase 19 0 - 30 unit/L [facility] Blood specimen (specimen) 05/15/2011 8:35 PM EDT 05/15/2011 8:40 PM EDT Sheree Dawn MD CHEMISTRY ORDERABLE S CERNER MILLENNIUM * (ABNORMAL) CBC (with Diff) (05/15/2011 8:35 PM EDT) White Blood Cell 12.5(H) 4.0 - 10.0 x10(3)/mc L CERNER MILLENNIUM Red Blood Cell 3.60(L) 3.93 - 5.22 x10(6)/mc L CERNER MILLENNIUM Hemoglobin 9.4(L) 11.2 - 15.7 gm/dL CERNER MILLENNIUM Comment: Called by: _, Read back by: NIKHIL LEDESMA_, Date-Time:05-15-11 20:55 [...] EDT Sheree Dawn MD HEMATOLOGY ORDERABL ES CERLEONARD HUTCHISONIUM * Surgical Pathology Report (05/15/2011 10:27 AM EDT) Surgical Pathology Report 00- [id number] ? Location: BP; BP11; B The signing [...] report in rendering the final pathologic diagnosis. GAVINOLEONARD SHREEBENJAMIN 05/15/2011 10:2 7 AM EDT Sheree Dawn MD PATHOLOGY/CYTOLOGY ORDERABLES [facility] * SURGICAL PATHOLOGY REPORT (05/15/2011 10:27 AM EDT) Surgical Pathology Report ? [facility] ? Provider: ?? SHEREE PIERCE ?Pt. Name: ?? DILAN ELIAS ? Acc #: ?[id number] ?Pt. ? Col Date: ?? 05/15/2011 ? [...] surface with ? parenchyma. ??(R4) ??aje/YX ? [facility] ? Provider: ?? NOVELLO, SHEREE ?Pt. Name: ?? DILAN ELIAS ? Acc #: ?[id number] ?Pt. ? Col Date: ?? 05/15/2011 ? /Sex: ?1970,(40 ? years),Female ? Rec Date: ?? 05/18/2011 ? LOC: ?BP ? SURGICAL PATHOLOGY ? ---Clinical Information--- ? Specimen Submitted: ? A - Placenta ? Clinical History/Diagnosis: ? 40 years old with preeclampsia and GDM S/P C section delivery [facility] 05/15/2011 10:2 7 AM EDT Sheree Dawn MD PATHOLOGY/CYTOLOGY ORDERABLES Performing Organization Address [facility] Phone Number [facility] * POCT GLUCOSE LAB USE ONLY (05/15/2011 4:57 AM EDT) Glucose, POC 126 60 - 199 mg/dL [facility] Comment: Supplemental ranges: <110 mg/dL before meals <200 mg/dL all other times of the day Blood specimen (specimen) 05/15/2011 4:57 AM EDT 05/15/2011 4:57 AM EDT Lori Godwin MD POINT OF CARE TEST O RDERAASHUTOSH Performing Organization Address [facility] Phone Number [facility] * POCT GLUCOSE LAB USE ONLY (05/15/2011 4:02 AM EDT) Glucose, POC 132 60 - 199 mg/dL [facility] Comment: Supplemental ranges: <110 mg/dL before meals <200 mg/dL all other times of the day Blood specimen (specimen) 05/15/2011 4:02 AM EDT 05/15/2011 4:02 AM EDT Lori Godwin MD POINT OF CARE TEST O RDERAASHUTOSH Performing Organization Address [facility] Phone Number [facility] * POCT GLUCOSE LAB USE ONLY (05/15/2011 3:29 AM EDT) Glucose, POC 141 60 - 199 mg/dL [facility] Comment: Supplemental ranges: <110 mg/dL before meals <200 mg/dL all other times of the day Blood specimen (specimen) 05/15/2011 3:29 AM EDT 05/15/2011 3:29 AM EDT Lori Godwin MD POINT OF CARE TEST O RAHEEM Performing Organization Address [facility] de Phone Number [facility] * POCT GLUCOSE LAB USE ONLY (05/15/2011 2:31 AM EDT) Glucose, POC 112 60 - 199 mg/dL [facility] Comment: Supplemental ranges: <110 mg/dL before meals <200 mg/dL all other times of the day Blood specimen (specimen) 05/15/2011 2:31 AM EDT 05/15/2011 2:31 AM EDT Lori Godwin MD POINT OF CARE TEST O RAHEEM Performing Organization Address [facility] de Phone Number [facility] * POCT GLUCOSE LAB USE ONLY (05/15/2011 1:29 AM EDT) Glucose, POC 117 60 - 199 mg/dL [facility] Comment: Supplemental ranges: <110 mg/dL before meals <200 mg/dL all other times of the day Blood specimen (specimen) 05/15/2011 1:29 AM EDT 05/15/2011 1:29 AM EDT Lori Godwin MD POINT OF CARE TEST O RAHEEM Performing Organization Address [facility] de Phone Number [facility] * POCT GLUCOSE LAB USE ONLY (05/15/2011 12:26 AM EDT) Glucose, POC 129 60 - 199 mg/dL [facility] Comment: Supplemental ranges: <110 mg/dL before meals <200 mg/dL all other times of the day Blood specimen (specimen) 05/15/2011 12:26 AM EDT 05/15/2011 12:26 AM EDT Lori Godwin MD POINT OF CARE TEST O RAHEEM Performing Organization Address [facility] de Phone Number [facility] * POCT GLUCOSE LAB USE ONLY (05/14/2011 11:29 PM EDT) Glucose, POC 109 60 - 199 mg/dL [facility] Comment: Supplemental ranges: <110 mg/dL before meals <200 mg/dL all other times of the day Blood specimen (specimen) 05/14/2011 11:29 PM EDT 05/14/2011 11:29 PM EDT Lori Godwin MD POINT OF CARE TEST O RAHEEM Performing Organization Address [facility] de Phone Number [facility] * POCT GLUCOSE LAB USE ONLY (05/14/2011 10:28 PM EDT) Glucose, POC 111 60 - 199 mg/dL [facility] Comment: Supplemental ranges: <110 mg/dL before meals <200 mg/dL all other times of the day Blood specimen (specimen) 05/14/2011 10:28 PM EDT 05/14/2011 10:28 PM EDT Lori Godwin MD POINT OF CARE TEST O RAHEEM Performing Organization Address [facility] de Phone Number [facility] * POCT GLUCOSE LAB USE ONLY (05/14/2011 9:28 PM EDT) Glucose, POC 102 60 - 199 mg/dL [facility] Comment: Supplemental ranges: <110 mg/dL before meals <200 mg/dL all other times of the day Blood specimen (specimen) 05/14/2011 9:28 PM EDT 05/14/2011 9:28 PM EDT Lori Godwin MD POINT OF CARE TEST O RDERABLES LAURYN HUTCHISONIUM * POCT GLUCOSE LAB USE ONLY (05/14/2011 8:32 PM EDT) Glucose, POC 104 60 - 199 mg/dL CERNER MILLENNIUM Comment: Supplemental ranges: <110 mg/dL before meals <200 mg/dL all other times of the day Blood specimen (specimen) 05/14/2011 8:32 PM EDT 05/14/2011 8:32 PM EDT Lori Godwin MD POINT OF CARE TEST O RDERABLES Performing Organization Address [facility]/ZIP Co de Phone Number LAURYN HUTCHISONIUM * (ABNORMAL) REFLEX LAB-A-DIFF (05/14/2011 8:20 PM EDT) Neutrophil % 83.3(H) 34.0 - 71.0 % CERNER MILLENNIUM Neutrophil Absolute 10.19(H) 1.50 - 6.30 x10(3)/mc L CERNER MILLENNIUM Lymph % 10.4(L) 19.0 - 53.0 % CERNER MILLENNIUM Lymphocytes Abs 1.3 1.0 - 3.6 x10(3)/mc L CERNER MILLENNIUM Monocyte % 5.4 4.0 - 13.0 % [...] Absolute 0.04 0.00 - 0.05 x10(3)/mc L CERLEONARD 360piENNIUM Blood specimen (specimen) 05/14/2011 8:20 PM EDT 05/14/2011 8:25 PM EDT Lori Godwin MD HEMATOLOGY ORDERABLE S [facility] [employer] * (ABNORMAL) Creatinine, serum (05/14/2011 8:20 PM EDT) Creatinine 0.69(L) 0.70 - 1.20 mg/dL CERNER MILLENNIUM Est Glomerular Filtration Rate >60 >=60 CERNER [facility]NIUM Comment: The National Kidney Disease Education Program [...] Godwin MD CHEMISTRY ORDERABLES Performing Organization Address [facility] de Phone Number CERNER SHREEENNIUM * Aspartate Aminotransferase (05/14/2011 8:20 PM EDT) Aspartate Aminotransferase 22 0 - 30 unit/L CERNER MILLENNIUM Blood specimen (specimen) 05/14/2011 8:20 PM EDT 05/14/2011 8:25 PM EDT Lori Godwin MD CHEMISTRY ORDERABLES Performing Organization Address [facility] de Phone Number CERNER MILLENNIUM * (ABNORMAL) [...] Cell Hemoglobin 26.6 26.6 - 32.2 pg CERNER MILLENNIUM Mean Cell Hemoglobin Concentration 33.1 32.0 - 36.5 gm/dL CERNER MILLENNIUM Platelet 354 145 - 370 x10(3)/mc L CERNER MILLENNIUM RDW Standard Deviation 50.8(H) 35.0 - 46.0 fL CERNER MILLENNIUM RDW coefficient of variation 17.5(H) 10.9 - 14.4 % CERNER MILLENNIUM Mean Platelet Volume 10.4 9.0 - 12.0 fL CERNER MILLENNIUM Blood specimen (specimen) 05/14/2011 8:20 PM EDT 05/14/2011 8:25 PM EDT Lori Godwin MD HEMATOLOGY ORDERABLE S Performing Organization Address [facility] Co de Phone Number [facility] * POCT GLUCOSE LAB USE ONLY (05/14/2011 7:32 PM EDT) Glucose, POC 105 60 - 199 mg/dL [facility] Comment: Supplemental ranges: <110 mg/dL before meals <200 mg/dL all other times of the day Blood specimen (specimen) 05/14/2011 7:32 PM EDT 05/14/2011 7:32 PM EDT Lori Godwin MD POINT OF CARE TEST O RDERABLES Performing Organization Address [facility] de Phone Number [facility] * POCT GLUCOSE LAB USE ONLY (05/14/2011 6:35 PM EDT) Glucose, POC 110 60 - 199 mg/dL [facility] Comment: Supplemental ranges: <110 mg/dL before meals <200 mg/dL all other times of the day Blood specimen (specimen) 05/14/2011 6:35 PM EDT 05/14/2011 6:35 PM EDT Lori Godwin MD POINT OF CARE TEST O RDERAASHUTOSH Performing Organization Address [facility] de Phone Number [facility] * POCT GLUCOSE LAB USE ONLY (05/14/2011 5:33 PM EDT) Glucose, POC 121 60 - 199 mg/dL [facility] Comment: Supplemental ranges: <110 mg/dL before meals <200 mg/dL all other times of the day Blood specimen (specimen) 05/14/2011 5:33 PM EDT 05/14/2011 5:33 PM EDT Lori Godwin MD POINT OF CARE TEST O RDERAASHUTOSH Performing Organization Address [facility] Co de Phone Number [facility] * POCT GLUCOSE LAB USE ONLY (05/14/2011 4:26 PM EDT) Glucose, POC 114 60 - 199 mg/dL [facility] Comment: Supplemental ranges: <110 mg/dL before meals <200 mg/dL all other times of the day Blood specimen (specimen) 05/14/2011 4:26 PM EDT 05/14/2011 4:26 PM EDT Lori Godwin MD POINT OF CARE TEST O RAHEEM Performing Organization Address [facility] de Phone Number [facility] * POCT GLUCOSE LAB USE ONLY (05/14/2011 3:06 PM EDT) Glucose, POC 119 60 - 199 mg/dL [facility] Comment: Supplemental ranges: <110 mg/dL before meals <200 mg/dL all other times of the day Blood specimen (specimen) 05/14/2011 3:06 PM EDT 05/14/2011 3:06 PM EDT Lori Godwin MD POINT OF CARE TEST O RAHEEM Performing Organization Address [facility] de Phone Number [facility] * POCT GLUCOSE LAB USE ONLY (05/14/2011 2:02 PM EDT) Glucose, POC 123 60 - 199 mg/dL [facility] Comment: Supplemental ranges: <110 mg/dL before meals <200 mg/dL all other times of the day Blood specimen (specimen) 05/14/2011 2:02 PM EDT 05/14/2011 2:02 PM EDT Lori Godwin MD POINT OF CARE TEST O RAHEEM Performing Organization Address [facility] de Phone Number [facility] * POCT GLUCOSE LAB USE ONLY (05/14/2011 12:44 PM EDT) Glucose, POC 123 60 - 199 mg/dL [facility] Comment: Supplemental ranges: <110 mg/dL before meals <200 mg/dL all other times of the day Blood specimen (specimen) 05/14/2011 12:44 PM EDT 05/14/2011 12:44 PM EDT Lori Godwin MD POINT OF CARE TEST O RAHEEM Performing Organization Address [facility] Co de Phone Number [facility] * POCT GLUCOSE LAB USE ONLY (05/14/2011 11:45 AM EDT) Glucose, POC 132 60 - 199 mg/dL [facility] Comment: Supplemental ranges: <110 mg/dL before meals <200 mg/dL all other times of the day Blood specimen (specimen) 05/14/2011 11:45 AM EDT 05/14/2011 11:45 AM EDT Lori Godwin MD POINT OF CARE TEST O RAHEEM Performing Organization Address [facility] Co de Phone Number [facility] * POCT GLUCOSE LAB USE ONLY (05/14/2011 11:11 AM EDT) Glucose, POC 143 60 - 199 mg/dL [facility] Comment: Supplemental ranges: <110 mg/dL before meals <200 mg/dL all other times of the day Blood specimen (specimen) 05/14/2011 11:11 AM EDT 05/14/2011 11:11 AM EDT Lori Godwin MD POINT OF CARE TEST Virgen MACIEL Performing Organization Address [facility] Co de Phone Number [facility] * POCT GLUCOSE LAB USE ONLY (05/14/2011 10:09 AM EDT) Glucose, POC 128 60 - 199 mg/dL [facility] Comment: Supplemental ranges: <110 mg/dL before meals <200 mg/dL all other times of the day Blood specimen (specimen) 05/14/2011 10:09 AM EDT 05/14/2011 10:09 AM EDT Lori Godwin MD POINT OF CARE TEST O RDERABLES LAURYN SWANNENNIUM * (ABNORMAL) REFLEX LAB-A-DIFF (05/14/2011 7:40 AM [...] Absolute 0.06(H) 0.00 - 0.05 x10(3)/mc L CERNER MILLENNIUM Blood specimen (specimen) 05/14/2011 7:40 AM EDT 05/14/2011 7:45 AM EDT Lori Godwni MD HEMATOLOGY ORDERABLE S Performing Organization Address City/[facility]/ZIP Co de Phone Number LAURYN HUTCHISONIUM * Creatinine, serum (05/14/2011 7:40 AM EDT) Creatinine 0.74 0.70 - 1.20 mg/dL [facility] Est Glomerular Filtration Rate >60 >=60 [facility] Comment: The National Kidney Disease Education Program [...] Godwin MD CHEMISTRY ORDERABLES Performing Organization Address City/State/[facility] Co de Phone Number [facility] * Aspartate Aminotransferase (05/14/2011 7:40 AM EDT) Aspartate Aminotransferase 19 0 - 30 unit/L [facility] Blood specimen (specimen) 05/14/2011 7:40 AM EDT 05/14/2011 7:45 AM EDT Lori Godwin MD CHEMISTRY ORDERABLES Performing Organization Address City/State/[facility] de Phone Number LAURYN HAND * (ABNORMAL) CBC (with Diff) (05/14/2011 7:40 [...] MD HEMATOLOGY ORDERABLE S Performing Organization Address [facility] de Phone Number LAURYN HAND * POCT GLUCOSE LAB USE ONLY (05/14/2011 5:43 AM EDT) Glucose, POC 115 60 - 199 mg/dL [facility] Comment: Supplemental ranges: <110 mg/dL before meals <200 mg/dL all other times of the day Blood specimen (specimen) 05/14/2011 5:43 AM EDT 05/14/2011 5:43 AM EDT Lori Godwin MD POINT OF CARE TEST O RDERABLES LAURYN HUTCHISONIUM * POCT GLUCOSE LAB USE ONLY (05/13/2011 9:37 PM EDT) Glucose, POC 125 60 - 199 mg/dL CERNER MILLENNIUM Comment: Supplemental ranges: <110 mg/dL before meals <200 mg/dL all other times of the day Blood specimen (specimen) 05/13/2011 9:37 PM EDT 05/13/2011 9:37 PM EDT Lori Godwin MD POINT OF CARE TEST O RDERABLES LAURYN HAND * (ABNORMAL) REFLEX LAB-A-DIFF (05/13/2011 7:30 PM EDT) Neutrophil % 83.1(H) 34.0 - 71.0 % CERNER MILLENNIUM Neutrophil Absolute 9.91(H) 1.50 - 6.30 x10(3)/mc [...] Absolute 0.04 0.00 - 0.05 x10(3)/mc L [facility] Blood specimen (specimen) 05/13/2011 7:30 PM EDT 05/13/2011 7:38 PM EDT Lori Godwin MD HEMATOLOGY ORDERABLE S LAURYN HUTCHISONIUM * Creatinine, serum (05/13/2011 7:30 PM EDT) Creatinine 0.71 0.70 - 1.20 mg/dL CERNER 360piENNIUM Est Glomerular Filtration Rate >60 >=60 CERNER [...] Godwin MD CHEMISTRY ORDERABLES Performing Organization Address [facility] Co de Phone Number CERNER MILLENNIUM * Aspartate Aminotransferase (05/13/2011 7:30 PM EDT) Aspartate Aminotransferase 19 0 - 30 unit/L CERNER MILLENNIUM Blood specimen (specimen) 05/13/2011 7:30 PM EDT 05/13/2011 7:38 PM EDT Lori Godwin MD CHEMISTRY ORDERABLES Performing Organization Address [facility] de Phone Number CERNER MILLENNIUM * (ABNORMAL) [...] Platelet 347 145 - 370 x10(3)/mc L CERNER MILLENNIUM RDW Standard Deviation 50.7(H) 35.0 - 46.0 fL CERNER MILLENNIUM RDW coefficient of variation 17.4(H) 10.9 - 14.4 % CERNER MILLENNIUM Mean Platelet Volume 10.2 9.0 - 12.0 fL CERNER MILLENNIUM Blood specimen (specimen) 05/13/2011 7:30 PM EDT 05/13/2011 7:38 PM EDT Lori Godwin MD HEMATOLOGY ORDERABLE S Performing Organization Address City/[facility] Co de Phone Number CERNER MILLENNIUM * POCT GLUCOSE LAB USE ONLY (05/13/2011 4:32 PM EDT) Glucose, POC 112 60 - 199 mg/dL [facility] Comment: Supplemental ranges: <110 mg/dL before meals <200 mg/dL all other times of the day Blood specimen (specimen) 05/13/2011 4:32 PM EDT 05/13/2011 4:32 PM EDT Lori Godwin MD POINT OF CARE TEST O RDERABLES [facility] * POCT urine dipstick (05/13/2011 4:00 PM EDT) POC Sp [place] 1.002 - 1.030 POC pH, UA 5.0 [...] dipstick (05/13/2011 12:00 PM EDT) POC Sp [place] 1.002 - 1.030 POC pH, UA 5.0 [...] Glucose, POC 125 60 - 199 mg/dL [facility] Comment: Supplemental ranges: <110 mg/dL before meals <200 mg/dL all other times of the day Blood specimen (specimen) 05/13/2011 11:48 AM EDT 05/13/2011 11:48 AM EDT Lori Godwin MD POINT OF CARE TEST O RDERABLES Performing Organization Address [facility]/ZIP Co de Phone Number [facility] * POCT GLUCOSE LAB USE ONLY (05/13/2011 9:23 AM EDT) Glucose, POC 102 60 - 199 mg/dL [facility] Comment: Supplemental ranges: <110 mg/dL before meals <200 mg/dL all other times of the day Blood specimen (specimen) 05/13/2011 9:23 AM EDT 05/13/2011 9:23 AM EDT Lori Godwin MD POINT OF CARE TEST O RDERAASHUTOSH Performing Organization Address [facility] Co de Phone Number [facility] * POCT urine dipstick (05/13/2011 7:50 AM EDT) POC Sp [place] 1.002 - 1.030 POC pH, UA 5.0 [...] Neutrophil % 73.7(H) 34.0 - 71.0 % [facility] Neutrophil Absolute 7.35(H) 1.50 - 6.30 x10(3)/mc L [facility] Lymph % 19.1 19.0 - 53.0 % [...] 0.03 0.00 - 0.05 x10(3)/mc L CERNER SHREEENNIUM Blood specimen (specimen) 05/13/2011 5:50 AM EDT 05/13/2011 6:02 AM EDT Lori Godwin MD HEMATOLOGY ORDERABLE S Performing Organization Address City/[facility]/ZIP Co de Phone Number LAURYN HAND * GREEN TUBE HOLD (05/13/2011 5:50 AM EDT) Green Hold Sample in lab. LAURYN HUTCHISONIUM Blood specimen (specimen) 05/13/2011 5:50 AM EDT 05/13/2011 6:03 AM EDT Lori Godwin MD CHEMISTRY ORDERABLES LAURYN HUTCHISONIUM * (ABNORMAL) Creatinine, serum (05/13/2011 5:50 AM EDT) Creatinine 0.66(L) 0.70 - 1.20 mg/dL CERNER MILLENNIUM Est [...] Godwin MD CHEMISTRY ORDERABLES Performing Organization Address City/[facility] Co de Phone Number LAURYN SHREEBENJAMIN * Aspartate Aminotransferase (05/13/2011 5:50 AM EDT) Aspartate Aminotransferase 20 0 - 30 unit/L LAURYN HUTCHISONIUM Blood specimen (specimen) 05/13/2011 5:50 AM EDT 05/13/2011 6:02 AM EDT Lori Godwin MD CHEMISTRY ORDERABLES Performing Organization Address City/[facility] Co de Phone Number [facility] * (ABNORMAL) CBC (with Diff) (05/13/2011 5:50 AM EDT) White Blood Cell 10.0 4.0 - 10.0 x10(3)/mc L [facility] Red Blood Cell 4.56 3.93 - 5.22 x10(6)/mc L [facility] [place] MILLENNIUM Hemoglobin 11.9 11.2 - 15.7 gm/dL [facility] MILLENNIUM Hematocrit 36.9 34.0 - 45.0 % [facility] [place] MILLENNIUM Mean Cell Volume 80.9 79.0 - 94.0 fL [facility] [place] MILLENNIUM Mean Cell Hemoglobin 26.1(L) 26.6 - 32.2 pg [facility] Mean Cell Hemoglobin Concentration 32.2 32.0 - 36.5 gm/dL [facility] MILLENNIUM Platelet 296 145 - 370 x10(3)/mc L [facility] [place] MILLENNIUM RDW Standard Deviation 51.1(H) 35.0 - 46.0 fL [facility] [place] MILLENNIUM RDW coefficient of variation 17.7(H) 10.9 - 14.4 % [facility] [place] MILLENNIUM Mean Platelet Volume 10.6 9.0 - 12.0 fL [facility] MILLENNIUM Blood specimen (specimen) 05/13/2011 5:50 AM EDT 05/13/2011 6:02 AM EDT Lori Godwin MD HEMATOLOGY ORDERABLE S Performing Organization Address City/[facility] Co de Phone Number [facility] * POCT GLUCOSE LAB USE ONLY (05/12/2011 9:11 PM EDT) Glucose, POC 108 60 - 199 mg/dL [facility] Comment: Supplemental ranges: <110 mg/dL before meals <200 mg/dL all other times of the day Blood specimen (specimen) 05/12/2011 9:11 PM EDT 05/12/2011 9:11 PM EDT Lori Godwin MD POINT OF CARE TEST O RDERABLES Performing Organization Address City/[facility] Co de Phone Number [facility]UTCHISONI[facility] * POCT GLUCOSE LAB USE ONLY (05/12/2011 7:56 PM EDT) Glucose, POC 129 60 - 199 mg/dL [facility] Comment: Supplemental ranges: <110 mg/dL before meals <200 mg/dL all other times of the day Blood specimen (specimen) 05/12/2011 7:56 PM EDT 05/12/2011 7:56 PM EDT Lori Godwin MD POINT OF CARE TEST O RDERAASHUTOSH Performing Organization Address [facility] Co de Phone Number [facility] * POCT GLUCOSE LAB USE ONLY (05/12/2011 4:19 PM EDT) Glucose, POC 119 60 - 199 mg/dL [facility] Comment: Supplemental ranges: <110 mg/dL before meals <200 mg/dL all other times of the day Blood specimen (specimen) 05/12/2011 4:19 PM EDT 05/12/2011 4:19 PM EDT Lori Godwin MD POINT OF CARE TEST O RDERAASHUTOSH Performing Organization Address [facility] de Phone Number [facility] * (ABNORMAL) REFLEX LAB-A-DIFF (05/12/2011 2:12 PM EDT) Neutrophil % 74.9(H) 34.0 - 71.0 % [facility] Neutrophil Absolute 7.28(H) 1.50 - 6.30 x10(3)/mc L CERNER MILLENNIUM Lymph % 17.1(L) 19.0 - 53.0 % [facility] Lymphocytes Abs 1.7 1.0 - 3.6 x10(3)/mc [...] Absolute 0.0 0.0 - 0.2 x10(3)/mc L CERLEONARD SWANNENNIUM Immature Gran % 0.30 0.00 - 0.66 [...] EDT Xu Ellis MD HEMATOLOGY ORDERABLE S Performing Organization Address [facility] de Phone Number LAURYN HAND * REFLEX LAB-ANTIBODY SCREEN (05/12/2011 2:12 PM EDT) Ab Screen Interp Negative LAURYN HAND Expires at [id number] on: [id number] LAURYN HUTCHISONIUM Blood specimen (specimen) 05/12/2011 2:12 PM EDT 05/12/2011 2:29 PM EDT Xu Ellis MD BLOOD BANK LAB ORDER NIVIA Performing Organization Address City/[facility] de Phone Number LAURYN HAND * REFLEX LAB-ABO/RH TYPING (05/12/2011 2:12 PM EDT) ABORH Type O Pos LAURYN HUTCHISONIUM Blood specimen (specimen) 05/12/2011 2:12 PM EDT 05/12/2011 2:29 PM EDT Xu Ellis MD BLOOD BANK LAB ORDER NIVIA Performing Organization Address [facility] Co de Phone Number LAURYN HUTCHISONIUM * (ABNORMAL) CBC (with Diff) (05/12/2011 2:12 [...] EDT Xu Ellis MD HEMATOLOGY ORDERABLE S [facility] [place] SHREEENNIUM * (ABNORMAL) Creatinine, serum (05/12/2011 2:12 PM [...] Ellis MD CHEMISTRY ORDERABLES Performing Organization Address City/[facility] Co de Phone Number LAURYN HAND * Aspartate Aminotransferase (05/12/2011 2:12 PM EDT) Aspartate Aminotransferase 18 0 - 30 unit/L LAURYN HAND Blood specimen (specimen) 05/12/2011 2:12 PM EDT 05/12/2011 2:29 PM EDT Xu Ellis MD CHEMISTRY ORDERABLES Performing Organization Address [facility] Co de Phone Number LAURYN HAND documented in this encounter Visit Diagnoses Not on filedocumented in this encounter Active and Recently Administered Medications Times are shown in EDT. Scheduled Medication Order 05/17/2011 05/18/2011 05/19/2011 docusate sodium (COLACE) capsule 100 mg 100 mg, Oral, 2 TIMES DAILY, First dose on Wed05/15/11 at 0930, Until Discontinued, Routine 0900 (Not Given - Provider: Dayana Mcfarland RN - Reason: Patient/family refused)2104 (Given - Provider: Lori Messer RN) 105 (Given - Provider: Tamera Keenan RN)2100 (Given - Provider: Bere Rivers RN) 08 (Given - Provider: Tamera Keenan RN) enoxaparin [...] Wed05/18/11 at 0900, Until Discontinued, Routine 0900 (Due)105 (Given - Provider: Tamera Keenan RN)2100 (Given - Provider: Bere Rivers RN) 08 (Given - Provider: Tamera Keenan RN) PRN [...] Dayana Mcfarland RN)2105 (Given - Provider: Lori Messer, JESSI) 0120 (Given - Provider: Lori Messer RN)0512 (Given - Provider: Lori Messer RN)1130 (Given - Provider: Tamera Keenan RN)1605 (Given - Provider: Tamera Keenan RN)2000 (Given - Provider: Bere Rivers RN) 0249 (Given - Provider: Bere Rivers RN)0705 (Given - Provider: Bere Rivers RN)1137 (Given - Provider: Tamera Keenan RN) zolpidem (AMBIEN) tablet 5 mg (CANCELED) 5 mg, Oral, NIGHTLY PRN, Starting on Wed05/19/11 at 0257, Until Wed05/19/11 at 1541, Sleep, Routine 0258 (Given - Provider: Bere Rivers RN) documented in this encounter Care Teams Field Placement Director Relationship Specialty Start Date End Date Florecita Douglas APRN PCP - General 11/10/10 07/01/16 documented as of this encounter
--- OUTSIDE RECORDS SUMMARY | 2024-11-24 00:31 | XMS_ITS | Encounter Summary ---
Author Organization [facility] [place] [address] Care Team Providers Care Reservoir Caretaker Name Role Phone Jackelyn Richey APRN Primary Care Provider Unav ailable Reason for Visit * Reason Comments Nutrition Counseling Encounter Details Date Type Department Care Team (Late st Contact Info) Description 04/14/2011 2:00 PM EDT Office Visit Obstetrics [place] [phone] Jody Ervin LD GDM (gestational diabetes mellitus) (Primary Dx) Social History Tobacco Use Types [...] as of this encounter Progress Notes * Jody Ervin LD - 04/14/2011 2:40 PM EDT NUTRITION SERVICES OUTPATIENT VISIT FOR Gestational Diabetes S: Newly DX GDM: EDC: 05/30/2011 Typical daily intake: Breakfast: 2 slices toast, egg, fruit, milk Lunch: sandwich, tomato, lettuce, milk, cheese Snack: fruit, crackers, peanut butter Dinner: starch, meat, vegetable, milk Snack: varies Activity Level: no regular activity A: GDM Estimated Energy Needs: 1800 kcals Estimated Protein Needs: 90 grams Obese: BMI >29 not less than 1800 kcals 15# weight gain Patient verbalized understanding of diet instruction and was able to plan a sample menu without my assistance. Goals of MNT: Carbohydrate controlled meal plan that promotes adequate nutrition and appropriate weight gain, normoglycemia and absence of Ketosis. P: Disease and Wellness education: Nutrition needs for Instructed patient on a 9003-9503 calorie carbohydrate meal plan distributed in 3 meals and 3 snacks emphasizing nutrition needs for . Label reading Dining out Menu planning Grocery shopping SMBG checks QID Provided Nutrition for a Woman with gestational Diabetes: patient instructed to call me with any questions or concerns-phone number provided. The appointment consisted of 60 minutes of direct nutrition education and counseling. documented in this encounter Plan of Treatment Not on file documented as of this encounter Visit Diagnoses Diagnosis GDM (gestational diabetes mellitus)- Primary Abnormal maternal glucose tolerance, complicating , childbirth, or the puerperium, unspecified as to episode of care documented in this encounter Care Teams Reservoir Caretaker Relationship Specialty Start Date End Date Jackelyn Richey APRN PCP - General 11/10/10 07/01/16 documented as of this encounter
--- OUTSIDE RECORDS SUMMARY | 2024-11-24 00:31 | XMS_ITS | Encounter Summary ---
Author Organization [facility] [place] [address] Care Team Providers Care Station Attendant Name Role Phone Jackelyn Richey APRN Primary Care Provider Unav ailable Encounter Details Date Type Department Care Team (Late st Contact Info) Description 05/05/2011 10:45 AM EDT Procedure visit Obstetrics [place] [phone] Social History Tobacco Use Types Packs/Day Years [...] on filedocumented in this encounter Care Teams Station Attendant Relationship Specialty Start Date End Date Jackelyn Richey APRN PCP - General 11/10/10 07/01/16 documented as of this encounter
--- OUTSIDE RECORDS SUMMARY | 2024-11-24 00:31 | XMS_ITS | Encounter Summary ---
Author Organization [facility] Address [facility] [place] [address] Care Team Providers Care Certified Procedural Coder Name Role Phone Jackelyn Richey APRN Primary Care Provider Unav ailable Reason for Visit * Reason Comments Non-stress Test A2 gestational diabe wayne Encounter Details Date Type Department Care Team (Latest Contact Info) Description 04/24/2011 4:30 PM EDT Routine Obstetrics [place] [phone] Gabbie Olivas MD [facility] [address] [place] [address] GA: [id number] Discharge Disposition: Home Social History Tobacco Use [...] Time Taken Comments Blood Pressure 132/76 04/24/2011 4:33 PM EDT Pulse - - Temperature - - Respiratory Rate - - Oxygen Saturation - - Inhaled Oxygen Concentration - - Weight 157 kg (346 lb 1.6 oz) 04/24/2011 4:33 PM EDT Height - - Body Mass Index - - documented in this encounter Progress Notes * Vincent Stiles RN - 04/24/2011 4:36 PM EDT Feeling well, no complaints of headaches, bleeding or leaking of fluid. Patient reports glucose values in target range. Patient has US scheduled for next week, will discuss delivery plan at that time. documented in this encounter [...] care documented in this encounter Care Teams Certified Procedural Coder Relationship Specialty Start Date End Date Jackelyn Richey, CHOCOLATE PACKER PCP - General 11/10/10 07/01/16 documented as of this encounter
--- OUTSIDE RECORDS SUMMARY | 2024-11-24 00:31 | XMS_ITS | Encounter Summary ---
Author Organization [facility] [place] [address] Care Team Providers Care Mud Cleaner Operator Name Role Phone Jackelyn Richey APRN Primary Care Provider Unav ailable Reason for Visit * Reason Onset Date Comments Other 04/16/2011 Encounter Details Date Type Department Care Team (Late st Contact Info) Description 04/16/2011 Telephone Obstetrics [place] [phone] Vincent Stiles, RN Other Social History Tobacco Use Types Packs/Day Years [...] encounter Miscellaneous Notes * Telephone Encounter - Vincent Stiles RN - 04/16/2011 1:32 PM EDT Patient dx with gestational diabetes and was ordered Contour glucose strips. These strips are not covered by insurance, patient given Free Style Lite meter and I will order glucose strips through [facility]. Patient also c/o generalized body aches and facial flushing. Does not feel she has a fever but I did ask her to check temp. Patient recently dx with preeclampsia based on elevated B/P and 24 hour urine for protein >300. Patient is maintaining bedrest at home, she reports arm B/P of 136/96, she denies headache, blurred vision or epigastric pain. I spoke with Dr. Godwin and patient can keep her appointment scheduled for tomorrow as scheduled. documented in this encounter Plan of Treatment Not on file documented as of this encounter Visit Diagnoses Diagnosis Gestational diabetes- Primary Abnormal maternal glucose tolerance, complicating , childbirth, or the puerperium, unspecified as to episode of care documented in this encounter Care Teams Mud Cleaner Operator Relationship Specialty Start Date End Date Jackelyn Richey APRN PCP - General 11/10/10 07/01/16 documented as of this encounter
--- OUTSIDE RECORDS SUMMARY | 2024-11-24 00:32 | XMS_ITS | Encounter Summary ---
Author Organization [facility] [address] Care Team Providers Care Dietitian Teacher Name Role Phone Jackelyn Richey APRN Primary Care Provider Unav ailable Encounter Details Date Type Department Care Team (Late st Contact Info) Description 11/19/2010 12:00 PM EST Office Visit [place] [address] Lori Godwin MD [facility] [address] OBSTETRICS [place] [address] Discharge Disposition: Home Social History Tobacco Use Types Packs/Day Years Used Date Smoking Tobacco: Never Assessed Comments Yes Sex and Gender Information Value Date Recorded Sex Assigned at Not on file Gender Identity Not on file Sexual Orientation Not on file documented as of this encounter Plan of Treatment Not on file documented as of this encounter Visit Diagnoses Not on filedocumented in this encounter Care Teams Dietitian Teacher Relationship Specialty Start Date End Date Jackelyn Richey APRN PCP - General 11/10/10 07/01/16 documented as of this encounter
--- OUTSIDE RECORDS SUMMARY | 2024-11-24 00:32 | XMS_ITS | Encounter Summary ---
[place] [address] Care Team Providers Care Print Production Coordinator Name Role Phone Jackelyn Richey APRN Primary Care Provider Unav ailable Reason for Visit * Reason Onset Date Comments Medication Problem 03/20/2011 scripts for l ancets and strips not called in (contour) Encounter Details Date Type Department Care Team (Late st Contact Info) Description 03/20/2011 Refill Obstetrics [place] [phone] Ratna Castellanos RN Gestational diabetes (Primary Dx) Social History Tobacco Use Types [...] encounter Miscellaneous Notes * Telephone Encounter - Ratna Castellanos RN - 03/20/2011 1:38 PM EDT TELEPHONE NOTE Caller: Pt Reason for call: Pt seen yesterday; documented strips/lancets were to be called in, per pt they arenot in the pharmacy. Assessment: scripts referred to in documentation; nothing in meds Plan/Instructions: Assured pt this would be done for her. Scripts for contour strips #100 and lancets #100 called into [facility]. [phone] documented in this encounter Plan of Treatment Not on file documented as of this encounter Visit Diagnoses Diagnosis Gestational diabetes- Primary Abnormal maternal glucose tolerance, complicating , childbirth, or the puerperium, unspecified as to episode of care documented in this encounter Care Teams Print Production Coordinator Relationship Specialty Start Date End Date Jackelyn Richey APRN PCP - General 11/10/10 07/01/16 documented as of this encounter
--- OUTSIDE RECORDS SUMMARY | 2024-11-24 00:32 | XMS_ITS | Encounter Summary ---
Author Organization [facility] [place] [address] Care Team Providers Care Airport Planner Name Role Phone Jackelyn Richey APRN Primary Care Provider Unav ailable Encounter Details Date Type Department Care Team (Latest Contact Info) Description 11/19/2010 1:20 PM EST - 11/19/2010 11:59 PM EST Hospital [place] [phone] Unknown None Jose Sol MD [address] [place] [address] Discharge Disposition: Home Social History Tobacco Use Types Packs/Day Years Used Date Smoking Tobacco: Never Assessed Sex and Gender Information Value Date Recorded Sex Assigned at Not on file Gender Identity Not on file Sexual Orientation Not on file documented as of this encounter Medications at Time of Discharge Medication Sig Dispensed Refills Start Date End Date VITS W-CA,FE,FA,<1MG, ( VITAMIN ORAL) 11/19/2010 06/24/2011 documented as of this encounter Plan of Treatment Not on file documented as of this encounter Visit Diagnoses Not on filedocumented in this encounter Care Teams Airport Planner Relationship Specialty Start Date End Date Jackelyn Richey APRN PCP - General 11/10/10 07/01/16 documented as of this encounter
--- OUTSIDE RECORDS SUMMARY | 2024-11-24 00:32 | XMS_ITS | Encounter Summary ---
Author Organization [facility] [address] Care Team Providers Care Network Systems Consultant Name Role Phone Jackelyn Richey APRN Primary Care Provider Unav ailable Encounter Details Date Type Department Care Team (Late st Contact Info) Description 02/06/2011 1:00 PM EST Initial consult [address] [address] Yvonne Mars MD [facility] [address] OBSTETRICS [place] [address] Discharge Disposition: Home Social History Tobacco Use [...] filedocumented in this encounter Care Teams Network Systems Consultant Relationship Specialty Start Date End Date Jackelyn Richey APRN PCP - General 11/10/10 07/01/16 documented as of this encounter
--- OUTSIDE RECORDS SUMMARY | 2024-11-24 00:32 | XMS_ITS | Encounter Summary ---
[place] [address] Care Team Providers Care Air Press Operator Name Role Phone Jackelyn Richey APRN Primary Care Provider Unav ailable Encounter Details Date Type Department Care Team (Late st Contact Info) Description 02/06/2011 1:00 PM EST Procedure visit [address] [address] Social History Tobacco Use Types Packs/Day Years Used Date Smoking Tobacco: Never Assessed Sex and Gender Information Value Date Recorded Sex Assigned at Not on file Gender Identity Not on file Sexual Orientation Not on file documented as of this encounter Plan of Treatment Not on file documented as of this encounter Visit Diagnoses Not on filedocumented in this encounter Care Teams Air Press Operator Relationship Specialty Start Date End Date Jackelyn Richey APRN PCP - General 11/10/10 07/01/16 documented as of this encounter
--- OUTSIDE RECORDS SUMMARY | 2024-11-24 00:32 | XMS_ITS | Encounter Summary ---
[place] [address] Care Team Providers Care Web Ui Designer Name Role Phone Jackelyn Richey APRN Primary Care Provider Unav ailable Encounter Details Date Type Department Care Team (Late st Contact Info) Description 11/19/2010 10:00 AM EST Routine Obstetrics [place] [address] Caryl Gaston, MS Social History Tobacco Use Types Packs/Day Years [...] on filedocumented in this encounter Care Teams Web Ui Designer Relationship Specialty Start Date End Date Jackelyn Richey APRN PCP - General 11/10/10 07/01/16 documented as of this encounter
--- OUTSIDE RECORDS SUMMARY | 2024-11-24 00:32 | XMS_ITS | Encounter Summary ---
Author Organization [facility] Address [facility] [place] [address] Care Team Providers Care Events Director Name Role Phone Jackelyn Richey APRN Primary Care Provider Unav ailable Reason for Visit * Reason Comments Routine Visit ob check Encounter Details Date Type Department Care Team (Latest Contact Info) Description 03/31/2011 2:45 PM EDT Routine Obstetrics [place] [phone] Lori Godwin MD [facility] [address] OBSTETRICS [place] [address] GA: [id number] Discharge Disposition: Home Social History Tobacco Use [...] Sign Reading Time Taken Comments Blood Pressure 140/76 03/31/2011 3:08 PM EDT Pulse - - Temperature - - Respiratory Rate - - Oxygen Saturation - - Inhaled Oxygen Concentration - - Weight 154.9 kg (341 lb 6.4 oz) 03/31/2011 3:08 PM EDT Height - - Body Mass Index - - documented in this encounter Progress Notes * Lori Godwin MD - 03/31/2011 3:28 PM EDT Feels OK. Some groin discomfort. Having some worse pain when at work. FSBS high in the AM. Will start glyburide in the evening Has Anes consult today. Start NST's next week Last ultrasound 03/19 hydramnios and macrosomia documented in this encounter Miscellaneous Notes * Miscellaneous - Eugene, Engineer Fishing Vessel - 04/02/2011 12:57 PM EDT documented in this encounter Plan of Treatment Not on file documented as of this encounter Visit Diagnoses Diagnosis - Primary state, incidental documented in this encounter Care Teams Events Director Relationship Specialty Start Date End Date Jackelyn Richey APRN PCP - General 11/10/10 07/01/16 documented as of this encounter
--- OUTSIDE RECORDS SUMMARY | 2024-11-24 00:32 | XMS_ITS | Encounter Summary ---
[place] [address] Care Team Providers Care Sap Portal Developer Name Role Phone Jackelyn Richey APRN Primary Care Provider Unav ailable Encounter Details Date Type Department Care Team (Late st Contact Info) Description 02/06/2011 Orders [place] [address] Afua Noguera CNM CARLENE [address] [place] [address] Social History Tobacco Use Types Packs/Day Years [...] Diagnosis Comments US OB FOLLOW UP Routine 02/06/2011 2:06 PM EST documented in this encounter Results * US OB FOLLOW UP EVALUATION (02/06/2011 2:06 PM EST) Anatomical Region Laterality Modality Pelvis, Abdomen Ultrasound 02/06/2011 2:06 PM EST Narrative 02/06/2011 4:31 PM EST ? OBSTETRICS REPORT ? (Signed Final 02/06/2011 02:12 pm) Patient Info ID: ?[id number] ?: ??[birth year] (40 yrs) Name: ?DILAN ELIAS ? Visit Date: 02/06/2011 01:58 pm Performed By Performed By: ?? Roseline Souza Attending: ?Jerad SHEA, Yvonne Zacarias Referred By: ?NACHO HERNANDEZ [facility] Accession#: ? [id number] Procedures UOBFOL - Efw - Growth - Reevaluation - [place] ?[id number] - [id number] Indications Efw, Growth Evaluation Heart Rate: ??136 ? bpm Cardiac Activity: ??Observed, normal rhythm Presentation: ?Cephalic Placenta: ?Anterior P. Cord ?Within Normal Limits Insertion: Amniotic Fluid FABIOLA FV: ?Normal -------- Biometry -------- BPD: ?57.9 ??mm ?G. Age: ?? 23w 5d HC: ?214.5 ??mm ?G. Age: ?? 23w 4d AC: ? 203 ?? mm ?G. Age: ?? 24w 6d FL: ? 43.7 ??mm ?G. Age: ?? 24w 3d HUM: ?40.6 ??mm ?G. Age: ?? 24w 5d CER: ?23.9 ??mm ?G. Age: ?? 22w 0d NB: ? 5.65 ??mm CI: ? 73.55 ??% ? 70 - 86 FL/HC: ? 20.4 ??% ? 18.7 - 20.9 HC/AC: ? 1.06 ?1.05 - 1.21 FL/BPD: ?75.5 ??% ? 71 - 87 FL/AC: ? 21.5 ??% ? 20 - 24 Est. FW: ? 703 ??gm ?1 lb 9 oz Gestational Age LMP: ? 23w 6d ?Date: ??08/23/10 ? ISSAC: ?? 05/30/11 U/S Today: ? 24w 1d ?ISSAC: ?? 05/28/11 Best: ?23w 6d ?? Det. By: ??LMP ??(08/23/10) ?ISSAC: ?? 05/30/11 ------- Anatomy ------- Cranium: ? Visualized Cavum: ? Visualized Ventricles: ?Visualized Choroid Plexus: ?Visualized Cerebellum: ?Visualized Posterior Fossa: ?? Visualized Nuchal Fold: ? Not evaluated at this gestational age Face: ?Visualized Heart: ? 4-chamber view appears normal RVOT: ?Visualized LVOT: ?Visualized Aortic Arch: ? Visualized Ductal Arch: ? Visualized Diaphragm: ? Visualized Stomach: ? Visualized Abdomen: ? Within Normal Limits Abdominal Wall: ?Cord Insertion - WNL Cord Vessels: ?3-vessels- WNL Kidneys: ? Visualized Bladder: ? Visualized Spine: ? Limited views Limbs: ? Limbs seen but limited views of hands and feet Cervix Uterus Adnexa Left Ovary: ?? Not visualized Right Ovary: ??Not visualized Impression 2nd Trimester Summary Single intrauterine with a gestational age of 23w 6d based on LMP. Composite age based on the current ultrasound alone is 24w 1d. Current growth parameters are consistent indicating normal growth. Amniotic fluid volume is normal. I ??viewed the images and agree with the above interpretation. Thank you for allowing us to participate in the care of DILAN ELIAS. Please do not hesitate to call if you have any questions. ? Yvonne Mars MD Electronically Signed Final Report ?? 02/06/2011 02:12 pm Procedure Note Yvonne Mars MD - 02/06/2011 OBSTETRICS REPORT (Signed Final 02/06/2011 02:12 pm) Patient Info ID: [id number] : [birth year] (40 yrs) Name: DILAN ELIAS Visit Date: 02/06/2011 01:58 pm Performed By Performed By: Roseline Souza Attending: Yvonne Mars MD Referred By: NACHO HERNANDEZ [facility] Procedures UOBFOL - Efw - Growth - Reevaluation - [place] [id number] - [id number] Indications Efw, Growth Evaluation Heart Rate: 136 bpm Cardiac Activity: Observed, normal rhythm Presentation: Cephalic Placenta: Anterior P. Cord Within Normal Limits Insertion: Amniotic Fluid FABIOLA FV: Normal -------- Biometry -------- BPD: 57.9 mm G. Age: 23w 5d HC: 214.5 mm G. Age: 23w 4d AC: 203 mm G. Age: 24w 6d FL: 43.7 mm G. Age: 24w 3d HUM: 40.6 mm G. Age: 24w 5d CER: 23.9 mm G. Age: 22w 0d NB: 5.65 mm CI: 73.55 % 70 - 86 FL/HC: 20.4 % 18.7 - 20.9 HC/AC: 1.06 1.05 - 1.21 FL/BPD: 75.5 % 71 - 87 FL/AC: 21.5 % 20 - 24 Est. FW: 703 gm 1 lb 9 oz Gestational Age LMP: 23w 6d Date: 08/23/10 ISSAC: 05/30/11 U/S Today: 24w 1d ISSAC: 05/28/11 Best: 23w 6d Det. By: LMP (08/23/10) ISSAC: 05/30/11 ------- Anatomy ------- Cranium: Visualized Cavum: Visualized Ventricles: Visualized Choroid Plexus: Visualized Cerebellum: Visualized Posterior Fossa: Visualized Nuchal Fold: Not evaluated at this gestational age Face: Visualized Heart: 4-chamber view appears normal RVOT: Visualized LVOT: Visualized Aortic Arch: Visualized Ductal Arch: Visualized Diaphragm: Visualized Stomach: Visualized Abdomen: Within Normal Limits Abdominal Wall: Cord Insertion - WNL Cord Vessels: 3-vessels- WNL Kidneys: Visualized Bladder: Visualized Spine: Limited views Limbs: Limbs seen but limited views of hands and feet Cervix Uterus Adnexa Left Ovary: Not visualized Right Ovary: Not visualized Impression 2nd Trimester Summary Single intrauterine with a gestational age of 23w 6d based on LMP. Composite age based on the current ultrasound alone is 24w 1d. Current growth parameters are consistent indicating normal growth. Amniotic fluid volume is normal. I viewed the images and agree with the above interpretation. Thank you for allowing us to participate in the care of DILAN ELIAS. Please do not hesitate to call if you have any questions. Yvonne Mars MD Electronically Signed Final Report 02/06/2011 02:12 pm Afua Noguera CNM [facility] OB ORDERABLES documented in this encounter Visit Diagnoses Not on filedocumented in this encounter Care Teams Sap Portal Developer Relationship Specialty Start Date End Date Jackelyn Richey APRN PCP - General 11/10/10 07/01/16 documented as of this encounter
--- OUTSIDE RECORDS SUMMARY | 2024-11-24 00:32 | XMS_ITS | Encounter Summary ---
Author Organization [facility] [place] [address] Care Team Providers Care Recep Name Role Phone Jackelyn Richey APRN Primary Care Provider Unav ailable Encounter Details Date Type Department Care Team (Late st Contact Info) Description 12/13/2010 11:50 AM EST - 12/13/2010 11:59 PM EST Hospital [place] [phone] Unknown None [facility] [address] [place] [address] Discharge Disposition: Home Social History Tobacco Use [...] Procedure Name Priority Date/Time Associated Diagnosis Comments INTEGRATED SCREENING 2 Routine 12/13/2010 11:59 AM EST documented in this encounter Results * INTEGRATED SCREENING 2 (12/13/2010 11:59 AM EST) Pathologist [facility] Intergrated Screening Part 2 ([facility]) Screen Negative [facility] Comment: For the full text of the report please refer to Non-DH Documentation Lab and Pathology in the Clinical Information System (CIS). Test performed by [employer] [facility] [employer], [address] [place] [phone] Blood specimen (specimen) 12/13/2010 11:59 AM EST 12/15/2010 8:21 AM EST Afua Noguera CNM LAB SEND OUT ORDERAB LES Performing Organization Address City/State/[facility] Co de Phone Number [facility] documented in this encounter Visit Diagnoses Not on filedocumented in this encounter Care Teams Recep Relationship Specialty Start Date End Date Jackelyn Richey APRN PCP - General 11/10/10 07/01/16 documented as of this encounter
--- OUTSIDE RECORDS SUMMARY | 2024-11-24 00:32 | XMS_ITS | Encounter Summary ---
Author Organization [facility] Address [facility] [place] [address] Care Team Providers Care Report Developer Name Role Phone Jackelyn Richey APRN Primary Care Provider Unav ailable Reason for Visit * Reason Comments Routine Visit Encounter Details Date Type Department Care Team (Late st Contact Info) Description 03/19/2011 3:00 PM EDT Routine Obstetrics [place] [address] Yvonne Mars MD [facility] DR OBSTETRICS [place] [address] GA: [id number] Discharge Disposition: Home Social History Tobacco Use [...] Sign Reading Time Taken Comments Blood Pressure 122/76 03/19/2011 3:09 PM EDT Pulse - - Temperature - - Respiratory Rate - - Oxygen Saturation - - Inhaled Oxygen Concentration - - Weight 156.6 kg (345 lb 3.2 oz) 03/19/2011 3:09 PM EDT Height - - Body Mass Index - - documented in this encounter Progress Notes * Merlyn Alvarez RN - 03/20/2011 10:43 AM EDT 03/19/11 3 hour GTT performed today at [facility] [phone]. Per Dr. Mars, teaching was performed for gestational diabetes, monitoring of blood sugars and use of glucose meter, and parameters regarding nutrition and its effect on blood sugars. A handout booklet was given for nutritional guidelines, rules for times to eat, meals and snacks, and also a discussion of healthy fluid intake. An appointment is to be scheduled for more formal counseling with the mainspring fabrication supervisor. Glucose monitoring discussed and flowsheet given to patient. She will monitor her glucose early am (fasting) and 2h postprandial. Patient states good understanding of this, and will call and fax her glucose results on Friday 03/23. Glucose meter, Contour, given and reviewed with patient. She was able to perform a fingerstick at this time. Rx was called to the [place] pharmacy for lancets and strips. Patient will meet with Yvonne Stiles RN visual educator, when she returns from vacation. Patient has the numbers to call if she has any questions or concerns. * Yvonne Mars MD - 03/19/2011 4:16 PM EDT movements, denies LOF, bleeding and cramping. 3hr GCT 2 abnl values c/w GDM. US EFW > 95%ile FABIOLA 27 cm. Needs glucometer, FSBS QID, nutrition consult. Needs anesthesia consult next visit forbenign intracranial hypertension and BMI > 52. No labs here at [facility] and missing labs in paper chart. Need to obtain from [place]. documented in this encounter Miscellaneous Notes * Miscellaneous - Eugene, Head Men'S Tennis Coach - 03/24/2011 9:56 AM EDT * Miscellaneous - Eugene, Head Men'S Tennis Coach - 03/20/2011 10:19 AM EDT documented in this encounter Plan of Treatment Not on file documented as of this encounter Visit Diagnoses Diagnosis - Primary state, incidental documented in this encounter Care Teams Report Developer Relationship Specialty Start Date End Date Jackelyn Richey APRN PCP - General 11/10/10 07/01/16 documented as of this encounter
--- OUTSIDE RECORDS SUMMARY | 2024-11-24 00:32 | XMS_ITS | Encounter Summary ---
Author Organization [facility] [place] [address] Care Team Providers Care Extruder Operator Name Role Phone Jackelyn Richey APRN Primary Care Provider Unav ailable Encounter Details Date Type Department Care Team (Latest Contact Info) Description 03/19/2011 1:57 PM EDT - 03/19/2011 11:59 PM EDT Hospital En[place] [phone] CLINIC, Becky Lee MD Discharge Disposition: Home Social History Tobacco [...] 11/19/2010 06/24/2011 documented as of this encounter Procedure Notes * Provider, Scanning - 04/06/2011 3:03 PM EDTAssociated Order(s): SCAN DOC: LAB * Provider, Scanning - 04/06/2011 3:03 PM EDTAssociated Order(s): SCAN DOC: LAB documented in this encounter Plan of Treatment Not on file documented as of this encounter Procedures Procedure Name Priority Date/Time Associated Diagnosis Comments LAB SCAN 04/06/2011 3:03 PM EDT LAB SCAN 04/06/2011 3:03 PM EDT US OB FOLLOW UP Routine 03/19/2011 2:26 PM EDT documented in this encounter Results * SCAN DOC: LAB (04/06/2011 3:03 PM EDT) Narrative 04/06/2011 3:03 PM EDT Procedure Note Provider, Scanning - 04/06/2011 3:03 PM EDT Scanning Provider MEDIA MGR SCAN EXT O RDR/RSLT * SCAN DOC: LAB (04/06/2011 3:03 PM EDT) Narrative 04/06/2011 3:03 PM EDT Procedure Note Provider, Scanning - 04/06/2011 3:03 PM EDT Scanning Provider MEDIA MGR SCAN EXT O RDR/RSLT * US OB FOLLOW UP EVALUATION (03/19/2011 2:26 PM EDT) Anatomical Region Laterality Modality Pelvis, Abdomen Ultrasound 03/19/2011 2:26 PM EDT Narrative 03/19/2011 2:32 PM EDT ?OBSTETRICS REPORT ? (Signed Final 03/19/2011 02:32 pm) Patient Info ID: ? [id number] ? : ??[birth year] (40 yrs) Name: ? DILAN ELIAS ?Visit Date: 03/19/2011 02:22 pm Performed By Performed By: ?? Jackelyn Mahmood RDMS Attending: ?Dory Amos MD Referred By: ?MARGARITA BANUELOS Accession#: ? [id number] Procedures UOBFOL - Efw - Growth - Reevaluation - Beckman ?[id number] - [id number] Indications Efw, Growth Evaluation Heart Rate: ??135 ?bpm Cardiac Activity: ??Observed, normal rhythm Presentation: ?Breech Placenta: ?Fundal Anterior Posterior P. Cord ?Within Normal Limits Insertion: Amniotic Fluid FABIOLA FV: ?Polyhydramnios FABIOLA Sum: ? 27.59 ?? cm ? Larg Pckt: ??10.59 ?? cm RUQ: ?? 5.48 ?cm ?LUQ: ?? 6.34 ?? cm RLQ: ?? 10.59 ?? cm ?LLQ: ?? 5.18 ?? cm -------- Biometry -------- BPD: ?72.9 ??mm ?G. Age: ?? 29w 2d ? 24 ??% HC: ?281.9 ??mm ?G. Age: ?? 30w 6d ? 50 ??% AC: ? 303 ?? mm ?G. Age: ?? 34w 2d ? > 97 ??% FL: ? 59.2 ??mm ?G. Age: ?? 30w 6d ? 68 ??% HUM: ?52.7 ??mm ?G. Age: ?? 30w 5d ? 69 ??% CI: ? 68.35 ??% ? 70 - 86 FL/HC: ? 21.0 ??% ? 19.2 - 21.4 HC/AC: ? 0.93 ?0.99 - 1.21 FL/BPD: ?81.2 ??% ? 71 - 87 FL/AC: ? 19.5 ??% ? 20 - 24 Est. FW: ?1982 ?? gm ? 4 lb 6 oz ?? > 95 ??% Gestational Age LMP: ? 29w 5d ?Date: ??08/23/10 ? ISSAC: ?? 05/30/11 U/S Today: ? 31w 2d ?ISSAC: ?? 05/19/11 Best: ?29w 5d ?? Det. By: ??LMP ??(08/23/10) ?ISSAC: ?? 05/30/11 ------- Anatomy ------- Cranium: ?Visualized Cavum: ?Visualized Ventricles: ? Not visualized due to late gestational age Choroid Plexus: ? Not visualized due to late gestational age Cerebellum: ? Limited Views Posterior Fossa: ?Limited Views Nuchal Fold: ?Not evaluated at this gestational age Face: ? Limited views Heart: ?4-chamber view appears normal Stomach: ?Visualized Abdomen: ?Limited Views Abdominal Wall: ? Not visualized due to late gestational age Cord Vessels: ? 3-vessels- WNL Kidneys: ?Visualized Bladder: ?Visualized Spine: ?Limited views Limbs: ?Limited views Cervix Uterus Adnexa Left Ovary: ?Not visualized Right Ovary: ?? Not visualized -------- Comments -------- Visualization limited due to maternal body habitus. Impression 3rd Trimester Summary Single intrauterine with a gestational age of 29w 5d based on LMP. Composite age based on the current ultrasound alone is 31w 2d. Estimated weight corresponds to the > 95th percentile for 29w 5d. Amniotic fluid volume is polyhydramnios, FABIOLA = 27.59 cm. Anatomical survey is limited due to the late gestational age, however no structural abnormalities are noted. Visualization limited due to increased maternal body habitus. I ??viewed the images and agree with the above interpretation. Thank you for allowing us to participate in the care of DILAN ELIAS. Please do not hesitate to call if you have any questions. ? Dory Amos MD Electronically Signed Final Report ?? 03/19/2011 02:32 pm Procedure Note Dory Amos MD - 03/19/2011 OBSTETRICS REPORT (Signed Final 03/19/2011 02:32 pm) Patient Info ID: [id number] : [birth year] (40 yrs) Name: DILAN ELIAS Visit Date: 03/19/2011 02:22 pm Performed By Performed By: Jackelyn Mahmood RDMS Attending: Dory Amos MD Referred By: MARGARITA BANUELOS Procedures UOBFOL - Efw - Growth - Reevaluation - Beckman [id number] - [id number] Indications Efw, Growth Evaluation Heart Rate: 135 bpm Cardiac Activity: Observed, normal rhythm Presentation: Breech Placenta: Fundal Anterior Posterior P. Cord Within Normal Limits Insertion: Amniotic Fluid FABIOLA FV: Polyhydramnios FABIOLA Sum: 27.59 cm Larg Pckt: 10.59 cm RUQ: 5.48 cm LUQ: 6.34 cm RLQ: 10.59 cm LLQ: 5.18 cm -------- Biometry -------- BPD: 72.9 mm G. Age: 29w 2d 24 % HC: 281.9 mm G. Age: 30w 6d 50 % AC: 303 mm G. Age: 34w 2d > 97 % FL: 59.2 mm G. Age: 30w 6d 68 % HUM: 52.7 mm G. Age: 30w 5d 69 % CI: 68.35 % 70 - 86 FL/HC: 21.0 % 19.2 - 21.4 HC/AC: 0.93 0.99 - 1.21 FL/BPD: 81.2 % 71 - 87 FL/AC: 19.5 % 20 - 24 Est. FW: 1982 gm 4 lb 6 oz > 95 % Gestational Age LMP: 29w 5d Date: 08/23/10 ISSAC: 05/30/11 U/S Today: 31w 2d ISSAC: 05/19/11 Best: 29w 5d Det. By: LMP (08/23/10) ISSAC: 05/30/11 ------- Anatomy ------- Cranium: Visualized Cavum: Visualized Ventricles: Not visualized due to late gestational age Choroid Plexus: Not visualized due to late gestational age Cerebellum: Limited Views Posterior Fossa: Limited Views Nuchal Fold: Not evaluated at this gestational age Face: Limited views Heart: 4-chamber view appears normal Stomach: Visualized Abdomen: Limited Views Abdominal Wall: Not visualized due to late gestational age Cord Vessels: 3-vessels- WNL Kidneys: Visualized Bladder: Visualized Spine: Limited views Limbs: Limited views Cervix Uterus Adnexa Left Ovary: Not visualized Right Ovary: Not visualized -------- Comments -------- Visualization limited due to maternal body habitus. Impression 3rd Trimester Summary Single intrauterine with a gestational age of 29w 5d based on LMP. Composite age based on the current ultrasound alone is 31w 2d. Estimated weight corresponds to the > 95th percentile for 29w 5d. Amniotic fluid volume is polyhydramnios, FABIOLA = 27.59 cm. Anatomical survey is limited due to the late gestational age, however no structural abnormalities are noted. Visualization limited due to increased maternal body habitus. I viewed the images and agree with the above interpretation. Thank you for allowing us to participate in the care of DILAN ELIAS. Please do not hesitate to call if you have any questions. Dory Amos MD Electronically Signed Final Report 03/19/2011 02:32 pm Becky Geronimo MD IMG US OB ORDERABLES documented in this encounter Visit Diagnoses Not on filedocumented in this encounter Care Teams Extruder Operator Relationship Specialty Start Date End Date Jackelyn Richey, CLOTH TESTER PCP - General 11/10/10 07/01/16 documented as of this encounter
--- OUTSIDE RECORDS SUMMARY | 2024-11-24 00:32 | XMS_ITS | Encounter Summary ---
Author Organization [facility] [place] [address] Care Team Providers Care Tail End Rider Name Role Phone Jackelyn Richey APRN Primary Care Provider Unav ailable Encounter Details Date Type Department Care Team (Late st Contact Info) Description 02/06/2011 2:30 PM EST Office Visit Obstetrics [place] [address] Lori Godwin MD [facility] [address] OBSTETRICS [place] [address] Discharge Disposition: Home Social History Tobacco Use Types Packs/Day Years Used Date Smoking Tobacco: Never Assessed Sex and Gender Information Value Date Recorded Sex Assigned at Not on file Gender Identity Not on file Sexual Orientation Not on file documented as of this encounter Progress Notes * Eugene, Hand Painter - 06/02/2011 9:04 AM EDT documented in this encounter Miscellaneous Notes * Miscellaneous - Eugene, Hand Painter - 06/02/2011 9:04 AM EDT documented in this encounter Plan of Treatment Not on file documented as of this encounter Visit Diagnoses Not on filedocumented in this encounter Care Teams Tail End Rider Relationship Specialty Start Date End Date Jackelyn Richey APRN PCP - General 11/10/10 07/01/16 documented as of this encounter
--- OUTSIDE RECORDS SUMMARY | 2024-11-24 00:32 | XMS_ITS | Encounter Summary ---
Author Organization [place] [address] Care Team Providers Care Associate Drafter Name Role Phone Jackelyn Richey APRN Primary Care Provider Unav ailable Reason for Visit * Reason Onset Date Comments Diabetes 03/30/2011 Encounter Details Date Type Department Care Team (Late st Contact Info) Description 03/30/2011 Telephone Obstetrics [place] [phone] Rajwinder Lucia RN Diabetes Social History Tobacco Use Types Packs/Day Years [...] encounter Miscellaneous Notes * Telephone Encounter - Rajwinder Lucia RN - 03/30/2011 5:48 PM EDT Argelia has faxed her glucometer numbers to us for review. I have had them reviewed by Dr. Godwin. As all of her FBS are >90, she would like Argelia to begin taking glyburide 5mg po nightly. I have called Argelia and explained what this medication is and how it works. She is aware that shewill be taking it because her fasting blood sugars are high. documented in this encounter Plan of Treatment Not on file documented as of this encounter Visit Diagnoses Not on filedocumented in this encounter Care Teams Associate Drafter Relationship Specialty Start Date End Date Jackelyn Richey, FUEL CELL TECHNICIAN PCP - General 11/10/10 07/01/16 documented as of this encounter
--- OUTSIDE RECORDS SUMMARY | 2024-11-24 00:32 | XMS_ITS | Encounter Summary ---
Author Organization [facility] [place] [address] Care Team Providers Care Diet Technician Registered Name Role Phone Jackelyn Richey APRN Primary Care Provider Unav ailable Encounter Details Date Type Department Care Team (Late st Contact Info) Description 11/19/2010 Abstract Obstetrics [place] [phone] Lori Godwin MD [facility] DR OBSTETRICS [place] [address] Social History Tobacco Use Types Packs/Day Years [...] on filedocumented in this encounter Care Teams Diet Technician Registered Relationship Specialty Start Date End Date Jackelyn Richey APRN PCP - General 11/10/10 07/01/16 documented as of this encounter
--- OUTSIDE RECORDS SUMMARY | 2024-11-24 00:32 | XMS_ITS | Encounter Summary ---
Author Organization [facility] [place] [address] Care Team Providers Care Machine Pie Maker Name Role Phone Jackelyn Richey APRN Primary Care Provider Unav ailable Encounter Details Date Type Department Care Team (Late st Contact Info) Description 11/19/2010 [place] [phone] Lori Godwin MD [facility] DR OBSTETRICS [place] [address] Social History Tobacco Use Types Packs/Day Years Used Date Smoking Tobacco: Never Assessed Comments Yes Sex and Gender Information Value Date Recorded Sex Assigned at Not on file Gender Identity Not on file Sexual Orientation Not on file documented as of this encounter Plan of Treatment Not on file documented as of this encounter Procedures Procedure Name Priority Date/Time Associated Diagnosis Comments CF REPORT Routine 11/19/2010 2:15 PM EST INTEGRATED SCREENING 1 Routine 11/19/2010 1:01 PM EST documented in this encounter Results * REFLEX LAB-CF REPORT (11/19/2010 2:15 PM EST) Cystic Fibrosis Report ? Patient Name: DILAN ELIAS ?Ordered By: LORI GODWIN ? MR#: [id number] ?LOC: ??3S ? /Sex: ??1970 (40 years), ? Female ?Genetics ? [id number] ? Final Report ?Accession Number: [id number] ? Cystic Fibrosis Mutation Analysis ? INDICATION FOR STUDY: Carrier testing; no family history. ? Ethnicity: ? ANALYSIS: ??Examination of DNA extracted from peripheral blood leukocytes ? for 41 mutations in the Cystic Fibrosis transmembrane conductance regulator ? (CFTR) gene. ? Results: Negative for the 41 mutations tested. ? Interpretation: It is our understanding that this individual has a negative ? personal and family history for cystic fibrosis (CF). Using the CFTR InPlex ? assay, this individual is negative for the 41 mutations tested, including ? the 23 mutations recommended for screening by the [employer] ? [employer]. These results do not rule out the possibility that this ? individual could be a carrier of a mutation not detected by this test. This ? interpretation is based on the clinical information provided and the ? current understanding of this disease. While DNA testing is very accurate, ? rare diagnostic errors due to various pre- and post-analytical variables do ? occur. ? Comments: A negative test result significantly reduces, but does not ? eliminate, the risk of being a carrier or having a child with CF. See table ? below. ? Ethnic Group ?--*1-- ?--2*-- ? Ashkenazi Evangelical ?12/27 to ?95% ? 12/27 to ?90% ? to ?67% ? [place] ?? to ?76% ? [place] ? to ?61% ? * 1 = Carrier risk reduction with no family history, 2 = Detection Rate ? Methods: Genomic DNA was extracted from the submitted peripheral blood ? specimen using the Qiagen EZ1 BioRobot. The DNA was enzymatically digested ? Patient: DILAN ELIAS ? MR#: [id number] ? and analyzed for mutation status by using signal amplification probes to ? test for the presence of the following mutations/polymorp hisms to the CFTR ? gene using the CFTR InPlex assay.([facility], [place], [place]):1717-1G>A, 1898+1G>A, ? 2184delA, 2789+5G>A, 3120+1G>A, 3659delC, 3849+10kbC>T, 621+1G>T, 711+1G>T, ? A455E, G542X, G551D, G85E, V0067Z, L0690L, R117H, R334W, R347P, R553X, ? R560T, D9848Y, delta F508, vndmaC676, 1078delT, 2183delAA>G, 3849+4A>G, ? 3876delA, 3905insT,394delTT, L2919H, L7167Z, E60X, Q493X, R347H,S549N, ? S549RA>C, S549RT>G, V520F, B6089QQ>A, R7909JI>G, and Y122X. ? Reflex testing: I148T, F508C, IVS8-5T, IVS8-7T, IVS8-9T. ? This test was developed and its performance determined by the Molecular ? Pathology Laboratory at the [facility]. It has not been cleared or approved by ? the U.S. Food and Drug Administration. This test is used for clinical ? purposes and should not be considered as investigational or for research ? purposes. The Molecular Pathology Laboratory is certified by the Clinical ? Laboratory Improvement Act of 1987 and as such is allowed to perform high ? complexity clinical testing. ? References: ? 1. ACOG/ACMG. Preconception and carrier screening for cystic ? fibrosis. 2001, pp.1-31. ? 2. David STOVALL et al., Genetics in Medicine 2002;4:379-391. ? Reviewed by: ?? Nadine Powell MD ? Independent Jeweler, Molecular Pathology LAURYN HAND 11/19/2010 2:15 PM EST Lori Godwin MD HEMATOLOGY ORDERABLE S Performing Organization Address City/[facility] Co de Phone Number LAURYN HAND * INTEGRATED SCREENING 1 (11/19/2010 1:01 PM EST) Pathologist [facility] Intergrated Screening Part 1 ([place]) See Note CERNER MILLENNIUM Comment: Part 1 of the Integrated Screen was drawn. ??For results of the Integrated Screen a second serum sample drawn at 15-21 weeks gestation is required. Test performed by [facility], [address] [address] Blood specimen (specimen) 11/19/2010 1:01 PM EST 11/19/2010 1:41 PM EST Lori Godwin MD LAB SEND OUT ORDERAB LES LAURYN HAND documented in this encounter Visit Diagnoses Not on filedocumented in this encounter Care Teams Machine Pie Maker Relationship Specialty Start Date End Date Jackelyn Richey, SHOWROOM SALESPERSON PCP - General 11/10/10 07/01/16 documented as of this encounter
--- OUTSIDE RECORDS SUMMARY | 2024-11-24 00:32 | XMS_ITS | Encounter Summary ---
[place] [address] Care Team Providers Care Reproduction Technician Name Role Phone Jackelyn Richey APRN Primary Care Provider Unav ailable Encounter Details Date Type Department Care Team (Late st Contact Info) Description 11/19/2010 11:00 AM EST Procedure visit [place] [address] Social History Tobacco Use Types Packs/Day Years [...] on filedocumented in this encounter Care Teams Reproduction Technician Relationship Specialty Start Date End Date Jackelyn Richey APRN PCP - General 11/10/10 07/01/16 documented as of this encounter
--- OUTSIDE RECORDS SUMMARY | 2024-11-24 00:32 | XMS_ITS | Encounter Summary ---
Author Organization [facility] [place] [address] Care Team Providers Care Filler Shredder Helper Name Role Phone Jackelyn Richey APRN Primary Care Provider Unav ailable Encounter Details Date Type Department Care Team (Late st Contact Info) Description 01/05/2011 11:30 AM EST Office Visit Obstetrics [place] [address] Vincent Graham MD Discharge Disposition: Home Social History Tobacco Use Types Packs/Day Years Used Date Smoking Tobacco: Never Assessed Sex and Gender Information Value Date Recorded Sex Assigned at Not on file Gender Identity Not on file Sexual Orientation Not on file documented as of this encounter Miscellaneous Notes * Miscellaneous - Janet Knight - 03/24/2011 12:29 PM EDT documented in this encounter Plan of Treatment Not on file documented as of this encounter Visit Diagnoses Not on filedocumented in this encounter Care Teams Filler Shredder Helper Relationship Specialty Start Date End Date Jackelyn Richey APRN PCP - General 11/10/10 07/01/16 documented as of this encounter
--- OUTSIDE RECORDS SUMMARY | 2024-11-24 00:32 | XMS_ITS | Encounter Summary ---
[place] [address] Care Team Providers Care Leather Worker Name Role Phone Jackelyn Richey APRN Primary Care Provider Unav ailable Reason for Visit * Reason Onset Date Comments Blood Sugar Problem 03/24/2011 Encounter Details Date Type Department Care Team (Late st Contact Info) Description 03/24/2011 Telephone Obstetrics [place] [phone] Rajwinder Lucia RN Blood Sugar Problem Social History Tobacco Use Types Packs/Day Years [...] Telephone Encounter - Rajwinder Lucia RN - 03/24/2011 11:57 AM EDT Argelia has been recently diagnosed with gestational diabetes and has been testing her blood sugarsfor 3 days. She has faxed these numbers to me which are as follows: 03/20 FBS 100 Breakfast 142 Lunch 147 Dinner 143 03/21 FBS 101 Breakfast 106 Lunch 155 Dinner 115 03/22 FBS 98 Breakfast 159 Lunch 87 Dinner 123 03/23 FBS 108 Breakfast 130 Argelia is checking postprandials @ 2hrs. Her FBS are all above target range. Upon discussion, she is not eating an evening snack, nor snacks during the day. I have explained that eating a protein type snack may help her blood sugars. She admits she is still learning the foods to eat. Plan: She will continue to monitor her bloodsugars and call/fax in a full week on . These will be reviewed by the [facility] doctor on service that day and follow up given to Argelia. She agrees to this plan and will continue to try to eat appropriate foods and amounts for a diabetic diet. documented in this encounter Plan of Treatment Not on file documented as of this encounter Visit Diagnoses Not on filedocumented in this encounter Care Teams Leather Worker Relationship Specialty Start Date End Date Jackelyn Richey APRN PCP - General 11/10/10 07/01/16 documented as of this encounter
--- OUTSIDE RECORDS SUMMARY | 2024-11-24 00:32 | XMS_ITS | Encounter Summary ---
Author Organization [facility] Address [facility] [place] [address] Care Team Providers Care Property Assistant Name Role Phone Jackelyn Richey APRN Primary Care Provider Unav ailable Encounter Details Date Type Department Care Team (Late st Contact Info) Description 03/20/2011 External Results Obstetrics [place] [address] Yvonne Mars MD [facility] DR OBSTETRICS [place] [address] Social History Tobacco Use Types Packs/Day Years [...] Procedure Name Priority Date/Time Associated Diagnosis Comments GLUCOSE 1 HOUR POST PRANDIAL Routine 03/16/2011 HEMOGLOBIN AND HEMATOCRIT, BLOOD Routine 03/16/2011 PAP SMEAR Routine 11/06/2010 GC/CHLAMYDIA Routine 11/06/2010 SYPHILIS ANTIBODY SCREEN WITH REFLEX Routine 10/14/2010 RUBELLA ANTIBODY, IGG Routine 10/14/2010 URINE CULTURE Routine 10/14/2010 documented in this encounter Results * (ABNORMAL) Hemoglobin and Hematocrit, blood (03/16/2011) Hematocrit 34(A) 36 - 46 Hemoglobin 10.4(A) 12.0 - 16.0 Blood specimen (specimen) 03/16/2011 Historical Provider HEMATOLOGY ORDERA BLES * Glucose 1 Hour Post Prandial (03/16/2011) Glucose 1 hour 172 Blood specimen (specimen) 03/16/2011 Historical Provider CHEMISTRY ORDERAB LES * PAP SMEAR (11/06/2010) Cytopathology Final Report normal Cervical swab (specimen) 11/06/2010 Historical Provider OB GYNE ORDERABLE S * GC/Chlamydia (11/06/2010) Chlamydia Gene Amp neg GC Gene Amp neg Cervical swab (specimen) 11/06/2010 Historical Provider MICROBIOLOGY - GE NERAL ORDERABLES * Rubella Antibody, IgG (10/14/2010) Rubella Antibody IgG protected Blood specimen (specimen) 10/14/2010 Historical Provider CHEMISTRY ORDERAB LES * Syphilis Antibody, IgG (10/14/2010) Syphilis IgG non reactive Blood specimen (specimen) 10/14/2010 Historical Provider CHEMISTRY ORDERAB LES * Urine culture (10/14/2010) Urine Culture mixed skin contaminants Urine specimen (specimen) 10/14/2010 Historical Provider MICROBIOLOGY - NERAL ORDERABLES documented in this encounter Visit Diagnoses Not on filedocumented in this encounter Care Teams Property Assistant Relationship Specialty Start Date End Date Jackelyn Richey APRN PCP - General 11/10/10 07/01/16 documented as of this encounter
--- OUTSIDE RECORDS SUMMARY | 2024-11-24 00:32 | XMS_ITS | Encounter Summary ---
[place] [address] Care Team Providers Care Route Delivery Supervisor Name Role Phone Jackelyn Richey APRN Primary Care Provider Unav ailable Encounter Details Date Type Department Care Team (Late st Contact Info) Description 01/05/2011 10:30 AM EST Procedure [place] [address] Social History Tobacco Use Types Packs/Day Years Used Date Smoking Tobacco: Never Assessed Sex and Gender Information Value Date Recorded Sex Assigned at Not on file Gender Identity Not on file Sexual Orientation Not on file documented as of this encounter Plan of Treatment Not on file documented as of this encounter Visit Diagnoses Not on filedocumented in this encounter Care Teams Route Delivery Supervisor Relationship Specialty Start Date End Date Jackelyn Richey APRN PCP - General 11/10/10 07/01/16 documented as of this encounter
== END 2024-11-24 00:48 ==
LOC: DI 00:28
PROVIDERS: PCP Nurse Practitioner Family; Visit Provider Nurse Practitioner Family
DX: Z12.31 Encounter for screening mammogram for malignant neoplasm of breast (principal); R92.323 Mammographic fibroglandular density, bilateral breasts
CPT/HCPCS: 77063; 77067

== ENCOUNTER 2025-03-15 08:35 | Outpatient (REF) | payer BC, SELFPAY ==
[2025-03-15 13:49] LABS: Abs Immature Grans 0.02 10^3/uL (0.0-0.06); Absolute Basophil Count 0.05 10^3/uL (0.0-0.2); Absolute Eosinophil Count 0.16 10^3/uL (0.0-0.7); Absolute Lymphocyte Count 2.12 10^3/uL (1.2-3.4); Absolute Monocyte Count 0.39 10^3/uL (0.1-0.8); Absolute Neutrophil Count 4.96 10^3/uL (1.2-6.7); Basophils % 0.6 %; Eosinophils % 2.1 %; HCT 40.3 % (36.0-46.0); HGB 12.6 g/dL (11.2-15.7); Immature Grans % 0.3 %; Lymphocytes % 27.5 %; MCH 28.1 pg (27.0-33.0); MCHC 31.3 % (32.0-36.0); MCV 90 fL (80-95); MPV 10.2 fL (8.0-11.0); Monocytes % 5.1 %; Neutrophils % 64.4 %; Platelet Count 381 10^3/uL (130-400); RBC 4.48 10^6/uL (3.93-5.22); RDW 15.9 % (11.7-14.6); RDW-SD 52.1 fL
[2025-03-15 14:08] LABS: Hemoglobin A1C 6.2 % (<5.7)
[2025-03-15 14:17] LABS: Iron 41 ug/dL (50-170); Total Iron Binding Capacity 243 ug/dL (250-450); Transferrin Sat 17 % (15-50)
[2025-03-15 14:33] LABS: ALT 28 U/L (14-59); AST 16 U/L (15-37); Albumin 3.4 g/dL (3.4-5.0); Alkaline Phosphatase 146 U/L (46-116); Anion Gap 8.4 mmol/L (3-11); BUN 15 mg/dL (7-18); Bilirubin, Total 0.4 mg/dL (0.2-1.0); CO2 30.6 mmol/L (21.0-32.0); Calcium 9.4 mg/dL (8.5-10.1); Calculated LDL 133 mg/dL (<100); Chloride 104 mmol/L (98-107); Cholesterol 201 mg/dL (<200); Estimated GFR 67.78 (mL/min/1.73m2); Ferritin 129 ng/mL (8-252); Glucose 101 mg/dL (74-106); HDL Cholesterol 53 mg/dL (>or=50); Magnesium 1.8 mg/dL (1.8-2.4); Potassium 4.5 mmol/L (3.5-5.1); Sodium 143 mmol/L (136-145); TSH (W/Ref FT4) 4.03 uIU/mL (0.36-3.74); Total Protein 7.4 g/dL (6.4-8.2); Triglyceride 76 mg/dL (<150); Vitamin D 25 Total 46 ng/mL (30-100)
[2025-03-16 10:08] LABS: Transferrin 182 mg/dL (201-352)
== END 2025-03-15 08:36 | disposition home or self-care (01) ==
LOC: NCHCN 08:35
PROVIDERS: PCP Nurse Practitioner Family; Visit Provider Nurse Practitioner Family
DX: E03.9 Hypothyroidism, unspecified (principal); I10 Essential (primary) hypertension; R73.03 Prediabetes; E61.1 Iron deficiency
CPT/HCPCS: 80053; 80061; 82306; 82728; 83036; 83540; 83550; 83735; 84439; 84443; 84466; 85025